=== PATIENT | female | born 1940 | race Two or more races ===

== ENCOUNTER 2018-01-08 14:16 | Inpatient (IN) | payer OTHER, MEDICARE ==
[2018-01-08 15:49] LABS: BASO % 0.5 % (0-2.0); EOS % 0.5 % (0-4.5); HEMATOCRIT 34.5 % (32.4-45.2); LYMPH % 16.3 % (8-40); MCH 29.9 pg (25.7-33.7); MCHC 34.8 g/dl (32.0-36.0); MEAN CELL VOLUME 86.1 fl (80-96); MEAN PLT VOLUME 9.2 fl (7.5-11.1); NEUT % 77.7 % (42.8-82.8); PLATELET COUNT 241 K/MM3 (134-434); RBC 4.01 M/mm3 (3.60-5.2); RDW 12.3 % (11.6-15.6); WHITE BLOOD COUNT 10.1 K/mm3 (4.0-10.0)
--- NOTE | 2018-01-08 15:50 | PDOC ---
History of Present Illness <Isael Zee - Last Filed: 01/08/18 18:42> - General History Source: Patient Exam Limitations: No Limitations - History of Present Illness Initial Comments: 01/08/18 15:53 Patient is a 77F with history of IDDM and UTI, currently on cipro, here today complaining of slurred speech and trouble balancing. She states that yesterday at lunch she had an episode of slurred speech that resolved after about 15 minutes. She then started feeling dizzy and unbalanced after walking. She denies headache, chest pain, shortness of breath. She denies fevers, chills, nausea, vomiting. She endorses a family history of stroke. <Eitan Schuler - Last Filed: 01/08/18 18:50> - General Chief Complaint: CVA/TIA Stated Complaint: DIZZINESS Time Seen by Provider: 01/08/18 14:55 Past History <Isael Zee - Last Filed: 01/08/18 18:42> - Past Medical History COPD: No Diabetes: Yes - Suicide/Smoking/Psychosocial Hx Smoking History: Never smoked Have you smoked in the past 12 months: No Information on smoking cessation initiated: No Hx Alcohol Use: No Drug/Substance Use Hx: No <Eitan Schuler - Last Filed: 01/08/18 18:50> - Past Medical History Allergies/Adverse Reactions: Allergies Allergy/AdvReac Type Severity Reaction Status Date / Time No Known Allergies Allergy Verified 01/08/18 14:34 Review of Systems - Review of Systems Comments:: 01/08/18 15:57 GENERAL/CONSTITUTIONAL: No fever or chills. No weakness. HEAD, EYES, EARS, NOSE AND THROAT: No change in vision. No sore throat. CARDIOVASCULAR: No chest pain or shortness of breath RESPIRATORY: No cough, wheezing, or hemoptysis. GASTROINTESTINAL: No nausea, vomiting, diarrhea or constipation. GENITOURINARY: No dysuria, frequency, or change in urination. MUSCULOSKELETAL: No joint or muscle swelling or pain. No neck or back pain. SKIN: No rash NEUROLOGIC: No headache, loss of consciousness, or change in strength/sensation. HEMATOLOGIC/LYMPHATIC: No anemia, easy bleeding, or history of blood clots. ALLERGIC/IMMUNOLOGIC: No hives or skin allergy. <Eitan Schuler - Last Filed: 01/08/18 18:50> *Physical Exam - Vital Signs Last Vital Signs Temp Pulse Resp BP Pulse Ox 98.2 F 90 17 144/77 97 01/08/18 14:29 01/08/18 17:13 01/08/18 17:13 01/08/18 17:13 01/08/18 17:13 <Isael Zee - Last Filed: 01/08/18 18:42> - Vital Signs Last Vital Signs Temp Pulse Resp BP Pulse Ox 98.2 F 85 20 152/66 95 01/08/18 14:29 01/08/18 14:29 01/08/18 14:29 01/08/18 14:29 01/08/18 14:29 - Physical Exam Comments: 01/08/18 15:59 GENERAL: Awake, alert, and fully oriented, in no acute distress HEAD: No signs of trauma, normocephalic, atraumatic EYES: PERRLA, EOMI, sclera anicteric, conjunctiva clear ENT: Auricles normal inspection, hearing grossly normal, nares patent, oropharynx clear without exudates. Moist mucosa NECK: Normal ROM, supple, no lymphadenopathy, JVD, or masses LUNGS: No distress, speaks full sentences, clear to auscultation bilaterally HEART: Regular rate and rhythm, normal S1 and S2, no murmurs, rubs or gallops, peripheral pulses normal and equal bilaterally. ABDOMEN: Soft, nontender, normoactive bowel sounds. No guarding, no rebound. No masses EXTREMITIES: Normal inspection, Normal range of motion, no edema. No clubbing or cyanosis. NEUROLOGICAL: Cranial nerves II through XII grossly intact. Normal speech, no focal sensorimotor deficits SKIN: Warm, Dry, normal turgor, no rashes or lesions noted. <Eitan Schuler - Last Filed: 01/08/18 18:50> TIA Risk Factors - ABCD Score Age: Age = or > 60 Blood Pressure: SBP =/> 140 (moderate risk) Clinical Features of TIA: Speech impair w/o uni wk Duration: TIA duration 10-59 min Diabetes: Yes Total ABCD2 Score (0-7):: 5 <Eitan Schuler - Last Filed: 01/08/18 18:50> Critical Care Time/MDM Note - Medical Decision Making Note: Dr. Kumar was called regarding the patient at 5:40pm, 6pm, 6:20pm and 6:42pm [phone] <Isael Zee - Last Filed: 01/08/18 18:42> - Medical Decision Making Note: 01/08/18 16:01 Patient is a 77F with history of DM here today complaining of TIA symptoms. Vital signs stable, slightly hypertensive. Moderate risk for ABCD2 score. Differential diagnosis includes, but is not limited to: TIA, cipro reaction, UTI. Will work up and admit for TIA. EKG shows normal sinus rhythm with normal rate (87). No st elevations/ depressions. No significant t wave abnormalities. Normal QRS/QTc/NH intervals. Normal axis. 01/08/18 16:[address] shows no acute process. 01/08/18 17:27 Laboratory Tests 01/08/18 01/08/18 01/08/18 15:31 15:31 15:31 WBC 10.1 H Hgb 12.0 Hct 34.5 Plt Count 241 INR 1.06 BUN 22 H Creatinine 1.3 H Creat Clearance w eGFR 39.82 Random Glucose 447 H* Troponin I < 0.02 CBC normal. INR normal. CMP shows decreased kidney function. Glucose elevated to 447. Trop undetectable. K normal. Patient has not taken insulin today. Will give 5U insulin and fluids. No anion gap. Do not suspect DKA. 01/08/18 18:[address] Nunn. <Eitan Schuler - Last Filed: 01/08/18 18:50> Discharge Disposition <Isael Zee - Last Filed: 01/08/18 18:42> - Discharge Dispostion Admit: Yes <Eitan Schuler - Last Filed: 01/08/18 18:50> - Diagnosis TIA (transient ischemic attack) - Discharge Dispostion Condition at time of disposition: Stable - Referrals Referrals: Beatrice Carlton [Primary Care Provider] - - Patient Instructions - Post Discharge Activity
[2018-01-08 16:02] LABS: INR 1.06 (0.82-1.09)
[2018-01-08 16:12] LABS: ALBUMIN 3.2 g/dl (3.4-5.0); ANION GAP 10 (8-16); BILIRUBIN,TOTAL 0.5 mg/dL (0.2-1.0); BLOOD UREA NITROGEN 22 mg/dL (7-18); CALCIUM 8.1 mg/dL (8.5-10.1); CHLORIDE 99 mmol/L (98-107); CHOLESTEROL 206 mg/dL (50-200); CO2 23 mmol/L (21-32); CREATININE 1.3 mg/dL (0.55-1.02); LDL CHOLESTEROL (ONLY SJRH) 140 mg/dL (5-100); POTASSIUM 4.5 mmol/L (3.5-5.1); SGOT/AST 10 U/L (15-37); SGPT/ALT 21 U/L (12-78); SODIUM 132 mmol/L (136-145); TOT PROT 6.3 g/dl (6.4-8.2); TRIGLYCERIDES 202 mg/dL (35-160)
[2018-01-08 16:13] LABS: ALK PHOS 122 U/L (45-117); HDL CHOLESTEROL 38 mg/dL (40-60)
[2018-01-08 16:21] LABS: GLUCOSE,RANDOM 447 mg/dL (74-106)
[2018-01-08] MEDS ORDERED: SODIUM CHLORIDE 1,000 ML IV STA (16:59)
[2018-01-08] MEDS ORDERED: INSULIN REGULAR HUMAN 100 UNITS/ML *VIAL IVPUSH ONE (16:59)
--- NOTE | 2018-01-08 17:06 | PDOC ---
Attending Attestation - Resident Resident Name: Eitan Schuler - ED Attending Attestation I have performed the following: I have examined & evaluated the patient, The case was reviewed & discussed with the resident, I agree w/resident's findings & plan, Exceptions are as noted - HPI HPI: Ms Frazier is a 77 yo F with a history of IDDM, UTI currently on cipro reporting slurred speech Pt states that yesterday while at lunch, she had an episode of slurred speech that lasted 15 minutes and self resolved She had felt unbalanced She denies headache, chest pain, shortness of breath. She denies fevers, chills, nausea, vomiting. - Physicial Exam PE: 01/08/18 17:06 01/08/18 15:59 GENERAL: Awake, alert, and fully oriented, in no acute distress HEAD: No signs of trauma, normocephalic, atraumatic EYES: PERRLA, EOMI, sclera anicteric, conjunctiva clear ENT: Auricles normal inspection, hearing grossly normal, nares patent, oropharynx clear without exudates. Moist mucosa NECK: Normal ROM, supple, no lymphadenopathy, JVD, or masses LUNGS: No distress, speaks full sentences, clear to auscultation bilaterally HEART: Regular rate and rhythm, normal S1 and S2, no murmurs, rubs or gallops, peripheral pulses normal and equal bilaterally. ABDOMEN: Soft, nontender, normoactive bowel sounds. No guarding, no rebound. No masses EXTREMITIES: Normal inspection, Normal range of motion, no edema. No clubbing or cyanosis. NEUROLOGICAL: Cranial nerves II through XII grossly intact. Normal speech, no focal sensorimotor deficits SKIN: Warm, Dry, normal turgor, no rashes or lesions noted. - Medical Decision Making 01/08/18 17:06 77 yo female presented to emergency department with a complaint of dizziness, unsteady gait, lightheadedness No headache, No head trauma No focal weakness or numbess DD: CVA, TIA, Vertigo unlilkely Laboratory Tests 01/08/18 01/08/18 01/08/18 15:31 15:31 15:31 WBC 10.1 H Hgb 12.0 Hct 34.5 Plt Count 241 INR 1.06 Sodium 132 L Potassium 4.5 Chloride 99 Carbon Dioxide 23 BUN 22 H Creatinine 1.3 H Random Glucose 447 H* Creatine Kinase 38 Troponin I < 0.02 Triglycerides 202 H Cholesterol 206 H Total LDL Cholesterol 140 H HDL Cholesterol 38 L Will plan to admit Pt hyperglycemic Will given insulin and IV fluids Re assess Pt to be admitted Pt signed out to 4pm attending - Dr Laird Pt being followed by Dr Schuler primarily
[2018-01-08] MEDS ORDERED: INSULIN REGULAR HUMAN 100 UNITS/ML *VIAL ONE (17:16)
--- NOTE | 2018-01-08 19:05 | PDOC ---
*Physical Exam - Vital Signs Last Vital Signs Temp Pulse Resp BP Pulse Ox 98.2 F 90 17 144/77 97 01/08/18 14:29 01/08/18 17:13 01/08/18 17:13 01/08/18 17:13 01/08/18 17:13 ED Treatment Course - LABORATORY CBC & Chemistry Diagram: 01/08/18 15:31 01/08/18 15:31 - ADDITIONAL ORDERS Additional order review: Laboratory Results 01/08/18 01/08/18 15:31 15:31 PT with INR 12.00 H INR 1.06 Sodium 132 L Potassium 4.5 Chloride 99 Carbon Dioxide 23 Anion Gap 10 BUN 22 H Creatinine 1.3 H Creat Clearance w eGFR 39.82 Random Glucose 447 H* Calcium 8.1 L Total Bilirubin 0.5 AST 10 L ALT 21 Alkaline Phosphatase 122 H Creatine Kinase 38 Troponin I < 0.02 Total Protein 6.3 L Albumin 3.2 L Triglycerides 202 H Cholesterol 206 H Total LDL Cholesterol 140 H HDL Cholesterol 38 L 01/08/18 15:31 RBC 4.01 MCV 86.1 MCHC 34.8 RDW 12.3 MPV 9.2 Neutrophils % 77.7 Lymphocytes % 16.3 Monocytes % 5.0 Eosinophils % 0.5 Basophils % 0.5 - Medications Given in the ED: ED Medications Discontinued Medications Generic Name Dose Route Start Last Admin Trade Name Freq PRN Reason Stop Dose Admin Sodium Chloride 1,000 mls @ 1,000 mls/hr 01/08/18 16:59 01/08/18 17:25 Normal Saline - IV 01/08/18 17:58 1,000 mls/hr ASDIR STA Administration Insulin Human Regular 5 units 01/08/18 16:59 01/08/18 17:25 Novolin R Vial *For Ivpush Or Iv Drip Only* IVPUSH 01/08/18 17:00 5 units ONCE ONE Administration *DC/Admit/Observation/Transfer Diagnosis at time of Disposition: TIA (transient ischemic attack) Qualifiers: Transient cerebral ischemia type: unspecified Qualified Code(s): G45.9 - Transient cerebral ischemic attack, unspecified - Discharge Dispostion Condition at time of disposition: Stable Admit: Yes - Referrals Referrals: Beatrice Carlton [Primary Care Provider] - - Patient Instructions - Post Discharge Activity
--- NOTE | 2018-01-08 20:43 | HP ---
Admitting History and Physical - Admission History of Present Illness: 01/08/18 15:53 Patient is a 77F with history of IDDM and UTI, currently on cipro, here today complaining of slurred speech and trouble balancing. She states that yesterday at lunch she had an episode of slurred speech that resolved after about 15 minutes. She then started feeling dizzy and unbalanced after walking. She denies headache, chest pain, shortness of breath. She denies fevers, chills, nausea, vomiting. She endorses a family history of stroke. History Source: Medical Record, Caregiver Limitations to Obtaining History: Clinical Condition - Past Medical History Pulmonary: Yes: COPD Gastrointestinal: Yes: Constipation, GI Bleed Renal/: Yes: Renal Inusuff ...: No Endocrine: Yes: Diabetes Mellitus (since she was 51 y/o) - Past Surgical History Past Surgical History: Yes: Joint Replacement (both knees X2 / both hips / surgey on right shoulder) - Smoking History Smoking history: Never smoked Have you smoked in the past 12 months: No - Alcohol/Substance Use Hx Alcohol Use: No - Social History Usual Living Arrangement: Yes: Assisted Living ADL: Support Services History of Recent Travel: No Home Medications - Allergies Allergies/Adverse Reactions: Allergies Allergy/AdvReac Type Severity Reaction Status Date / Time diazepam Allergy Verified 01/08/18 20:33 sulfur dioxide Allergy Verified 01/08/18 20:32 Review of Systems - Review of Systems Constitutional: reports: No Symptoms. denies: Chills, Fever, Loss of Appetite, Malaise, Night Sweats Eyes: reports: No Symptoms HENT: reports: No Symptoms Neck: reports: No Symptoms Cardiovascular: reports: No Symptoms. denies: Chest Pain, Palpitations Respiratory: reports: No Symptoms. denies: Cough, SOB Gastrointestinal: reports: No Symptoms Genitourinary: reports: No Symptoms Breasts: reports: No Symptoms Reported Musculoskeletal: reports: Back Pain, Decreased ROM (upper extremeties right decreased ROM>left), Joint Pain Integumentary: reports: No Symptoms Neurological: reports: Pre-Existing Deficit, Unsteady Gait Endocrine: denies: Excessive Sweating, Increased Hunger, Increased Thirst, Unexplained Weight Gain, Unexplained Weight Loss Hematology/Lymphatic: reports: No Symptoms Psychiatric: reports: No Symptoms Physical Examination Vital Signs: Vital Signs Temperature 98.2 F 01/08/18 14:29 Pulse Rate 90 01/08/18 17:13 Respiratory Rate 17 01/08/18 17:13 Blood Pressure 144/77 01/08/18 17:13 O2 Sat by Pulse Oximetry (%) 97 01/08/18 17:13 Constitutional: Yes: Well Nourished, No Distress, Obese Eyes: Yes: Conjunctiva Clear, EOM Intact HENT: Yes: Atraumatic, Normocephalic Neck: Yes: Supple, Trachea Midline Cardiovascular: Yes: Regular Rate and Rhythm Respiratory: Yes: Regular, CTA Bilaterally Gastrointestinal: Yes: Normal Bowel Sounds, Soft, Abdomen, Obese ...Rectal Exam: Yes: Deferred Renal/: Yes: WNL Breast(s): Yes: WNL Musculoskeletal: Yes: Back Pain, Joint Stiffness, Muscle Pain, Muscle Weakness, Other (decreased ROM UE) Edema: No Peripheral Pulses WNL: Yes Integumentary: Yes: WNL Neurological: Yes: Alert, Oriented, Pre-Existing Deficit, Unsteady Gait Psychiatric: Yes: Alert, Oriented Labs: CBC, BMP 01/08/18 15:31 01/08/18 15:31 Problem List - Problems (1) Diabetes mellitus Code(s): E11.9 - TYPE 2 DIABETES MELLITUS WITHOUT COMPLICATIONS Qualifiers: Diabetes mellitus type: type 2 Diabetes mellitus complication status: with neurologic complications 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
[2018-01-08 21:11] LABS: URINE APPEARANCE SLCLOUDY; URINE BILIRUBIN NEGATIVE (NEGATIVE); URINE BLOOD 1+ (NEGATIVE); URINE COLOR LTYELLOW; URINE GLUCOSE (UA) 3+ (NEGATIVE); URINE KETONE NEGATIVE (NEGATIVE); URINE NITRITE NEGATIVE (NEGATIVE); URINE UROBILINOGEN NEGATIVE mg/dL (0.2-1.0)
[2018-01-08 21:17] LABS: URINE LEUK ESTERASE 1+ (NEGATIVE); URINE PROTEIN 2+ (NEGATIVE)
[2018-01-08 21:18] LABS: EPI CELLS RARE /HPF (FEW); URINE BACTERIA RARE /hpf (NONE SEEN); URINE HYALINE CAST 2 /lpf; URINE MUCUS RARE
[2018-01-09] MEDS: INSULIN SLIDING SCALE (NOVOLOG) 1 VIAL SQ SCH ×5 (00:08→22:04)
[2018-01-09] MEDS: DOCUSATE SODIUM 100 MG CAPSULE (FP) PO SCH ×3 (00:09→22:04)
[2018-01-09] MEDS: ATORVASTATIN CA 40 MG TABLET (FP) PO SCH ×2 (00:09→22:04)
[2018-01-09 00:29] VITALS: BMI 29.9
[2018-01-09] MEDS: BUDESONIDE/FORMETEROL FUMARATE 160/4.5 mcg INHALER IH SCH ×3 (00:29→22:04)
[2018-01-09] MEDS: risperiDONE 0.5 MG TABLET (FP) PO SCH ×2 (00:30→22:04)
[2018-01-09] MEDS ORDERED: PT OWN MED DRAWER 7, Y5N ONE ×2 (00:37→08:04)
[2018-01-09] MEDS: sitaGLIPtin PHOSPHATE 50 MG TABLET PO SCH ×2 (06:23→06:35)
[2018-01-09] MEDS: metFORMIN HCL 500 MG TABLET (FP) PO SCH ×3 (06:23→17:09)
[2018-01-09 07:13] LABS: BASO % 0.5 % (0-2.0); HEMATOCRIT 31.3 % (32.4-45.2); HEMOGLOBIN 10.9 GM/dL (10.7-15.3); LYMPH % 20.2 % (8-40); MCH 29.7 pg (25.7-33.7); MCHC 34.9 g/dl (32.0-36.0); MEAN CELL VOLUME 85.1 fl (80-96); MEAN PLT VOLUME 8.9 fl (7.5-11.1); MONO % 8.1 % (3.8-10.2); NEUT % 70.2 % (42.8-82.8); PLATELET COUNT 214 K/MM3 (134-434); RBC 3.67 M/mm3 (3.60-5.2); RDW 12.6 % (11.6-15.6); WHITE BLOOD COUNT 10.6 K/mm3 (4.0-10.0)
[2018-01-09 07:24] LABS: ALBUMIN 2.9 g/dl (3.4-5.0); ANION GAP 10 (8-16); BLOOD UREA NITROGEN 19 mg/dL (7-18); CALCIUM 7.8 mg/dL (8.5-10.1); CHLORIDE 106 mmol/L (98-107); CO2 23 mmol/L (21-32); GLUCOSE,RANDOM 270 mg/dL (74-106); MAGNESIUM 1.4 mg/dL (1.8-2.4); POTASSIUM 4.1 mmol/L (3.5-5.1); SGPT/ALT 19 U/L (12-78); SODIUM 139 mmol/L (136-145)
[2018-01-09 07:28] LABS: ALK PHOS 105 U/L (45-117); BILIRUBIN,TOTAL 0.3 mg/dL (0.2-1.0); CHOLESTEROL 199 mg/dL (50-200); CREATININE 1.1 mg/dL (0.55-1.02); HDL CHOLESTEROL 34 mg/dL (40-60); LDL CHOLESTEROL (ONLY SJRH) 133 mg/dL (5-100); SGOT/AST 9 U/L (15-37); TOT PROT 5.6 g/dl (6.4-8.2); TRIGLYCERIDES 174 mg/dL (35-160)
[2018-01-09] MEDS: ALBUTEROL SO4 2.5/IPRATROPIUM 0.5 INH SOL 3 ML VIAL.NEB. NEB SCH ×5 (07:40→20:15)
[2018-01-09] MEDS: LISINOPRIL 5 MG TABLET (FP) PO SCH (09:59)
[2018-01-09] MEDS: POLYETHYLENE GLYCOL 3350 119 GM BTL PO SCH (10:02)
[2018-01-09] MEDS: VENLAFAXINE HCL 37.5 MG E.R. CAPSULE (FP) PO SCH (10:38)
--- NOTE | 2018-01-09 14:25 | EKG ---
Test Reason : Blood Pressure : / mmHG Vent. Rate : 087 BPM Atrial Rate : 087 BPM P-R Int : 146 ms QRS Dur : 076 ms QT Int : 358 ms P-R-T Axes : 010 -14 070 degrees QTc Int : 430 ms NORMAL SINUS RHYTHM MINIMAL VOLTAGE CRITERIA FOR LVH, MAY BE NORMAL VARIANT ABNORMAL ECG NO PREVIOUS ECGS AVAILABLE Confirmed by MD Pilo, Luiz ([id number]) on 01/09/2018 2:25:05 PM Referred By: Confirmed By:Luiz Daigle MD
[2018-01-09] MEDS ORDERED: MAGNESIUM SULFATE IN WATER 2 GM/50 ML IVPB IVPB ONE (15:00)
--- NOTE | 2018-01-09 22:19 | PN ---
Progress Note (short form) - Note Progress Note: seen and examined in bed anxious about events but feels like she is "herself" admits this has happened once before reports no headache / no warning sign she reports woke up "not feeling herself" then noted difficulty with her speech at lunch room the slurred speech / muscle weakness resolved in about 90 min. (hx as per patient) Vital Signs Period Temp Pulse Resp BP Sys/Bangura Pulse Ox Last 24 Hr 98 F-99.0 F 82-88 18-20 131-172/47-88 95-95 neck supple hear S1/S2 lungs clear bilat abd obese / soft nontender ext no edema / no cyanosis / decreased sensory at feet CBCD WBC 10.6 K/mm3 (4.0-10.0) H 01/09/18 06:30 RBC 3.67 M/mm3 (3.60-5.2) 01/09/18 06:30 Hgb 10.9 GM/dL (10.7-15.3) 01/09/18 06:30 Hct 31.3 % (32.4-45.2) L 01/09/18 06:30 MCV 85.1 fl (80-96) 01/09/18 06:30 MCHC 34.9 g/dl (32.0-36.0) 01/09/18 06:30 RDW 12.6 % (11.6-15.6) 01/09/18 06:30 Plt Count 214 K/MM3 (134-434) 01/09/18 06:30 MPV 8.9 fl (7.5-11.1) 01/09/18 06:30 CMP Sodium 139 mmol/L (136-145) 01/09/18 06:30 Potassium 4.1 mmol/L (3.5-5.1) 01/09/18 06:30 Chloride 106 mmol/L (98-107) 01/09/18 06:30 Carbon Dioxide 23 mmol/L (21-32) 01/09/18 06:30 Anion Gap 10 (8-16) 01/09/18 06:30 BUN 19 mg/dL (7-18) H 01/09/18 06:30 Creatinine 1.1 mg/dL (0.55-1.02) H 01/09/18 06:30 Creat Clearance w eGFR 48.29 (>60) 01/09/18 06:30 Calcium 7.8 mg/dL (8.5-10.1) L 01/09/18 06:30 Total Bilirubin 0.3 mg/dL (0.2-1.0) D 01/09/18 06:30 AST 9 U/L (15-37) L 01/09/18 06:30 ALT 19 U/L (12-78) 01/09/18 06:30 Alkaline Phosphatase 105 U/L (45-117) 01/09/18 06:30 Total Protein 5.6 g/dl (6.4-8.2) L 01/09/18 06:30 Albumin 2.9 g/dl (3.4-5.0) L 01/09/18 06:30 A1c = 11.8 Active Medications Albuterol/Ipratropium (Duoneb -) 1 amp NEB RQID [facility] Last Admin: 01/09/18 20:15 Dose: Not Given Atorvastatin Calcium (Lipitor -) 40 mg PO [facility] Last Admin: 01/09/18 22:04 Dose: 40 mg Budesonide/Formoterol Fumarate (Symbicort 160/4.5mcg -) 2 puff IH BID [facility] Last Admin: 01/09/18 22:04 Dose: 2 puff Docusate Sodium (Colace -) 100 mg PO BID [facility] Last Admin: 01/09/18 22:04 Dose: 100 mg Insulin Aspart (Novolog Vial Sliding Scale -) 1 vial SQ ACHS [facility] PRN Reason: Protocol Last Admin: 01/09/18 22:04 Dose: 4 units Lisinopril (Prinivil) 5 mg PO DAILY [facility] Last Admin: 01/09/18 09:59 Dose: 5 mg Metformin HCl (Glucophage -) 1,000 mg PO BID@0700,1630 [facility] Last Admin: 01/09/18 17:09 Dose: 1,000 mg Polyethylene Glycol (Miralax (For Daily Use) -) 17 gm PO DAILY [facility] Last Admin: 01/09/18 10:02 Dose: 17 gm Risperidone (Risperdal -) 0.5 mg PO [facility] Last Admin: 01/09/18 22:04 Dose: 0.5 mg Sitagliptin Phosphate (Januvia -) 100 mg PO DAILY@0700 [facility] Last Admin: 01/09/18 06:35 Dose: Not Given Venlafaxine HCl (Effexor Xr -) 37.5 mg PO DAILY@0800 [facility] Last Admin: 01/09/18 10:38 Dose: 37.5 mg assmt / plan # TIA appreciate Neuro eval CT without acute finding speech eval physical therapy # DM uncontrolled sliddig scale resume meds A1c 11.8 nutrition counseling Add ACEi add statins fasting lipids # neuropathy 2/2 to DM # obese if maintains DM diet will lose weight discussed diet extensively with patient Problem List - Problems (1) TIA (transient ischemic attack) Code(s): G45.9 - TRANSIENT CEREBRAL ISCHEMIC ATTACK, UNSPECIFIED Qualifiers: Transient cerebral ischemia type: unspecified Qualified Code(s): G45.9 - Transient cerebral ischemic attack, unspecified (2) Diabetes mellitus Code(s): E11.9 - TYPE 2 DIABETES MELLITUS WITHOUT COMPLICATIONS Qualifiers: Diabetes mellitus type: type 2 Diabetes mellitus complication status: with neurologic complications 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
[2018-01-10] MEDS: INSULIN SLIDING SCALE (NOVOLOG) 1 VIAL SQ SCH ×5 (06:28→22:33)
[2018-01-10] MEDS: metFORMIN HCL 500 MG TABLET (FP) PO SCH ×2 (06:30→18:10)
[2018-01-10] MEDS: sitaGLIPtin PHOSPHATE 50 MG TABLET PO SCH (06:30)
[2018-01-10 07:03] LABS: BASO % 0.6 % (0-2.0); HEMATOCRIT 30.7 % (32.4-45.2); HEMOGLOBIN 10.7 GM/dL (10.7-15.3); LYMPH % 22.9 % (8-40); MCH 29.6 pg (25.7-33.7); MCHC 34.9 g/dl (32.0-36.0); MEAN CELL VOLUME 84.8 fl (80-96); MEAN PLT VOLUME 8.3 fl (7.5-11.1); MONO % 7.2 % (3.8-10.2); NEUT % 68.3 % (42.8-82.8); PLATELET COUNT 224 K/MM3 (134-434); RBC 3.63 M/mm3 (3.60-5.2); RDW 12.7 % (11.6-15.6); WHITE BLOOD COUNT 10.5 K/mm3 (4.0-10.0)
[2018-01-10 07:21] LABS: ANION GAP 9 (8-16); BLOOD UREA NITROGEN 23 mg/dL (7-18); CALCIUM 8.2 mg/dL (8.5-10.1); CHLORIDE 104 mmol/L (98-107); CO2 24 mmol/L (21-32); CREATININE 1.1 mg/dL (0.55-1.02); GLUCOSE,RANDOM 298 mg/dL (74-106); POTASSIUM 4.6 mmol/L (3.5-5.1); SODIUM 137 mmol/L (136-145)
[2018-01-10] MEDS: ALBUTEROL SO4 2.5/IPRATROPIUM 0.5 INH SOL 3 ML VIAL.NEB. NEB SCH ×4 (08:17→21:30)
[2018-01-10] MEDS: VENLAFAXINE HCL 37.5 MG E.R. CAPSULE (FP) PO SCH (09:18)
[2018-01-10] MEDS: BUDESONIDE/FORMETEROL FUMARATE 160/4.5 mcg INHALER IH SCH ×2 (09:18→21:25)
[2018-01-10] MEDS: POLYETHYLENE GLYCOL 3350 119 GM BTL PO SCH (09:18)
[2018-01-10] MEDS: DOCUSATE SODIUM 100 MG CAPSULE (FP) PO SCH ×2 (09:18→21:17)
[2018-01-10] MEDS: LISINOPRIL 5 MG TABLET (FP) PO SCH (09:18)
--- NOTE | 2018-01-10 12:58 | PN ---
Progress Note (short form) - Note Progress Note: seen and examined in bed appears back to baseline Vital Signs Period Temp Pulse Resp BP Sys/Bangura Pulse Ox Last 24 Hr 98 F-99.0 F 82-88 18-20 131-172/47-88 95-95 neck supple hear S1/S2 lungs clear bilat abd obese / soft nontender ext no edema / no cyanosis / decreased sensory at feet CBCD WBC 10.5 K/mm3 (4.0-10.0) H 01/10/18 05:05 RBC 3.63 M/mm3 (3.60-5.2) 01/10/18 05:05 Hgb 10.7 GM/dL (10.7-15.3) 01/10/18 05:05 Hct 30.7 % (32.4-45.2) L 01/10/18 05:05 MCV 84.8 fl (80-96) 01/10/18 05:05 MCHC 34.9 g/dl (32.0-36.0) 01/10/18 05:05 RDW 12.7 % (11.6-15.6) 01/10/18 05:05 Plt Count 224 K/MM3 (134-434) 01/10/18 05:05 MPV 8.3 fl (7.5-11.1) 01/10/18 05:05 CMP Sodium 137 mmol/L (136-145) 01/10/18 05:05 Potassium 4.6 mmol/L (3.5-5.1) 01/10/18 05:05 Chloride 104 mmol/L (98-107) 01/10/18 05:05 Carbon Dioxide 24 mmol/L (21-32) 01/10/18 05:05 Anion Gap 9 (8-16) 01/10/18 05:05 BUN 23 mg/dL (7-18) H 01/10/18 05:05 Creatinine 1.1 mg/dL (0.55-1.02) H 01/10/18 05:05 Creat Clearance w eGFR 48.29 (>60) 01/09/18 06:30 Calcium 8.2 mg/dL (8.5-10.1) L 01/10/18 05:05 Total Bilirubin 0.3 mg/dL (0.2-1.0) D 01/09/18 06:30 AST 9 U/L (15-37) L 01/09/18 06:30 ALT 19 U/L (12-78) 01/09/18 06:30 Alkaline Phosphatase 105 U/L (45-117) 01/09/18 06:30 Total Protein 5.6 g/dl (6.4-8.2) L 01/09/18 06:30 Albumin 2.9 g/dl (3.4-5.0) L 01/09/18 06:30 A1c = 11.8 Active Medications Albuterol/Ipratropium (Duoneb -) 1 amp NEB RQID [facility]S [facility] 234 BEDS AT [facility] Last Admin: 01/10/18 11:39 Dose: Not Given Atorvastatin Calcium (Lipitor -) 40 mg PO HS COUNTS INCLUDE 234 BEDS AT [facility] Last Admin: 01/09/18 22:04 Dose: 40 mg Budesonide/Formoterol Fumarate (Symbicort 160/4.5mcg -) 2 puff IH BID COUNTS [facility]CLUDE 234 BEDS AT [facility] Last Admin: 01/10/18 09:18 Dose: 2 puff Docusate Sodium (Colace -) 100 mg PO BID [facility]S [facility]CLUDE 234 BEDS AT [facility] Last Admin: 01/10/18 09:18 Dose: 100 mg Insulin Aspart (Novolog Vial Sliding Scale -) 1 vial SQ ACHS [facility]S [facility]CLUDE 234 BEDS AT [facility] PRN Reason: Protocol Last Admin: 01/10/18 06:28 Dose: 4 units Lisinopril (Prinivil) 5 mg PO DAILY [facility]S [facility]CLUDE 234 BEDS AT [facility] Last Admin: 01/10/18 09:18 Dose: 5 mg Metformin HCl (Glucophage -) 1,000 mg PO BID@0700,1630 COUNTS [facility]CLUDE 234 BEDS AT [facility] Last Admin: 01/10/18 06:30 Dose: 1,000 mg Polyethylene Glycol (Miralax (For Daily Use) -) 17 gm PO DAILY [facility]S [facility]CLUDE 234 BEDS AT [facility] Last Admin: 01/10/18 09:18 Dose: Not Given Risperidone (Risperdal -) 0.5 mg PO HS COUNTS [facility]CLUDE 234 BEDS AT [facility] Last Admin: 01/09/18 22:04 Dose: 0.5 mg Sitagliptin Phosphate (Januvia -) 100 mg PO DAILY@0700 [facility]S [facility]CLUDE 234 BEDS AT [facility] Last Admin: 01/10/18 06:30 Dose: 100 mg Venlafaxine HCl (Effexor Xr -) 37.5 mg PO DAILY@0800 COUNTS [facility]CLUDE 234 BEDS AT [facility] Last Admin: 01/10/18 09:18 Dose: 37.5 mg assmt / plan # TIA await Neuro eval CT without acute finding/ MRI ordered physical therapy - unsteady gait # DM uncontrolled sliding scale resume meds A1c 11.8 nutrition counseling Add ACEi add statins fasting lipids # neuropathy 2/2 to DM # obese if maintains DM diet will lose weight discussed diet extensively with patient accepting nutrition counseling / improved FS Problem List - Problems (1) TIA (transient ischemic attack) Code(s): G45.9 - TRANSIENT CEREBRAL ISCHEMIC ATTACK, UNSPECIFIED Qualifiers: Transient cerebral ischemia type: unspecified Qualified Code(s): G45.9 - Transient cerebral ischemic attack, unspecified (2) Diabetes mellitus Code(s): E11.9 - TYPE 2 DIABETES MELLITUS WITHOUT COMPLICATIONS Qualifiers: Diabetes mellitus type: type 2 Diabetes mellitus complication status: with neurologic complications Diabetes 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
--- NOTE | 2018-01-10 16:50 | CONSULT ---
Consult - text type - Consultation Consultation Note: NEUROLOGY CONSULTATION is greatly appreciated: This 77 yo RH woman with 2 sons is a [facility] with PMH sig for DM (20 yrs), HTN, Chol, and depression. OA: s/p B/L TKR and THR. Has walked with a walker x 4 yrs since her Left THR. On albuterol, atorvastatin, insulin, lisinopril, metformin, Januvia, venlafaxine and respiral (.5 HS). Recently on Cipro for UTI (4 pills left at [facility] On 3/5 felt unwell, unsteady, and had 2 20 min episodes of slurred speech +/- word finding difficulty. In ER CT of head (reviewed): Mild atrophy and scattered microvascular changes. Glucose= 447 mg%; WBC= 10 K; Urine WBC= 39K JUN: No bruits, No head trauma, Cor:Reg NEURO: Awake, alert, O x 3. MS/ speech : Normal CN II-XII: Normal Motor: No drift (But mild right arm dystonia on sustention). Normal strenght. Reduced KJ's. Absent AJ's. Toes downgoing. Coord: No FTN Dystaxia Sensory: Reduced vib in toes. Normal at ankles. Romberg- Gait: Sl wide-based, sl shuffling. IMP: Non-focal neurological exam Mild diabetic peripheral neuropathy Cannot full exclude left cerebral TIA but strongly suspect admission was due to Toxic-Meteabolic encephalopathy due to UTI and hyperglycemia. SUGGEST: Repeat UA, C&S and Rx IV while patient is here. ID consult if desired. Check B12, TSH MRI of brain (C-) Carotid duplex dopplers Mobilize Pt OO Bed to chair and ambulate with PT and walker. Thank you very much, Kaz Pedersen MD
[2018-01-10 19:26] LABS: URINE APPEARANCE CLEAR; URINE BILIRUBIN NEGATIVE (NEGATIVE); URINE BLOOD 2+ (NEGATIVE); URINE COLOR LTYELLOW; URINE GLUCOSE (UA) 3+ (NEGATIVE); URINE KETONE NEGATIVE (NEGATIVE); URINE LEUK ESTERASE TRACE (NEGATIVE); URINE NITRITE NEGATIVE (NEGATIVE); URINE UROBILINOGEN NEGATIVE mg/dL (0.2-1.0)
[2018-01-10 20:47] LABS: URINE PROTEIN 2+ (NEGATIVE)
[2018-01-10] MEDS: ATORVASTATIN CA 40 MG TABLET (FP) PO SCH (21:17)
[2018-01-10 21:18] LABS: EPI CELLS RARE /HPF (FEW)
[2018-01-10] MEDS ORDERED: PT OWN MED DRAWER 7, Y5N ONE (21:20)
[2018-01-10] MEDS: risperiDONE 0.5 MG TABLET (FP) PO SCH (21:25)
[2018-01-11] MEDS: sitaGLIPtin PHOSPHATE 50 MG TABLET PO SCH (06:26)
[2018-01-11] MEDS: metFORMIN HCL 500 MG TABLET (FP) PO SCH ×2 (06:26→17:02)
[2018-01-11] MEDS: INSULIN SLIDING SCALE (NOVOLOG) 1 VIAL SQ SCH ×4 (06:27→21:47)
[2018-01-11] MEDS: ALBUTEROL SO4 2.5/IPRATROPIUM 0.5 INH SOL 3 ML VIAL.NEB. NEB SCH ×4 (07:26→20:46)
[2018-01-11] MEDS: BUDESONIDE/FORMETEROL FUMARATE 160/4.5 mcg INHALER IH SCH ×2 (10:57→21:25)
[2018-01-11] MEDS ORDERED: LOPERAMIDE HCL 2 MG CAPSULE PO PRN (10:57)
[2018-01-11] MEDS ORDERED: PT OWN MED DRAWER 7, Y5N ONE (11:02)
[2018-01-11] MEDS: DOCUSATE SODIUM 100 MG CAPSULE (FP) PO SCH ×2 (11:03→21:28)
[2018-01-11] MEDS: POLYETHYLENE GLYCOL 3350 119 GM BTL PO SCH (11:03)
[2018-01-11] MEDS: VENLAFAXINE HCL 37.5 MG E.R. CAPSULE (FP) PO SCH (11:03)
[2018-01-11] MEDS: LISINOPRIL 5 MG TABLET (FP) PO SCH (11:04)
[2018-01-11] MEDS: ATORVASTATIN CA 40 MG TABLET (FP) PO SCH (21:27)
[2018-01-11] MEDS: risperiDONE 0.5 MG TABLET (FP) PO SCH (21:27)
[2018-01-12] MEDS: metFORMIN HCL 500 MG TABLET (FP) PO SCH (06:17)
[2018-01-12] MEDS: sitaGLIPtin PHOSPHATE 50 MG TABLET PO SCH (06:17)
[2018-01-12] MEDS: INSULIN SLIDING SCALE (NOVOLOG) 1 VIAL SQ SCH ×2 (06:17→11:41)
[2018-01-12 07:05] LABS: ANION GAP 12 (8-16); BLOOD UREA NITROGEN 25 mg/dL (7-18); CHLORIDE 103 mmol/L (98-107); CO2 22 mmol/L (21-32); POTASSIUM 4.7 mmol/L (3.5-5.1); SODIUM 137 mmol/L (136-145)
[2018-01-12 07:09] LABS: CREATININE 1.2 mg/dL (0.55-1.02)
[2018-01-12 07:12] LABS: GLUCOSE,RANDOM 313 mg/dL (74-106)
[2018-01-12] MEDS: ALBUTEROL SO4 2.5/IPRATROPIUM 0.5 INH SOL 3 ML VIAL.NEB. NEB SCH ×2 (07:32→11:28)
[2018-01-12] MEDS: BUDESONIDE/FORMETEROL FUMARATE 160/4.5 mcg INHALER IH SCH (09:55)
[2018-01-12] MEDS: DOCUSATE SODIUM 100 MG CAPSULE (FP) PO SCH (09:55)
[2018-01-12] MEDS: LISINOPRIL 5 MG TABLET (FP) PO SCH (09:55)
[2018-01-12] MEDS: VENLAFAXINE HCL 37.5 MG E.R. CAPSULE (FP) PO SCH (09:55)
[2018-01-12] MEDS: POLYETHYLENE GLYCOL 3350 119 GM BTL PO SCH (10:03)
[2018-01-12] MEDS ORDERED: PT OWN MED DRAWER 7, Y5N ONE (10:09)
[2018-01-12 10:32] VITALS: BP 111/52; PULSE 84; TEMP 98.5
--- NOTE | 2018-01-12 10:58 | DS ---
Physical Examination Vital Signs: Vital Signs Temperature 98.5 F 01/12/18 10:00 Pulse Rate 84 01/12/18 10:00 Respiratory Rate 20 01/12/18 10:00 Blood Pressure 111/52 01/12/18 10:00 O2 Sat by Pulse Oximetry (%) 95 01/12/18 09:00 Findings/Remarks: This 77 yo RH woman with 2 sons is a [facility] with PMH sig for DM (20 yrs), HTN, Chol, and depression. OA: s/p B/L TKR and THR. Has walked with a walker x 4 yrs since her Left THR. On albuterol, atorvastatin, insulin, lisinopril, metformin, Januvia, venlafaxine and respiral (.5 HS). Recently on Cipro for UTI (4 pills left at [facility]). On 3/ felt unwell, unsteady, and had 2 20 min episodes of slurred speech +/- word finding difficulty. In ER CT of head (reviewed): Mild atrophy and scattered microvascular changes. Glucose= 447 mg%; WBC= 10 K; Urine WBC= 39K She had MRI and carotid dopplers during hospital stay - no acute findings per Neuro opinion: IMP: Non-focal neurological exam Mild diabetic peripheral neuropathy Cannot full exclude left cerebral TIA but strongly suspect admission was due to Toxic-Meteabolic encephalopathy due to UTI and hyperglycemia. In view of opinion will not proceed with A/C as risk outweight benefits She was also seen by Nutrition / with strong emphasis on diet education and compliance Constitutional: Yes: Well Nourished, No Distress, Obese Eyes: Yes: Conjunctiva Clear, EOM Intact HENT: Yes: Atraumatic, Normocephalic Neck: Yes: Supple, Trachea Midline Cardiovascular: Yes: Regular Rate and Rhythm Respiratory: Yes: CTA Bilaterally Gastrointestinal: Yes: Normal Bowel Sounds, Soft, Abdomen, Obese ...Rectal Exam: Yes: Deferred Renal/: Yes: WNL Breast(s): Yes: WNL Musculoskeletal: Yes: WNL, Muscle Weakness Extremities: Yes: WNL Edema: No Peripheral Pulses WNL: Yes Wound/Incision: Yes: Other (well healed scars fro TKR and THR bilaterally -- distant hx) Neurological: Yes: Alert, Oriented, Pre-Existing Deficit, Unsteady Gait Psychiatric: Yes: Alert, Oriented Labs: CBC, BMP 01/10/18 05:05 01/12/18 06:15 Discharge Summary Reason For Visit: TRANSIENT CEREBRAL ISCHEMIA Current Active Problems Diabetes mellitus (Acute) Diabetes mellitus type 2 in obese (Acute) Morbidly obese (Acute) Neuropathy associated with endocrine disorder (Acute) TIA (transient ischemic attack) (Acute) Condition: Stable - Instructions Referrals: Beatrice Carlton [Primary Care Provider] - Disposition: HOME
== END 2018-01-12 13:45 | disposition home or self-care (01) | DRG 637 ==
LOC: JER 14:16 → JERBED 19:05 → J4W 23:46
PROVIDERS: ADMIT Family Medicine; ATTEND Family Medicine
DX: E11.65 Type 2 diabetes mellitus with hyperglycemia (principal); G93.41 Metabolic encephalopathy; N39.0 Urinary tract infection, site not specified; G45.9 Transient cerebral ischemic attack, unspecified; R47.81 Slurred speech; J44.9 Chronic obstructive pulmonary disease, unspecified; Z96.653 Presence of artificial knee joint, bilateral; Z96.643 Presence of artificial hip joint, bilateral; E66.9 Obesity, unspecified; Z68.30 Body mass index [BMI] 30.0-30.9, adult; E11.42 Type 2 diabetes mellitus with diabetic polyneuropathy; E78.00 Pure hypercholesterolemia, unspecified; F32.9 Major depressive disorder, single episode, unspecified; Z79.4 Long term (current) use of insulin
CPT/HCPCS: 36415; 70450-TC; 70551-TC; 71045-TC-FY; 80048; 80053; 80061; 81003; 81015; 82465; 82550; 82962; 83036; 83718; 83721; 83735; 84478; 84484; 85025; 85610; 87086; 93005; 93010; 93880-TC; 94640; 97116-GP; 97161-GP; 99284-25

== ENCOUNTER 2018-02-22 10:32 | Inpatient (IN) | payer OTHER, MEDICARE ==
--- NOTE | 2018-02-22 10:38 | PDOC ---
Attending Attestation - Resident Resident Name: Kavon Benton - ED Attending Attestation I have performed the following: I have examined & evaluated the patient, The case was reviewed & discussed with the resident, I agree w/resident's findings & plan, Exceptions are as noted - HPI HPI: 02/22/18 11:30 77F hx of HL, htn, dm, hx of recent tia presents with hand weakness this morning. Pt states that she woke up and found that her 'hands didn't work right ' bilaterally - lasted until shortly after she was called EMS, currently is asypmtomatic. exam unremarkble. n associated palpitations, cp, sob, headache, dizzines,s vision changes, gait disturbances (uses a walker at baseline), fever/ chills, dysuria, frequency. exam at baseline - strength symmetric/intact in upper/lower extremities no facial assymetry sensation intact pts prior MRI +for cluster of small acute infarctions in the left pariea lobe consider possiblely tia will dw pmd and neurology - Physicial Exam PE: 02/27/18 08:20 see abobve - Medical Decision Making 02/22/18 12:10 csae abeba barcenas agree with concern for possibly another TIA in light of mri results ?PAF ekg NSR here will place on monitor anticipate admission/observation 02/22/18 14:[address] noted for acute/subacute findings will place in obs for MRI for further management Heart Score/ECG Review - ECG Impressions Comment:: 02/22/18 12:12 Twelve-lead EKG was performed and reviewed by me. There is normal sinus rhythm with a normal rate. rate of 87 The axis is normal. The intervals are normal. There is normal R wave progression There are no ST or T wave abnormalities. Impression: Normal twelve-lead EKG
[2018-02-22 10:40] VITALS: BMI 28.6
--- NOTE | 2018-02-22 11:01 | PDOC ---
History of Present Illness - General Chief Complaint: Weakness Stated Complaint: WEAKNESS Time Seen by Provider: 02/22/18 10:34 History Source: Patient Exam Limitations: No Limitations - History of Present Illness Initial Comments: 02/22/18 10:52 The patient is a 77F with a PMH of TIA and DM who presents to the ER with complaints of unsteady gait and b/l weakness in her arms and hands. The patient states that she was last well at [id number] when she walked to the bathroom and felt fine. She woke up at 0930, then felt her gait was unsteady and that she had difficulty coordinating her hands with difficulty grasping objects (a combination of weakness of coordination). She denies any numbness or tingling, changes in vision, CP, SOB, abdominal pain, fever, chills. tPA Exclusion checklist 3-4.5h - Time Elapsed Date last known well: 02/22/18 Time last known well: 02:30 Elaspsed time: Day(s) and 10 Hour(s) and 36 Minutes - Thrombolytic Therapy Candidate Is patient eligible for thrombolytic therapy: No - Ineligibility reason(s) Reasons No tPA given: Outside of window - delayed arrival NIH Stroke Scale - Last Known Well Date/Time & Onset Date Last Known Well: 02/22/18 Time Last Known Well: 02:30 - Initial Evaluation Level of consciousness: Alert Ask patient the month and their age: Answers both correctly Ask patient to open & close eyes; make fist and let go: Obeys both correctly Best gaze (horizontal eye movement): Normal Visual field testing: No visual field loss Facial paresis (Show teeth/raise eyebrows/close eyes tight): Normal symmetrical movement Motor Function: Left Arm: Normal Motor Function: Right Arm: Normal (extends arm 90 (or 45) degrees for 10 seconds without drift Motor Function: Left Leg: Normal (extends leg 30 degrees for 5 seconds without drift) Motor Function: Right Leg: Normal (extends leg 30 degrees for 5 seconds without drift) Limb Ataxia: No ataxia Sensory(Use pinprick test arms,legs,trunk,face/side to side): Normal Best language (Describe picture, name items, read sentences): No Aphasia Dysarthria (read several words): Normal articulation Extinction and Inattention: No abnormality - Total Score NIH Stroke Scale Score: 0 Past History - Past Medical History Allergies/Adverse Reactions: Allergies Allergy/AdvReac Type Severity Reaction Status Date / Time diazepam Allergy Verified 02/22/18 10:34 sulfur dioxide Allergy Verified 02/22/18 10:34 Home Medications: Ambulatory Orders Atorvastatin Ca [Lipitor] 40 mg PO HS 30 Days #30 tablet 01/12/18 Lisinopril [Prinivil] 5 mg PO DAILY 30 Days #30 tablet 01/12/18 metFORMIN HCL [Glucophage -] 500 mg PO BID@0700,1630 02/22/18 COPD: Yes Diabetes: Yes - Suicide/Smoking/Psychosocial Hx Smoking History: Never smoked Have you smoked in the past 12 months: No Information on smoking cessation initiated: No Hx Alcohol Use: No Drug/Substance Use Hx: No Substance Use Type: None Review of Systems - Review of Systems Able to Perform ROS?: Yes Comments:: 02/22/18 11:01 GENERAL/CONSTITUTIONAL: No fever or chills. No weakness. HEAD, EYES, EARS, NOSE AND THROAT: No change in vision. No ear pain or discharge. No sore throat. CARDIOVASCULAR: No chest pain, palpitations, or lightheadedness. RESPIRATORY: No cough, wheezing, shortness of breath, or hemoptysis. GASTROINTESTINAL: No nausea, vomiting, diarrhea, constipation, or abdominal pain. GENITOURINARY: No dysuria, frequency, hematuria, or change in urination. MUSCULOSKELETAL: No joint or muscle swelling or pain. No neck or back pain. SKIN: No rash or lesions. NEUROLOGIC: Positive for unsteady gait, weakness and coordination in hands. No headache, numbness, tingling, loss of consciousness, or change in sensation. ENDOCRINE: No increased thirst. No abnormal weight change. HEMATOLOGIC/LYMPHATIC: No anemia, easy bleeding, or history of blood clots. ALLERGIC/IMMUNOLOGIC: No hives or skin allergy. Is the patient limited [place] proficient: No *Physical Exam - Vital Signs Last Vital Signs Temp Pulse Resp BP Pulse Ox 97.8 F 94 H 20 125/63 92 L 02/22/18 10:35 02/22/18 10:35 02/22/18 10:35 02/22/18 10:35 02/22/18 10:35 - Physical Exam Comments: 02/22/18 11:07 GENERAL: Well developed, well nourished. Awake and alert. No acute distress. HEENT: Normocephalic, atraumatic. Hearing grossly normal. Moist mucous membranes. PERRLA, EOMI. No conjunctival pallor. Sclera are non-icteric. NECK: Supple. Full ROM. No JVD. CARDIOVASCULAR: Regular rate and rhythm. No murmurs, rubs, or gallops. PULMONARY: No evidence of respiratory distress. Lungs clear to auscultation bilaterally. No wheezing, rales or rhonchi. ABDOMINAL: Soft. Non-tender. Non-distended. No rebound or guarding. MUSCULOSKELETAL: Normal range of motion at all joints. No bony deformities or tenderness. EXTREMITIES: No cyanosis. No clubbing. No edema. No calf tenderness. SKIN: Warm and dry. Normal capillary refill. No rashes. No jaundice. NEUROLOGICAL: Alert, awake, appropriate. Cranial nerves 2-12 intact. No deficits to light touch and temperature in face, upper extremities and lower extremities. No motor deficits in the in face, upper extremities and lower extremities. Finger to nose abnormal on R side, intentional tremor noted. Normal speech. Gait is unsteady. PSYCHIATRIC: Cooperative. Good eye contact. Appropriate mood and affect. ED Treatment Course - LABORATORY CBC & Chemistry Diagram: 02/22/18 10:50 02/22/18 10:50 - RADIOLOGY Radiology Studies Ordered: Category Date Time Status HEAD CT (STROKE) [CT] Stat CT Scan 02/22/18 10:39 Ordered Medical Decision Making - Medical Decision Making 02/22/18 11:09 The patient is a 77F with a PMH of DM who presents after having an acute onset of weakness/lack of coordination in her hands. Last known well is [id number] this morning. The patient is out of the code brown window. However, I will reorder a stroke order set including a stroke CT. Will monitor the patient closely. The patient has a NIHSS of 0. I did note an intentional tremor with finger to nose but no weakness in UE or LE b/l. 02/22/18 12:44 All labs and UA WNL. CT read: IMPRESSION: Interval wedge-shaped focal area of acute/subacute infarct in the right parietal lobe extending to the parieto-occipital junction measuring approximately 3 x 2.2 cm without evidence of acute intracranial hemorrhage. Follow-up is needed Will discuss with neurology. 02/22/18 12:46 Dr. Manriquez has called back and suggests asa 81 and 75 plavix. Cards consults, tele admit, and d/c lisinopril. 02/22/18 12:53 Dr. Kumar paged for admission. 02/22/18 13:06 I have endorsed the patient to [facility] for admission under Dr. Kumar. They request Dr. Capellan for cards. Order for admission placed. *DC/Admit/Observation/Transfer Diagnosis at time of Disposition: CVA (cerebral vascular accident) Qualifiers: CVA mechanism: unspecified Qualified Code(s): I63.9 - Cerebral infarction, unspecified - Discharge Dispostion Condition at time of disposition: Stable Admit: Yes - Referrals - Patient Instructions - Post Discharge Activity
[2018-02-22 11:05] LABS: URINE APPEARANCE CLEAR; URINE BILIRUBIN NEGATIVE (<2.0 mg/dL); URINE COLOR YELLOW; URINE GLUCOSE (UA) NEGATIVE (NEGATIVE); URINE KETONE NEGATIVE (NEGATIVE); URINE LEUK ESTERASE NEGATIVE (NEGATIVE); URINE NITRITE NEGATIVE (NEGATIVE); URINE UROBILINOGEN NEGATIVE mg/dL (0.2-1.0)
[2018-02-22 11:09] LABS: BASO % 0.7 % (0-2.0); EOS % 0.6 % (0-4.5); EPI CELLS RARE /HPF (FEW); HEMATOCRIT 34.8 % (32.4-45.2); HEMOGLOBIN 11.9 GM/dL (10.7-15.3); LYMPH % 14.5 % (8-40); MCH 28.9 pg (25.7-33.7); MCHC 34.2 g/dl (32.0-36.0); MEAN CELL VOLUME 84.7 fl (80-96); MEAN PLT VOLUME 8.3 fl (7.5-11.1); MONO % 5.9 % (3.8-10.2); NEUT % 78.3 % (42.8-82.8); PLATELET COUNT 242 K/MM3 (134-434); RBC 4.11 M/mm3 (3.60-5.2); RDW 13.3 % (11.6-15.6); URINE BACTERIA RARE /hpf (NONE SEEN); URINE MUCUS RARE; URINE PROTEIN 1+ (NEGATIVE)
[2018-02-22 11:21] LABS: INR 1.07 (0.82-1.09); PROTHROMBIN TIME (PATIENT) 12.1 SEC (9.98-11.88)
[2018-02-22] MEDS ORDERED: ASPIRIN 81 MG CHEWABLE TABLETS PO ONE ×2 (11:29→12:52)
[2018-02-22 11:31] LABS: ALBUMIN 3.2 g/dl (3.4-5.0); ANION GAP 7 (8-16); BILIRUBIN,TOTAL 0.4 mg/dL (0.2-1.0); BLOOD UREA NITROGEN 11 mg/dL (7-18); CALCIUM 7.9 mg/dL (8.5-10.1); CHLORIDE 107 mmol/L (98-107); CHOLESTEROL 97 mg/dL (50-200); CO2 25 mmol/L (21-32); CREATININE 1.1 mg/dL (0.55-1.02); GLUCOSE,RANDOM 137 mg/dL (74-106); SGPT/ALT 27 U/L (12-78); SODIUM 139 mmol/L (136-145); TOT PROT 6.1 g/dl (6.4-8.2); TRIGLYCERIDES 99 mg/dL (35-160)
[2018-02-22 11:32] LABS: ALK PHOS 104 U/L (45-117); HDL CHOLESTEROL 41 mg/dL (40-60)
[2018-02-22 11:43] LABS: POTASSIUM 4.7 mmol/L (3.5-5.1); SGOT/AST 28 U/L (15-37)
[2018-02-22] MEDS ORDERED: ASPIRIN 81 MG CHEWABLE TABLETS ONE ×2 (12:47→13:00)
[2018-02-22] MEDS ORDERED: CLOPIDOGREL BISULFATE 75 MG TABLET (FP) PO ONE (12:53)
[2018-02-22] MEDS ORDERED: CLOPIDOGREL BISULFATE 75 MG TABLET (FP) ONE (13:00)
--- NOTE | 2018-02-22 14:50 | EKG ---
Test Reason : Blood Pressure : / mmHG Vent. Rate : 087 BPM Atrial Rate : 087 BPM P-R Int : 140 ms QRS Dur : 072 ms QT Int : 364 ms P-R-T Axes : -11 -10 044 degrees QTc Int : 438 ms NORMAL SINUS RHYTHM NORMAL ECG WHEN COMPARED WITH ECG OF 08-JAN-2018 15:27, NO SIGNIFICANT CHANGE WAS FOUND Confirmed by LEE BUSBY MD ([id number]) on 02/22/2018 2:49:40 PM Referred By: Confirmed By:LEE BUSBY MD
--- NOTE | 2018-02-22 16:24 | CON.CARD ---
Cardiology Consult (text) - Consultation Consultation Note: CC: CVA 77 yo with h/o IDDM, copd, ckd, depression with hx of hospitalization and electric shock therapy (now in remission), possible prior gib and recent uti last month as well as admission last month for transient slurred speech/ unsteady gait (Toxic-Meteabolic encephalopathy vs. 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 Pt states that she woke up and found that both hands didn't work right. she states that she was having difficulty with fine motor control, unable to use a spoon to eat her cereal. She states that both hands were affected. Patient states that it felt as if her symptoms lasted an hour, but per family, symptoms only lasted 15 minutes. No recurrence. No associated sx's. s/p full dose asa and plavix in ER. She denies chest pain, shortness of breath,palpitations, dizziness. . She denies fevers, chills, nausea, vomiting, headache pmhx/pshx: per hpi, Joint Replacement (both knees X2 / both hips), right shoulder surgery social hx: Never smoked family hx: family history of stroke. ros: per [facility] Ambulatory Orders Atorvastatin Ca [Lipitor] 40 mg PO HS 30 Days #30 tablet 01/12/18 Lisinopril [Prinivil] 5 mg PO DAILY 30 Days #30 tablet 01/12/18 metFORMIN HCL [Glucophage -] 500 mg PO BID@0700,1630 02/22/18 Vital Signs - 24 hr 02/22/18 02/22/18 02/22/18 10:35 11:00 11:01 Temperature 97.8 F Pulse Rate 94 H 88 Pulse Rate [ 89 Apical] Respiratory 20 18 Rate Blood Pressure 125/63 Blood Pressure 133/68 [Left Arm] O2 Sat by Pulse 92 L 97 97 Oximetry (%) 02/22/18 14:37 Temperature Pulse Rate Pulse Rate [ 71 Apical] Respiratory 18 Rate Blood Pressure Blood Pressure 130/61 [Left Arm] O2 Sat by Pulse 99 Oximetry (%) Intake & Output 02/20/18 02/21/18 02/22/18 02/23/18 07:59 07:59 07:59 07:59 Weight 172 lb nad, calm jvd flat, neck supple ctab, nl effort rrr nl s1, s2 1/6 sys murmur at sternal border. pmi nd + bs soft nt nd, no hsm no le e/c/c + dp/pt, no carotid bruit aaox3 no jaundice, diaphoresis. CBC, BMP 02/22/18 10:50 02/22/18 10:50 Laboratory Tests 02/22/18 10:50 Total Bilirubin 0.4 D AST 28 ALT 27 Alkaline Phosphatase 104 Creatine Kinase 78 Troponin I < 0.02 Albumin 3.2 L Triglycerides 99 Cholesterol 97 Total LDL Cholesterol 47 HDL Cholesterol 41 ekg: wnl tele: sr head CT: interval wedge shaped acute/subacute infarct of right parietal lobe, no hemorrhage. brain mri 01/2018: cluster of small acute infarcts in the left parietal lobe. mild chronic microvascular ischemic changes. carotid u/s 01/2018: small plaque, no stenosis, nl verts. ASSESSMENT/PLAN 77 yo with h/o IDDM, copd, ckd, depression with hx of hospitalization and electric shock therapy (now in remission), possible prior gib and recent uti last month as well as admission last month for transient slurred speech/ unsteady gait (Toxic-Meteabolic encephalopathy vs. 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 cva - neuro c/s pending. s/p high dose asa and plavix in ER. con't statin. - carotid u/s and brain mri from 01/2018 reviewed. - tele monitoring to assess for underlying arrhythmia - echo pending. - Note, family states she has had prior hospitalizations (a few years ago) at [facility] for transient neurologic sx's and would be able to get records if needed. htn - currently controlled on low dose lisinopril.
--- NOTE | 2018-02-22 17:35 | CON.NEURO ---
Consult Consult Specialty:: Neurology Referred by:: José Reason for Consultation:: Stroke - History of Present Illness Chief Complaint: My hands didn't work History of Present Illness: 77 year old woman, recently discharged after a week for altered mental status in which she was found to have 3 small right parietal infarctions, now comes in with the complaint that when she woke up this morning she couldn't get either hand to work well. she is a bit vague as to what was wrong with them except that she couldn't grasp a carton of milk, couldn't make a bowl of cereal, and knew that something was wrong. She is right handed. The incident lasted and hour and she is back to baseline. She denies any sensory loss. She was walking and talking without difficulty and is quite certain that both hands were not working well. 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 recently, long history of stuttering) Cardio/Vascular: Yes: HTN Pulmonary: Yes: COPD Gastrointestinal: Yes: Constipation, GI Bleed Renal/: Yes: Renal Inusuff Endocrine: Yes: Diabetes Mellitus (since she was 51 y/o) - Past Surgical History Past Surgical History: Yes: Joint Replacement (both knees X2 / both hips / surgey on right shoulder) - Alcohol/Substance Use Hx Alcohol Use: No - Smoking History Smoking history: Never smoked Have you smoked in the past 12 months: No - Social History ADL: Support Services History of Recent Travel: No Home Medications - Allergies Allergies/Adverse Reactions: Allergies Allergy/AdvReac Type Severity Reaction Status Date / Time diazepam Allergy Verified 02/22/18 10:34 sulfur dioxide Allergy Verified 02/22/18 10:34 - Home Medications Home Medications: Ambulatory Orders Atorvastatin Ca [Lipitor] 40 mg PO HS 30 Days #30 tablet 01/12/18 Lisinopril [Prinivil] 5 mg PO DAILY 30 Days #30 tablet 01/12/18 metFORMIN HCL [Glucophage -] 500 mg PO BID@0700,1630 02/22/18 Family Disease History - Family Disease History Family Disease History: Other: Father (stroke), Mother (stroke), Sister (strokes , first in her 40's) Physical Exam-Neuro Vital Signs: Vital Signs Temperature 98 F 04/19/18 15:00 Pulse Rate 85 02/22/18 15:00 Respiratory Rate 20 02/22/18 15:00 Blood Pressure 147/80 02/22/18 15:00 O2 Sat by Pulse Oximetry (%) 99 02/22/18 15:00 Labs: CBC, BMP 02/22/18 10:50 02/22/18 10:50 INR, PTT INR 1.07 (0.82-1.09) 02/22/18 10:50 - Neuro Exam Level Of Consciousness: Yes: Alert, Oriented to Person, Oriented to Place, Oriented to Time Eyes: Yes: BLOSSOM, Other (Visual gaitan full) Speech: WNL Dominant Hand: Right Cranial Nerves II-XII Intact: Yes DTR's: 0 Left Tricep, 0 Right Tricep, 0 Left Brachioradialis, 0 Right Brachioradialis, 0 Left Achilles, 0 Right Achilles, 1+ Left Bicep, 1+ Right Bicep Babinski: Absent Response to light touch: Normal Motor Strength: 5/5: Left Arm, Right Arm, Left Leg, Right Leg Gait: Other (steady with walker) NIH Stroke Scale - Initial Evaluation Level of consciousness: Alert Ask patient the month and their age: Answers both correctly Ask patient to open & close eyes; make fist and let go: Obeys both correctly Best gaze (horizontal eye movement): Normal Visual field testing: No visual field loss Facial paresis (Show teeth/raise eyebrows/close eyes tight): Normal symmetrical movement Motor Function: Left Arm: Normal Motor Function: Right Arm: Normal (extends arm 90 (or 45) degrees for 10 seconds without drift Motor Function: Left Leg: Normal (extends leg 30 degrees for 5 seconds without drift) Motor Function: Right Leg: Normal (extends leg 30 degrees for 5 seconds without drift) Limb Ataxia: No ataxia Sensory(Use pinprick test arms,legs,trunk,face/side to side): Normal Best language (Describe picture, name items, read sentences): No Aphasia Dysarthria (read several words): Normal articulation Extinction and Inattention: No abnormality - Total Score NIH Stroke Scale Score: 0 Imaging - Results Cat Scan: Report Reviewed, Image Reviewed (right wedge shaped infarction) Problem List - Problems (1) CVA (cerebral vascular accident) Code(s): I63.9 - CEREBRAL INFARCTION, UNSPECIFIED Qualifiers: CVA mechanism: unspecified Qualified Code(s): I63.9 - Cerebral infarction, unspecified Assessment/Plan Stroke in patient who recently had cluster of small embolic looking strokes. I' d be worried about cardioembolic source. Strong family history of stroke. She was't taking aspirin at home, and I'd give her aspirin for now, and if there is evidence of cardiac emobolic source may need anticoagulation. Thank you.
--- NOTE | 2018-02-22 18:34 | HP ---
Admitting History and Physical - Admission History of Present Illness: The patient is a 77F with a PMH of TIA and DM who presents to the ER with complaints of unsteady gait and b/l weakness in her arms and hands. The patient states that she was last well at [id number] when she walked to the bathroom and felt fine. She woke up at 0930, then felt her gait was unsteady and that she had difficulty coordinating her hands with difficulty grasping objects (a combination of weakness of coordination). She denies any numbness or tingling, changes in vision, CP, SOB, abdominal pain, fever, chills. 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 (encephalopathy recently, long history of stuttering) Cardiovascular: Yes: HTN Pulmonary: Yes: COPD Gastrointestinal: Yes: Constipation, GI Bleed Renal/: Yes: Renal Inusuff Reproductive: Yes: Postmenopausal Endocrine: Yes: Diabetes Mellitus (since she was 51 y/o) - Past Surgical History Past Surgical History: Yes: Joint Replacement (both knees X2 / both hips / surgey on right shoulder) - Smoking History Smoking history: Never smoked Have you smoked in the past 12 months: No - Alcohol/Substance Use Hx Alcohol Use: No - Social History ADL: Support Services History of Recent Travel: No Home Medications - Allergies Allergies/Adverse Reactions: Allergies Allergy/AdvReac Type Severity Reaction Status Date / Time diazepam Allergy Verified 02/22/18 10:34 sulfur dioxide Allergy Verified 02/22/18 10:34 - Home Medications Home Medications: Ambulatory Orders Atorvastatin Ca [Lipitor] 40 mg PO HS 30 Days #30 tablet 01/12/18 Lisinopril [Prinivil] 5 mg PO DAILY 30 Days #30 tablet 01/12/18 metFORMIN HCL [Glucophage -] 500 mg PO BID@0700,1630 02/22/18 Family Disease History - Family Disease History Family Disease History: Other: Father (stroke), Mother (stroke), Sister (strokes , first in her 40's) Physical Examination Vital Signs: Vital Signs Temperature 98 F 02/22/18 15:00 Pulse Rate 85 02/22/18 15:00 Respiratory Rate 20 02/22/18 15:00 Blood Pressure 147/80 02/22/18 15:00 O2 Sat by Pulse Oximetry (%) 99 02/22/18 15:00 Labs: CBC, BMP 02/22/18 10:50 02/22/18 10:50
[2018-02-22] MEDS: ATORVASTATIN CA 40 MG TABLET (FP) PO SCH (21:30)
[2018-02-22] MEDS ORDERED: PT OWN MED DRAWER 7, Y5N ONE (21:31)
[2018-02-22] MEDS: MELATONIN 5 MG TABLETS PO SCH (21:32)
[2018-02-22] MEDS ORDERED: ATORVASTATIN CA 40 MG TABLET (FP) PO SCH (22:00)
[2018-02-23] MEDS: metFORMIN HCL 500 MG TABLET (FP) PO SCH ×2 (06:06→17:05)
[2018-02-23] MEDS ORDERED: PT OWN MED DRAWER 7, Y5N ONE ×2 (06:40→21:58)
[2018-02-23 07:48] LABS: BASO % 0.8 % (0-2.0); EOS % 1.8 % (0-4.5); HEMATOCRIT 33.8 % (32.4-45.2); HEMOGLOBIN 11.7 GM/dL (10.7-15.3); LYMPH % 27.2 % (8-40); MCH 29.3 pg (25.7-33.7); MCHC 34.7 g/dl (32.0-36.0); MEAN CELL VOLUME 84.5 fl (80-96); MEAN PLT VOLUME 8.7 fl (7.5-11.1); MONO % 9.4 % (3.8-10.2); NEUT % 60.8 % (42.8-82.8); PLATELET COUNT 235 K/MM3 (134-434); RDW 13.6 % (11.6-15.6); WHITE BLOOD COUNT 7.1 K/mm3 (4.0-10.0)
[2018-02-23 08:02] LABS: ANION GAP 7 (8-16); BILIRUBIN,TOTAL 0.6 mg/dL (0.2-1.0); BLOOD UREA NITROGEN 11 mg/dL (7-18); CALCIUM 7.7 mg/dL (8.5-10.1); CHLORIDE 105 mmol/L (98-107); CHOLESTEROL 105 mg/dL (50-200); CO2 29 mmol/L (21-32); CREATININE 1.1 mg/dL (0.55-1.02); GLUCOSE,RANDOM 190 mg/dL (74-106); POTASSIUM 4.4 mmol/L (3.5-5.1); SGOT/AST 23 U/L (15-37); SGPT/ALT 28 U/L (12-78); SODIUM 141 mmol/L (136-145); TOT PROT 5.8 g/dl (6.4-8.2); TRIGLYCERIDES 105 mg/dL (35-160)
[2018-02-23 08:03] LABS: ALK PHOS 103 U/L (45-117); HDL CHOLESTEROL 43 mg/dL (40-60)
[2018-02-23] MEDS: ASPIRIN 81 MG CHEWABLE TABLETS PO SCH (10:05)
[2018-02-23] MEDS: LISINOPRIL 5 MG TABLET (FP) PO SCH (10:05)
[2018-02-23] MEDS: PANTOPRAZOLE 40 MG TABLET (FP) PO SCH (10:05)
--- NOTE | 2018-02-23 10:55 | PN ---
Progress Note (short form) - Note Progress Note: s: no cp sob palps dizzy o: Vital Signs Period Temp Pulse Resp BP Sys/Bangura Pulse Ox Last 24 Hr 97.6 F-98.2 F 71-89 18-20 130-157/52-86 95-99 nad, calm jvd flat, neck supple ctab, nl effort rrr nl s1, s2 1/6 sys murmur at sternal border. + bs soft nt nd no le e/c/c aaox3 no jaundice, diaphoresis. Current Medications Generic Name Dose Route Start Last Admin Trade Name Freq PRN Reason Stop Dose Admin Aspirin 81 mg 02/23/18 10:00 02/23/18 10:05 Asa - PO 81 mg DAILY BRITTANY Administration Atorvastatin Calcium 40 mg 02/22/18 22:00 02/22/18 21:30 Lipitor - PO Not Given HS BRITTANY Lisinopril 5 mg 02/23/18 10:00 02/23/18 10:05 Prinivil PO 5 mg DAILY BRITTANY Administration Melatonin 5 mg 02/22/18 22:00 02/22/18 21:32 Melatonin PO 5 mg HS BRITTANY Administration Metformin HCl 500 mg 02/23/18 07:00 02/23/18 06:06 Glucophage - PO 500 mg BID@0700,1630 BRITTANY Administration Pantoprazole Sodium 40 mg 02/23/18 10:00 02/23/18 10:05 Protonix - PO 40 mg DAILY BRITTANY Administration CBC, BMP 02/23/18 07:15 02/23/18 07:15 tele: sr head CT: interval wedge shaped acute/subacute infarct of right parietal lobe, no hemorrhage. brain mri 01/2018: cluster of small acute infarcts in the left parietal lobe. mild chronic microvascular ischemic changes. carotid u/s 01/2018: small plaque, no stenosis, nl verts. ASSESSMENT/PLAN 77 yo with h/o IDDM, copd, ckd, depression with hx of hospitalization and electric shock therapy (now in remission), possible prior gib and recent uti last month as well as admission last month for transient slurred speech/ unsteady gait (Toxic-Meteabolic encephalopathy vs. 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 cva - neuro following - cont asa, statin - tele monitoring to assess for underlying arrhythmia - echo pending htn - cont hemalatha-i hld: -cont statin
[2018-02-23] MEDS ORDERED: INSULIN (NOVOLOG) ASPART 100 UNITS/ML 10ML VIAL SQ ONE (19:00)
[2018-02-23] MEDS: MELATONIN 5 MG TABLETS PO SCH (22:01)
[2018-02-23] MEDS: ATORVASTATIN CA 40 MG TABLET (FP) PO SCH (22:01)
--- NOTE | 2018-02-23 23:34 | PN ---
Progress Note (short form) - Note Progress Note: sen and examined in her room awake alert able to provide hx of all events Vital Signs Period Temp Pulse Resp BP Sys/Bangura Pulse Ox Last 24 Hr 97.8 F-98.2 F 77-91 16-20 128-157/52-86 96 neck supple heart S1/S2 Lungs clear bilat abd soft non tender ext FROM / no edema CBC, BMP 02/23/18 07:15 02/23/18 07:15 Results Cat Scan: Report Reviewed, Image Reviewed (right wedge shaped infarction) Active Medications Aspirin (Asa -) 81 mg PO DAILY [facility] Last Admin: 02/23/18 10:05 Dose: 81 mg Atorvastatin Calcium (Lipitor -) 40 mg PO HS [facility] Last Admin: 02/23/18 22:01 Dose: 40 mg Lisinopril (Prinivil) 5 mg PO DAILY [facility] Last Admin: 02/23/18 10:05 Dose: 5 mg Melatonin (Melatonin) 5 mg PO HS [facility] Last Admin: 02/23/18 22:01 Dose: 5 mg Metformin HCl (Glucophage -) 500 mg PO BID@0700,1630 [facility] Last Admin: 02/23/18 17:05 Dose: 500 mg Pantoprazole Sodium (Protonix -) 40 mg PO DAILY [facility] Last Admin: 02/23/18 10:05 Dose: 40 mg Stroke in patient who recently had cluster of small embolic looking strokes. # CVA telemetry to evaluate for cardiac arrhythmia asa / statins echo ordered Carothid u/s neuro / cardio follow up PT eval # DM HgA1c Fs with coverage # HTN continue lisinopril monitor bp
[2018-02-24] MEDS: metFORMIN HCL 500 MG TABLET (FP) PO SCH ×2 (06:25→16:54)
[2018-02-24] MEDS: INSULIN SLIDING SCALE (NOVOLOG) 1 VIAL SQ SCH ×4 (06:26→21:17)
[2018-02-24 08:23] LABS: CHLORIDE 105 mmol/L (98-107); POTASSIUM 4.6 mmol/L (3.5-5.1); SODIUM 140 mmol/L (136-145)
--- NOTE | 2018-02-24 08:27 | PN ---
Progress Note, Physician Chief Complaint: CVA History of Present Illness: feeling better, sensation in hands has come back no palpitations, cp, sob, syncope - Current Medication List Current Medications: Active Medications Aspirin (Asa -) 81 mg PO DAILY [facility] Last Admin: 02/23/18 10:05 Dose: 81 mg Atorvastatin Calcium (Lipitor -) 40 mg PO HS [facility] Last Admin: 02/23/18 22:01 Dose: 40 mg Insulin Aspart (Novolog Vial Sliding Scale -) 1 vial SQ ACHS [facility] PRN Reason: Protocol Last Admin: 02/24/18 06:26 Dose: 2 units Lisinopril (Prinivil) 5 mg PO DAILY [facility] Last Admin: 02/23/18 10:05 Dose: 5 mg Melatonin (Melatonin) 5 mg PO HS [facility] Last Admin: 02/23/18 22:01 Dose: 5 mg Metformin HCl (Glucophage -) 500 mg PO BID@0700,1630 [facility] Last Admin: 02/24/18 06:25 Dose: 500 mg Pantoprazole Sodium (Protonix -) 40 mg PO DAILY [facility] Last Admin: 02/23/18 10:05 Dose: 40 mg - Objective Vital Signs: Vital Signs Temperature 98.5 F 02/24/18 06:00 Pulse Rate 84 02/24/18 06:00 Respiratory Rate 18 02/24/18 06:00 Blood Pressure 125/62 02/24/18 06:00 O2 Sat by Pulse Oximetry (%) 96 02/23/18 21:00 Constitutional: Yes: Well Nourished, No Distress, Calm Cardiovascular: Yes: Regular Rate and Rhythm, S1, S2. No: Gallop, Murmur Respiratory: Yes: Regular, CTA Bilaterally. No: Accessory Muscle Use, Rales, Wheezes Extremities: No: Cold Edema: No Neurological: Yes: Alert, Oriented Psychiatric: No: Agitated Labs: CBC, BMP 02/23/18 07:15 INR, PTT INR 1.07 (0.82-1.09) 02/22/18 10:50 Assessment/Plan head CT: interval wedge shaped acute/subacute infarct of right parietal lobe, no hemorrhage. brain mri 01/2018: cluster of small acute infarcts in the left parietal lobe. mild chronic microvascular ischemic changes. carotid u/s 01/2018: small plaque, no stenosis, nl verts. Echo 02/21: nl LV/EF. nl RV. valves WNL tele: NSR, brief run SVT likely atrial tach ASSESSMENT/PLAN 77 yo with h/o IDDM, copd, ckd, depression with hx of hospitalization and electric shock therapy (now in remission), possible prior gib and recent uti last month as well as admission last month for transient slurred speech/ unsteady gait (Toxic-Meteabolic encephalopathy vs. 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 cva - neuro following - neuro input appreciated: concerned for cardioembolic source. d/w dr gruber who reviewed MRI and also feels there are very small infarcts in right brain, hence bailateral pattern - tele monitoring continues, to assess for afib/flutter - echo unrevealing - will arrange for KAE on Monday to r/o arch plaque or intracardiac mass (would warrant coumadin if sever or mobile plaque present) - if inpt w/u negative, pt should have loop recorder as outpt - cont asa, statin (LDL 53, TC 105) PSVT: - short run likely atrial tach - no palpitations. observe tele htn - BP stable at admission levels (120s-130s) - cont GIANNA-I hld: -cont statin
[2018-02-24 08:34] LABS: ALBUMIN 3.2 g/dl (3.4-5.0); ALK PHOS 106 U/L (45-117); ANION GAP 7 (8-16); BILIRUBIN,TOTAL 0.7 mg/dL (0.2-1.0); BLOOD UREA NITROGEN 12 mg/dL (7-18); CALCIUM 8.2 mg/dL (8.5-10.1); CO2 28 mmol/L (21-32); GLUCOSE,RANDOM 180 mg/dL (74-106); SGOT/AST 19 U/L (15-37); SGPT/ALT 24 U/L (12-78); TOT PROT 5.9 g/dl (6.4-8.2)
[2018-02-24] MEDS: LISINOPRIL 5 MG TABLET (FP) PO SCH (09:17)
[2018-02-24] MEDS: PANTOPRAZOLE 40 MG TABLET (FP) PO SCH (09:17)
[2018-02-24] MEDS: ASPIRIN 81 MG CHEWABLE TABLETS PO SCH (09:18)
--- NOTE | 2018-02-24 10:24 | PN ---
Progress Note (short form) - Note Progress Note: 77 year old woman, recently discharged after a week for altered mental status in which she was found to have 3 small right parietal infarctions, now comes in with the complaint that when she woke up this morning she couldn't get either hand to work well. she is a bit vague as to what was wrong with them except that she couldn't grasp a carton of milk, couldn't make a bowl of cereal, and knew that something was wrong. She is right handed. The incident lasted and hour and she is back to baseline. She denies any sensory loss. She was walking and talking without difficulty and is quite certain that both hands were not working well. FU : back to baseline no focal weakness, numbness somewhat anxious on sx coming back KAE planned for monday MRI 01/10/18 Impression: Cluster of very small acute infarctions within the left parietal lobe as described above, may be embolic. No mass effect, midline shift or hydrocephalus. Mild chronic microvascular ischemic changes. Mild chronic microvascular ischemic changes in the cerebral white matter. (to my eye very small infarct on right pariental area as well) 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 History INTER[employer] S[employer]: Yes: Other (encephalopathy recently, long history of stuttering) Cardio/Vascular: Yes: HTN Pulmonary: Yes: COPD Gastrointestinal: Yes: Constipation, GI Bleed Renal/: Yes: Renal Inusuff Endocrine: Yes: Diabetes Mellitus (since she was 51 y/o) - Past Surgical History Past Surgical History: Yes: Joint Replacement (both knees X2 / both hips / surgey on right shoulder) - Alcohol/Substance Use Hx Alcohol Use: No - Smoking History Smoking history: Never smoked Have you smoked in the past 12 months: No - Social History ADL: Support Services History of Recent Travel: No Home Medications - Allergies Allergies/Adverse Reactions: Allergies Allergy/AdvReac Type Severity Reaction Status Date / Time diazepam Allergy Verified 02/22/18 10:34 sulfur dioxide Allergy Verified 02/22/18 10:34 - Home Medications Home Medications: Ambulatory Orders Atorvastatin Ca [Lipitor] 40 mg PO HS 30 Days #30 tablet 01/12/18 Lisinopril [Prinivil] 5 mg PO DAILY 30 Days #30 tablet 01/12/18 metFORMIN HCL [Glucophage -] 500 mg PO BID@0700,1630 02/22/18 Family Disease History - Family Disease History Family Disease History: Other: Father (stroke), Mother (stroke), Sister (strokes , first in her 40's) Physical Exam-Neuro Vital Signs: Vital Signs Temperature 98.5 F 02/24/18 06:00 Pulse Rate 84 02/24/18 06:00 Respiratory Rate 18 02/24/18 06:00 Blood Pressure 125/62 02/24/18 06:00 O2 Sat by Pulse Oximetry (%) 93 L 02/24/18 09:00 Labs: CBCD WBC 7.1 K/mm3 (4.0-10.0) 02/23/18 07:15 RBC 4.00 M/mm3 (3.60-5.2) 02/23/18 07:15 Hgb 11.7 GM/dL (10.7-15.3) 02/23/18 07:15 Hct 33.8 % (32.4-45.2) 02/23/18 07:15 MCV 84.5 fl (80-96) 02/23/18 07:15 MCHC 34.7 g/dl (32.0-36.0) 02/23/18 07:15 RDW 13.6 % (11.6-15.6) 02/23/18 07:15 Plt Count 235 K/MM3 (134-434) 02/23/18 07:15 MPV 8.7 fl (7.5-11.1) 02/23/18 07:15 CMP Sodium 140 mmol/L (136-145) 02/24/18 05:59 Potassium 4.6 mmol/L (3.5-5.1) 02/24/18 05:59 Chloride 105 mmol/L (98-107) 02/24/18 05:59 Carbon Dioxide 28 mmol/L (21-32) 02/24/18 05:59 Anion Gap 7 (8-16) L 02/24/18 05:59 BUN 12 mg/dL (7-18) 02/24/18 05:59 Creatinine 1.0 mg/dL (0.55-1.02) 02/24/18 05:59 Creat Clearance w eGFR 53.91 (>60) 02/24/18 05:59 Calcium 8.2 mg/dL (8.5-10.1) L 02/24/18 05:59 Total Bilirubin 0.7 mg/dL (0.2-1.0) 02/24/18 05:59 AST 19 U/L (15-37) 02/24/18 05:59 ALT 24 U/L (12-78) 02/24/18 05:59 Alkaline Phosphatase 106 U/L (45-117) 02/24/18 05:59 Total Protein 5.9 g/dl (6.4-8.2) L 02/24/18 05:59 Albumin 3.2 g/dl (3.4-5.0) L 02/24/18 05:59 - Neuro Exam Level Of Consciousness: Yes: Alert, Oriented to Person, Oriented to Place, Oriented to Time Eyes: Yes: BLOSSOM, Other (Visual gaitan full) Speech: WNL Dominant Hand: Right Cranial Nerves II-XII Intact: Yes DTR's: 0 Left Tricep, 0 Right Tricep, 0 Left Brachioradialis, 0 Right Brachioradialis, 0 Left Achilles, 0 Right Achilles, 1+ Left Bicep, 1+ Right Bicep Babinski: Absent Response to light touch: Normal Motor Strength: 5/5: Left Arm, Right Arm, Left Leg, Right Leg Gait: Other (steady with walker) NIH Stroke Scale - Initial Evaluation Level of consciousness: Alert Ask patient the month and their age: Answers both correctly Ask patient to open & close eyes; make fist and let go: Obeys both correctly Best gaze (horizontal eye movement): Normal Visual field testing: No visual field loss Facial paresis (Show teeth/raise eyebrows/close eyes tight): Normal symmetrical movement Motor Function: Left Arm: Normal Motor Function: Right Arm: Normal (extends arm 90 (or 45) degrees for 10 seconds without drift Motor Function: Left Leg: Normal (extends leg 30 degrees for 5 seconds without drift) Motor Function: Right Leg: Normal (extends leg 30 degrees for 5 seconds without drift) Limb Ataxia: No ataxia Sensory(Use pinprick test arms,legs,trunk,face/side to side): Normal Best language (Describe picture, name items, read sentences): No Aphasia Dysarthria (read several words): Normal articulation Extinction and Inattention: No abnormality - Total Score NIH Stroke Scale Score: 0 Imaging - Results Cat Scan: Report Reviewed, Image Reviewed (right wedge shaped infarction) Problem List - Problems (1) CVA (cerebral vascular accident) Code(s): I63.9 - CEREBRAL INFARCTION, UNSPECIFIED Qualifiers: CVA mechanism: unspecified Qualified Code(s): I63.9 - Cerebral infarction, unspecified Assessment/Plan small cortical infarcts BL, now back at baseline would gte repeat MRI scan as to see if further events occurred (suspect so) also with get MRA ; to get small dose ativan prior for anxiety suspect cardioembolic events-card on board KAE and long term loop planned cont ASA, statin for now (she was not on ASA consistently before this event) Dr Veliz [phone]
--- NOTE | 2018-02-24 10:34 | PN ---
Progress Note (short form) - Note Progress Note: sen and examined in her room awake alert able to provide hx of all events Vital Signs Period Temp Pulse Resp BP Sys/Bangura Pulse Ox Last 24 Hr 97.8 F-98.2 F 77-91 16-20 128-157/52-86 96 neck supple heart S1/S2 Lungs clear bilat abd soft non tender ext FROM / no edema CBC, BMP 02/23/18 07:15 02/23/18 07:15 Results Cat Scan: Report Reviewed, Image Reviewed (right wedge shaped infarction) Active Medications Aspirin (Asa -) 81 mg PO DAILY [facility] Last Admin: 02/23/18 10:05 Dose: 81 mg Atorvastatin Calcium (Lipitor -) 40 mg PO HS [facility] Last Admin: 02/23/18 22:01 Dose: 40 mg Lisinopril (Prinivil) 5 mg PO DAILY [facility] Last Admin: 02/23/18 10:05 Dose: 5 mg Melatonin (Melatonin) 5 mg PO HS [facility] Last Admin: 02/23/18 22:01 Dose: 5 mg Metformin HCl (Glucophage -) 500 mg PO BID@0700,1630 [facility] Last Admin: 02/23/18 17:05 Dose: 500 mg Pantoprazole Sodium (Protonix -) 40 mg PO DAILY [facility] Last Admin: 02/23/18 10:05 Dose: 40 mg Stroke in patient who recently had cluster of small embolic looking strokes. # CVA telemetry to evaluate for cardiac arrhythmia asa / statins echo ordered Carothid u/s neuro / cardio follow up PT eval # DM HgA1c Fs with coverage # HTN continue lisinopril monitor bp
[2018-02-24] MEDS ORDERED: LORazepam 2 MG/ML SDV VIAL ONE (16:00)
[2018-02-24] MEDS ORDERED: PT OWN MED DRAWER 7, Y5N ONE (21:06)
[2018-02-24] MEDS: ATORVASTATIN CA 40 MG TABLET (FP) PO SCH (21:16)
[2018-02-24] MEDS: MELATONIN 5 MG TABLETS PO SCH (21:16)
[2018-02-25] MEDS ORDERED: ONDANSETRON 4 MG/2 ML VIAL ONE (04:17)
[2018-02-25] MEDS ORDERED: ONDANSETRON 4 MG/2 ML VIAL IVPUSH PRN (04:40)
[2018-02-25] MEDS: INSULIN SLIDING SCALE (NOVOLOG) 1 VIAL SQ SCH ×4 (06:26→21:35)
[2018-02-25] MEDS: metFORMIN HCL 500 MG TABLET (FP) PO SCH ×2 (06:27→16:55)
[2018-02-25 07:17] LABS: BASO % 0.3 % (0-2.0); HEMATOCRIT 36.8 % (32.4-45.2); HEMOGLOBIN 12.6 GM/dL (10.7-15.3); LYMPH % 4.2 % (8-40); MCH 28.9 pg (25.7-33.7); MCHC 34.1 g/dl (32.0-36.0); MEAN CELL VOLUME 84.6 fl (80-96); MEAN PLT VOLUME 8.5 fl (7.5-11.1); MONO % 3.7 % (3.8-10.2); NEUT % 91.8 % (42.8-82.8); PLATELET COUNT 250 K/MM3 (134-434); RBC 4.35 M/mm3 (3.60-5.2); RDW 13.3 % (11.6-15.6); WHITE BLOOD COUNT 19.6 K/mm3 (4.0-10.0)
[2018-02-25 07:36] LABS: ANION GAP 11 (8-16); BLOOD UREA NITROGEN 14 mg/dL (7-18); CALCIUM 8.4 mg/dL (8.5-10.1); CHLORIDE 98 mmol/L (98-107); CO2 26 mmol/L (21-32); SODIUM 135 mmol/L (136-145)
[2018-02-25 07:38] LABS: CREATININE 1.1 mg/dL (0.55-1.02)
[2018-02-25 08:19] LABS: GLUCOSE,RANDOM 314 mg/dL (74-106)
--- NOTE | 2018-02-25 08:19 | PN ---
Progress Note, Physician Chief Complaint: CVA History of Present Illness: neuro function remains improved (sensation in hands) no palpitations, cp, sob was vomiting overnight--given zofran (per RN) - Current Medication List Current Medications: Active Medications Aspirin (Asa -) 81 mg PO DAILY [facility] Last Admin: 02/24/18 09:18 Dose: 81 mg Atorvastatin Calcium (Lipitor -) 40 mg PO HS [facility] Last Admin: 02/24/18 21:16 Dose: 40 mg Insulin Aspart (Novolog Vial Sliding Scale -) 1 vial SQ ACHS [facility] PRN Reason: Protocol Last Admin: 02/25/18 06:26 Dose: 6 units Lisinopril (Prinivil) 5 mg PO DAILY [facility] Last Admin: 02/24/18 09:17 Dose: 5 mg Melatonin (Melatonin) 5 mg PO HS [facility] Last Admin: 02/24/18 21:16 Dose: 5 mg Metformin HCl (Glucophage -) 500 mg PO BID@0700,1630 [facility] Last Admin: 02/25/18 06:27 Dose: Not Given Ondansetron HCl (Zofran Injection) 4 mg IVPUSH Q4H PRN PRN Reason: NAUSEA AND/OR VOMITING Last Admin: 02/25/18 04:42 Dose: 4 mg Pantoprazole Sodium (Protonix -) 40 mg PO DAILY [facility] Last Admin: 02/24/18 09:17 Dose: 40 mg - Objective Vital Signs: Vital Signs Temperature 97.7 F 02/25/18 05:45 Pulse Rate 79 02/25/18 05:45 Respiratory Rate 20 02/25/18 05:45 Blood Pressure 153/78 02/25/18 05:45 O2 Sat by Pulse Oximetry (%) 94 L 02/24/18 20:16 Constitutional: Yes: Well Nourished, No Distress, Calm Cardiovascular: Yes: Regular Rate and Rhythm, S1, S2. No: Gallop, Murmur Respiratory: Yes: Regular, CTA Bilaterally. No: Accessory Muscle Use Extremities: No: Cold Edema: No Neurological: Yes: Alert, Oriented Psychiatric: No: Agitated Labs: CBC, BMP 02/25/18 06:35 INR, PTT INR 1.07 (0.82-1.09) 02/22/18 10:50 Assessment/Plan head CT: interval wedge shaped acute/subacute infarct of right parietal lobe, no hemorrhage. brain mri 01/2018: cluster of small acute infarcts in the left parietal lobe. mild chronic microvascular ischemic changes. carotid u/s 01/2018: small plaque, no stenosis, nl verts. Echo 02/21: nl LV/EF. nl RV. valves WNL tele: NSR, no atrial arrhythmia ASSESSMENT/PLAN 77 yo with h/o IDDM, copd, ckd, depression with hx of hospitalization and electric shock therapy (now in remission), possible prior gib and recent uti last month as well as admission last month for transient slurred speech/ unsteady gait (Toxic-Meteabolic encephalopathy vs. 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 cva - neuro following - neuro input appreciated: concerned for cardioembolic source. d/w dr gruber who reviewed MRI and also feels there are very small infarcts in right brain, hence bailateral pattern - tele monitoring continues, to assess for afib/flutter - echo unrevealing - planning for KAE on Monday (if no active vomiting) to r/o arch plaque or intracardiac mass (would warrant coumadin if sever or mobile plaque present). pt consented, understands details of discussion. - if inpt w/u negative, pt should have loop recorder as outpt - was not taking ASA consistently at home, hence continuing aspirin monotherapy for now per neuro - cont statin (LDL 53, TC 105) PSVT: - short run likely atrial tach - no palpitations. observe tele htn - BP stable at admission levels (120s-130s) - cont GIANNA-I hld: -cont statin
--- NOTE | 2018-02-25 09:01 | PN ---
Progress Note (short form) - Note Progress Note: seen and examined in her room c/o nausea early am / vomiting without associated sx reports no hx of previous episodes no associated post prandial sx Vital Signs Period Temp Pulse Resp BP Sys/Bangura Pulse Ox Last 24 Hr 97.2 F-98.5 F 79-84 16-20 130-153/71-80 94 neck supple heart S1/S2 Lungs clear bilat abd + tenderness RUQ however abdomen soft no guarding ext FROM / no edema CBC, BMP 02/25/18 06:35 02/25/18 06:35 Microbiology 02/22/18 10:50 Urine - Urine Nava Urine Culture - Final NO GROWTH OBTAINED Results Cat Scan: Report Reviewed, Image Reviewed (right wedge shaped infarction) Active Medications Aspirin (Asa -) 81 mg PO DAILY [facility] Last Admin: 02/24/18 09:18 Dose: 81 mg Atorvastatin Calcium (Lipitor -) 40 mg PO HS [facility] Last Admin: 02/24/18 21:16 Dose: 40 mg Insulin Aspart (Novolog Vial Sliding Scale -) 1 vial SQ [facility] PRN Reason: Protocol Last Admin: 02/25/18 06:26 Dose: 6 units Lisinopril (Prinivil) 5 mg PO DAILY [facility] Last Admin: 02/24/18 09:17 Dose: 5 mg Melatonin (Melatonin) 5 mg PO HS [facility] Last Admin: 02/24/18 21:16 Dose: 5 mg Metformin HCl (Glucophage -) 500 mg PO BID@0700,1630 [facility] Last Admin: 02/25/18 06:27 Dose: Not Given Ondansetron HCl (Zofran Injection) 4 mg IVPUSH Q4H PRN PRN Reason: NAUSEA AND/OR VOMITING Last Admin: 02/25/18 04:42 Dose: 4 mg Pantoprazole Sodium (Protonix -) 40 mg PO DAILY [facility] Last Admin: 02/24/18 09:17 Dose: 40 mg Stroke in patient who recently had cluster of small embolic looking strokes. # Vomiting / nausea unclear cause + RUQ tenderness ??gall stones abdominal U/S CMP for todays labs Zofran PRN / clear liquids will advance diet as tolerated # CVA telemetry to evaluate for cardiac arrhythmia asa / statins echo ordered Carothid u/s neuro / cardio follow up PT eval # DM HgA1c Fs with coverage # HTN continue lisinopril monitor bp
[2018-02-25] MEDS: PANTOPRAZOLE 40 MG TABLET (FP) PO SCH (09:05)
[2018-02-25] MEDS: LISINOPRIL 5 MG TABLET (FP) PO SCH (09:05)
[2018-02-25] MEDS: ASPIRIN 81 MG CHEWABLE TABLETS PO SCH (09:05)
[2018-02-25 09:39] LABS: ALBUMIN 3.3 g/dl (3.4-5.0); ALK PHOS 119 U/L (45-117); BILIRUBIN,TOTAL 1.1 mg/dL (0.2-1.0); SGOT/AST 52 U/L (15-37); SGPT/ALT 38 U/L (12-78); TOT PROT 6.2 g/dl (6.4-8.2)
--- NOTE | 2018-02-25 10:07 | PN ---
Progress Note (short form) - Note Progress Note: 77 year old woman, recently discharged after a week for altered mental status in which she was found to have 3 small right parietal infarctions, now comes in with the complaint that when she woke up this morning she couldn't get either hand to work well. she is a bit vague as to what was wrong with them except that she couldn't grasp a carton of milk, couldn't make a bowl of cereal, and knew that something was wrong. She is right handed. The incident lasted and hour and she is back to baseline. She denies any sensory loss. She was walking and talking without difficulty and is quite certain that both hands were not working well. FU : this AM, +N and felt lightheaded getting out of bed , BP and FS WNL , no focal weakness, numbness KAE planned for monday MRI's reviewed-- evolving infarct MRI 02/24/18 IMPRESSION: Acute/subacute nonhemorrhagic infarcts of the posterior aspect of the right parietal lobe extending to the occipital lobe, of the cortex of right frontal lobe convexity and in the left centrum semiovale. MRA of the brain Axial 3-D [id number] images were obtained through the arterial intracranial circulation and reveals the presence of normal antegrade flow in the vertebrals, external and the internal carotid arteries. No aneurysm seen arising from [place]. There is a short segment of severe narrowing of the right M1 segment near the trifurcation extending over 7 mm. There are few right MCA branches corresponding to infarcts. There are atheromatous changes with plaques of the left posterior cerebral arteries resulting in mild to moderate stenoses with bright on the right resulting in a mild stenosis. MRI 01/10/18 Impression: Cluster of very small acute infarctions within the left parietal lobe as described above, may be embolic. No mass effect, midline shift or hydrocephalus. Mild chronic microvascular ischemic changes. Mild chronic microvascular ischemic changes in the cerebral white matter. 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 recently, long history of stuttering) Cardio/Vascular: Yes: HTN Pulmonary: Yes: COPD Gastrointestinal: Yes: Constipation, GI Bleed Renal/: Yes: Renal Inusuff Endocrine: Yes: Diabetes Mellitus (since she was 51 y/o) - Past Surgical History Past Surgical History: Yes: Joint Replacement (both knees X2 / both hips / surgey on right shoulder) - Alcohol/Substance Use Hx Alcohol Use: No - Smoking History Smoking history: Never smoked Have you smoked in the past 12 months: No - Social History ADL: Support Services History of Recent Travel: No Home Medications - Allergies Allergies/Adverse Reactions: Allergies Allergy/AdvReac Type Severity Reaction Status Date / Time diazepam Allergy Verified 02/22/18 10:34 sulfur dioxide Allergy Verified 02/22/18 10:34 - Home Medications Home Medications: Ambulatory Orders Atorvastatin Ca [Lipitor] 40 mg PO HS 30 Days #30 tablet 01/12/18 Lisinopril [Prinivil] 5 mg PO DAILY 30 Days #30 tablet 01/12/18 metFORMIN HCL [Glucophage -] 500 mg PO BID@0700,1630 02/22/18 Family Disease History - Family Disease History Family Disease History: Other: Father (stroke), Mother (stroke), Sister (strokes , first in her 40's) Physical Exam-Neuro Vital Signs: Vital Signs Temperature 97.7 F 02/25/18 05:45 Pulse Rate 79 02/25/18 05:45 Respiratory Rate 20 02/25/18 05:45 Blood Pressure 153/78 02/25/18 05:45 O2 Sat by Pulse Oximetry (%) 94 L 02/24/18 20:16 Labs: CBCD WBC 7.1 K/mm3 (4.0-10.0) 02/23/18 07:15 RBC 4.00 M/mm3 (3.60-5.2) 02/23/18 07:15 Hgb 11.7 GM/dL (10.7-15.3) 02/23/18 07:15 Hct 33.8 % (32.4-45.2) 02/23/18 07:15 MCV 84.5 fl (80-96) 02/23/18 07:15 MCHC 34.7 g/dl (32.0-36.0) 02/23/18 07:15 RDW 13.6 % (11.6-15.6) 02/23/18 07:15 Plt Count 235 K/MM3 (134-434) 02/23/18 07:15 MPV 8.7 fl (7.5-11.1) 02/23/18 07:15 CMP Sodium 140 mmol/L (136-145) 02/24/18 05:59 Potassium 4.6 mmol/L (3.5-5.1) 02/24/18 05:59 Chloride 105 mmol/L (98-107) 02/24/18 05:59 Carbon Dioxide 28 mmol/L (21-32) 02/24/18 05:59 Anion Gap 7 (8-16) L 02/24/18 05:59 BUN 12 mg/dL (7-18) 02/24/18 05:59 Creatinine 1.0 mg/dL (0.55-1.02) 02/24/18 05:59 Creat Clearance w eGFR 53.91 (>60) 02/24/18 05:59 Calcium 8.2 mg/dL (8.5-10.1) L 02/24/18 05:59 Total Bilirubin 0.7 mg/dL (0.2-1.0) 02/24/18 05:59 AST 19 U/L (15-37) 02/24/18 05:59 ALT 24 U/L (12-78) 02/24/18 05:59 Alkaline Phosphatase 106 U/L (45-117) 02/24/18 05:59 Total Protein 5.9 g/dl (6.4-8.2) L 02/24/18 05:59 Albumin 3.2 g/dl (3.4-5.0) L 02/24/18 05:59 - Neuro Exam Level Of Consciousness: Yes: Alert, Oriented to Person, Oriented to Place, Oriented to Time Eyes: Yes: BLOSSOM, Other (Visual gaitan full) Speech: WNL Dominant Hand: Right Cranial Nerves II-XII Intact: Yes DTR's: 0 Left Tricep, 0 Right Tricep, 0 Left Brachioradialis, 0 Right Brachioradialis, 0 Left Achilles, 0 Right Achilles, 1+ Left Bicep, 1+ Right Bicep Babinski: Absent Response to light touch: Normal Motor Strength: 5/5: Left Arm, Right Arm, Left Leg, Right Leg Gait: Other (steady with walker) NIH Stroke Scale - Initial Evaluation Level of consciousness: Alert Ask patient the month and their age: Answers both correctly Ask patient to open & close eyes; make fist and let go: Obeys both correctly Best gaze (horizontal eye movement): Normal Visual field testing: No visual field loss Facial paresis (Show teeth/raise eyebrows/close eyes tight): Normal symmetrical movement Motor Function: Left Arm: Normal Motor Function: Right Arm: Normal (extends arm 90 (or 45) degrees for 10 seconds without drift Motor Function: Left Leg: Normal (extends leg 30 degrees for 5 seconds without drift) Motor Function: Right Leg: Normal (extends leg 30 degrees for 5 seconds without drift) Limb Ataxia: No ataxia Sensory(Use pinprick test arms,legs,trunk,face/side to side): Normal Best language (Describe picture, name items, read sentences): No Aphasia Dysarthria (read several words): Normal articulation Extinction and Inattention: No abnormality - Total Score NIH Stroke Scale Score: 0 Imaging - Results Cat Scan: Report Reviewed, Image Reviewed (right wedge shaped infarction) Problem List - Problems (1) CVA (cerebral vascular accident) Code(s): I63.9 - CEREBRAL INFARCTION, UNSPECIFIED Qualifiers: CVA mechanism: unspecified Qualified Code(s): I63.9 - Cerebral infarction, unspecified Assessment/Plan recent small cortical infarcts BL (01/21) now with evolving infarcts different vascular territories R >L MCA, cut off in R MCA branch -? thrombus highly suspicious for cardioembolic events- KAE and intermediate loop planned since she has evolving and progressive infarcts would lean towards empiric AC even if etiology not fully deciphered LUZMA jacob GI--US in progress spoke to PMD Dr Veliz [phone]
[2018-02-25] MEDS ORDERED: cefTRIAXone SODIUM 1 GM VIAL ONE (15:20)
[2018-02-25] MEDS ORDERED: DEXTROSE 5%-WATER - 50 ML IVPB ONE (15:20)
[2018-02-25] MEDS: CEFTRIAXONE 1 GM in DEXTROSE 5%-WATER - 50 ML IVPB SCH (15:39)
[2018-02-25] MEDS: ACETAMINOPHEN 325 MG TABLET (FP) PO PRN (17:46)
[2018-02-25] MEDS ORDERED: PT OWN MED DRAWER 7, Y5N ONE (21:30)
[2018-02-25] MEDS: ATORVASTATIN CA 40 MG TABLET (FP) PO SCH (21:35)
[2018-02-25] MEDS: MELATONIN 5 MG TABLETS PO SCH (21:35)
[2018-02-26] MEDS: metFORMIN HCL 500 MG TABLET (FP) PO SCH ×2 (06:24→16:25)
[2018-02-26] MEDS: INSULIN SLIDING SCALE (NOVOLOG) 1 VIAL SQ SCH ×4 (06:27→21:31)
[2018-02-26 07:42] LABS: BASO % 0.4 % (0-2.0); EOS % 0.2 % (0-4.5); LYMPH % 6.7 % (8-40); MCH 28.9 pg (25.7-33.7); MCHC 34.5 g/dl (32.0-36.0); MEAN CELL VOLUME 83.9 fl (80-96); MEAN PLT VOLUME 8.8 fl (7.5-11.1); MONO % 7.7 % (3.8-10.2); PLATELET COUNT 199 K/MM3 (134-434); RBC 3.82 M/mm3 (3.60-5.2); RDW 13.3 % (11.6-15.6); WHITE BLOOD COUNT 19.4 K/mm3 (4.0-10.0)
[2018-02-26 08:02] LABS: CHLORIDE 99 mmol/L (98-107); POTASSIUM 3.8 mmol/L (3.5-5.1); SODIUM 133 mmol/L (136-145)
[2018-02-26 08:10] LABS: ALBUMIN 2.8 g/dl (3.4-5.0); ALK PHOS 126 U/L (45-117); ANION GAP 9 (8-16); BILIRUBIN,TOTAL 1.2 mg/dL (0.2-1.0); BLOOD UREA NITROGEN 23 mg/dL (7-18); CALCIUM 7.8 mg/dL (8.5-10.1); CO2 25 mmol/L (21-32); CREATININE 1.7 mg/dL (0.55-1.02); GLUCOSE,RANDOM 241 mg/dL (74-106); SGOT/AST 115 U/L (15-37); SGPT/ALT 175 U/L (12-78); TOT PROT 5.6 g/dl (6.4-8.2)
--- NOTE | 2018-02-26 08:58 | PN ---
Progress Note, Physician Chief Complaint: CVA History of Present Illness: ongoing RUQ abd pain no cp, sob, palpit, no new neuro sx - Current Medication List Current Medications: Active Medications Acetaminophen (Tylenol -) 650 mg PO Q4H PRN PRN Reason: FEVER Last Admin: 02/25/18 17:46 Dose: 650 mg Aspirin (Asa -) 81 mg PO DAILY [facility] Last Admin: 02/25/18 09:05 Dose: 81 mg Atorvastatin Calcium (Lipitor -) 40 mg PO HS [facility] Last Admin: 02/25/18 21:35 Dose: 40 mg Ceftriaxone Sodium 1 gm/ (Dextrose) 50 mls @ 100 mls/hr IVPB DAILY [facility] Last Admin: 02/25/18 15:39 Dose: 100 mls/hr Metronidazole (Flagyl 500mg Premixed Ivpb -) 500 mg in 100 mls @ 100 mls/hr IVPB Q8H-IV [facility] Last Admin: 02/26/18 01:05 Dose: 100 mls/hr Sodium Chloride (1/2 Normal Saline) 1,000 mls @ 125 mls/hr IV ASDIR [facility] Insulin Aspart (Novolog Vial Sliding Scale -) 1 vial SQ ACHS [facility] PRN Reason: Protocol Last Admin: 02/26/18 06:27 Dose: 4 units Lisinopril (Prinivil) 5 mg PO DAILY [facility] Last Admin: 02/25/18 09:05 Dose: 5 mg Melatonin (Melatonin) 5 mg PO HS [facility] Last Admin: 02/25/18 21:35 Dose: 5 mg Metformin HCl (Glucophage -) 500 mg PO BID@0700,1630 [facility] Last Admin: 02/26/18 06:24 Dose: Not Given Ondansetron HCl (Zofran Injection) 4 mg IVPUSH Q4H PRN PRN Reason: NAUSEA AND/OR VOMITING Last Admin: 02/25/18 04:42 Dose: 4 mg Pantoprazole Sodium (Protonix -) 40 mg PO DAILY [facility] Last Admin: 02/25/18 09:05 Dose: 40 mg - Objective Vital Signs: Vital Signs Temperature 100.2 F H 02/26/18 05:38 Pulse Rate 9 L 02/26/18 05:38 Respiratory Rate 16 02/26/18 05:38 Blood Pressure 125/63 02/26/18 05:38 O2 Sat by Pulse Oximetry (%) 94 L 02/25/18 21:00 Constitutional: Yes: Well Nourished, No Distress, Calm Cardiovascular: Yes: Regular Rate and Rhythm, S1, S2. No: Gallop, Murmur Respiratory: Yes: Regular, CTA Bilaterally. No: Accessory Muscle Use, Rales, Wheezes Gastrointestinal: Yes: Tenderness (RUQ) Extremities: No: Cold Edema: No Neurological: Yes: Alert, Oriented Psychiatric: No: Agitated Labs: CBC, BMP 02/26/18 06:30 02/26/18 06:30 INR, PTT INR 1.07 (0.82-1.09) 02/22/18 10:50 Assessment/Plan head CT: interval wedge shaped acute/subacute infarct of right parietal lobe, no hemorrhage. brain mri 01/2018: cluster of small acute infarcts in the left parietal lobe. mild chronic microvascular ischemic changes. carotid u/s 01/2018: small plaque, no stenosis, nl verts. Echo 02/21: nl LV/EF. nl RV. valves WNL tele: NSR, brief run PSVT (long RP)--? PAT conducted with long MS delay, vs AVRT ASSESSMENT/PLAN 77 yo with h/o IDDM, copd, ckd, depression with hx of hospitalization and electric shock therapy (now in remission), possible prior gib and recent uti last month as well as admission last month for transient slurred speech/ unsteady gait (Toxic-Meteabolic encephalopathy vs. 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 cva - neuro following - neuro input appreciated: concerned for cardioembolic source. d/w dr gruber who reviewed MRI and also feels there are very small infarcts in right brain, hence bailateral pattern - tele monitoring continues, to assess for afib/flutter - echo unrevealing - planning for KAE once hepatobiliary w/u is completed - if inpt w/u negative, pt should have loop recorder as outpt - was not taking ASA consistently at home, hence continuing aspirin monotherapy for now per neuro - cont statin (LDL 53, TC 105) abd pain, vomiting - low grade fever, localized RUQ tenderness - sono with gallstones and dilated bile duct--w/u ongoing PSVT: - short runs on tele, ? PAT conducted with long MS delay vs AVRT - no palpitations. - thus far no fib/flutter--continue tele monitoring htn - BP stable at admission levels (120s-130s) - cont GIANNA-I hld: -cont statin
--- NOTE | 2018-02-26 09:11 | PN ---
Progress Note (short form) - Note Progress Note: Progress Note: 77 year old woman, recently discharged after a week for altered mental status in which she was found to have 3 small right parietal infarctions, now comes in with the complaint that when she woke up this morning she couldn't get either hand to work well. she is a bit vague as to what was wrong with them except that she couldn't grasp a carton of milk, couldn't make a bowl of cereal, and knew that something was wrong. She is right handed. The incident lasted and hour and she is back to baseline. She denies any sensory loss. She was walking and talking without difficulty and is quite certain that both hands were not working well. FU : this am, no c/o no focal weakness, numbness KAE planned for today MRI's repeat 02/24/18 reviewed-- evolving infarcts, larger than prior study in MRI 02/24/18 IMPRESSION: Acute/subacute nonhemorrhagic infarcts of the posterior aspect of the right parietal lobe extending to the occipital lobe, of the cortex of right frontal lobe convexity and in the left centrum semiovale. MRA of the brain Axial 3-D [id number] images were obtained through the arterial intracranial circulation and reveals the presence of normal antegrade flow in the vertebrals, external and the internal carotid arteries. No aneurysm seen arising from [place]. There is a short segment of severe narrowing of the right M1 segment near the trifurcation extending over 7 mm. There are few right MCA branches corresponding to infarcts. There are atheromatous changes with plaques of the left posterior cerebral arteries resulting in mild to moderate stenoses with bright on the right resulting in a mild stenosis. MRI 01/10/18 Impression: Cluster of very small acute infarctions within the left parietal lobe as described above, may be embolic. No mass effect, midline shift or hydrocephalus. Mild chronic microvascular ischemic changes. Mild chronic microvascular ischemic changes in the cerebral white matter. 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 (encephalopathy recently, long history of stuttering) Cardio/Vascular: Yes: HTN Pulmonary: Yes: COPD Gastrointestinal: Yes: Constipation, GI Bleed Renal/: Yes: Renal Inusuff Endocrine: Yes: Diabetes Mellitus (since she was 51 y/o) - Past Surgical History Past Surgical History: Yes: Joint Replacement (both knees X2 / both hips / surgey on right shoulder) - Alcohol/Substance Use Hx Alcohol Use: No - Smoking History Smoking history: Never smoked Have you smoked in the past 12 months: No - Social History ADL: Support Services History of Recent Travel: No Home Medications - Allergies Allergies/Adverse Reactions: Allergies Allergy/AdvReac Type Severity Reaction Status Date / Time diazepam Allergy Verified 02/22/18 10:34 sulfur dioxide Allergy Verified 02/22/18 10:34 - Home Medications Home Medications: Ambulatory Orders Atorvastatin Ca [Lipitor] 40 mg PO HS 30 Days #30 tablet 01/12/18 Lisinopril [Prinivil] 5 mg PO DAILY 30 Days #30 tablet 01/12/18 metFORMIN HCL [Glucophage -] 500 mg PO BID@0700,1630 02/22/18 Family Disease History - Family Disease History Family Disease History: Other: Father (stroke), Mother (stroke), Sister (strokes , first in her 40's) Physical Exam-Neuro Vital Signs: Vital Signs Temperature 100.2 F H 02/26/18 05:38 Pulse Rate 9 L 02/26/18 05:38 Respiratory Rate 16 02/26/18 05:38 Blood Pressure 125/63 02/26/18 05:38 O2 Sat by Pulse Oximetry (%) 94 L 02/25/18 21:00 Labs: CBCD WBC 7.1 K/mm3 (4.0-10.0) 02/23/18 07:15 RBC 4.00 M/mm3 (3.60-5.2) 02/23/18 07:15 Hgb 11.7 GM/dL (10.7-15.3) 02/23/18 07:15 Hct 33.8 % (32.4-45.2) 02/23/18 07:15 MCV 84.5 fl (80-96) 02/23/18 07:15 MCHC 34.7 g/dl (32.0-36.0) 02/23/18 07:15 RDW 13.6 % (11.6-15.6) 02/23/18 07:15 Plt Count 235 K/MM3 (134-434) 02/23/18 07:15 MPV 8.7 fl (7.5-11.1) 02/23/18 07:15 CMP Sodium 140 mmol/L (136-145) 02/24/18 05:59 Potassium 4.6 mmol/L (3.5-5.1) 02/24/18 05:59 Chloride 105 mmol/L (98-107) 02/24/18 05:59 Carbon Dioxide 28 mmol/L (21-32) 02/24/18 05:59 Anion Gap 7 (8-16) L 02/24/18 05:59 BUN 12 mg/dL (7-18) 02/24/18 05:59 Creatinine 1.0 mg/dL (0.55-1.02) 02/24/18 05:59 Creat Clearance w eGFR 53.91 (>60) 02/24/18 05:59 Calcium 8.2 mg/dL (8.5-10.1) L 02/24/18 05:59 Total Bilirubin 0.7 mg/dL (0.2-1.0) 02/24/18 05:59 AST 19 U/L (15-37) 02/24/18 05:59 ALT 24 U/L (12-78) 02/24/18 05:59 Alkaline Phosphatase 106 U/L (45-117) 02/24/18 05:59 Total Protein 5.9 g/dl (6.4-8.2) L 02/24/18 05:59 Albumin 3.2 g/dl (3.4-5.0) L 02/24/18 05:59 - Neuro Exam Level Of Consciousness: Yes: Alert, Oriented to Person, Oriented to Place, Oriented to Time Eyes: Yes: BLOSSOM, Other (Visual gaitan full) Speech: WNL Dominant Hand: Right Cranial Nerves II-XII Intact: Yes DTR's: 0 Left Tricep, 0 Right Tricep, 0 Left Brachioradialis, 0 Right Brachioradialis, 0 Left Achilles, 0 Right Achilles, 1+ Left Bicep, 1+ Right Bicep Babinski: Absent Response to light touch: Normal Motor Strength: 5/5: Left Arm, Right Arm, Left Leg, Right Leg Gait: Other (steady with walker) NIH Stroke Scale - Initial Evaluation Level of consciousness: Alert Ask patient the month and their age: Answers both correctly Ask patient to open & close eyes; make fist and let go: Obeys both correctly Best gaze (horizontal eye movement): Normal Visual field testing: No visual field loss Facial paresis (Show teeth/raise eyebrows/close eyes tight): Normal symmetrical movement Motor Function: Left Arm: Normal Motor Function: Right Arm: Normal (extends arm 90 (or 45) degrees for 10 seconds without drift Motor Function: Left Leg: Normal (extends leg 30 degrees for 5 seconds without drift) Motor Function: Right Leg: Normal (extends leg 30 degrees for 5 seconds without drift) Limb Ataxia: No ataxia Sensory(Use pinprick test arms,legs,trunk,face/side to side): Normal Best language (Describe picture, name items, read sentences): No Aphasia Dysarthria (read several words): Normal articulation Extinction and Inattention: No abnormality - Total Score NIH Stroke Scale Score: 0 Imaging - Results Cat Scan: Report Reviewed, Image Reviewed (right wedge shaped infarction) Problem List - Problems (1) CVA (cerebral vascular accident) Code(s): I63.9 - CEREBRAL INFARCTION, UNSPECIFIED Qualifiers: CVA mechanism: unspecified Qualified Code(s): I63.9 - Cerebral infarction, unspecified Assessment/Plan recent small cortical infarcts BL (01/21) now with evolving infarcts different vascular territories R >L MCA, on recent scan in 02/25/18 cut off in R MCA branch -? thrombus highly suspicious for cardioembolic events- KAE and mcc loop planned since she has evolving and progressive infarcts would lean towards empiric AC even if etiology not fully deciphered LUZMA for GI--US in progress Dr Veliz
[2018-02-26] MEDS ORDERED: DEXTROSE 5%-WATER - 50 ML IVPB ONE (10:17)
[2018-02-26] MEDS ORDERED: cefTRIAXone SODIUM 1 GM VIAL ONE (10:17)
[2018-02-26] MEDS ORDERED: PT OWN MED DRAWER 7, Y5N ONE ×2 (10:17→21:19)
[2018-02-26] MEDS: SODIUM CHLORIDE 0.45% 1,000 ML IV SCH (10:22)
[2018-02-26] MEDS: ASPIRIN 81 MG CHEWABLE TABLETS PO SCH (10:23)
[2018-02-26] MEDS: PANTOPRAZOLE 40 MG TABLET (FP) PO SCH (10:23)
[2018-02-26] MEDS: CEFTRIAXONE 1 GM in DEXTROSE 5%-WATER - 50 ML IVPB SCH (10:23)
[2018-02-26] MEDS: LISINOPRIL 5 MG TABLET (FP) PO SCH (10:23)
--- NOTE | 2018-02-26 11:09 | CON.GI ---
Consult Consult Specialty:: GI Referred by:: Dr Kumar - History of Present Illness Chief Complaint: ruq pain History of Present Illness: 77 y/o F was seen yesteray because of right upper quadrant pain. She was admitted for evolving CVA. Yesterday she developed ruq pain and nausea and vomiting. Ultrasouond was done which revealed cholelithiasis and dilated CBD 1cm. I saw the patient with her daughter at 1pm yesterday and discussed to her results of ultrasound. She was started on IV antibiotics. I was informed by today that patient continues to have RUQ pain and WBC remained to be 19,000. 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 (encephalopathy recently, long history of stuttering) Cardio/Vascular: Yes: HTN Pulmonary: Yes: COPD Gastrointestinal: Yes: Constipation, GI Bleed Renal/: Yes: Renal Inusuff Endocrine: Yes: Diabetes Mellitus (since she was 51 y/o) - Past Surgical History Past Surgical History: Yes: Joint Replacement (both knees X2 / both hips / surgey on right shoulder) - Alcohol/Substance Use Hx Alcohol Use: No - Smoking History Smoking history: Never smoked Have you smoked in the past 12 months: No - Social History ADL: Support Services History of Recent Travel: No Home Medications - Allergies Allergies/Adverse Reactions: Allergies Allergy/AdvReac Type Severity Reaction Status Date / Time sulfur dioxide Allergy Verified 02/22/18 10:34 - Home Medications Home Medications: Ambulatory Orders Atorvastatin Ca [Lipitor] 40 mg PO HS 30 Days #30 tablet 01/12/18 Lisinopril [Prinivil] 5 mg PO DAILY 30 Days #30 tablet 01/12/18 Melatonin 5 mg PO HS 02/22/18 Pantoprazole Sodium 40 mg PO DAILY 02/22/18 Risperidone 0.5 mg PO HS 02/22/18 Sitagliptin Phos/Metformin HCl [Janumet 50-1,000 mg Tablet] 1 each PO BID Venlafaxine HCl ER [Effexor Xr -] 37.5 mg PO DAILY 02/22/18 metFORMIN HCL [Glucophage -] 500 mg PO BID@0700,1630 02/22/18 Family Disease History - Family Disease History Family Disease History: Other: Father (stroke), Mother (stroke), Sister (strokes , first in her 40's) Physical Exam-GI Vital Signs: Vital Signs Temperature 100.2 F H 02/26/18 05:38 Pulse Rate 9 L 02/26/18 05:38 Respiratory Rate 16 02/26/18 05:38 Blood Pressure 125/63 02/26/18 05:38 O2 Sat by Pulse Oximetry (%) 94 L 02/25/18 21:00 Constitutional: Yes: Well Nourished Eyes: Yes: Conjunctiva Clear HENT: Yes: Atraumatic Neck: Yes: Supple Cardiovascular: Yes: Regular Rate and Rhythm Respiratory: Yes: CTA Bilaterally ...Palpate: Yes: Soft, Tenderness (--ruq). No: Firm/Rigid, Guarding, Hepatomegaly, Splenomegaly Labs: CBC, BMP 02/26/18 06:30 02/26/18 06:30 INR, PTT INR 1.07 (0.82-1.09) 02/22/18 10:50 Hepatic Panel Total Bilirubin 1.2 mg/dL (0.2-1.0) H 02/26/18 06:30 AST 115 U/L (15-37) H 02/26/18 06:30 ALT 175 U/L (12-78) H 02/26/18 06:30 Alkaline Phosphatase 126 U/L (45-117) H 02/26/18 06:30 Albumin 2.8 g/dl (3.4-5.0) L 02/26/18 06:30 Problem List - Problems (1) Cholecystitis with cholangitis Assessment/Plan: in view of evolving stroke the patient will benefit from Cholecystostomy rather than ERCP at this time. Case was dicussed with Dr. Peterson and . Will reach out to her son and explain underlying clinical condition. Will request for to evaluate the patient for percutaneous cholecystostomy. Code(s): K81.9 - CHOLECYSTITIS, UNSPECIFIED; K83.0 - CHOLANGITIS
[2018-02-26] MEDS: ACETAMINOPHEN 325 MG TABLET (FP) PO PRN ×2 (14:57→21:30)
--- NOTE | 2018-02-26 15:36 | PN ---
Progress Note (short form) - Note Progress Note: seen and examined in her room states feels better however low grade temp this am tolerating clears Vital Signs Period Temp Pulse Resp BP Sys/Bangura Pulse Ox Last 24 Hr 98.9 F-101.2 F 9-104 16-18 114-156/53-70 94-97 neck supple heart S1/S2 Lungs clear bilat abd increased + tenderness RUQ / +guarding to RUQ ext FROM / no edema CBC, BMP 02/26/18 06:30 CMP Sodium 133 mmol/L (136-145) L 02/26/18 06:30 Potassium 3.8 mmol/L (3.5-5.1) 02/26/18 06:30 Chloride 99 mmol/L (98-107) 02/26/18 06:30 Carbon Dioxide 25 mmol/L (21-32) 02/26/18 06:30 Anion Gap 9 (8-16) 02/26/18 06:30 BUN 23 mg/dL (7-18) H 02/26/18 06:30 Creatinine 1.7 mg/dL (0.55-1.02) H 02/26/18 06:30 Creat Clearance w eGFR 29.22 (>60) 02/26/18 06:30 POC Glucometer 259 UNITS (80-120) 02/26/18 12:05 Random Glucose 241 mg/dL (74-106) H 02/26/18 06:30 Hemoglobin A1c % 9.3 % (4.8-6.0) H 02/24/18 05:59 Calcium 7.8 mg/dL (8.5-10.1) L 02/26/18 06:30 Total Bilirubin 1.2 mg/dL (0.2-1.0) H 02/26/18 06:30 AST 115 U/L (15-37) H 02/26/18 06:30 ALT 175 U/L (12-78) H 02/26/18 06:30 Alkaline Phosphatase 126 U/L (45-117) H 02/26/18 06:30 Creatine Kinase 60 IU/L (26-192) 02/22/18 17:10 Troponin I < 0.02 ng/ml (0.00-0.05) 02/22/18 17:10 Total Protein 5.6 g/dl (6.4-8.2) L 02/26/18 06:30 Albumin 2.8 g/dl (3.4-5.0) L 02/26/18 06:30 Triglycerides 105 mg/dL (35-160) 02/23/18 07:15 Cholesterol 105 mg/dL (50-200) 02/23/18 07:15 Total LDL Cholesterol 53 mg/dL (5-100) 02/23/18 07:15 HDL Cholesterol 43 mg/dL (40-60) 02/23/18 07:15 CBC, BMP 02/25/18 06:35 02/25/18 06:35 Microbiology 02/22/18 10:50 Urine - Urine Nava Urine Culture - Final NO GROWTH OBTAINED u/s c/w cholelithiasis Results Cat Scan: Report Reviewed, Image Reviewed (right wedge shaped infarction) Active Medications Acetaminophen (Tylenol -) 650 mg PO Q4H PRN PRN Reason: FEVER Last Admin: 02/26/18 14:57 Dose: 650 mg Aspirin (Asa -) 81 mg PO DAILY [facility] Last Admin: 02/26/18 10:23 Dose: 81 mg Atorvastatin Calcium (Lipitor -) 40 mg PO HS [facility] Last Admin: 02/25/18 21:35 Dose: 40 mg Ceftriaxone Sodium 1 gm/ (Dextrose) 50 mls @ 100 mls/hr IVPB DAILY [facility] Last Admin: 02/26/18 10:23 Dose: 100 mls/hr Metronidazole (Flagyl 500mg Premixed Ivpb -) 500 mg in 100 mls @ 100 mls/hr IVPB Q8H-IV [facility] Last Admin: 02/26/18 10:23 Dose: 100 mls/hr Sodium Chloride (1/2 Normal Saline) 1,000 mls @ 125 mls/hr IV ASDIR [facility] Last Admin: 02/26/18 10:22 Dose: 125 mls/hr Insulin Aspart (Novolog Vial Sliding Scale -) 1 vial SQ ACHS [facility] PRN Reason: Protocol Last Admin: 02/26/18 12:20 Dose: Not Given Lisinopril (Prinivil) 5 mg PO DAILY [facility] Last Admin: 02/26/18 10:23 Dose: 5 mg Melatonin (Melatonin) 5 mg PO HS [facility] Last Admin: 02/25/18 21:35 Dose: 5 mg Metformin HCl (Glucophage -) 500 mg PO BID@0700,1630 [facility] Last Admin: 02/26/18 06:24 Dose: Not Given Ondansetron HCl (Zofran Injection) 4 mg IVPUSH Q4H PRN PRN Reason: NAUSEA AND/OR VOMITING Last Admin: 02/25/18 04:42 Dose: 4 mg Pantoprazole Sodium (Protonix -) 40 mg PO DAILY [facility] Last Admin: 02/26/18 10:23 Dose: 40 mg Stroke in patient who recently had cluster of small embolic looking strokes. # acute cholecystitis further elevation in LFT WBC remain elevated -- on abx as of 02/25 will discuss further with GI -- possible need for ERCP Zofran PRN / clear liquids # CVA Cardiac work up on hold pending resolution of abdominal process Family aware of clinical status continue telemetry to evaluate for cardiac arrhythmia asa / statins # DM HgA1c Fs with coverage # HTN continue lisinopril monitor bp
[2018-02-26] MEDS ORDERED: morphine SULFATE 4 MG/ML VIAL IVPUSH ONE (16:15)
[2018-02-26] MEDS ORDERED: HYDROmorphone HCL 2 MG TABLET PO PRN (16:34)
--- NOTE | 2018-02-26 17:51 | PN ---
Progress Note (short form) - Note Progress Note: s/p percutaneous cholecystostomy, draining dark brown bile,pt abdominal pain improved with Dilaudid repeat cbc cmp in am Problem List - Problems (1) Cholecystitis with cholangitis Code(s): K81.9 - CHOLECYSTITIS, UNSPECIFIED; K83.0 - CHOLANGITIS
[2018-02-26] MEDS: METOCLOPRAMIDE HCL INJECTION 10 MG/2 ML VIAL IVPUSH SCH (18:23)
[2018-02-26] MEDS ORDERED: morphine SULFATE 4 MG/ML VIAL IVPUSH PRN ×2 (20:00)
[2018-02-26] MEDS: ATORVASTATIN CA 40 MG TABLET (FP) PO SCH (21:30)
[2018-02-26] MEDS: URSODIOL 300 MG CAPSULE PO SCH (21:30)
[2018-02-26] MEDS: MELATONIN 5 MG TABLETS PO SCH (21:30)
[2018-02-27] MEDS: METOCLOPRAMIDE HCL INJECTION 10 MG/2 ML VIAL IVPUSH SCH ×3 (02:43→17:05)
[2018-02-27] MEDS: INSULIN SLIDING SCALE (NOVOLOG) 1 VIAL SQ SCH ×4 (06:01→22:00)
[2018-02-27] MEDS: metFORMIN HCL 500 MG TABLET (FP) PO SCH ×2 (06:01→17:05)
[2018-02-27] MEDS: SODIUM CHLORIDE 0.45% 1,000 ML IV SCH ×3 (06:45→22:00)
[2018-02-27 06:51] LABS: BASO % 0.2 % (0-2.0); EOS % 0.4 % (0-4.5); HEMATOCRIT 31.3 % (32.4-45.2); HEMOGLOBIN 10.7 GM/dL (10.7-15.3); LYMPH % 6.5 % (8-40); MCH 29.1 pg (25.7-33.7); MCHC 34.1 g/dl (32.0-36.0); MEAN CELL VOLUME 85.3 fl (80-96); MONO % 5.9 % (3.8-10.2); PLATELET COUNT 178 K/MM3 (134-434); RBC 3.68 M/mm3 (3.60-5.2); RDW 13.6 % (11.6-15.6); WHITE BLOOD COUNT 15.4 K/mm3 (4.0-10.0)
[2018-02-27 07:16] LABS: ALBUMIN 2.4 g/dl (3.4-5.0); ANION GAP 11 (8-16); BILIRUBIN,TOTAL 0.8 mg/dL (0.2-1.0); BLOOD UREA NITROGEN 24 mg/dL (7-18); CALCIUM 7.5 mg/dL (8.5-10.1); CHLORIDE 99 mmol/L (98-107); CO2 26 mmol/L (21-32); CREATININE 1.4 mg/dL (0.55-1.02); GLUCOSE,RANDOM 207 mg/dL (74-106); SGOT/AST 48 U/L (15-37); SGPT/ALT 105 U/L (12-78); SODIUM 136 mmol/L (136-145); TOT PROT 5.1 g/dl (6.4-8.2)
[2018-02-27 07:17] LABS: ALK PHOS 110 U/L (45-117)
[2018-02-27] MEDS ORDERED: DEXTROSE 5%-WATER - 50 ML IVPB ONE (09:26)
[2018-02-27] MEDS ORDERED: cefTRIAXone SODIUM 1 GM VIAL ONE (09:26)
[2018-02-27] MEDS: CEFTRIAXONE 1 GM in DEXTROSE 5%-WATER - 50 ML IVPB SCH (09:36)
[2018-02-27] MEDS: URSODIOL 300 MG CAPSULE PO SCH ×2 (09:36→21:59)
[2018-02-27] MEDS: PANTOPRAZOLE 40 MG TABLET (FP) PO SCH (09:36)
[2018-02-27] MEDS: LISINOPRIL 5 MG TABLET (FP) PO SCH (09:36)
[2018-02-27] MEDS: ASPIRIN 81 MG CHEWABLE TABLETS PO SCH (09:36)
[2018-02-27] MEDS ORDERED: INSULIN (NOVOLOG) ASPART 100 UNITS/ML 10ML VIAL ONE ×2 (11:39→11:41)
--- NOTE | 2018-02-27 11:39 | PN ---
Progress Note (short form) - Note Progress Note: seen and examined in her room states feels better / was able to sleep all night no nausea or vomiting s/p percutaneous cholecystostomy, tolerating clears Vital Signs Period Temp Pulse Resp BP Sys/Bangura Pulse Ox Last 24 Hr 97.3 F-101.1 F 86-104 16-23 100-139/57-84 88-97 neck supple heart S1/S2 Lungs clear bilat abd continues with inc + tenderness RUQ / +guarding to RUQ cholecystostomy tube in place - dressing dry reservoir with dark yellow drainage ext FROM / no edema CBC,CMP WBC 15.4 K/mm3 (4.0-10.0) H 02/27/18 05:35 RBC 3.68 M/mm3 (3.60-5.2) 02/27/18 05:35 Hgb 10.7 GM/dL (10.7-15.3) 02/27/18 05:35 Hct 31.3 % (32.4-45.2) L 02/27/18 05:35 MCV 85.3 fl (80-96) 02/27/18 05:35 MCH 29.1 pg (25.7-33.7) 02/27/18 05:35 MCHC 34.1 g/dl (32.0-36.0) 02/27/18 05:35 RDW 13.6 % (11.6-15.6) 02/27/18 05:35 Plt Count 178 K/MM3 (134-434) 02/27/18 05:35 MPV 9.0 fl (7.5-11.1) 02/27/18 05:35 Neutrophils % 87.0 % (42.8-82.8) H 02/27/18 05:35 Lymphocytes % 6.5 % (8-40) L 02/27/18 05:35 Monocytes % 5.9 % (3.8-10.2) 02/27/18 05:35 Eosinophils % 0.4 % (0-4.5) D 02/27/18 05:35 Basophils % 0.2 % (0-2.0) 02/27/18 05:35 Sodium 136 mmol/L (136-145) 02/27/18 05:35 Potassium 4.0 mmol/L (3.5-5.1) 02/27/18 05:35 Chloride 99 mmol/L (98-107) 02/27/18 05:35 Carbon Dioxide 26 mmol/L (21-32) 02/27/18 05:35 Anion Gap 11 (8-16) 02/27/18 05:35 BUN 24 mg/dL (7-18) H 02/27/18 05:35 Creatinine 1.4 mg/dL (0.55-1.02) H 02/27/18 05:35 Creat Clearance w eGFR 36.56 (>60) 02/27/18 05:35 POC Glucometer 232 UNITS (80-120) 02/27/18 10:58 Random Glucose 207 mg/dL (74-106) H 02/27/18 05:35 Hemoglobin A1c % 9.3 % (4.8-6.0) H 02/24/18 05:59 Calcium 7.5 mg/dL (8.5-10.1) L 02/27/18 05:35 Total Bilirubin 0.8 mg/dL (0.2-1.0) D 02/27/18 05:35 AST 48 U/L (15-37) H 02/27/18 05:35 ALT 105 U/L (12-78) H 02/27/18 05:35 Alkaline Phosphatase 110 U/L (45-117) 02/27/18 05:35 Creatine Kinase 60 IU/L (26-192) 02/22/18 17:10 Troponin I < 0.02 ng/ml (0.00-0.05) 02/22/18 17:10 Total Protein 5.1 g/dl (6.4-8.2) L 02/27/18 05:35 Albumin 2.4 g/dl (3.4-5.0) L 02/27/18 05:35 Triglycerides 105 mg/dL (35-160) 02/23/18 07:15 Cholesterol 105 mg/dL (50-200) 02/23/18 07:15 Total LDL Cholesterol 53 mg/dL (5-100) 02/23/18 07:15 HDL Cholesterol 43 mg/dL (40-60) 02/23/18 07:15 CBC, BMP 02/26/18 06:30 CMP Sodium 133 mmol/L (136-145) L 02/26/18 06:30 Potassium 3.8 mmol/L (3.5-5.1) 02/26/18 06:30 Chloride 99 mmol/L (98-107) 02/26/18 06:30 Carbon Dioxide 25 mmol/L (21-32) 02/26/18 06:30 Anion Gap 9 (8-16) 02/26/18 06:30 BUN 23 mg/dL (7-18) H 02/26/18 06:30 Creatinine 1.7 mg/dL (0.55-1.02) H 02/26/18 06:30 Creat Clearance w eGFR 29.22 (>60) 02/26/18 06:30 POC Glucometer 259 UNITS (80-120) 02/26/18 12:05 Random Glucose 241 mg/dL (74-106) H 02/26/18 06:30 Hemoglobin A1c % 9.3 % (4.8-6.0) H 02/24/18 05:59 Calcium 7.8 mg/dL (8.5-10.1) L 02/26/18 06:30 Total Bilirubin 1.2 mg/dL (0.2-1.0) H 02/26/18 06:30 AST 115 U/L (15-37) H 02/26/18 06:30 ALT 175 U/L (12-78) H 02/26/18 06:30 Alkaline Phosphatase 126 U/L (45-117) H 02/26/18 06:30 Creatine Kinase 60 IU/L (26-192) 02/22/18 17:10 Troponin I < 0.02 ng/ml (0.00-0.05) 02/22/18 17:10 Total Protein 5.6 g/dl (6.4-8.2) L 02/26/18 06:30 Albumin 2.8 g/dl (3.4-5.0) L 02/26/18 06:30 Triglycerides 105 mg/dL (35-160) 02/23/18 07:15 Cholesterol 105 mg/dL (50-200) 02/23/18 07:15 Total LDL Cholesterol 53 mg/dL (5-100) 02/23/18 07:15 HDL Cholesterol 43 mg/dL (40-60) 02/23/18 07:15 Microbiology 02/26/18 14:30 Bile Body Fluid Culture - Preliminary Lactose Fermenting Neg Bacilli Group D Strep Or Entero Coccus 02/22/18 10:50 Urine - Urine Nava Urine Culture - Final NO GROWTH OBTAINED u/s c/w cholelithiasis Results Cat Scan: Report Reviewed, Image Reviewed (right wedge shaped infarction) Active Medications Acetaminophen (Tylenol -) 650 mg PO Q4H PRN PRN Reason: FEVER Last Admin: 02/26/18 21:30 Dose: 650 mg Aspirin (Asa -) 81 mg PO DAILY [facility] Last Admin: 02/27/18 09:36 Dose: 81 mg Atorvastatin Calcium (Lipitor -) 40 mg PO HS [facility] Last Admin: 02/26/18 21:30 Dose: 40 mg Hydromorphone HCl (Dilaudid -) 2 mg PO Q6H PRN PRN Reason: PAIN LEVEL 4 - 6 Ceftriaxone Sodium 1 gm/ (Dextrose) 50 mls @ 100 mls/hr IVPB DAILY [facility] Last Admin: 02/27/18 09:36 Dose: 100 mls/hr Metronidazole (Flagyl 500mg Premixed Ivpb -) 500 mg in 100 mls @ 100 mls/hr IVPB Q8H-IV [facility] Last Admin: 02/27/18 09:36 Dose: 100 mls/hr Sodium Chloride (1/2 Normal Saline) 1,000 mls @ 125 mls/hr IV ASDIR [facility] Last Admin: 02/27/18 09:39 Dose: Not Given Insulin Aspart (Novolog Vial Sliding Scale -) 1 vial SQ ACHS [facility] PRN Reason: Protocol Last Admin: 02/27/18 06:01 Dose: Not Given Lisinopril (Prinivil) 5 mg PO DAILY [facility] Last Admin: 02/27/18 09:36 Dose: 5 mg Melatonin (Melatonin) 5 mg PO [facility] Last Admin: 02/26/18 21:30 Dose: 5 mg Metformin HCl (Glucophage -) 500 mg PO BID@0700,1630 [facility] Last Admin: 02/27/18 06:01 Dose: 500 mg Metoclopramide HCl (Reglan Injection -) 10 mg IVPUSH Q8H-IV [facility] Last Admin: 02/27/18 09:36 Dose: 10 mg Morphine Sulfate (Morphine Sulfate) 2 mg IVPUSH Q6H PRN PRN Reason: PAIN LEVEL 6-10 Last Admin: 02/27/18 06:02 Dose: 2 mg Ondansetron HCl (Zofran Injection) 4 mg IVPUSH Q4H PRN PRN Reason: NAUSEA AND/OR VOMITING Last Admin: 02/25/18 04:42 Dose: 4 mg Pantoprazole Sodium (Protonix -) 40 mg PO DAILY [facility] Last Admin: 02/27/18 09:36 Dose: 40 mg Ursodiol (Actigal -) 300 mg PO BID [facility] Last Admin: 02/27/18 09:36 Dose: 300 mg Stroke in patient who recently had cluster of small embolic looking strokes. # acute cholecystitis s/p percutaneous cholecystostomy, 02/26/18 WBC remain elevated but improved LFT trending down Good pain control -- states was able to sleep all night will discuss with GI - to advance diet Zofran PRN / clear liquids # CVA Cardiac work up on hold pending resolution of abdominal process Family aware of clinical status continue telemetry to evaluate for cardiac arrhythmia asa / statins # DM HgA1c Fs with coverage # HTN continue lisinopril monitor bp
--- NOTE | 2018-02-27 13:04 | PN ---
Progress Note (short form) - Note Progress Note: Chief Complaint: CVA History of Present Illness: s/p percutaneous cholecystostomy yesterday. Started on IVF 125 cc/hr yesterday. O2 sat trending down, but patient denies sob, orthopnea, le edema. Also started on actigal yesterday. + fever overnight. abdominal pain this morning, improved throughout the day. tolerated clears in the afternoon. no cp, sob, palpit, no new neuro sx Current Medications Acetaminophen (Tylenol -) 650 mg PO Q4H PRN PRN Reason: FEVER Last Admin: 02/26/18 21:30 Dose: 650 mg Aspirin (Asa -) 81 mg PO DAILY [facility] Last Admin: 02/27/18 09:36 Dose: 81 mg Atorvastatin Calcium (Lipitor -) 40 mg PO HS [facility] Last Admin: 02/26/18 21:30 Dose: 40 mg Hydromorphone HCl (Dilaudid -) 2 mg PO Q6H PRN PRN Reason: PAIN LEVEL 4 - 6 Ceftriaxone Sodium 1 gm/ (Dextrose) 50 mls @ 100 mls/hr IVPB DAILY [facility] Last Admin: 02/27/18 09:36 Dose: 100 mls/hr Metronidazole (Flagyl 500mg Premixed Ivpb -) 500 mg in 100 mls @ 100 mls/hr IVPB Q8H-IV [facility] Last Admin: 02/27/18 09:36 Dose: 100 mls/hr Sodium Chloride (1/2 Normal Saline) 1,000 mls @ 125 mls/hr IV ASDIR [facility] Last Admin: 02/27/18 09:39 Dose: Not Given Insulin Aspart (Novolog Vial Sliding Scale -) 1 vial SQ ACHS [facility] PRN Reason: Protocol Last Admin: 02/27/18 11:59 Dose: 2 units Lisinopril (Prinivil) 5 mg PO DAILY [facility] Last Admin: 02/27/18 09:36 Dose: 5 mg Melatonin (Melatonin) 5 mg PO HS [facility] Last Admin: 02/26/18 21:30 Dose: 5 mg Metformin HCl (Glucophage -) 500 mg PO BID@0700,1630 [facility] Last Admin: 02/27/18 06:01 Dose: 500 mg Metoclopramide HCl (Reglan Injection -) 10 mg IVPUSH Q8H-IV [facility] Last Admin: 04/24/18 09:36 Dose: 10 mg Morphine Sulfate (Morphine Sulfate) 2 mg IVPUSH Q6H PRN PRN Reason: PAIN LEVEL 6-10 Last Admin: 02/27/18 06:02 Dose: 2 mg Ondansetron HCl (Zofran Injection) 4 mg IVPUSH Q4H PRN PRN Reason: NAUSEA AND/OR VOMITING Last Admin: 02/25/18 04:42 Dose: 4 mg Pantoprazole Sodium (Protonix -) 40 mg PO DAILY [facility] Last Admin: 02/27/18 09:36 Dose: 40 mg Ursodiol (Actigal -) 300 mg PO BID [facility] Last Admin: 02/27/18 09:36 Dose: 300 mg - Objective Vital Signs: Vital Signs - 24 hr 02/26/18 02/26/18 02/26/18 13:15 13:24 13:33 Temperature Pulse Rate 104 H 93 H Pulse Rate [ 91 H Left Upper Arm] Respiratory 16 16 Rate Respiratory 16 Rate [Left Upper Arm] Blood Pressure 128/63 128/67 Blood Pressure 123/61 [Left Upper Arm ] O2 Sat by Pulse 95 97 Oximetry (%) O2 Sat by Pulse 95 Oximetry (%) [ Left Upper Arm] 02/26/18 02/26/18 02/26/18 14:15 18:17 21:00 Temperature 98.9 F 99.9 F H Pulse Rate 94 H 104 H Pulse Rate [ Left Upper Arm] Respiratory 18 20 Rate Respiratory Rate [Left Upper Arm] Blood Pressure 132/60 124/84 Blood Pressure [Left Upper Arm ] O2 Sat by Pulse 88 L Oximetry (%) O2 Sat by Pulse Oximetry (%) [ Left Upper Arm] 02/26/18 02/27/18 02/27/18 22:00 01:00 06:58 Temperature 101.1 F H 97.3 F L 97.6 F Pulse Rate 103 H 86 89 Pulse Rate [ Left Upper Arm] Respiratory 16 16 16 Rate Respiratory Rate [Left Upper Arm] Blood Pressure 127/67 100/57 139/62 Blood Pressure [Left Upper Arm ] O2 Sat by Pulse Oximetry (%) O2 Sat by Pulse Oximetry (%) [ Left Upper Arm] 02/27/18 02/27/18 09:00 10:00 Temperature 98.8 F Pulse Rate 103 H Pulse Rate [ Left Upper Arm] Respiratory 16 16 Rate Respiratory Rate [Left Upper Arm] Blood Pressure 133/69 Blood Pressure [Left Upper Arm ] O2 Sat by Pulse 91 L Oximetry (%) O2 Sat by Pulse Oximetry (%) [ Left Upper Arm] Intake & Output 02/25/18 02/26/18 02/27/18 02/28/18 07:59 07:59 07:59 07:59 Intake Total 2235 502 8941 Output Total 310 150 Balance 8524 295 2546 Constitutional: Yes: Well Nourished, No Distress, Calm Cardiovascular: Yes: Regular Rate and Rhythm, S1, S2. No: Gallop, Murmur Respiratory: Yes: Regular, ? dullness at right base vs. poor inspiration. No: Accessory Muscle Use, Rales, Wheezes Gastrointestinal: Yes: Tenderness (RUQ) Extremities: No: Cold Edema: trace Neurological: Yes: Alert, Oriented Psychiatric: No: Agitated Labs: CBC, BMP 02/27/18 05:35 02/27/18 05:35 Laboratory Tests 02/26/18 02/27/18 06:30 05:35 Sodium 133 L Creatinine 1.7 H Total Bilirubin 1.2 H 0.8 D AST 115 H 48 H ALT 175 H 105 H Alkaline Phosphatase 126 H 110 Albumin 2[address]: interval wedge shaped acute/subacute infarct of right parietal lobe, no hemorrhage. brain mri 01/2018: cluster of small acute infarcts in the left parietal lobe. mild chronic microvascular ischemic changes. carotid u/s 01/2018: small plaque, no stenosis, nl verts. Echo 02/21: nl LV/EF. nl RV. valves WNL tele: NSR, recurrent PSVT (long RP), frequent atrial runs, pac's. ASSESSMENT/PLAN 77 yo with h/o IDDM, copd, ckd, depression with hx of hospitalization and electric shock therapy (now in remission), possible prior gib and recent uti last month as well as admission last month for transient slurred speech/ unsteady gait (Toxic-Meteabolic encephalopathy vs. 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 cva - neuro following - neuro input appreciated: concerned for cardioembolic source. previously d/w dr gruber who reviewed MRI and also feels there are very small infarcts in right brain, hence bilateral pattern. Patient was not taking ASA consistently at home, hence initially continued aspirin monotherapy per neuro. However, due to high suspicion for cardioembolic source, per neuro, would benefit from empiric AC. AC ok from CV perspective. ? whether safe from GI standpoint. Will defer to neuro and GI regarding timing of AC initiation. - tele monitoring continues, to assess for afib/flutter - echo unrevealing - planning for KAE once hepatobiliary w/u is completed --> Discussed with PMD today 02/27. Not yet ready for KAE from GI standpoint. Will reconsider towards the end of the week. - if inpt w/u negative, can consider loop recorder as outpt - cont statin (LDL 53, TC 105 on atorva 40) abd pain, vomiting, cholecystitis with cholangitis. - low grade fever, localized RUQ tenderness - sono with gallstones and dilated bile duct--w/u ongoing - 02/27: s/p percutaneous cholecystostomy 02/26. on IVF 125 cc/hr. No overt clinical signs/sx's of volume overload, but O2 sats trending down slightly. Will repeat pa/lat cxr. LFT's trending down (note, remains on statin), and diet being advanced, will decrease rate of IVF to 83 cc/hr overnight. Ok to increase rate again tomorrow if necessary per GI. Incentive spirometry. PSVT: - short runs on tele, ? PAT conducted with long [place] delay vs AVRT - no palpitations. - thus far no fib/flutter--continue tele monitoring - 02/27: frequent runs of psvt. will stop lisinopril and start diltiazem (defer bb, patient has h/o hospitalization and electric shock therapy for hx of depression, currently stable) htn - BP stable at admission levels (120s-130s) - cont GIANNA-I, switching to dilt as above. monitor bp with changes. hld: -cont statin
--- NOTE | 2018-02-27 13:11 | PN ---
Progress Note (short form) - Note Progress Note: Neurologically stable with no deficits or symptoms in this patient with bilateral cerebral emboli on at least two occasions, and currently assymptomatic from neurologic standpoint. Unfortunately, she also has evidence of gallbladder disease, and the issue is whether or not she'll need surgery acutely, as she will likey benefit from anticoagulation. The most likely source of these emboli in multiple distributions is the heart. Cardiac and GI workups are underway. Problem List - Problems (1) CVA (cerebral vascular accident) Code(s): I63.9 - CEREBRAL INFARCTION, UNSPECIFIED Qualifiers: CVA mechanism: unspecified Qualified Code(s): I63.9 - Cerebral infarction, unspecified
[2018-02-27] MEDS: ACETAMINOPHEN 325 MG TABLET (FP) PO PRN (18:31)
--- NOTE | 2018-02-27 19:46 | PN ---
GI Progress Note Subjective: patient clinically improved since yesterday, her abdominal pain is less, tube draining yellow bile compared to dark brown fluid last evening, tolerating clears - Objective Vital Signs: Vital Signs Temperature 100.1 F H 02/27/18 17:55 Pulse Rate 105 H 02/27/18 17:55 Respiratory Rate 18 02/27/18 17:55 Blood Pressure 146/73 02/27/18 17:55 O2 Sat by Pulse Oximetry (%) 91 L 02/27/18 09:00 Constitutional: Well Nourished Eyes: Yes: Conjunctiva Clear HENT: Yes: Atraumatic Neck: Yes: Supple Cardiovascular: Yes: Regular Rate and Rhythm Respiratory: Yes: CTA Bilaterally ...Palpate: Yes: Soft, Tenderness (--mild ruq). No: Firm/Rigid, Guarding, Hepatomegaly, Mass, Pulsatile Mass, Splenomegaly Labs: CBC, BMP 02/27/18 05:35 02/27/18 05:35 INR, PTT INR 1.07 (0.82-1.09) 02/22/18 10:50 Problem List - Problems (1) Cholecystitis with cholangitis Assessment/Plan: --resolving R> continue antibiotics if temp recurs will need blood cultures and urine cultures Code(s): K81.9 - CHOLECYSTITIS, UNSPECIFIED; K83.0 - CHOLANGITIS
[2018-02-27] MEDS ORDERED: PT OWN MED DRAWER 7, Y5N ONE (21:51)
[2018-02-27] MEDS: ATORVASTATIN CA 40 MG TABLET (FP) PO SCH (21:59)
[2018-02-27] MEDS: MELATONIN 5 MG TABLETS PO SCH (21:59)
[2018-02-28] MEDS: METOCLOPRAMIDE HCL INJECTION 10 MG/2 ML VIAL IVPUSH SCH ×3 (01:46→17:14)
[2018-02-28] MEDS: metFORMIN HCL 500 MG TABLET (FP) PO SCH ×2 (05:59→16:11)
[2018-02-28] MEDS: INSULIN SLIDING SCALE (NOVOLOG) 1 VIAL SQ SCH ×4 (05:59→21:46)
[2018-02-28 07:07] LABS: BASO % 0.3 % (0-2.0); EOS % 1.4 % (0-4.5); HEMATOCRIT 30.1 % (32.4-45.2); HEMOGLOBIN 10.2 GM/dL (10.7-15.3); LYMPH % 7.3 % (8-40); MCH 28.6 pg (25.7-33.7); MCHC 33.8 g/dl (32.0-36.0); MEAN CELL VOLUME 84.6 fl (80-96); PLATELET COUNT 171 K/MM3 (134-434); RBC 3.55 M/mm3 (3.60-5.2); RDW 13.7 % (11.6-15.6); WHITE BLOOD COUNT 14.8 K/mm3 (4.0-10.0)
[2018-02-28 07:33] LABS: CHLORIDE 105 mmol/L (98-107); POTASSIUM 3.5 mmol/L (3.5-5.1); SODIUM 138 mmol/L (136-145)
[2018-02-28 07:45] LABS: ALBUMIN 2.2 g/dl (3.4-5.0); ALK PHOS 106 U/L (45-117); ANION GAP 9 (8-16); BILIRUBIN,TOTAL 0.7 mg/dL (0.2-1.0); BLOOD UREA NITROGEN 15 mg/dL (7-18); CO2 24 mmol/L (21-32); GLUCOSE,RANDOM 198 mg/dL (74-106); SGOT/AST 23 U/L (15-37); SGPT/ALT 65 U/L (12-78); TOT PROT 4.8 g/dl (6.4-8.2)
[2018-02-28 09:23] LABS: MAGNESIUM 0.8 mg/dL (1.8-2.4)
[2018-02-28] MEDS ORDERED: DEXTROSE 5%-WATER - 50 ML IVPB ONE (09:34)
[2018-02-28] MEDS ORDERED: cefTRIAXone SODIUM 1 GM VIAL ONE (09:34)
[2018-02-28] MEDS: URSODIOL 300 MG CAPSULE PO SCH ×2 (09:44→21:45)
[2018-02-28] MEDS: PANTOPRAZOLE 40 MG TABLET (FP) PO SCH (09:45)
[2018-02-28] MEDS: CEFTRIAXONE 1 GM in DEXTROSE 5%-WATER - 50 ML IVPB SCH (09:45)
[2018-02-28] MEDS: ASPIRIN 81 MG CHEWABLE TABLETS PO SCH (09:45)
[2018-02-28] MEDS ORDERED: INSULIN (NOVOLOG) ASPART 100 UNITS/ML 10ML VIAL ONE ×2 (11:02→21:26)
--- NOTE | 2018-02-28 11:04 | PN ---
Progress Note (short form) - Note Progress Note: s: no cp sob palps dizzy o: Vital Signs Period Temp Pulse Resp BP Sys/Bangura Pulse Ox Last 24 Hr 98.0 F-100.1 F 92-105 16-20 118-146/58-75 85 nad, calm jvd flat, neck supple ctab, nl effort rrr nl s1, s2 1/6 sys murmur at sternal border. + bs soft nt nd no le e/c/c aaox3 no jaundice, diaphoresis. Current Medications Generic Name Dose Route Start Last Admin Trade Name Freq PRN Reason Stop Dose Admin Acetaminophen 650 mg 02/25/18 17:37 02/27/18 18:31 Tylenol - PO 650 mg Q4H PRN Administration FEVER Aspirin 81 mg 02/23/18 10:00 02/28/18 09:45 Asa - PO 81 mg DAILY [facility] Administration Atorvastatin Calcium 40 mg 02/22/18 22:00 02/27/18 21:59 Lipitor - PO 40 mg HS [facility] Administration Diltiazem HCl 120 mg 02/28/18 10:00 02/28/18 09:44 Cardizem Cd - PO 120 mg DAILY [facility] Administration Hydromorphone HCl 2 mg 02/26/18 16:34 Dilaudid - PO Q6H PRN PAIN LEVEL 4 - 6 Ceftriaxone Sodium 1 gm/ 50 mls @ 100 mls/hr 02/25/18 15:00 02/28/18 09:45 Dextrose IVPB 100 mls/hr DAILY [facility] Administration Metronidazole 500 mg in 100 mls @ 100 mls/hr 02/25/18 14:45 02/28/18 09:45 Flagyl 500mg Premixed Ivpb - IVPB 100 mls/hr Q8H-IV [facility] Administration Sodium Chloride 1,000 mls @ 83 mls/hr 02/27/18 22:00 02/27/18 22:00 1/2 Normal Saline IV 83 mls/hr ASDIR [facility] Administration Magnesium Sulfate 2 gm in 50 mls @ 100 mls/hr 02/28/18 11:30 Magnesium Sulf 2 G/50 Ml Bag IVPB 02/28/18 11:59 ONCE ONE Insulin Aspart 1 vial 02/24/18 07:00 02/28/18 05:59 Novolog Vial Sliding Scale - SQ Not Given ACHS [facility] Protocol Melatonin 5 mg 02/22/18 22:00 02/27/18 21:59 Melatonin PO 5 mg HS [facility] Administration Metformin HCl 500 mg 02/23/18 07:00 02/28/18 05:59 Glucophage - PO 500 mg BID@0700,1630 [facility] Administration Metoclopramide HCl 10 mg 02/26/18 18:00 02/28/18 09:45 Reglan Injection - IVPUSH 10 mg Q8H-IV [facility] Administration Morphine Sulfate 2 mg 02/26/18 20:00 02/27/18 06:02 Morphine Sulfate IVPUSH 2 mg Q6H PRN Administration PAIN LEVEL 6-10 Ondansetron HCl 4 mg 02/25/18 04:40 02/25/18 04:42 Zofran Injection IVPUSH 4 mg Q4H PRN Administration NAUSEA AND/OR VOMITING Pantoprazole Sodium 40 mg 02/23/18 10:00 02/28/18 09:45 Protonix - PO 40 mg DAILY [facility] Administration Ursodiol 300 mg 02/26/18 22:00 02/28/18 09:44 Actigal - PO 300 mg BID [facility] Administration CBC, BMP 02/28/18 06:38 02/28/18 06:38 tele: sr head CT: interval wedge shaped acute/subacute infarct of right parietal lobe, no hemorrhage. brain mri 01/2018: cluster of small acute infarcts in the left parietal lobe. mild chronic microvascular ischemic changes. carotid u/s 01/2018: small plaque, no stenosis, nl verts. ASSESSMENT/PLAN 77 yo with h/o IDDM, copd, ckd, depression with hx of hospitalization and electric shock therapy (now in remission), possible prior gib and recent uti last month as well as admission last month for transient slurred speech/ unsteady gait (Toxic-Meteabolic encephalopathy vs. 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 cva - neuro following - neuro input appreciated: concerned for cardioembolic source. previously d/w dr gruber who reviewed MRI and also feels there are very small infarcts in right brain, hence bilateral pattern. Patient was not taking ASA consistently at home, hence initially continued aspirin monotherapy per neuro. However, due to high suspicion for cardioembolic source, per neuro, would benefit from empiric AC. AC ok from CV perspective. ? whether safe from GI standpoint. Will defer to neuro and GI regarding timing of AC initiation. - tele monitoring continues, to assess for afib/flutter - echo unrevealing - planning for KAE once hepatobiliary w/u is completed --> Not yet ready for KAE from GI standpoint. Will reconsider towards the end of the week. - if inpt w/u negative, can consider loop recorder as outpt - cont statin (LDL 53, TC 105 on atorva 40) abd pain, vomiting, cholecystitis with cholangitis. - low grade fever, localized RUQ tenderness - sono with gallstones and dilated bile duct--w/u ongoing - 02/27: s/p percutaneous cholecystostomy 02/26. PSVT: - short runs on tele, ? PAT conducted with long [place] delay vs AVRT - no palpitations. - thus far no fib/flutter--continue tele monitoring - 02/27: frequent runs of psvt. will stop lisinopril and start diltiazem (defer bb, patient has h/o hospitalization and electric shock therapy for hx of depression, currently stable) htn - BP stable hld: -cont statin
[2018-02-28] MEDS ORDERED: MAGNESIUM SULFATE IN WATER 2 GM/50 ML IVPB IVPB ONE (11:30)
--- NOTE | 2018-02-28 13:22 | PN ---
Progress Note (short form) - Note Progress Note: seen and examined in her room states feels better- still on liquids no nausea or vomiting s/p percutaneous cholecystostomy, tolerating clears Vital Signs Period Temp Pulse Resp BP Sys/Bangura Pulse Ox Last 24 Hr 98.0 F-100.1 F 92-105 16-20 118-146/58-75 85 neck supple heart S1/S2 Lungs clear bilat abd less Upper quadrant guarding cholecystostomy tube in place - dressing dry reservoir with clearer yellow drainage ext FROM / no edema CBC,CMP WBC 14.8 K/mm3 (4.0-10.0) H 02/28/18 06:38 RBC 3.55 M/mm3 (3.60-5.2) L 02/28/18 06:38 Hgb 10.2 GM/dL (10.7-15.3) L 02/28/18 06:38 Hct 30.1 % (32.4-45.2) L 02/28/18 06:38 MCV 84.6 fl (80-96) 02/28/18 06:38 MCH 28.6 pg (25.7-33.7) 02/28/18 06:38 MCHC 33.8 g/dl (32.0-36.0) 02/28/18 06:38 RDW 13.7 % (11.6-15.6) 02/28/18 06:38 Plt Count 171 K/MM3 (134-434) 02/28/18 06:38 MPV 9.0 fl (7.5-11.1) 02/28/18 06:38 Neutrophils % 84.0 % (42.8-82.8) H 02/28/18 06:38 Lymphocytes % 7.3 % (8-40) L 02/28/18 06:38 Monocytes % 7.0 % (3.8-10.2) 02/28/18 06:38 Eosinophils % 1.4 % (0-4.5) D 02/28/18 06:38 Basophils % 0.3 % (0-2.0) 02/28/18 06:38 Sodium 138 mmol/L (136-145) 02/28/18 06:38 Potassium 3.5 mmol/L (3.5-5.1) 02/28/18 06:38 Chloride 105 mmol/L (98-107) 02/28/18 06:38 Carbon Dioxide 24 mmol/L (21-32) 02/28/18 06:38 Anion Gap 9 (8-16) 02/28/18 06:38 BUN 15 mg/dL (7-18) 02/28/18 06:38 Creatinine 1.0 mg/dL (0.55-1.02) 02/28/18 06:38 Creat Clearance w eGFR 53.91 (>60) 02/28/18 06:38 POC Glucometer 290 UNITS (80-120) 02/28/18 10:57 Random Glucose 198 mg/dL (74-106) H 02/28/18 06:38 Hemoglobin A1c % 9.3 % (4.8-6.0) H 02/24/18 05:59 Calcium 7.0 mg/dL (8.5-10.1) L 02/28/18 06:38 Magnesium 0.8 mg/dL (1.8-2.4) L* 02/28/18 06:38 Total Bilirubin 0.7 mg/dL (0.2-1.0) 02/28/18 06:38 AST 23 U/L (15-37) 02/28/18 06:38 ALT 65 U/L (12-78) 02/28/18 06:38 Alkaline Phosphatase 106 U/L (45-117) 02/28/18 06:38 Creatine Kinase 60 IU/L (26-192) 02/22/18 17:10 Troponin I < 0.02 ng/ml (0.00-0.05) 02/22/18 17:10 Total Protein 4.8 g/dl (6.4-8.2) L 02/28/18 06:38 Albumin 2.2 g/dl (3.4-5.0) L 02/28/18 06:38 Triglycerides 105 mg/dL (35-160) 02/23/18 07:15 Cholesterol 105 mg/dL (50-200) 02/23/18 07:15 Total LDL Cholesterol 53 mg/dL (5-100) 02/23/18 07:15 HDL Cholesterol 43 mg/dL (40-60) 02/23/18 07:15 CBC,CMP WBC 15.4 K/mm3 (4.0-10.0) H 02/27/18 05:35 RBC 3.68 M/mm3 (3.60-5.2) 02/27/18 05:35 Hgb 10.7 GM/dL (10.7-15.3) 02/27/18 05:35 Hct 31.3 % (32.4-45.2) L 02/27/18 05:35 MCV 85.3 fl (80-96) 02/27/18 05:35 MCH 29.1 pg (25.7-33.7) 02/27/18 05:35 MCHC 34.1 g/dl (32.0-36.0) 02/27/18 05:35 RDW 13.6 % (11.6-15.6) 02/27/18 05:35 Plt Count 178 K/MM3 (134-434) 02/27/18 05:35 MPV 9.0 fl (7.5-11.1) 02/27/18 05:35 Neutrophils % 87.0 % (42.8-82.8) H 02/27/18 05:35 Lymphocytes % 6.5 % (8-40) L 02/27/18 05:35 Monocytes % 5.9 % (3.8-10.2) 02/27/18 05:35 Eosinophils % 0.4 % (0-4.5) D 02/27/18 05:35 Basophils % 0.2 % (0-2.0) 02/27/18 05:35 Sodium 136 mmol/L (136-145) 02/27/18 05:35 Potassium 4.0 mmol/L (3.5-5.1) 02/27/18 05:35 Chloride 99 mmol/L (98-107) 02/27/18 05:35 Carbon Dioxide 26 mmol/L (21-32) 02/27/18 05:35 Anion Gap 11 (8-16) 02/27/18 05:35 BUN 24 mg/dL (7-18) H 02/27/18 05:35 Creatinine 1.4 mg/dL (0.55-1.02) H 02/27/18 05:35 Creat Clearance w eGFR 36.56 (>60) 02/27/18 05:35 POC Glucometer 232 UNITS (80-120) 02/27/18 10:58 Random Glucose 207 mg/dL (74-106) H 02/27/18 05:35 Hemoglobin A1c % 9.3 % (4.8-6.0) H 02/24/18 05:59 Calcium 7.5 mg/dL (8.5-10.1) L 02/27/18 05:35 Total Bilirubin 0.8 mg/dL (0.2-1.0) D 02/27/18 05:35 AST 48 U/L (15-37) H 02/27/18 05:35 ALT 105 U/L (12-78) H 02/27/18 05:35 Alkaline Phosphatase 110 U/L (45-117) 02/27/18 05:35 Creatine Kinase 60 IU/L (26-192) 02/22/18 17:10 Troponin I < 0.02 ng/ml (0.00-0.05) 02/22/18 17:10 Total Protein 5.1 g/dl (6.4-8.2) L 02/27/18 05:35 Albumin 2.4 g/dl (3.4-5.0) L 02/27/18 05:35 Triglycerides 105 mg/dL (35-160) 02/23/18 07:15 Cholesterol 105 mg/dL (50-200) 02/23/18 07:15 Total LDL Cholesterol 53 mg/dL (5-100) 02/23/18 07:15 HDL Cholesterol 43 mg/dL (40-60) 02/23/18 07:15 Microbiology 02/26/18 14:30 Bile Gram Stain - Final 02/26/18 14:30 Bile Body Fluid Culture - Preliminary Escherichia Coli Group D Strep Or Entero Coccus 02/22/18 10:50 Urine - Urine Nava Urine Culture - Final NO GROWTH OBTAINED u/s c/w cholelithiasis Results Cat Scan: Report Reviewed, Image Reviewed (right wedge shaped infarction) Active Medications Acetaminophen (Tylenol -) 650 mg PO Q4H PRN PRN Reason: FEVER Last Admin: 02/27/18 18:31 Dose: 650 mg Aspirin (Asa -) 81 mg PO DAILY [facility] Last Admin: 02/28/18 09:45 Dose: 81 mg Atorvastatin Calcium (Lipitor -) 40 mg PO HS [facility] Last Admin: 02/27/18 21:59 Dose: 40 mg Diltiazem HCl (Cardizem Cd -) 120 mg PO DAILY [facility] Last Admin: 02/28/18 09:44 Dose: 120 mg Hydromorphone HCl (Dilaudid -) 2 mg PO Q6H PRN PRN Reason: PAIN LEVEL 4 - 6 Ceftriaxone Sodium 1 gm/ (Dextrose) 50 mls @ 100 mls/hr IVPB DAILY [facility] Last Admin: 02/28/18 09:45 Dose: 100 mls/hr Metronidazole (Flagyl 500mg Premixed Ivpb -) 500 mg in 100 mls @ 100 mls/hr IVPB Q8H-IV [facility] Last Admin: 02/28/18 09:45 Dose: 100 mls/hr Sodium Chloride (1/2 Normal Saline) 1,000 mls @ 83 mls/hr IV ASDIR [facility] Last Admin: 02/27/18 22:00 Dose: 83 mls/hr Insulin Aspart (Novolog Vial Sliding Scale -) 1 vial SQ ACHS [facility] PRN Reason: Protocol Last Admin: 02/28/18 11:52 Dose: 4 units Melatonin (Melatonin) 5 mg PO HS [facility] Last Admin: 02/27/18 21:59 Dose: 5 mg Metformin HCl (Glucophage -) 500 mg PO BID@0700,1630 [facility] Last Admin: 02/28/18 05:59 Dose: 500 mg Metoclopramide HCl (Reglan Injection -) 10 mg IVPUSH Q8H-IV [facility] Last Admin: 02/28/18 09:45 Dose: 10 mg Morphine Sulfate (Morphine Sulfate) 2 mg IVPUSH Q6H PRN PRN Reason: PAIN LEVEL 6-10 Last Admin: 02/27/18 06:02 Dose: 2 mg Ondansetron HCl (Zofran Injection) 4 mg IVPUSH Q4H PRN PRN Reason: NAUSEA AND/OR VOMITING Last Admin: 02/25/18 04:42 Dose: 4 mg Pantoprazole Sodium (Protonix -) 40 mg PO DAILY [facility] Last Admin: 02/28/18 09:45 Dose: 40 mg Ursodiol (Actigal -) 300 mg PO BID [facility] Last Admin: 02/28/18 09:44 Dose: 300 mg Stroke in patient who recently had cluster of small embolic looking strokes. # acute cholecystitis s/p percutaneous cholecystostomy, 02/26/18 WBC remain elevated but improved LFT trending down Good pain control -- will discuss with GI - to advance diet Zofran PRN / clear liquids # CVA Cardiac work up on hold pending resolution of abdominal process Family aware of clinical status continue telemetry to evaluate for cardiac arrhythmia asa / statins # DM HgA1c Fs with coverage # HTN continue lisinopril monitor bp
[2018-02-28] MEDS ORDERED: dilTIAZem HCL 30 MG TABLET (FP) PO ONE ×2 (14:43→22:00)
[2018-02-28] MEDS ORDERED: POTASSIUM CHLORIDE TABS 20 MEQ TABLET.ER (FP) PO ONE (14:46)
--- NOTE | 2018-02-28 15:33 | EKG ---
Test Reason : Blood Pressure : / mmHG Vent. Rate : 124 BPM Atrial Rate : 090 BPM P-R Int : 000 ms QRS Dur : 076 ms QT Int : 296 ms P-R-T Axes : 000 -03 006 degrees QTc Int : 425 ms ATRIAL FIBRILLATION WITH RAPID VENTRICULAR RESPONSE NONSPECIFIC ST AND T WAVE ABNORMALITY ABNORMAL ECG WHEN COMPARED WITH ECG OF 22-FEB-2018 10:45, ATRIAL FIBRILLATION HAS REPLACED SINUS RHYTHM Confirmed by MATT AVILA, MANUELITO ([id number]) on 02/28/2018 3:33:37 PM Referred By: GENIA CABRERA Confirmed By:MANUELITO GUTIERREZ MD
[2018-02-28] MEDS: ENOXAPARIN NA (PORCINE) 80 MG/0.8 ML DISP.SYRIN SQ SCH ×2 (16:11→21:46)
--- NOTE | 2018-02-28 17:40 | PN ---
GI Progress Note Subjective: abdominal pain less, now with caicedo yellow bile,WBC down to 14,000 - Objective Vital Signs: Vital Signs Temperature 98.0 F 02/28/18 09:00 Pulse Rate 115 H 02/28/18 14:32 Respiratory Rate 16 02/28/18 14:32 Blood Pressure 118/61 02/28/18 14:32 O2 Sat by Pulse Oximetry (%) 93 L 02/28/18 15:21 Constitutional: Well Nourished Eyes: Yes: Conjunctiva Clear HENT: Yes: Atraumatic Neck: Yes: Supple Cardiovascular: Yes: Regular Rate and Rhythm Respiratory: Yes: CTA Bilaterally ...Auscultate: No: Hypoactive Bowel Sounds ...Palpate: Yes: Soft. No: Firm/Rigid, Hepatomegaly, Mass, Pulsatile Mass, Splenomegaly, Tenderness Labs: CBC, BMP 02/28/18 06:38 02/28/18 06:38 INR, PTT INR 1.07 (0.82-1.09) 02/22/18 10:50 Problem List - Problems (1) Cholecystitis with cholangitis Assessment/Plan: resolving R>advance diet in am discussed with Dr Lilia ambrosio to start Lovenox Code(s): K81.9 - CHOLECYSTITIS, UNSPECIFIED; K83.0 - CHOLANGITIS
[2018-02-28] MEDS: ATORVASTATIN CA 40 MG TABLET (FP) PO SCH (21:45)
[2018-02-28] MEDS: MELATONIN 5 MG TABLETS PO SCH (21:46)
[2018-02-28] MEDS ORDERED: MAGNESIUM OXIDE 400 MG TABLET (FP) PO ONE (21:58)
[2018-02-28] MEDS: SODIUM CHLORIDE 0.45% 1,000 ML IV SCH (23:19)
[2018-03-01] MEDS: METOCLOPRAMIDE HCL INJECTION 10 MG/2 ML VIAL IVPUSH SCH ×3 (02:48→17:02)
[2018-03-01] MEDS: INSULIN SLIDING SCALE (NOVOLOG) 1 VIAL SQ SCH ×4 (06:07→21:52)
[2018-03-01] MEDS: metFORMIN HCL 500 MG TABLET (FP) PO SCH ×2 (06:07→17:01)
[2018-03-01 07:15] LABS: BASO % 0.4 % (0-2.0); EOS % 1.2 % (0-4.5); HEMATOCRIT 30.6 % (32.4-45.2); HEMOGLOBIN 10.5 GM/dL (10.7-15.3); LYMPH % 11.4 % (8-40); MCH 28.7 pg (25.7-33.7); MCHC 34.2 g/dl (32.0-36.0); MEAN PLT VOLUME 8.9 fl (7.5-11.1); MONO % 8.9 % (3.8-10.2); NEUT % 78.1 % (42.8-82.8); PLATELET COUNT 225 K/MM3 (134-434); RBC 3.64 M/mm3 (3.60-5.2); RDW 13.5 % (11.6-15.6); WHITE BLOOD COUNT 14.7 K/mm3 (4.0-10.0)
[2018-03-01 07:22] LABS: ALBUMIN 2.2 g/dl (3.4-5.0); ANION GAP 10 (8-16); BLOOD UREA NITROGEN 11 mg/dL (7-18); CHLORIDE 107 mmol/L (98-107); CO2 21 mmol/L (21-32); CREATININE 0.9 mg/dL (0.55-1.02); GLUCOSE,RANDOM 192 mg/dL (74-106); MAGNESIUM 1.4 mg/dL (1.8-2.4); POTASSIUM 3.5 mmol/L (3.5-5.1); SGOT/AST 17 U/L (15-37); SGPT/ALT 45 U/L (12-78); SODIUM 138 mmol/L (136-145)
[2018-03-01 07:25] LABS: ALK PHOS 113 U/L (45-117); BILIRUBIN,TOTAL 0.6 mg/dL (0.2-1.0); TOT PROT 4.9 g/dl (6.4-8.2)
[2018-03-01 08:16] LABS: CALCIUM 6.8 mg/dL (8.5-10.1)
[2018-03-01] MEDS ORDERED: DEXTROSE 5%-WATER - 50 ML IVPB ONE (09:01)
[2018-03-01] MEDS ORDERED: cefTRIAXone SODIUM 1 GM VIAL ONE (09:01)
--- NOTE | 2018-03-01 09:07 | PN ---
Progress Note, Physician Chief Complaint: ID [facility] with neurologic complaints related to evolving strokes though on embolic basis. Following presentation she develops abd pain with fever 101 found to have cholelithiasis with CBD dilatation. Due to her medical issues surgery of GB deferred and drainage catheter placed 02/26. Since then she notes she feels better and her abd pain is less Fevers resolved WBC on way down Ceftriaxone and metronidazole Has bilateral knee and hip replacements by history - Current Medication List Current Medications: Active Medications Acetaminophen (Tylenol -) 650 mg PO Q4H PRN PRN Reason: FEVER Last Admin: 02/27/18 18:31 Dose: 650 mg Atorvastatin Calcium (Lipitor -) 40 mg PO HS [facility] Last Admin: 02/28/18 21:45 Dose: 40 mg Diltiazem HCl (Cardizem Cd -) 180 mg PO DAILY [facility] Enoxaparin Sodium (Lovenox -) 80 mg SQ BID [facility] Last Admin: 02/28/18 21:46 Dose: 80 mg Hydromorphone HCl (Dilaudid -) 2 mg PO Q6H PRN PRN Reason: PAIN LEVEL 4 - 6 Last Admin: 02/28/18 21:52 Dose: 2 mg Ceftriaxone Sodium 1 gm/ (Dextrose) 50 mls @ 100 mls/hr IVPB DAILY [facility] Last Admin: 02/28/18 09:45 Dose: 100 mls/hr Metronidazole (Flagyl 500mg Premixed Ivpb -) 500 mg in 100 mls @ 100 mls/hr IVPB Q8H-IV [facility] Last Admin: 03/01/18 02:48 Dose: 100 mls/hr Sodium Chloride (1/2 Normal Saline) 1,000 mls @ 83 mls/hr IV ASDIR [facility] Last Admin: 02/28/18 23:19 Dose: Not Given Insulin Aspart (Novolog Vial Sliding Scale -) 1 vial SQ ACHS [facility] PRN Reason: Protocol Last Admin: 03/01/18 06:07 Dose: Not Given Melatonin (Melatonin) 5 mg PO HS [facility] Last Admin: 02/28/18 21:46 Dose: 5 mg Metformin HCl (Glucophage -) 500 mg PO BID@0700,1630 [facility] Last Admin: 03/01/18 06:07 Dose: 500 mg Metoclopramide HCl (Reglan Injection -) 10 mg IVPUSH Q8H-IV [facility] Last Admin: 03/01/18 02:48 Dose: 10 mg Morphine Sulfate (Morphine Sulfate) 2 mg IVPUSH Q6H PRN PRN Reason: PAIN LEVEL 6-10 Last Admin: 02/27/18 06:02 Dose: 2 mg Ondansetron HCl (Zofran Injection) 4 mg IVPUSH Q4H PRN PRN Reason: NAUSEA AND/OR VOMITING Last Admin: 02/25/18 04:42 Dose: 4 mg Pantoprazole Sodium (Protonix -) 40 mg PO DAILY [facility] Last Admin: 02/28/18 09:45 Dose: 40 mg Ursodiol (Actigal -) 300 mg PO BID [facility] Last Admin: 02/28/18 21:45 Dose: 300 mg - Objective Vital Signs: Vital Signs Temperature 97.7 F 03/01/18 06:00 Pulse Rate 89 03/01/18 06:00 Respiratory Rate 16 03/01/18 06:00 Blood Pressure 133/65 03/01/18 06:00 O2 Sat by Pulse Oximetry (%) 95 03/01/18 05:59 Constitutional: Yes: Well Nourished, No Distress HENT: Yes: WNL, Atraumatic Neck: Yes: WNL, Supple Cardiovascular: Yes: S1, S2 Respiratory: Yes: WNL, Regular, CTA Bilaterally Gastrointestinal: Yes: WNL, Normal Bowel Sounds, Soft, Tenderness, Other (RUQ tender with catheter in place) Edema: No Labs: CBC, BMP 03/01/18 05:35 03/01/18 05:35 INR, PTT INR 1.07 (0.82-1.09) 02/22/18 10:50 Assessment/Plan Laboratory Tests 02/22/18 02/25/18 02/25/18 10:50 06:35 06:35 WBC 19.6 H D Hgb Hct Plt Count BUN 14 Creatinine 1.1 H Random Glucose 314 H* Total Bilirubin 1.1 H D AST 52 H ALT 38 Alkaline Phosphatase 119 H Ur Leukocyte Esterase Negative Urine WBC (Auto) 1 Urine RBC (Auto) <1 03/01/18 05:35 WBC 14.7 H Hgb 10.5 L Hct 30.6 L Plt Count 225 D BUN Creatinine Random Glucose Total Bilirubin AST ALT Alkaline Phosphatase Ur Leukocyte Esterase Urine WBC (Auto) Urine RBC (Auto) Assessment Cholelithiasis with cholangitis S/P biliary drain 02/26. Clinically improved Polymicrobial feliciano noted including E Faecium E Coli Proteus Note antibiotic started 02/25 but blood cultures 02/27 (neg) NOt VREF She is better will broaden coverage to Mundo Quach MD
[2018-03-01] MEDS ORDERED: DEXTROSE 5%-WATER 100 ML IVPB ONE ×2 (09:21→16:54)
[2018-03-01] MEDS ORDERED: PIPERACILLIN/TAZOBACTAM 4.5 GM VIAL IVPB ONE ×2 (09:21→16:53)
[2018-03-01] MEDS: SODIUM CHLORIDE 0.45% 1,000 ML IV SCH ×2 (09:26→21:48)
[2018-03-01] MEDS: PANTOPRAZOLE 40 MG TABLET (FP) PO SCH (09:27)
[2018-03-01] MEDS: URSODIOL 300 MG CAPSULE PO SCH ×2 (09:27→21:39)
[2018-03-01] MEDS: PIPERACILLIN/TAZOB 4.5 GM 4.5 GM in DEXTROSE 5%-WATER 100 ML IVPB SCH ×2 (09:29→17:02)
[2018-03-01] MEDS: ENOXAPARIN NA (PORCINE) 80 MG/0.8 ML DISP.SYRIN SQ SCH ×2 (09:30→21:40)
--- NOTE | 2018-03-01 10:58 | CONS ---
INFECTIOUS DISEASE CONSULTATION DATE OF CONSULTATION: DATE OF DICTATION: 03/01/2018 This is a 77-year-old, insulin-dependent diabetic with a history of COPD and chronic kidney disease, who is admitted to the hospital, noting that her hands "did not work right." She was apparently having difficulty with motor control and was unable to use a spoon to eat her breakfast with. She came to the hospital and was found to have evolving strokes in the left parietal lobe. I am asked to see her now as, following admission, she apparently developed onset of abdominal pain in the right upper quadrant, along with fever. She was seen in consultation by the GI service, Dr. Naranjo, and a sonogram obtained on February 25 showed cholelithiasis with dilatation of the common bile duct. Dr. Naranjo felt that, given her medical issues including acute stroke, cholecystectomy should be deferred. Instead, on February 26, she underwent a decompression of the gallbladder percutaneously in interventional radiology. Since that time, she clinically notes subjectively that she is improving. Overall, she feels better, and her right upper quadrant pain is less than before. A bile culture dated February 26 had E. coli, Enterococcus faecium, and proteus species. This is not VREF. She is on ceftriaxone and metronidazole. Blood cultures were obtained on February 27. However, she was started on antibiotics on February 25. Her current blood cultures are no growth, and a urine culture is pending. PAST MEDICAL HISTORY: As noted above. Past medical history includes bilateral hip and knee replacements as well as recent electroconvulsive shock therapy for depression. CURRENT MEDICATIONS: Ceftriaxone, metronidazole, Lovenox, Glucophage, Cardizem, Actigall, Lipitor, insulin, morphine, Reglan, Protonix. ALLERGIES: SULFA with a question laurie. SOCIAL HISTORY: Lives alone. Denies alcohol use and states she never smoked. FAMILY HISTORY: Positive for stroke. REVIEW OF SYSTEMS: Respiratory: No cough, shortness of breath. Cardiac: No chest pain, palpitations, syncope. Gastrointestinal: Right upper quadrant pain status post percutaneous drainage catheter. No vomiting, diarrhea. Genitourinary: No dysuria, hematuria, urinary frequency. PHYSICAL EXAMINATION: General: She appeared in no acute distress, oriented. Vital Signs: Her temperature was 97.7, pulse 132, blood pressure 126/77, respirations 16, O2 saturation 91 on room air. Neck: Supple without adenopathy. Lungs: Clear to percussion and auscultation. Heart: S1, S2. Regular rhythm with no audible gallop or murmur. Abdomen: Soft. Positive bowel sounds. Drainage catheter in the right upper quadrant with tenderness noted in the right upper quadrant. No guarding or rebound. Extremities: No clubbing, cyanosis, or edema. DIAGNOSTIC DATA: The white count originally 20,000, is now 14.7; hemoglobin 10.5; platelets 225. BUN 14, creatinine 1.0. Glucose 314. Bilirubin 1.1. AST 52, alkaline phosphatase 119. Urinalysis with 1 RBC, 1 WBC. Chest x-ray dated February 27 shows mild cardiomegaly, mild atelectatic changes. ASSESSMENT: A 77-year-old female with atrial fibrillation presents with acute and subacute hemorrhagic infarcts in the right parietal lobe, subsequent course with development of right upper quadrant pain and fever with findings of gallstones and a common bile duct dilatation. She was febrile but is afebrile currently. Subjectively, she is much improved, and her white count appears to be albeit gradually coming down. Blood cultures obtained on February 27 are no growth. However, she had been on antibiotics already for 2 days prior to this. Based on the bile culture, we will switch her to Zosyn 4.5 g q.8 hours, obtain a CRP level, with further recommendations from Cardiology and Neurology to follow. BRYANT NARAYANAN M.D. [id number]
--- NOTE | 2018-03-01 11:47 | PN ---
Progress Note (short form) - Note Progress Note: s: no cp sob palps dizzy o: Vital Signs Period Temp Pulse Resp BP Sys/Bangura Pulse Ox Last 24 Hr 97.6 F-97.7 F 89-132 16-16 118-133/60-77 91-96 nad, calm jvd flat, neck supple ctab, nl effort rrr nl s1, s2 1/6 sys murmur at sternal border. + bs soft nt nd no le e/c/c aaox3 no jaundice, diaphoresis. Current Medications Generic Name Dose Route Start Last Admin Trade Name Freq PRN Reason Stop Dose Admin Acetaminophen 650 mg 02/25/18 17:37 02/27/18 18:31 Tylenol - PO 650 mg Q4H PRN Administration FEVER Atorvastatin Calcium 40 mg 02/22/18 22:00 02/28/18 21:45 Lipitor - PO 40 mg HS [facility] Administration Diltiazem HCl 180 mg 03/01/18 10:00 03/01/18 09:27 Cardizem Cd - PO 180 mg DAILY [facility] Administration Enoxaparin Sodium 80 mg 02/28/18 15:10 03/01/18 09:30 Lovenox - SQ 80 mg BID [facility] Administration Hydromorphone HCl 2 mg 02/26/18 16:34 02/28/18 21:52 Dilaudid - PO 2 mg Q6H PRN Administration PAIN LEVEL 4 - 6 Sodium Chloride 1,000 mls @ 83 mls/hr 02/27/18 22:00 03/01/18 09:26 1/2 Normal Saline IV 83 mls/hr ASDIR [facility] Administration Piperacillin Sod/Tazobactam 100 mls @ 200 mls/hr 03/01/18 10:00 03/01/18 09: 29 Sod 4.5 gm/ Dextrose IVPB 200 mls/hr Q8H-IV [facility] Administration Protocol Insulin Aspart 1 vial 02/24/18 07:00 03/01/18 06:07 Novolog Vial Sliding Scale - SQ Not Given ACHS [facility] Protocol Melatonin 5 mg 02/22/18 22:00 02/28/18 21:46 Melatonin PO 5 mg HS [facility] Administration Metformin HCl 500 mg 02/23/18 07:00 03/01/18 06:07 Glucophage - PO 500 mg BID@0700,1630 [facility] Administration Metoclopramide HCl 10 mg 02/26/18 18:00 03/01/18 09:27 Reglan Injection - IVPUSH 10 mg Q8H-IV [facility] Administration Morphine Sulfate 2 mg 02/26/18 20:00 02/27/18 06:02 Morphine Sulfate IVPUSH 2 mg Q6H PRN Administration PAIN LEVEL 6-10 Ondansetron HCl 4 mg 02/25/18 04:40 02/25/18 04:42 Zofran Injection IVPUSH 4 mg Q4H PRN Administration NAUSEA AND/OR VOMITING Pantoprazole Sodium 40 mg 02/23/18 10:00 03/01/18 09:27 Protonix - PO 40 mg DAILY [facility] Administration Ursodiol 300 mg 02/26/18 22:00 03/01/18 09:27 Actigal - PO 300 mg BID [facility] Administration CBC, BMP 03/01/18 05:35 03/01/18 05:35 tele: sr, afib overnight head CT: interval wedge shaped acute/subacute infarct of right parietal lobe, no hemorrhage. brain mri 01/2018: cluster of small acute infarcts in the left parietal lobe. mild chronic microvascular ischemic changes. carotid u/s 01/2018: small plaque, no stenosis, nl verts. ASSESSMENT/PLAN 77 yo with h/o IDDM, copd, ckd, depression with hx of hospitalization and electric shock therapy (now in remission), possible prior gib and recent uti last month as well as admission last month for transient slurred speech/ unsteady gait (Toxic-Meteabolic encephalopathy vs. 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 cva - neuro following - neuro input appreciated: concerned for cardioembolic source. previously d/w dr gruber who reviewed MRI and also feels there are very small infarcts in right brain, hence bilateral pattern. Patient was not taking ASA consistently at home, hence initially continued aspirin monotherapy per neuro. However,now found to have afib so ac started with lovenox. - echo unrevealing - considering KAE once GI issues resolved. - cont statin (LDL 53, TC 105 on atorva 40) abd pain, vomiting, cholecystitis with cholangitis. - low grade fever, localized RUQ tenderness - sono with gallstones and dilated bile duct--w/u ongoing - 02/27: s/p percutaneous cholecystostomy 02/26. pafib: -cont dilt for rate control -cont ac htn - BP stable hld: -cont statin
--- NOTE | 2018-03-01 14:53 | PN ---
Progress Note (short form) - Note Progress Note: 77 y/o female seen with ID. Reports pain better. States weakness in hands resolved. Vital Signs Period Temp Pulse Resp BP Sys/Bangura Pulse Ox Last 24 Hr 97.5 F-97.7 F 80-132 16-16 120-136/60-77 91-97 CBC, BMP 03/01/18 05:35 03/01/18 05:35 HEENT- Normocephalic Neck-Supple Lungs- CTAB Heart-S1/S2 Abd- Pos BS x 4, soft, NT, drain in place upper quadrant Ext- No Le edema Active Medications Acetaminophen (Tylenol -) 650 mg PO Q4H PRN PRN Reason: FEVER Last Admin: 02/27/18 18:31 Dose: 650 mg Atorvastatin Calcium (Lipitor -) 40 mg PO HS [facility] Last Admin: 02/28/18 21:45 Dose: 40 mg Diltiazem HCl (Cardizem Cd -) 180 mg PO DAILY [facility] Last Admin: 03/01/18 09:27 Dose: 180 mg Enoxaparin Sodium (Lovenox -) 80 mg SQ BID [facility] Last Admin: 03/01/18 09:30 Dose: 80 mg Hydromorphone HCl (Dilaudid -) 2 mg PO Q6H PRN PRN Reason: PAIN LEVEL 4 - 6 Last Admin: 02/28/18 21:52 Dose: 2 mg Sodium Chloride (1/2 Normal Saline) 1,000 mls @ 83 mls/hr IV ASDIR [facility] Last Admin: 03/01/18 09:26 Dose: 83 mls/hr Piperacillin Sod/Tazobactam (Sod 4.5 gm/ Dextrose) 100 mls @ 200 mls/hr IVPB Q8H-IV [facility] PRN Reason: Protocol Last Admin: 03/01/18 09:29 Dose: 200 mls/hr Insulin Aspart (Novolog Vial Sliding Scale -) 1 vial SQ ACHS [facility] PRN Reason: Protocol Last Admin: 03/01/18 12:15 Dose: 6 units Melatonin (Melatonin) 5 mg PO HS [facility] Last Admin: 02/28/18 21:46 Dose: 5 mg Metformin HCl (Glucophage -) 500 mg PO BID@0700,1630 [facility] Last Admin: 03/01/18 06:07 Dose: 500 mg Metoclopramide HCl (Reglan Injection -) 10 mg IVPUSH Q8H-IV [facility] Last Admin: 03/01/18 09:27 Dose: 10 mg Morphine Sulfate (Morphine Sulfate) 2 mg IVPUSH Q6H PRN PRN Reason: PAIN LEVEL 6-10 Last Admin: 02/27/18 06:02 Dose: 2 mg Ondansetron HCl (Zofran Injection) 4 mg IVPUSH Q4H PRN PRN Reason: NAUSEA AND/OR VOMITING Last Admin: 02/25/18 04:42 Dose: 4 mg Pantoprazole Sodium (Protonix -) 40 mg PO DAILY [facility] Last Admin: 03/01/18 09:27 Dose: 40 mg Ursodiol (Actigal -) 300 mg PO BID [facility] Last Admin: 03/01/18 09:27 Dose: 300 mg # acute cholecystitis s/p percutaneous cholecystostomy, 02/26/[address]-yellowish drainage WBC remain elevated but improved Pain controlled GI consult appreciated #Hypocalcemia Calcium 6.8 Start Calcium Carbonate BID/ Vitamin D BID Monitor Calcium level # CVA Cardiac work up pending resolution of abdominal process continue telemetry to evaluate for cardiac arrhythmia Lovenox 80 mg BID/ Statin # DM HgA1c Fs with coverage # HTN continue Cardizem monitor bp
--- NOTE | 2018-03-01 17:07 | PN ---
Progress Note (short form) - Note Progress Note: 77 year old woman, recently discharged after a week for altered mental status in which she was found to have 3 small right parietal infarctions, now comes in with the complaint that when she woke up this morning she couldn't get either hand to work well. she is a bit vague as to what was wrong with them except that she couldn't grasp a carton of milk, couldn't make a bowl of cereal, and knew that something was wrong. She is right handed. The incident lasted and hour and she is back to baseline. She denies any sensory loss. She was walking and talking without difficulty and is quite certain that both hands were not working well. FU : speech is slight worse, mild dysarthria SP GB surgery, noted to have AFIB , started LOVENOX MRI 02/24/18 IMPRESSION: Acute/subacute nonhemorrhagic infarcts of the posterior aspect of the right parietal lobe extending to the occipital lobe, of the cortex of right frontal lobe convexity and in the left centrum semiovale. MRA of the brain Axial 3-D [id number] images were obtained through the arterial intracranial circulation and reveals the presence of normal antegrade flow in the vertebrals, external and the internal carotid arteries. No aneurysm seen arising from [place]. There is a short segment of severe narrowing of the right M1 segment near the trifurcation extending over 7 mm. There are few right MCA branches corresponding to infarcts. There are atheromatous changes with plaques of the left posterior cerebral arteries resulting in mild to moderate stenoses with bright on the right resulting in a mild stenosis. MRI 01/10/18 Impression: Cluster of very small acute infarctions within the left parietal lobe as described above, may be embolic. No mass effect, midline shift or hydrocephalus. Mild chronic microvascular ischemic changes. Mild chronic microvascular ischemic changes in the cerebral white matter. (to my eye very small infarct on right pariental area as well) 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 History [facility]: Yes: Other (encephalopathy recently, long history of stuttering) Cardio/Vascular: Yes: HTN Pulmonary: Yes: COPD Gastrointestinal: Yes: Constipation, GI Bleed Renal/: Yes: Renal Inusuff Endocrine: Yes: Diabetes Mellitus (since she was 51 y/o) - Past Surgical History Past Surgical History: Yes: Joint Replacement (both knees X2 / both hips / surgey on right shoulder) - Alcohol/Substance Use Hx Alcohol Use: No - Smoking History Smoking history: Never smoked Have you smoked in the past 12 months: No - Social History ADL: Support Services History of Recent Travel: No Home Medications - Allergies Allergies/Adverse Reactions: Allergies Allergy/AdvReac Type Severity Reaction Status Date / Time diazepam Allergy Verified 02/22/18 10:34 sulfur dioxide Allergy Verified 02/22/18 10:34 - Home Medications Home Medications: Ambulatory Orders Atorvastatin Ca [Lipitor] 40 mg PO HS 30 Days #30 tablet 01/12/18 Lisinopril [Prinivil] 5 mg PO DAILY 30 Days #30 tablet 01/12/18 metFORMIN HCL [Glucophage -] 500 mg PO BID@0700,1630 02/22/18 Family Disease History - Family Disease History Family Disease History: Other: Father (stroke), Mother (stroke), Sister (strokes , first in her 40's) Physical Exam-Neuro Vital Signs: Vital Signs Temperature 98.4 F 03/01/18 14:00 Pulse Rate 93 H 03/01/18 14:00 Respiratory Rate 18 03/01/18 14:00 Blood Pressure 115/66 03/01/18 14:00 O2 Sat by Pulse Oximetry (%) 97 03/01/18 10:00 Labs: CBCD WBC 7.1 K/mm3 (4.0-10.0) 02/23/18 07:15 RBC 4.00 M/mm3 (3.60-5.2) 02/23/18 07:15 Hgb 11.7 GM/dL (10.7-15.3) 02/23/18 07:15 Hct 33.8 % (32.4-45.2) 02/23/18 07:15 MCV 84.5 fl (80-96) 02/23/18 07:15 MCHC 34.7 g/dl (32.0-36.0) 02/23/18 07:15 RDW 13.6 % (11.6-15.6) 02/23/18 07:15 Plt Count 235 K/MM3 (134-434) 02/23/18 07:15 MPV 8.7 fl (7.5-11.1) 02/23/18 07:15 CMP Sodium 140 mmol/L (136-145) 02/24/18 05:59 Potassium 4.6 mmol/L (3.5-5.1) 02/24/18 05:59 Chloride 105 mmol/L (98-107) 02/24/18 05:59 Carbon Dioxide 28 mmol/L (21-32) 02/24/18 05:59 Anion Gap 7 (8-16) L 02/24/18 05:59 BUN 12 mg/dL (7-18) 02/24/18 05:59 Creatinine 1.0 mg/dL (0.55-1.02) 02/24/18 05:59 Creat Clearance w eGFR 53.91 (>60) 02/24/18 05:59 Calcium 8.2 mg/dL (8.5-10.1) L 02/24/18 05:59 Total Bilirubin 0.7 mg/dL (0.2-1.0) 02/24/18 05:59 AST 19 U/L (15-37) 02/24/18 05:59 ALT 24 U/L (12-78) 02/24/18 05:59 Alkaline Phosphatase 106 U/L (45-117) 02/24/18 05:59 Total Protein 5.9 g/dl (6.4-8.2) L 02/24/18 05:59 Albumin 3.2 g/dl (3.4-5.0) L 02/24/18 05:59 - Neuro Exam Level Of Consciousness: Yes: Alert, Oriented to Person, Oriented to Place, Oriented to Time Eyes: Yes: BLOSSOM, Other (Visual gaitan full) Speech: WNL Dominant Hand: Right Cranial Nerves II-XII Intact: Yes DTR's: 0 Left Tricep, 0 Right Tricep, 0 Left Brachioradialis, 0 Right Brachioradialis, 0 Left Achilles, 0 Right Achilles, 1+ Left Bicep, 1+ Right Bicep Babinski: Absent Response to light touch: Normal Motor Strength: 5/5: Left Arm, Right Arm, Left Leg, Right Leg Gait: Other (steady with walker) NIH Stroke Scale - Initial Evaluation Level of consciousness: Alert Ask patient the month and their age: Answers both correctly Ask patient to open & close eyes; make fist and let go: Obeys both correctly Best gaze (horizontal eye movement): Normal Visual field testing: No visual field loss Facial paresis (Show teeth/raise eyebrows/close eyes tight): Normal symmetrical movement Motor Function: Left Arm: Normal Motor Function: Right Arm: Normal (extends arm 90 (or 45) degrees for 10 seconds without drift Motor Function: Left Leg: Normal (extends leg 30 degrees for 5 seconds without drift) Motor Function: Right Leg: Normal (extends leg 30 degrees for 5 seconds without drift) Limb Ataxia: No ataxia Sensory(Use pinprick test arms,legs,trunk,face/side to side): Normal Best language (Describe picture, name items, read sentences): No Aphasia Dysarthria (read several words): Normal articulation Extinction and Inattention: No abnormality - Total Score NIH Stroke Scale Score: 0 Imaging - Results Cat Scan: Report Reviewed, Image Reviewed (right wedge shaped infarction) Problem List - Problems (1) CVA (cerebral vascular accident) Code(s): I63.9 - CEREBRAL INFARCTION, UNSPECIFIED Qualifiers: CVA mechanism: unspecified Qualified Code(s): I63.9 - Cerebral infarction, unspecified Assessment/Plan recent small cortical infarcts BL (01/21) now with evolving infarcts different vascular territories R >L MCA, on recent scan in 02/25/18 cut off in R MCA branch -? thrombus highly suspicious for cardioembolic events- found to have AFIB, started on lovenox stable for now Dr Veliz
[2018-03-01] MEDS ORDERED: PT OWN MED DRAWER 7, Y5N ONE (21:18)
[2018-03-01] MEDS: MELATONIN 5 MG TABLETS PO SCH (21:39)
[2018-03-01] MEDS: ATORVASTATIN CA 40 MG TABLET (FP) PO SCH (21:39)
[2018-03-01] MEDS: CALCIUM CARBONATE 650 MG TABLET PO SCH (21:40)
[2018-03-02] MEDS ORDERED: DEXTROSE 5%-WATER 100 ML IVPB ONE ×3 (01:57→17:07)
[2018-03-02] MEDS ORDERED: PIPERACILLIN/TAZOBACTAM 4.5 GM VIAL IVPB ONE ×3 (01:57→17:07)
[2018-03-02] MEDS: PIPERACILLIN/TAZOB 4.5 GM 4.5 GM in DEXTROSE 5%-WATER 100 ML IVPB SCH ×3 (02:10→17:18)
[2018-03-02] MEDS: METOCLOPRAMIDE HCL INJECTION 10 MG/2 ML VIAL IVPUSH SCH ×3 (02:10→17:18)
[2018-03-02] MEDS: INSULIN SLIDING SCALE (NOVOLOG) 1 VIAL SQ SCH ×4 (06:39→21:25)
[2018-03-02] MEDS: metFORMIN HCL 500 MG TABLET (FP) PO SCH ×2 (06:39→17:13)
[2018-03-02] MEDS ORDERED: INSULIN (NOVOLOG) ASPART 100 UNITS/ML 10ML VIAL ONE (06:53)
--- NOTE | 2018-03-02 07:53 | PN ---
Progress Note, Physician Chief Complaint: Zosyn now day 1 Feels well No fever - Current Medication List Current Medications: Active Medications Acetaminophen (Tylenol -) 650 mg PO Q4H PRN PRN Reason: FEVER Last Admin: 02/27/18 18:31 Dose: 650 mg Atorvastatin Calcium (Lipitor -) 40 mg PO HS [facility] Last Admin: 03/01/18 21:39 Dose: 40 mg Calcium Carbonate (Calcium Carbonate -) 650 mg PO BID [facility] Last Admin: 03/01/18 21:40 Dose: 650 mg Cholecalciferol (Vitamin D3 -) 1,000 unit PO DAILY [facility] Diltiazem HCl (Cardizem Cd -) 180 mg PO DAILY [facility] Last Admin: 03/01/18 09:27 Dose: 180 mg Enoxaparin Sodium (Lovenox -) 80 mg SQ BID [facility] Last Admin: 03/01/18 21:40 Dose: 80 mg Sodium Chloride (1/2 Normal Saline) 1,000 mls @ 83 mls/hr IV ASDIR [facility] Last Admin: 03/01/18 21:48 Dose: 83 mls/hr Piperacillin Sod/Tazobactam (Sod 4.5 gm/ Dextrose) 100 mls @ 200 mls/hr IVPB Q8H-IV [facility] PRN Reason: Protocol Last Admin: 03/02/18 02:10 Dose: 200 mls/hr Insulin Aspart (Novolog Vial Sliding Scale -) 1 vial SQ ACHS [facility] PRN Reason: Protocol Last Admin: 03/02/18 06:39 Dose: 2 units Melatonin (Melatonin) 5 mg PO HS [facility] Last Admin: 03/01/18 21:39 Dose: 5 mg Metformin HCl (Glucophage -) 500 mg PO BID@0700,1630 [facility] Last Admin: 03/02/18 06:39 Dose: 500 mg Metoclopramide HCl (Reglan Injection -) 10 mg IVPUSH Q8H-IV [facility] Last Admin: 03/02/18 02:10 Dose: 10 mg Ondansetron HCl (Zofran Injection) 4 mg IVPUSH Q4H PRN PRN Reason: NAUSEA AND/OR VOMITING Last Admin: 02/25/18 04:42 Dose: 4 mg Pantoprazole Sodium (Protonix -) 40 mg PO DAILY [facility] Last Admin: 03/01/18 09:27 Dose: 40 mg Ursodiol (Actigal -) 300 mg PO BID [facility] Last Admin: 03/01/18 21:39 Dose: 300 mg - Objective Vital Signs: Vital Signs Temperature 97.6 F 03/02/18 05:56 Pulse Rate 92 H 03/02/18 05:56 Respiratory Rate 20 03/02/18 05:56 Blood Pressure 161/72 03/02/18 05:56 O2 Sat by Pulse Oximetry (%) 96 03/02/18 06:00 Constitutional: Yes: Well Nourished, No Distress Eyes: Yes: WNL, Conjunctiva Clear HENT: Yes: Tonsillar Exudate Neck: Yes: Supple Cardiovascular: Yes: S1, S2 Respiratory: Yes: WNL, Regular, CTA Bilaterally. No: SOB on Exertion Gastrointestinal: Yes: WNL, Normal Bowel Sounds, Soft, Other (Drain RUQ). No: Tenderness, Tenderness, Epigastrium Edema: No Labs: CBC, BMP 03/01/18 05:35 03/01/18 05:35 INR, PTT INR 1.07 (0.82-1.09) 02/22/18 10:50 Assessment/Plan Microbiology 02/26/18 14:30 Bile Gram Stain - Final 02/26/18 14:30 Bile Anaerobic Culture - Final Escherichia Coli Enterococcus Faecium Proteus Mirabilis NO ANAEROBES WERE ISOLATED Laboratory Tests 03/01/18 03/01/18 05:35 05:35 WBC 14.7 H Hgb 10.5 L Hct 30.6 L Plt Count 225 D Magnesium 1.4 L Total Bilirubin 0.6 ALT 45 Alkaline Phosphatase 113 C-Reactive Protein 19.6 H Assessment Choelcystitis with cholangitis (polymicrobial culture) Acute CVA Plan Continue Zosyn as ordered ? Discharge with drainage tube on po glenn Quach MD
[2018-03-02] MEDS ORDERED: PT OWN MED DRAWER 7, Y5N ONE ×2 (09:17→21:19)
[2018-03-02] MEDS: URSODIOL 300 MG CAPSULE PO SCH (09:43)
[2018-03-02] MEDS: CHOLECALCIFEROL (VITAMIN D3) 1,000 UNIT TABLET (FP) PO SCH (09:43)
[2018-03-02] MEDS: PANTOPRAZOLE 40 MG TABLET (FP) PO SCH (09:43)
[2018-03-02] MEDS: CALCIUM CARBONATE 650 MG TABLET PO SCH ×2 (09:44→22:16)
[2018-03-02] MEDS: ENOXAPARIN NA (PORCINE) 80 MG/0.8 ML DISP.SYRIN SQ SCH ×2 (09:45→21:22)
[2018-03-02 09:49] LABS: BASO % 0.6 % (0-2.0); EOS % 1.7 % (0-4.5); HEMATOCRIT 31.9 % (32.4-45.2); HEMOGLOBIN 10.9 GM/dL (10.7-15.3); LYMPH % 10.9 % (8-40); MCH 28.6 pg (25.7-33.7); MCHC 34.3 g/dl (32.0-36.0); MEAN CELL VOLUME 83.6 fl (80-96); MEAN PLT VOLUME 8.5 fl (7.5-11.1); MONO % 7.7 % (3.8-10.2); NEUT % 79.1 % (42.8-82.8); PLATELET COUNT 245 K/MM3 (134-434); RBC 3.81 M/mm3 (3.60-5.2); RDW 13.6 % (11.6-15.6)
[2018-03-02 10:20] LABS: ALBUMIN 2.5 g/dl (3.4-5.0); ANION GAP 6 (8-16); BILIRUBIN,TOTAL 0.7 mg/dL (0.2-1.0); BLOOD UREA NITROGEN 7 mg/dL (7-18); CALCIUM 7.5 mg/dL (8.5-10.1); CHLORIDE 109 mmol/L (98-107); CO2 23 mmol/L (21-32); CREATININE 0.8 mg/dL (0.55-1.02); GLUCOSE,RANDOM 249 mg/dL (74-106); POTASSIUM 3.6 mmol/L (3.5-5.1); SGOT/AST 16 U/L (15-37); SGPT/ALT 36 U/L (12-78); SODIUM 138 mmol/L (136-145); TOT PROT 5.4 g/dl (6.4-8.2)
[2018-03-02 10:21] LABS: ALK PHOS 124 U/L (45-117)
--- NOTE | 2018-03-02 11:30 | PN ---
Progress Note (short form) - Note Progress Note: s: no cp sob palps dizzy o: Vital Signs Period Temp Pulse Resp BP Sys/Bangura Pulse Ox Last 24 Hr 97.3 F-98.4 F 80-94 17-20 115-161/66-78 94-97 nad, calm jvd flat, neck supple ctab, nl effort rrr nl s1, s2 1/6 sys murmur at sternal border. + bs soft nt nd no le e/c/c aaox3 no jaundice, diaphoresis. Current Medications Generic Name Dose Route Start Last Admin Trade Name Freq PRN Reason Stop Dose Admin Acetaminophen 650 mg 02/25/18 17:37 02/27/18 18:31 Tylenol - PO 650 mg Q4H PRN Administration FEVER Atorvastatin Calcium 40 mg 02/22/18 22:00 03/01/18 21:39 Lipitor - PO 40 mg HS [facility] Administration Calcium Carbonate 650 mg 03/01/18 22:00 03/02/18 09:44 Calcium Carbonate - PO 650 mg BID [facility] Administration Cholecalciferol 1,000 unit 03/02/18 10:00 03/02/18 09:43 Vitamin D3 - PO 1,000 unit DAILY [facility] Administration Diltiazem HCl 180 mg 03/01/18 10:00 03/02/18 09:43 Cardizem Cd - PO 180 mg DAILY [facility] Administration Enoxaparin Sodium 80 mg 02/28/18 15:10 03/02/18 09:45 Lovenox - SQ 80 mg BID [facility] Administration Sodium Chloride 1,000 mls @ 83 mls/hr 02/27/18 22:00 03/01/18 21:48 1/2 Normal Saline IV 83 mls/hr ASDIR [facility] Administration Piperacillin Sod/Tazobactam 100 mls @ 200 mls/hr 03/01/18 10:00 03/02/18 09: 48 Sod 4.5 gm/ Dextrose IVPB 200 mls/hr Q8H-IV [facility] Administration Protocol Insulin Aspart 1 vial 02/24/18 07:00 03/02/18 06:39 Novolog Vial Sliding Scale - SQ 2 units ACHS [facility] Administration Protocol Melatonin 5 mg 02/22/18 22:00 03/01/18 21:39 Melatonin PO 5 mg HS [facility] Administration Metformin HCl 500 mg 02/23/18 07:00 03/02/18 06:39 Glucophage - PO 500 mg BID@0700,1630 [facility] Administration Metoclopramide HCl 10 mg 02/26/18 18:00 03/02/18 09:43 Reglan Injection - IVPUSH 10 mg Q8H-IV [facility] Administration Ondansetron HCl 4 mg 02/25/18 04:40 02/25/18 04:42 Zofran Injection IVPUSH 4 mg Q4H PRN Administration NAUSEA AND/OR VOMITING Pantoprazole Sodium 40 mg 02/23/18 10:00 03/02/18 09:43 Protonix - PO 40 mg DAILY [facility] Administration Ursodiol 300 mg 02/26/18 22:00 03/02/18 09:43 Actigal - PO 300 mg BID [facility] Administration CBC, BMP 03/02/18 09:15 03/02/18 09:15 tele: sr head CT: interval wedge shaped acute/subacute infarct of right parietal lobe, no hemorrhage. brain mri 01/2018: cluster of small acute infarcts in the left parietal lobe. mild chronic microvascular ischemic changes. carotid u/s 01/2018: small plaque, no stenosis, nl verts. ASSESSMENT/PLAN 77 yo with h/o IDDM, copd, ckd, depression with hx of hospitalization and electric shock therapy (now in remission), possible prior gib and recent uti last month as well as admission last month for transient slurred speech/ unsteady gait (Toxic-Meteabolic encephalopathy vs. 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 cva - neuro input appreciated: concerned for cardioembolic source. previously d/w dr gruber who reviewed MRI and also feels there are very small infarcts in right brain, hence bilateral pattern. Patient was not taking ASA consistently at home, hence initially continued aspirin monotherapy per neuro. However,now found to have afib so ac started with lovenox. - echo unrevealing - considering KAE once GI issues resolved. - cont statin (LDL 53, TC 105 on atorva 40) abd pain, vomiting, cholecystitis with cholangitis. - low grade fever, localized RUQ tenderness - sono with gallstones and dilated bile duct--w/u ongoing - 02/27: s/p percutaneous cholecystostomy 02/26. pafib: -cont dilt for rate control -cont ac htn - BP stable hld: -cont statin
--- NOTE | 2018-03-02 12:50 | PN ---
Progress Note (short form) - Note Progress Note: 77 y/o female found sitting in chair. A and O x 3. Denies pain and weakness. Reports change in speech possibly due to ill fitting dentures. Vital Signs Period Temp Pulse Resp BP Sys/Bangura Pulse Ox Last 24 Hr 97.3 F-98.4 F 80-94 17-20 115-161/66-78 94-97 CBC, BMP 03/02/18 09:15 03/02/18 09:15 HEENT- Normocephalic Neck- Supple Lungs- CTAB Heart- S1/S2 Abd- Pos BS x 4, Soft, Tender RUQ Drain in place Ext- No LE edema Active Medications Acetaminophen (Tylenol -) 650 mg PO Q4H PRN PRN Reason: FEVER Last Admin: 02/27/18 18:31 Dose: 650 mg Atorvastatin Calcium (Lipitor -) 40 mg PO HS [facility] Last Admin: 03/01/18 21:39 Dose: 40 mg Calcium Carbonate (Calcium Carbonate -) 650 mg PO BID [facility] Last Admin: 03/02/18 09:44 Dose: 650 mg Cholecalciferol (Vitamin D3 -) 1,000 unit PO DAILY [facility] Last Admin: 03/02/18 09:43 Dose: 1,000 unit Diltiazem HCl (Cardizem Cd -) 180 mg PO DAILY [facility] Last Admin: 03/02/18 09:43 Dose: 180 mg Enoxaparin Sodium (Lovenox -) 80 mg SQ BID [facility] Last Admin: 03/02/18 09:45 Dose: 80 mg Sodium Chloride (1/2 Normal Saline) 1,000 mls @ 83 mls/hr IV ASDIR [facility] Last Admin: 03/01/18 21:48 Dose: 83 mls/hr Piperacillin Sod/Tazobactam (Sod 4.5 gm/ Dextrose) 100 mls @ 200 mls/hr IVPB Q8H-IV [facility] PRN Reason: Protocol Last Admin: 03/02/18 09:48 Dose: 200 mls/hr Insulin Aspart (Novolog Vial Sliding Scale -) 1 vial SQ ACHS [facility] PRN Reason: Protocol Last Admin: 03/02/18 11:56 Dose: 4 units Melatonin (Melatonin) 5 mg PO HS [facility] Last Admin: 03/01/18 21:39 Dose: 5 mg Metformin HCl (Glucophage -) 500 mg PO BID@0700,1630 [facility] Last Admin: 03/02/18 06:39 Dose: 500 mg Metoclopramide HCl (Reglan Injection -) 10 mg IVPUSH Q8H-IV [facility] Last Admin: 03/02/18 09:43 Dose: 10 mg Ondansetron HCl (Zofran Injection) 4 mg IVPUSH Q4H PRN PRN Reason: NAUSEA AND/OR VOMITING Last Admin: 02/25/18 04:42 Dose: 4 mg Pantoprazole Sodium (Protonix -) 40 mg PO DAILY [facility] Last Admin: 03/02/18 09:43 Dose: 40 mg Ursodiol (Actigal -) 300 mg PO BID [facility] Last Admin: 03/02/18 09:43 Dose: 300 mg # acute cholecystitis s/p percutaneous cholecystostomy, 02/26/[address]-approx 60 cc dark drainage WBC improving Pain controlled #Hypocalcemia Calcium now 7.5 Continue Calcium Carbonate BID/ Vitamin D BID Trend Calcium level # CVA Increase in slurred speech- Contacted Neuro Cardiac consult appreciated Continue Lovenox 80 mg BID/ Statin Continue Cardizem for rate control # DM HgA1c Fs with coverage # HTN continue Cardizem monitor bp
--- NOTE | 2018-03-02 17:55 | PN ---
GI Progress Note Subjective: slurred speeech, tolerating diet - Objective Vital Signs: Vital Signs Temperature 98.3 F 03/02/18 15:00 Pulse Rate 91 H 03/02/18 15:00 Respiratory Rate 18 03/02/18 15:00 Blood Pressure 148/66 03/02/18 15:00 O2 Sat by Pulse Oximetry (%) 96 03/02/18 09:00 Constitutional: Well Nourished Eyes: Yes: Conjunctiva Clear HENT: Yes: Atraumatic Neck: Yes: Supple Cardiovascular: Yes: Regular Rate and Rhythm Respiratory: Yes: CTA Bilaterally ...Palpate: Yes: Soft. No: Firm/Rigid, Guarding, Hepatomegaly, Mass, Pulsatile Mass, Splenomegaly, Tenderness Labs: CBC, BMP 03/02/18 09:15 03/02/18 09:15 INR, PTT INR 1.07 (0.82-1.09) 02/22/18 10:50 Problem List - Problems (1) Cholecystitis with cholangitis Assessment/Plan: maintain cholecystostomy tube for 3 week then she will need a cholangiogram prior to pulling out of the tube,continue antibiotics as per ID Code(s): K81.9 - CHOLECYSTITIS, UNSPECIFIED; K83.0 - CHOLANGITIS
--- NOTE | 2018-03-02 18:06 | PN ---
Progress Note (short form) - Note Progress Note: recent small cortical infarcts BL (01/21) now with evolving infarcts different vascular territories R >L MCA, on recent scan in 02/25/18 cut off in R MCA branch -? thrombus highly suspicious for cardioembolic events- found to have AFIB, started on lovenox -Yesterday noted by family to have had "speech difficulty" unclear whether non- fluency(motor aphasia) or dysarthria being described. Today reports her speech is better, that she may not have vic verbalizing properly because of dentures. O/E- fluent speech, minimal labial dysarthria due to left cent. facial droop. -Will obtain repeat MRI brain to see if she has had another embolic event. Rehana Venegas MD
[2018-03-02] MEDS: MELATONIN 5 MG TABLETS PO SCH (21:22)
[2018-03-02] MEDS: ATORVASTATIN CA 40 MG TABLET (FP) PO SCH (21:22)
[2018-03-02] MEDS: SODIUM CHLORIDE 0.45% 1,000 ML IV SCH (21:23)
[2018-03-03] MEDS ORDERED: PIPERACILLIN/TAZOBACTAM 4.5 GM VIAL IVPB ONE ×3 (01:26→20:08)
[2018-03-03] MEDS ORDERED: DEXTROSE 5%-WATER 100 ML IVPB ONE ×3 (01:27→20:08)
[2018-03-03] MEDS: PIPERACILLIN/TAZOB 4.5 GM 4.5 GM in DEXTROSE 5%-WATER 100 ML IVPB SCH ×3 (01:39→20:09)
[2018-03-03] MEDS: METOCLOPRAMIDE HCL INJECTION 10 MG/2 ML VIAL IVPUSH SCH ×3 (01:39→17:30)
[2018-03-03] MEDS: SODIUM CHLORIDE 0.45% 1,000 ML IV SCH ×2 (03:25→22:20)
[2018-03-03] MEDS: metFORMIN HCL 500 MG TABLET (FP) PO SCH ×2 (06:28→17:30)
[2018-03-03] MEDS: INSULIN SLIDING SCALE (NOVOLOG) 1 VIAL SQ SCH ×4 (06:28→22:23)
[2018-03-03] MEDS ORDERED: PT OWN MED DRAWER 7, Y5N ONE ×4 (06:33→21:48)
--- NOTE | 2018-03-03 10:04 | PN ---
Progress Note (short form) - Note Progress Note: Pt found sleeping comfortable. States that she feels better. No pain or muscle weakness reported. Vital Signs Period Temp Pulse Resp BP Sys/Bangura Pulse Ox Last 24 Hr 97.6 F-98.8 F 85-95 16-20 138-149/66-79 93-94 CBC, BMP 03/02/18 09:15 03/02/18 09:15 HEENT- Normocephalic Neck- Supple Lungs- CTAB Heart- S1/S2 Abd- Pos BS x 4, soft, drainage bag in place RUQ Ext- No LE edema Active Medications Acetaminophen (Tylenol -) 650 mg PO Q4H PRN PRN Reason: FEVER Last Admin: 02/27/18 18:31 Dose: 650 mg Atorvastatin Calcium (Lipitor -) 40 mg PO HS [facility] Last Admin: 03/02/18 21:22 Dose: 40 mg Calcium Carbonate (Calcium Carbonate -) 650 mg PO BID [facility] Last Admin: 03/02/18 22:16 Dose: 650 mg Cholecalciferol (Vitamin D3 -) 1,000 unit PO DAILY [facility] Last Admin: 03/02/18 09:43 Dose: 1,000 unit Diltiazem HCl (Cardizem Cd -) 180 mg PO DAILY [facility] Last Admin: 03/02/18 09:43 Dose: 180 mg Enoxaparin Sodium (Lovenox -) 80 mg SQ BID [facility] Last Admin: 03/02/18 21:22 Dose: 80 mg Sodium Chloride (1/2 Normal Saline) 1,000 mls @ 83 mls/hr IV ASDIR [facility] Last Admin: 03/03/18 03:25 Dose: 83 mls/hr Piperacillin Sod/Tazobactam (Sod 4.5 gm/ Dextrose) 100 mls @ 200 mls/hr IVPB Q8H-IV [facility] PRN Reason: Protocol Last Admin: 03/03/18 01:39 Dose: 200 mls/hr Insulin Aspart (Novolog Vial Sliding Scale -) 1 vial SQ ACHS [facility] PRN Reason: Protocol Last Admin: 03/03/18 06:28 Dose: 2 units Melatonin (Melatonin) 5 mg PO HS [facility] Last Admin: 03/02/18 21:22 Dose: 5 mg Metformin HCl (Glucophage -) 500 mg PO BID@0700,1630 [facility] Last Admin: 03/03/18 06:28 Dose: 500 mg Metoclopramide HCl (Reglan Injection -) 10 mg IVPUSH Q8H-IV [facility] Last Admin: 03/03/18 01:39 Dose: 10 mg Ondansetron HCl (Zofran Injection) 4 mg IVPUSH Q4H PRN PRN Reason: NAUSEA AND/OR VOMITING Last Admin: 02/25/18 04:42 Dose: 4 mg Pantoprazole Sodium (Protonix -) 40 mg PO DAILY [facility] Last Admin: 03/02/18 09:43 Dose: 40 mg # acute cholecystitis s/p percutaneous cholecystostomy, 02/26/[address] Trend WBC Continue IV antibiotics Pain controlled #Hypocalcemia Calcium now 7.5 Continue Calcium Carbonate BID/ Vitamin D BID Trend Calcium level # CVA No change in slurred speech Neuro consult appreciated Repeat MRI shows no new changes Continue Lovenox 80 mg BID/ Statin Continue Cardizem for rate control # DM HgA1c Fs with coverage # HTN continue Cardizem BP controlled
[2018-03-03] MEDS: ENOXAPARIN NA (PORCINE) 80 MG/0.8 ML DISP.SYRIN SQ SCH ×2 (10:37→22:21)
[2018-03-03] MEDS: CHOLECALCIFEROL (VITAMIN D3) 1,000 UNIT TABLET (FP) PO SCH (10:39)
[2018-03-03] MEDS: PANTOPRAZOLE 40 MG TABLET (FP) PO SCH (10:39)
[2018-03-03] MEDS: CALCIUM CARBONATE 650 MG TABLET PO SCH ×2 (10:40→22:19)
--- NOTE | 2018-03-03 11:13 | PN ---
Progress Note (short form) - Note Progress Note: s: no cp sob palps dizzy o: Vital Signs Period Temp Pulse Resp BP Sys/Bangura Pulse Ox Last 24 Hr 97.6 F-98.8 F 85-95 16-20 138-149/66-79 93-94 nad, calm jvd flat, neck supple ctab, nl effort rrr nl s1, s2 1/6 sys murmur at sternal border. + bs soft nt nd no le e/c/c aaox3 no jaundice, diaphoresis. Current Medications Generic Name Dose Route Start Last Admin Trade Name Freq PRN Reason Stop Dose Admin Acetaminophen 650 mg 02/25/18 17:37 02/27/18 18:31 Tylenol - PO 650 mg Q4H PRN Administration FEVER Atorvastatin Calcium 40 mg 02/22/18 22:00 03/02/18 21:22 Lipitor - PO 40 mg HS [facility] Administration Calcium Carbonate 650 mg 03/01/18 22:00 03/03/18 10:40 Calcium Carbonate - PO 650 mg BID [facility] Administration Cholecalciferol 1,000 unit 03/02/18 10:00 03/03/18 10:39 Vitamin D3 - PO 1,000 unit DAILY [facility] Administration Diltiazem HCl 180 mg 03/01/18 10:00 03/03/18 10:38 Cardizem Cd - PO 180 mg DAILY [facility] Administration Enoxaparin Sodium 80 mg 02/28/18 15:10 03/03/18 10:37 Lovenox - SQ 80 mg BID [facility] Administration Sodium Chloride 1,000 mls @ 83 mls/hr 02/27/18 22:00 03/03/18 03:25 1/2 Normal Saline IV 83 mls/hr ASDIR [facility] Administration Piperacillin Sod/Tazobactam 100 mls @ 200 mls/hr 03/01/18 10:00 03/03/18 10: 37 Sod 4.5 gm/ Dextrose IVPB 200 mls/hr Q8H-IV [facility] Administration Protocol Insulin Aspart 1 vial 02/24/18 07:00 03/03/18 06:28 Novolog Vial Sliding Scale - SQ 2 units ACHS [facility] Administration Protocol Melatonin 5 mg 02/22/18 22:00 03/02/18 21:22 Melatonin PO 5 mg HS [facility] Administration Metformin HCl 500 mg 02/23/18 07:00 03/03/18 06:28 Glucophage - PO 500 mg BID@0700,1630 [facility] Administration Metoclopramide HCl 10 mg 02/26/18 18:00 03/03/18 11:09 Reglan Injection - IVPUSH 10 mg Q8H-IV [facility] Administration Ondansetron HCl 4 mg 02/25/18 04:40 02/25/18 04:42 Zofran Injection IVPUSH 4 mg Q4H PRN Administration NAUSEA AND/OR VOMITING Pantoprazole Sodium 40 mg 02/23/18 10:00 03/03/18 10:39 Protonix - PO 40 mg DAILY [facility] Administration CBC, BMP 03/02/18 09:15 03/02/18 09:15 tele: sr head CT: interval wedge shaped acute/subacute infarct of right parietal lobe, no hemorrhage. brain mri 01/2018: cluster of small acute infarcts in the left parietal lobe. mild chronic microvascular ischemic changes. carotid u/s 01/2018: small plaque, no stenosis, nl verts. ASSESSMENT/PLAN 77 yo with h/o IDDM, copd, ckd, depression with hx of hospitalization and electric shock therapy (now in remission), possible prior gib and recent uti last month as well as admission last month for transient slurred speech/ unsteady gait (Toxic-Meteabolic encephalopathy vs. 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 cva - neuro input appreciated: concerned for cardioembolic source. previously d/w dr gruber who reviewed MRI and also feels there are very small infarcts in right brain, hence bilateral pattern. Patient was not taking ASA consistently at home, hence initially continued aspirin monotherapy per neuro. However,now found to have afib so ac started with lovenox. - echo unrevealing - considering KAE once GI issues resolved. - cont statin abd pain, vomiting, cholecystitis with cholangitis. - low grade fever, localized RUQ tenderness - sono with gallstones and dilated bile duct--w/u ongoing - 02/27: s/p percutaneous cholecystostomy 02/26. pafib: -cont dilt for rate control -cont ac htn - BP stable hld: -cont statin
--- NOTE | 2018-03-03 14:48 | PN ---
Progress Note (short form) - Note Progress Note: recent small cortical infarcts BL (01/21) now with evolving infarcts different vascular territories R >L MCA, on recent scan in 02/25/18 cut off in R MCA branch -? thrombus highly suspicious for cardioembolic events- found to have AFIB, started on lovenox - noted by family yesterday and day before to have had "speech difficulty" unclear whether non-fluency(motor aphasia) or dysarthria being described. Today reports her speech is better, that she may not have vic verbalizing properly because of dentures. O/E- fluent speech, minimal labial dysarthria due to left cent. facial droop. -MRI Brain 03/02/18-Bilateral subacute high cortical infarcts and interval right centrum/hdez(subcortical) infarcts, small on right side -Pt. appears to have had very small subcortical likely ccardioembolic ischemic events or embolii emanating from narrowed/atherosclerotoc embolii from stenosed M1 segment of right MCA. Pt. is on a/c, would cont. request cardiology opinion re:further rx. of afib. I suspect she is dysarthric and not aphasic due to subcortical small infacrcts. From a neurologic viewpoint pt. can be transferred to rehab, Please call us for further assistance. Thank you, Rehana Venegas MD
[2018-03-03] MEDS ORDERED: INSULIN (NOVOLOG) ASPART 100 UNITS/ML 10ML VIAL ONE (22:17)
[2018-03-03] MEDS: MELATONIN 5 MG TABLETS PO SCH (22:19)
[2018-03-03] MEDS: ATORVASTATIN CA 40 MG TABLET (FP) PO SCH (22:20)
[2018-03-03] MEDS ORDERED: LOPERAMIDE HCL 2 MG CAPSULE PO PRN (22:38)
[2018-03-04] MEDS ORDERED: DEXTROSE 5%-WATER 100 ML IVPB ONE ×3 (01:25→17:33)
[2018-03-04] MEDS ORDERED: PIPERACILLIN/TAZOBACTAM 4.5 GM VIAL IVPB ONE ×3 (01:25→17:33)
[2018-03-04] MEDS: METOCLOPRAMIDE HCL INJECTION 10 MG/2 ML VIAL IVPUSH SCH ×3 (01:26→17:55)
[2018-03-04] MEDS: PIPERACILLIN/TAZOB 4.5 GM 4.5 GM in DEXTROSE 5%-WATER 100 ML IVPB SCH ×3 (01:26→17:55)
[2018-03-04] MEDS: ACETAMINOPHEN 325 MG TABLET (FP) PO PRN (05:54)
[2018-03-04] MEDS: metFORMIN HCL 500 MG TABLET (FP) PO SCH ×2 (06:00→17:56)
[2018-03-04] MEDS: INSULIN SLIDING SCALE (NOVOLOG) 1 VIAL SQ SCH ×4 (06:20→21:50)
[2018-03-04] MEDS ORDERED: INSULIN (NOVOLOG) ASPART 100 UNITS/ML 10ML VIAL ONE ×2 (06:22→21:42)
[2018-03-04 07:52] LABS: BASO % 0.6 % (0-2.0); EOS % 1.3 % (0-4.5); HEMATOCRIT 29.3 % (32.4-45.2); HEMOGLOBIN 10.1 GM/dL (10.7-15.3); LYMPH % 15.6 % (8-40); MCHC 34.4 g/dl (32.0-36.0); MEAN CELL VOLUME 84.4 fl (80-96); MEAN PLT VOLUME 7.9 fl (7.5-11.1); MONO % 8.5 % (3.8-10.2); PLATELET COUNT 239 K/MM3 (134-434); RBC 3.47 M/mm3 (3.60-5.2); RDW 13.7 % (11.6-15.6); WHITE BLOOD COUNT 11.7 K/mm3 (4.0-10.0)
[2018-03-04 08:32] LABS: ANION GAP 7 (8-16); BLOOD UREA NITROGEN 4 mg/dL (7-18); CALCIUM 7.7 mg/dL (8.5-10.1); CHLORIDE 107 mmol/L (98-107); CO2 24 mmol/L (21-32); CREATININE 0.9 mg/dL (0.55-1.02); GLUCOSE,RANDOM 234 mg/dL (74-106); POTASSIUM 3.5 mmol/L (3.5-5.1); SODIUM 138 mmol/L (136-145)
--- NOTE | 2018-03-04 09:41 | PN ---
Progress Note (short form) - Note Progress Note: 77 y/o female found lying in bed. Denies pain but reports burning on urination as well as difficulty sleeping last night. Vital Signs Period Temp Pulse Resp BP Sys/Bangura Pulse Ox Last 24 Hr 97.3 F-98.7 F 80-99 16-20 144-159/71-87 95-95 CBC, BMP 03/04/18 06:25 03/04/18 06:25 HEENT- Normocephalic Neck- Supple Lungs- CTAB Heart- S1/S2 Abd- Pos BS x 4, soft, NT, Do bag in place Ext- No LE edema Active Medications Acetaminophen (Tylenol -) 650 mg PO Q4H PRN PRN Reason: FEVER Last Admin: 03/04/18 05:54 Dose: 650 mg Atorvastatin Calcium (Lipitor -) 40 mg PO HS [facility] Last Admin: 03/03/18 22:20 Dose: 40 mg Calcium Carbonate (Calcium Carbonate -) 650 mg PO BID [facility] Last Admin: 03/03/18 22:19 Dose: 650 mg Cholecalciferol (Vitamin D3 -) 1,000 unit PO DAILY [facility] Last Admin: 03/03/18 10:39 Dose: 1,000 unit Diltiazem HCl (Cardizem Cd -) 180 mg PO DAILY [facility] Last Admin: 03/03/18 10:38 Dose: 180 mg Enoxaparin Sodium (Lovenox -) 80 mg SQ BID [facility] Last Admin: 03/03/18 22:21 Dose: 80 mg Sodium Chloride (1/2 Normal Saline) 1,000 mls @ 83 mls/hr IV ASDIR [facility] Last Admin: 03/03/18 22:20 Dose: 83 mls/hr Piperacillin Sod/Tazobactam (Sod 4.5 gm/ Dextrose) 100 mls @ 200 mls/hr IVPB Q8H-IV [facility] PRN Reason: Protocol Last Admin: 03/04/18 01:26 Dose: 200 mls/hr Insulin Aspart (Novolog Vial Sliding Scale -) 1 vial SQ ACHS [facility] PRN Reason: Protocol Last Admin: 03/04/18 06:20 Dose: 2 units Loperamide HCl (Imodium -) 2 mg PO Q8H PRN PRN Reason: DIARRHEA Last Admin: 03/03/18 22:52 Dose: 2 mg Melatonin (Melatonin) 5 mg PO HS [facility] Last Admin: 03/03/18 22:19 Dose: 5 mg Metformin HCl (Glucophage -) 500 mg PO BID@0700,1630 [facility] Last Admin: 03/04/18 06:00 Dose: 500 mg Metoclopramide HCl (Reglan Injection -) 10 mg IVPUSH Q8H-IV [facility] Last Admin: 03/04/18 01:26 Dose: 10 mg Ondansetron HCl (Zofran Injection) 4 mg IVPUSH Q4H PRN PRN Reason: NAUSEA AND/OR VOMITING Last Admin: 02/25/18 04:42 Dose: 4 mg Pantoprazole Sodium (Protonix -) 40 mg PO DAILY [facility] Last Admin: 03/03/18 10:39 Dose: 40 mg # Insomnia Start Ambien 5 mg qhs #Dysuria Urine culture neg Increase fluid intake # Afib Lovenox 80 mg BID Cardio consult appreciated # acute cholecystitis s/p percutaneous cholecystostomy, 02/26/18 Trend WBC Continue IV antibiotics #Hypocalcemia Calcium now 7.7 Continue Calcium Carbonate BID/ Vitamin D BID Trend Calcium level # CVA No change in slurred speech Continue Lovenox 80 mg BID/ Statin Continue Cardizem for rate control # DM HgA1c- BG 273 Fs with coverage # HTN continue Cardizem BP controlled
[2018-03-04] MEDS ORDERED: PT OWN MED DRAWER 7, Y5N ONE ×2 (09:46→21:41)
--- NOTE | 2018-03-04 10:10 | PN ---
Progress Note (short form) - Note Progress Note: s: no cp sob palps dizzy o: Vital Signs Period Temp Pulse Resp BP Sys/Bangura Pulse Ox Last 24 Hr 97.3 F-98.7 F 80-99 18-20 144-159/71-87 95 nad, calm jvd flat, neck supple ctab, nl effort rrr nl s1, s2 1/6 sys murmur at sternal border. + bs soft nt nd no le e/c/c aaox3 no jaundice, diaphoresis. Current Medications Generic Name Dose Route Start Last Admin Trade Name Freq PRN Reason Stop Dose Admin Acetaminophen 650 mg 02/25/18 17:37 03/04/18 05:54 Tylenol - PO 650 mg Q4H PRN Administration FEVER Atorvastatin Calcium 40 mg 02/22/18 22:00 03/03/18 22:20 Lipitor - PO 40 mg HS [facility] Administration Calcium Carbonate 650 mg 03/01/18 22:00 03/03/18 22:19 Calcium Carbonate - PO 650 mg BID [facility] Administration Cholecalciferol 1,000 unit 03/02/18 10:00 03/03/18 10:39 Vitamin D3 - PO 1,000 unit DAILY [facility] Administration Diltiazem HCl 180 mg 03/01/18 10:00 03/03/18 10:38 Cardizem Cd - PO 180 mg DAILY [facility] Administration Enoxaparin Sodium 80 mg 02/28/18 15:10 03/03/18 22:21 Lovenox - SQ 80 mg BID [facility] Administration Sodium Chloride 1,000 mls @ 83 mls/hr 02/27/18 22:00 03/03/18 22:20 1/2 Normal Saline IV 83 mls/hr ASDIR [facility] Administration Piperacillin Sod/Tazobactam 100 mls @ 200 mls/hr 03/01/18 10:00 03/04/18 01: 26 Sod 4.5 gm/ Dextrose IVPB 200 mls/hr Q8H-IV [facility] Administration Protocol Insulin Aspart 1 vial 02/24/18 07:00 03/04/18 06:20 Novolog Vial Sliding Scale - SQ 2 units ACHS [facility] Administration Protocol Loperamide HCl 2 mg 03/03/18 22:38 03/03/18 22:52 Imodium - PO 2 mg Q8H PRN Administration DIARRHEA Melatonin 5 mg 02/22/18 22:00 03/03/18 22:19 Melatonin PO 5 mg HS [facility] Administration Metformin HCl 500 mg 02/23/18 07:00 03/04/18 06:00 Glucophage - PO 500 mg BID@0700,1630 [facility] Administration Metoclopramide HCl 10 mg 02/26/18 18:00 03/04/18 01:26 Reglan Injection - IVPUSH 10 mg Q8H-IV [facility] Administration Ondansetron HCl 4 mg 02/25/18 04:40 02/25/18 04:42 Zofran Injection IVPUSH 4 mg Q4H PRN Administration NAUSEA AND/OR VOMITING Pantoprazole Sodium 40 mg 02/23/18 10:00 03/03/18 10:39 Protonix - PO 40 mg DAILY [facility] Administration Zolpidem Tartrate 5 mg 03/04/18 09:52 Ambien - PO HS PRN INSOMNIA CBC, BMP 03/04/18 06:25 03/04/18 06:25 tele: sr head CT: interval wedge shaped acute/subacute infarct of right parietal lobe, no hemorrhage. brain mri 01/2018: cluster of small acute infarcts in the left parietal lobe. mild chronic microvascular ischemic changes. carotid u/s 01/2018: small plaque, no stenosis, nl verts. ASSESSMENT/PLAN 77 yo with h/o IDDM, copd, ckd, depression with hx of hospitalization and electric shock therapy (now in remission), possible prior gib and recent uti last month as well as admission last month for transient slurred speech/ unsteady gait (Toxic-Meteabolic encephalopathy vs. 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 cva - neuro input appreciated: concerned for cardioembolic source. previously d/w dr gruber who reviewed MRI and also feels there are very small infarcts in right brain, hence bilateral pattern. Patient was not taking ASA consistently at home, hence initially continued aspirin monotherapy per neuro. However,now found to have afib so ac started with lovenox. - echo unrevealing - considering KAE once GI issues resolved. - cont statin abd pain, vomiting, cholecystitis with cholangitis. - low grade fever, localized RUQ tenderness - sono with gallstones and dilated bile duct--w/u ongoing - 02/27: s/p percutaneous cholecystostomy 02/26. pafib: -cont dilt for rate control -cont ac htn - BP stable hld: -cont statin
[2018-03-04] MEDS: CALCIUM CARBONATE 650 MG TABLET PO SCH ×2 (11:20→21:49)
[2018-03-04] MEDS: ENOXAPARIN NA (PORCINE) 80 MG/0.8 ML DISP.SYRIN SQ SCH ×2 (11:20→21:50)
[2018-03-04] MEDS: PANTOPRAZOLE 40 MG TABLET (FP) PO SCH (11:20)
[2018-03-04] MEDS: CHOLECALCIFEROL (VITAMIN D3) 1,000 UNIT TABLET (FP) PO SCH (11:21)
--- NOTE | 2018-03-04 14:55 | PN ---
GI Progress Note Subjective: diarrhea,worse after eating fruit yesterday - Objective Vital Signs: Vital Signs Temperature 98 F 03/04/18 10:00 Pulse Rate 78 03/04/18 10:00 Respiratory Rate 20 03/04/18 10:00 Blood Pressure 153/80 03/04/18 10:00 O2 Sat by Pulse Oximetry (%) 94 L 03/04/18 09:00 Constitutional: Well Nourished Eyes: Yes: Conjunctiva Clear HENT: Yes: Atraumatic, Tonsillar Exudate Cardiovascular: Yes: Regular Rate and Rhythm Respiratory: Yes: CTA Bilaterally ...Palpate: Yes: Soft. No: Firm/Rigid, Guarding, Hepatomegaly, Mass, Pulsatile Mass, Splenomegaly, Tenderness Labs: CBC, BMP 03/04/18 06:25 03/04/18 06:25 INR, PTT INR 1.07 (0.82-1.09) 02/22/18 10:50 Problem List - Problems (1) Cholecystitis with cholangitis Assessment/Plan: resolved R> stool c diff low residue diet continue antibiotic Code(s): K81.9 - CHOLECYSTITIS, UNSPECIFIED; K83.0 - CHOLANGITIS
[2018-03-04] MEDS: ATORVASTATIN CA 40 MG TABLET (FP) PO SCH (21:49)
[2018-03-04] MEDS: ZOLPIDEM TARTRATE 5 MG TABLET PO PRN (21:49)
[2018-03-04] MEDS: SODIUM CHLORIDE 0.45% 1,000 ML IV SCH (21:50)
[2018-03-04] MEDS: MELATONIN 5 MG TABLETS PO SCH (21:51)
[2018-03-05] MEDS ORDERED: PIPERACILLIN/TAZOBACTAM 4.5 GM VIAL IVPB ONE ×2 (01:41→09:16)
[2018-03-05] MEDS ORDERED: DEXTROSE 5%-WATER 100 ML IVPB ONE ×2 (01:41→09:16)
[2018-03-05] MEDS: PIPERACILLIN/TAZOB 4.5 GM 4.5 GM in DEXTROSE 5%-WATER 100 ML IVPB SCH ×2 (02:05→09:26)
[2018-03-05] MEDS: METOCLOPRAMIDE HCL INJECTION 10 MG/2 ML VIAL IVPUSH SCH ×3 (02:05→17:12)
[2018-03-05] MEDS: INSULIN SLIDING SCALE (NOVOLOG) 1 VIAL SQ SCH ×4 (06:41→21:22)
[2018-03-05] MEDS: metFORMIN HCL 500 MG TABLET (FP) PO SCH ×2 (06:41→17:12)
[2018-03-05] MEDS ORDERED: PT OWN MED DRAWER 7, Y5N ONE ×3 (09:15→21:17)
[2018-03-05] MEDS: CHOLECALCIFEROL (VITAMIN D3) 1,000 UNIT TABLET (FP) PO SCH (09:25)
[2018-03-05] MEDS: PANTOPRAZOLE 40 MG TABLET (FP) PO SCH (09:25)
[2018-03-05] MEDS: ENOXAPARIN NA (PORCINE) 80 MG/0.8 ML DISP.SYRIN SQ SCH ×2 (09:26→21:23)
[2018-03-05] MEDS: CALCIUM CARBONATE 650 MG TABLET PO SCH ×2 (09:27→21:23)
--- NOTE | 2018-03-05 11:03 | PN ---
Progress Note, Physician Chief Complaint: cva History of Present Illness: denies abd pain today denies sob, palpit, cp - Current Medication List Current Medications: Active Medications Acetaminophen (Tylenol -) 650 mg PO Q4H PRN PRN Reason: FEVER Last Admin: 03/04/18 05:54 Dose: 650 mg Atorvastatin Calcium (Lipitor -) 40 mg PO HS [facility] Last Admin: 03/04/18 21:49 Dose: 40 mg Calcium Carbonate (Calcium Carbonate -) 650 mg PO BID [facility] Last Admin: 03/05/18 09:27 Dose: 650 mg Cholecalciferol (Vitamin D3 -) 1,000 unit PO DAILY [facility] Last Admin: 03/05/18 09:25 Dose: 1,000 unit Diltiazem HCl (Cardizem Cd -) 180 mg PO DAILY [facility] Last Admin: 03/05/18 09:25 Dose: 180 mg Enoxaparin Sodium (Lovenox -) 80 mg SQ BID [facility] Last Admin: 03/05/18 09:26 Dose: 80 mg Sodium Chloride (1/2 Normal Saline) 1,000 mls @ 83 mls/hr IV ASDIR [facility] Last Admin: 03/04/18 21:50 Dose: 83 mls/hr Piperacillin Sod/Tazobactam (Sod 4.5 gm/ Dextrose) 100 mls @ 200 mls/hr IVPB Q8H-IV [facility] PRN Reason: Protocol Last Admin: 03/05/18 09:26 Dose: 200 mls/hr Insulin Aspart (Novolog Vial Sliding Scale -) 1 vial SQ ACHS [facility] PRN Reason: Protocol Last Admin: 03/05/18 06:41 Dose: 2 units Loperamide HCl (Imodium -) 2 mg PO Q8H PRN PRN Reason: DIARRHEA Last Admin: 03/03/18 22:52 Dose: 2 mg Melatonin (Melatonin) 5 mg PO HS [facility] Last Admin: 03/04/18 21:51 Dose: Not Given Metformin HCl (Glucophage -) 500 mg PO BID@0700,1630 [facility] Last Admin: 03/05/18 06:41 Dose: 500 mg Metoclopramide HCl (Reglan Injection -) 10 mg IVPUSH Q8H-IV [facility] Last Admin: 03/05/18 09:25 Dose: 10 mg Ondansetron HCl (Zofran Injection) 4 mg IVPUSH Q4H PRN PRN Reason: NAUSEA AND/OR VOMITING Last Admin: 02/25/18 04:42 Dose: 4 mg Pantoprazole Sodium (Protonix -) 40 mg PO DAILY [facility] Last Admin: 03/05/18 09:25 Dose: 40 mg Zolpidem Tartrate (Ambien -) 5 mg PO HS PRN PRN Reason: INSOMNIA Last Admin: 03/04/18 21:49 Dose: 5 mg - Objective Vital Signs: Vital Signs Temperature 98.3 F 03/05/18 06:51 Pulse Rate 94 H 03/05/18 06:51 Respiratory Rate 20 03/05/18 06:51 Blood Pressure 163/81 03/05/18 06:51 O2 Sat by Pulse Oximetry (%) 94 L 03/04/18 21:00 Constitutional: Yes: Well Nourished, No Distress, Calm Cardiovascular: Yes: Regular Rate and Rhythm, S1, S2. No: Gallop, Murmur Respiratory: Yes: Regular, CTA Bilaterally. No: Accessory Muscle Use, Rales, Wheezes Extremities: No: Cold Edema: No Neurological: Yes: Alert, Oriented Psychiatric: No: Agitated Labs: CBC, BMP 03/04/18 06:25 03/04/18 06:25 INR, PTT INR 1.07 (0.82-1.09) 02/22/18 10:50 Assessment/Plan tele: NSR, NSVT 11b Echo 02/21: nl LV/EF. nl RV. valves WNL head CT: interval wedge shaped acute/subacute infarct of right parietal lobe, no hemorrhage. brain mri 01/2018: cluster of small acute infarcts in the left parietal lobe. mild chronic microvascular ischemic changes. carotid u/s 01/2018: small plaque, no stenosis, nl verts. ASSESSMENT/PLAN 77 yo with h/o IDDM, copd, ckd, depression with hx of hospitalization and electric shock therapy (now in remission), possible prior gib and recent uti last month as well as admission last month for transient slurred speech/ unsteady gait (Toxic-Meteabolic encephalopathy vs. 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 afib: - PAF noted on tele here. - currently in sinus - cont AC with lovenox--once GI issue resolved and no plans for further invasive procedure, rec start eliquis 5 bid cva - neuro input appreciated: concerned for cardioembolic source. - etiology found (i.e. paroxysmal afib), being tx'd with appropriate AC regimen - on statin for aggressive sec prevention regimen - KAE not expected to add anything further to mgmt plan/prognosis in this setting VTach: - 11 beats NSVT seen on tele - normal LVEF - check K/Mag--replete to usual aggressive targets abd pain, vomiting, cholecystitis with cholangitis. - low grade fever, localized RUQ tenderness - sono with gallstones and dilated bile duct--w/u ongoing - 02/27: s/p percutaneous cholecystostomy 02/26. pafib: -cont dilt for rate control -cont ac htn - BP not controlled - start diovan, cont diltiazem (for AF rate control) hld: -cont statin
[2018-03-05] MEDS ORDERED: amLODIPine BESYLATE 5 MG TABLET (FP) PO SCH (11:15)
[2018-03-05] MEDS: VALSARTAN 80 MG TABLET (UD) PO SCH (12:08)
[2018-03-05 12:13] LABS: ANION GAP 5 (8-16); BLOOD UREA NITROGEN 3 mg/dL (7-18); CALCIUM 7.9 mg/dL (8.5-10.1); CHLORIDE 106 mmol/L (98-107); CO2 27 mmol/L (21-32); CREATININE 0.9 mg/dL (0.55-1.02); GLUCOSE,RANDOM 236 mg/dL (74-106); MAGNESIUM 1.2 mg/dL (1.8-2.4); POTASSIUM 3.4 mmol/L (3.5-5.1); SODIUM 138 mmol/L (136-145)
--- NOTE | 2018-03-05 13:33 | PN ---
Progress Note, Physician Chief Complaint: ID NO complaints Zosyn - Current Medication List Current Medications: Active Medications Acetaminophen (Tylenol -) 650 mg PO Q4H PRN PRN Reason: FEVER Last Admin: 03/04/18 05:54 Dose: 650 mg Atorvastatin Calcium (Lipitor -) 40 mg PO HS [facility] Last Admin: 03/04/18 21:49 Dose: 40 mg Calcium Carbonate (Calcium Carbonate -) 650 mg PO BID [facility] Last Admin: 03/05/18 09:27 Dose: 650 mg Cholecalciferol (Vitamin D3 -) 1,000 unit PO DAILY [facility] Last Admin: 03/05/18 09:25 Dose: 1,000 unit Diltiazem HCl (Cardizem Cd -) 180 mg PO DAILY [facility] Last Admin: 03/05/18 09:25 Dose: 180 mg Enoxaparin Sodium (Lovenox -) 80 mg SQ BID [facility] Last Admin: 03/05/18 09:26 Dose: 80 mg Sodium Chloride (1/2 Normal Saline) 1,000 mls @ 83 mls/hr IV ASDIR [facility] Last Admin: 03/04/18 21:50 Dose: 83 mls/hr Insulin Aspart (Novolog Vial Sliding Scale -) 1 vial SQ ACHS [facility] PRN Reason: Protocol Last Admin: 03/05/18 12:08 Dose: 2 units Loperamide HCl (Imodium -) 2 mg PO Q8H PRN PRN Reason: DIARRHEA Last Admin: 03/03/18 22:52 Dose: 2 mg Melatonin (Melatonin) 5 mg PO HS [facility] Last Admin: 03/04/18 21:51 Dose: Not Given Metformin HCl (Glucophage -) 500 mg PO BID@0700,1630 [facility] Last Admin: 03/05/18 06:41 Dose: 500 mg Metoclopramide HCl (Reglan Injection -) 10 mg IVPUSH Q8H-IV [facility] Last Admin: 03/05/18 09:25 Dose: 10 mg Ondansetron HCl (Zofran Injection) 4 mg IVPUSH Q4H PRN PRN Reason: NAUSEA AND/OR VOMITING Last Admin: 02/25/18 04:42 Dose: 4 mg Pantoprazole Sodium (Protonix -) 40 mg PO DAILY [facility] Last Admin: 03/05/18 09:25 Dose: 40 mg Valsartan (Diovan -) 80 mg PO DAILY [facility] Last Admin: 03/05/18 12:08 Dose: 80 mg Zolpidem Tartrate (Ambien -) 5 mg PO HS PRN PRN Reason: INSOMNIA Last Admin: 03/04/18 21:49 Dose: 5 mg - Objective Vital Signs: Vital Signs Temperature 97.1 F L 03/05/18 10:00 Pulse Rate 90 03/05/18 10:00 Respiratory Rate 20 03/05/18 10:00 Blood Pressure 128/76 03/05/18 10:00 O2 Sat by Pulse Oximetry (%) 94 L 03/05/18 09:00 Constitutional: Yes: Well Nourished, No Distress HENT: Yes: WNL, Atraumatic Neck: Yes: WNL, Supple Cardiovascular: Yes: S1, S2 Respiratory: Yes: WNL, Regular, CTA Bilaterally Gastrointestinal: Yes: WNL, Normal Bowel Sounds, Soft. No: Tenderness, Tenderness, Epigastrium Labs: CBC, BMP 03/04/18 06:25 03/05/18 11:19 INR, PTT INR 1.07 (0.82-1.09) 02/22/18 10:50 Assessment/Plan Microbiology 02/26/18 14:30 Bile Gram Stain - Final 02/26/18 14:30 Bile Anaerobic Culture - Final Escherichia Coli Enterococcus Faecium Proteus Mirabilis NO ANAEROBES WERE ISOLATED Laboratory Tests 03/02/18 03/02/18 03/04/18 09:15 09:15 06:25 WBC 12.0 H 11.7 H RBC 3.47 L Hct 29.3 L Plt Count 239 BUN Creatinine Total Bilirubin 0.7 ALT 36 Alkaline Phosphatase 124 H 03/05/18 11:19 WBC RBC Hct Plt Count BUN 3 L Creatinine 0.9 Total Bilirubin ALT Alkaline Phosphatase Assessment POst chelecystotomy tube for drainage Doing well Patient says she cannot take oral meds ? Plan Continue Zosyn as ordered vs oral therapy (keflex bid and Amox) l
--- NOTE | 2018-03-05 15:00 | PN ---
Progress Note (short form) - Note Progress Note: 77 y/o female found lying in bed. Denies pain/ burning on urination. States that she slept well with pill, Ambien, and asked if she can take same at home. Discussed issues with taking Ambien at home, Daytime drowsiness etc. Pt verbalized understanding. Vital Signs Period Temp Pulse Resp BP Sys/Bangura Pulse Ox Last 24 Hr 97.1 F-98.8 F 85-96 18-20 128-170/76-81 94-94 CBC, BMP 03/04/18 06:25 03/05/18 11:19 HEENT- Normocephalic Neck- Supple Lungs- CTAB Heart- S1/S2 Abd- Pos BS x 4, soft, NT, Drain in place RU Ext- Neg LE edema Active Medications Acetaminophen (Tylenol -) 650 mg PO Q4H PRN PRN Reason: FEVER Last Admin: 03/04/18 05:54 Dose: 650 mg Atorvastatin Calcium (Lipitor -) 40 mg PO HS [facility] Last Admin: 03/04/18 21:49 Dose: 40 mg Calcium Carbonate (Calcium Carbonate -) 650 mg PO BID [facility] Last Admin: 03/05/18 09:27 Dose: 650 mg Cholecalciferol (Vitamin D3 -) 1,000 unit PO DAILY [facility] Last Admin: 03/05/18 09:25 Dose: 1,000 unit Diltiazem HCl (Cardizem Cd -) 180 mg PO DAILY [facility] Last Admin: 03/05/18 09:25 Dose: 180 mg Enoxaparin Sodium (Lovenox -) 80 mg SQ BID [facility] Last Admin: 03/05/18 09:26 Dose: 80 mg Sodium Chloride (1/2 Normal Saline) 1,000 mls @ 83 mls/hr IV ASDIR [facility] Last Admin: 03/04/18 21:50 Dose: 83 mls/hr Piperacillin Sod/Tazobactam (Sod 3.375 gm/ Dextrose) 50 mls @ 100 mls/hr IVPB Q8H-IV [facility] PRN Reason: Protocol Insulin Aspart (Novolog Vial Sliding Scale -) 1 vial SQ ACHS [facility] PRN Reason: Protocol Last Admin: 03/05/18 12:08 Dose: 2 units Loperamide HCl (Imodium -) 2 mg PO Q8H PRN PRN Reason: DIARRHEA Last Admin: 03/03/18 22:52 Dose: 2 mg Melatonin (Melatonin) 5 mg PO HS [facility] Last Admin: 03/04/18 21:51 Dose: Not Given Metformin HCl (Glucophage -) 500 mg PO BID@0700,1630 [facility] Last Admin: 03/05/18 06:41 Dose: 500 mg Metoclopramide HCl (Reglan Injection -) 10 mg IVPUSH Q8H-IV [facility] Last Admin: 03/05/18 09:25 Dose: 10 mg Ondansetron HCl (Zofran Injection) 4 mg IVPUSH Q4H PRN PRN Reason: NAUSEA AND/OR VOMITING Last Admin: 02/25/18 04:42 Dose: 4 mg Pantoprazole Sodium (Protonix -) 40 mg PO DAILY [facility] Last Admin: 03/05/18 09:25 Dose: 40 mg Valsartan (Diovan -) 80 mg PO DAILY [facility] Last Admin: 03/05/18 12:08 Dose: 80 mg Zolpidem Tartrate (Ambien -) 5 mg PO HS PRN PRN Reason: INSOMNIA Last Admin: 03/04/18 21:49 Dose: 5 mg # Insomnia Continue Ambien 5 mg qhs #Dysuria Urine culture neg # Afib Lovenox 80 mg BID # acute cholecystitis s/p percutaneous cholecystostomy, 02/26/18 Trend WBC- now 11.7 Continue IV antibiotics (Zosyn) #Hypocalcemia Calcium now 7.9 Continue Calcium Carbonate BID/ Vitamin D BID Trend Calcium level # CVA No change in slurred speech Continue Lovenox 80 mg BID/ Statin Continue Cardizem for rate control # DM HgA1c- Fs with coverage # HTN continue Cardizem BP controlled
[2018-03-05] MEDS ORDERED: PIPERACILLIN/TAZOBACTAM 3.375 GM VIAL IVPB ONE (17:07)
[2018-03-05] MEDS ORDERED: DEXTROSE 5%-WATER - 50 ML IVPB ONE (17:07)
[2018-03-05] MEDS: PIPERACILLIN/TAZOB 3.375 GM 3.375 GM in DEXTROSE 5%-WATER - 50 ML IVPB SCH (17:12)
[2018-03-05] MEDS: SODIUM CHLORIDE 0.45% 1,000 ML IV SCH (21:00)
[2018-03-05] MEDS ORDERED: INSULIN (NOVOLOG) ASPART 100 UNITS/ML 10ML VIAL ONE (21:18)
[2018-03-05] MEDS: MELATONIN 5 MG TABLETS PO SCH (21:20)
[2018-03-05] MEDS: ATORVASTATIN CA 40 MG TABLET (FP) PO SCH (21:22)
[2018-03-05] MEDS: ZOLPIDEM TARTRATE 5 MG TABLET PO PRN (21:22)
[2018-03-06] MEDS ORDERED: DEXTROSE 5%-WATER - 50 ML IVPB ONE ×3 (01:20→17:16)
[2018-03-06] MEDS ORDERED: PIPERACILLIN/TAZOBACTAM 3.375 GM VIAL IVPB ONE ×3 (01:20→17:16)
[2018-03-06] MEDS: PIPERACILLIN/TAZOB 3.375 GM 3.375 GM in DEXTROSE 5%-WATER - 50 ML IVPB SCH ×3 (01:55→17:21)
[2018-03-06] MEDS: METOCLOPRAMIDE HCL INJECTION 10 MG/2 ML VIAL IVPUSH SCH ×3 (01:55→18:19)
[2018-03-06] MEDS: INSULIN SLIDING SCALE (NOVOLOG) 1 VIAL SQ SCH ×4 (06:26→21:28)
[2018-03-06] MEDS: metFORMIN HCL 500 MG TABLET (FP) PO SCH ×2 (06:26→17:22)
[2018-03-06 07:39] LABS: BASO % 0.6 % (0-2.0); EOS % 1.5 % (0-4.5); HEMATOCRIT 33.3 % (32.4-45.2); HEMOGLOBIN 11.4 GM/dL (10.7-15.3); LYMPH % 18.1 % (8-40); MCH 28.7 pg (25.7-33.7); MCHC 34.3 g/dl (32.0-36.0); MEAN CELL VOLUME 83.7 fl (80-96); MEAN PLT VOLUME 8.1 fl (7.5-11.1); MONO % 6.7 % (3.8-10.2); NEUT % 73.1 % (42.8-82.8); PLATELET COUNT 380 K/MM3 (134-434); RBC 3.97 M/mm3 (3.60-5.2); RDW 13.8 % (11.6-15.6); WHITE BLOOD COUNT 14.8 K/mm3 (4.0-10.0)
[2018-03-06 07:47] LABS: ALBUMIN 2.7 g/dl (3.4-5.0); ALK PHOS 117 U/L (45-117); ANION GAP 12 (8-16); BILIRUBIN,TOTAL 0.5 mg/dL (0.2-1.0); BLOOD UREA NITROGEN 3 mg/dL (7-18); CHLORIDE 104 mmol/L (98-107); CO2 23 mmol/L (21-32); CREATININE 0.9 mg/dL (0.55-1.02); GLUCOSE,RANDOM 246 mg/dL (74-106); POTASSIUM 3.3 mmol/L (3.5-5.1); SGOT/AST 16 U/L (15-37); SGPT/ALT 21 U/L (12-78); SODIUM 139 mmol/L (136-145); TOT PROT 5.9 g/dl (6.4-8.2)
[2018-03-06] MEDS ORDERED: PT OWN MED DRAWER 7, Y5N ONE (10:20)
[2018-03-06] MEDS: CHOLECALCIFEROL (VITAMIN D3) 1,000 UNIT TABLET (FP) PO SCH (10:25)
[2018-03-06] MEDS: PANTOPRAZOLE 40 MG TABLET (FP) PO SCH (10:25)
[2018-03-06] MEDS: ENOXAPARIN NA (PORCINE) 80 MG/0.8 ML DISP.SYRIN SQ SCH ×2 (10:25→21:28)
[2018-03-06] MEDS: VALSARTAN 80 MG TABLET (UD) PO SCH (10:25)
[2018-03-06] MEDS: CALCIUM CARBONATE 650 MG TABLET PO SCH ×2 (10:25→21:28)
[2018-03-06] MEDS ORDERED: MAGNESIUM OXIDE 400 MG TABLET (FP) PO ONE (11:20)
[2018-03-06] MEDS ORDERED: POTASSIUM CHLORIDE 30 MEQ in SODIUM CHLORIDE 285 ML IVPB ONE (11:30)
--- NOTE | 2018-03-06 11:35 | PN ---
Progress Note (short form) - Note Progress Note: Chief Complaint: cva History of Present Illness: Remains on IVF. still with poor po intake. diarrhea improving. denies abd pain today denies sob, but has mild dyspnea when ambulating with PT. no orthopnea, le edema, dizziness, palpit, cp Current Medications Acetaminophen (Tylenol -) 650 mg PO Q4H PRN PRN Reason: FEVER Last Admin: 03/04/18 05:54 Dose: 650 mg Atorvastatin Calcium (Lipitor -) 40 mg PO HS [facility] Last Admin: 03/05/18 21:22 Dose: 40 mg Calcium Carbonate (Calcium Carbonate -) 650 mg PO BID [facility] Last Admin: 03/06/18 10:25 Dose: 650 mg Cholecalciferol (Vitamin D3 -) 1,000 unit PO DAILY [facility] Last Admin: 03/06/18 10:25 Dose: 1,000 unit Diltiazem HCl (Cardizem Cd -) 180 mg PO DAILY [facility] Last Admin: 03/06/18 10:25 Dose: 180 mg Enoxaparin Sodium (Lovenox -) 80 mg SQ BID [facility] Last Admin: 03/06/18 10:25 Dose: 80 mg Sodium Chloride (1/2 Normal Saline) 1,000 mls @ 83 mls/hr IV ASDIR [facility] Last Admin: 03/05/18 21:00 Dose: 83 mls/hr Piperacillin Sod/Tazobactam (Sod 3.375 gm/ Dextrose) 50 mls @ 100 mls/hr IVPB Q8H-IV [facility] PRN Reason: Protocol Last Admin: 03/06/18 10:26 Dose: 100 mls/hr Potassium Chloride (Potassium Chloride 10 Meq Premix Ivpb -) 10 meq in 100 mls @ 100 mls/hr IVPB Q60M [facility] Stop: 03/06/18 14:29 Insulin Aspart (Novolog Vial Sliding Scale -) 1 vial SQ ACHS [facility] PRN Reason: Protocol Last Admin: 03/06/18 06:26 Dose: 2 units Loperamide HCl (Imodium -) 2 mg PO Q8H PRN PRN Reason: DIARRHEA Last Admin: 03/03/18 22:52 Dose: 2 mg Melatonin (Melatonin) 5 mg PO HS [facility] Last Admin: 03/05/18 21:20 Dose: Not Given Metformin HCl (Glucophage -) 500 mg PO BID@0700,1630 [facility] Last Admin: 03/06/18 06:26 Dose: 500 mg Metoclopramide HCl (Reglan Injection -) 10 mg IVPUSH Q8H-IV [facility] Last Admin: 03/06/18 01:55 Dose: 10 mg Ondansetron HCl (Zofran Injection) 4 mg IVPUSH Q4H PRN PRN Reason: NAUSEA AND/OR VOMITING Last Admin: 02/25/18 04:42 Dose: 4 mg Pantoprazole Sodium (Protonix -) 40 mg PO DAILY [facility] Last Admin: 03/06/18 10:25 Dose: 40 mg Potassium Chloride (K-Dur -) 40 meq PO ONCE ONE Stop: 03/06/18 16:01 Valsartan (Diovan -) 80 mg PO DAILY [facility] Last Admin: 03/06/18 10:25 Dose: 80 mg Zolpidem Tartrate (Ambien -) 5 mg PO HS PRN PRN Reason: INSOMNIA Last Admin: 03/05/18 21:22 Dose: 5 mg - Objective Vital Signs: Vital Signs - 24 hr 03/05/18 03/05/18 03/05/18 14:00 18:00 21:00 Temperature 98.3 F 98.4 F Pulse Rate 94 H 80 Respiratory 20 20 Rate Blood Pressure 145/75 134/56 O2 Sat by Pulse 94 L Oximetry (%) 03/05/18 03/06/18 03/06/18 22:00 01:45 06:00 Temperature 98.5 F 98.1 F Pulse Rate 86 77 Respiratory 20 20 Rate Blood Pressure 155/75 155/79 O2 Sat by Pulse 94 L 90 L Oximetry (%) 03/06/18 03/06/18 08:57 08:58 Temperature Pulse Rate Respiratory 20 Rate Blood Pressure O2 Sat by Pulse 95 95 Oximetry (%) Intake & Output 03/04/18 03/05/18 03/06/18 03/07/18 07:59 07:59 07:59 07:59 Intake Total 3822 2209 2502 Output Total 285 1585 250 Balance 5822 069 2482 Weight 173 lb 168 lb 12.8 oz 166 lb 6 oz Constitutional: Yes: Well Nourished, No Distress, Calm Cardiovascular: Yes: Regular Rate and Rhythm, S1, S2. No: Gallop, Murmur Respiratory: Yes: Regular, right basilar dullness, nl effort. No: Accessory Muscle Use, Rales, Wheezes + bs soft nt nd Extremities: No: Cold Edema: No + dp/pt Neurological: Yes: Alert, Oriented Psychiatric: No: Agitated Labs: CBC, BMP 03/06/18 06:00 03/06/18 06:00 Microbiology 02/26/18 14:30 Bile Gram Stain - Final 02/26/18 14:30 Bile Anaerobic Culture - Final Escherichia Coli Enterococcus Faecium Proteus Mirabilis NO ANAEROBES WERE ISOLATED Laboratory Tests 03/05/18 03/06/18 11:19 06:00 Magnesium 1.2 L Total Bilirubin 0.5 D AST 16 ALT 21 Alkaline Phosphatase 117 Albumin 2.7 L Assessment/Plan tele: NSR, NSVT 11b, 2 runs of svt. Echo 02/21: nl LV/EF. nl RV. valves WNL head CT: interval wedge shaped acute/subacute infarct of right parietal lobe, no hemorrhage. brain mri 01/2018: cluster of small acute infarcts in the left parietal lobe. mild chronic microvascular ischemic changes. carotid u/s 01/2018: small plaque, no stenosis, nl verts. ASSESSMENT/PLAN 77 yo with h/o IDDM, copd, ckd, depression with hx of hospitalization and electric shock therapy (now in remission), possible prior gib and recent uti last month as well as admission last month for transient slurred speech/ unsteady gait (Toxic-Meteabolic encephalopathy vs. 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 pafib: - PAF noted on tele here. - currently in sinus - cont AC with lovenox--once GI issue resolved and no plans for further invasive procedure, rec start eliquis 5 bid - 03/06 discussed with GI, safe to transition to eliquis, will order for tomorrow. uptitrate dilt and aggressive lyte repletion as mentioned below. cva - neuro input appreciated: concerned for cardioembolic source. - etiology found (i.e. paroxysmal afib), being tx'd with appropriate AC regimen. no need for KAE - on statin for aggressive sec prevention regimen VTach: - 11 beats NSVT seen on tele - normal LVEF - check K/Mag--replete to usual aggressive targets. - 03/06: Mg 1.2 yesterday, will recheck today. ongoing aggressive repletion of mg /k. abd pain, vomiting, cholecystitis with cholangitis. - low grade fever, localized RUQ tenderness - sono with gallstones and dilated bile duct--w/u ongoing - 02/27: s/p percutaneous cholecystostomy 02/26. - 03/06 remains on IVF, d/c when safe per pmd/GI. In the meanwhile will reduce rate to 42 cc/hr for tomorrow and repeat cxr in am. Patient with mild hunt and dullness at right base, r/o edema. htn - con't diovan, diltiazem (for AF rate control) - 03/06: still with suboptimal control. will uptitrate dilt to 120 bid. . hld: -cont statin, lft's now normalized.
[2018-03-06] MEDS: SODIUM CHLORIDE 0.45% 1,000 ML IV SCH ×2 (12:00→21:28)
[2018-03-06 13:33] LABS: MAGNESIUM 1.2 mg/dL (1.8-2.4)
[2018-03-06] MEDS ORDERED: POTASSIUM CHLORIDE TABS 20 MEQ TABLET.ER (FP) PO ONE (16:00)
[2018-03-06] MEDS ORDERED: INSULIN (NOVOLOG) ASPART 100 UNITS/ML 10ML VIAL ONE (21:21)
[2018-03-06] MEDS: ATORVASTATIN CA 40 MG TABLET (FP) PO SCH (21:24)
[2018-03-06] MEDS: ZOLPIDEM TARTRATE 5 MG TABLET PO PRN (21:24)
[2018-03-06] MEDS: MELATONIN 5 MG TABLETS PO SCH (21:25)
--- NOTE | 2018-03-06 22:06 | PN ---
Progress Note (short form) - Note Progress Note: seen and examined in her room chart reviewed /events reviewed reports more comfortable / no abd pain has been ambulating in room / [address] with PT Vital Signs Period Temp Pulse Resp BP Sys/Bangura Pulse Ox Last 24 Hr 98.1 F-99.0 F 77-94 20-20 135-155/72-82 90-95 neck supple heart S1/S2 lungs clear bilat abd soft / benign / cholecystosomy tube remains in place -- caicedo yellow drainage BS + all quadrants ext no edema / no calf tenderness CBC,CMP WBC 14.8 K/mm3 (4.0-10.0) H 03/06/18 06:00 RBC 3.97 M/mm3 (3.60-5.2) 03/06/18 06:00 Hgb 11.4 GM/dL (10.7-15.3) D 03/06/18 06:00 Hct 33.3 % (32.4-45.2) 03/06/18 06:00 MCV 83.7 fl (80-96) 03/06/18 06:00 MCH 28.7 pg (25.7-33.7) 03/06/18 06:00 MCHC 34.3 g/dl (32.0-36.0) 03/06/18 06:00 RDW 13.8 % (11.6-15.6) 03/06/18 06:00 Plt Count 380 K/MM3 (134-434) D 03/06/18 06:00 MPV 8.1 fl (7.5-11.1) 03/06/18 06:00 Neutrophils % 73.1 % (42.8-82.8) 03/06/18 06:00 Lymphocytes % 18.1 % (8-40) 03/06/18 06:00 Monocytes % 6.7 % (3.8-10.2) 03/06/18 06:00 Eosinophils % 1.5 % (0-4.5) 03/06/18 06:00 Basophils % 0.6 % (0-2.0) 03/06/18 06:00 Sodium 139 mmol/L (136-145) 03/06/18 06:00 Potassium 3.3 mmol/L (3.5-5.1) L 03/06/18 06:00 Chloride 104 mmol/L (98-107) 03/06/18 06:00 Carbon Dioxide 23 mmol/L (21-32) 03/06/18 06:00 Anion Gap 12 (8-16) 03/06/18 06:00 BUN 3 mg/dL (7-18) L 03/06/18 06:00 Creatinine 0.9 mg/dL (0.55-1.02) 03/06/18 06:00 Creat Clearance w eGFR > 60 (>60) 03/06/18 06:00 POC Glucometer 225 UNITS (80-120) 03/06/18 21:18 Random Glucose 246 mg/dL (74-106) H 03/06/18 06:00 Hemoglobin A1c % 9.3 % (4.8-6.0) H 02/24/18 05:59 Calcium 9.0 mg/dL (8.5-10.1) 03/06/18 06:00 Magnesium 1.2 mg/dL (1.8-2.4) L 03/06/18 06:00 Total Bilirubin 0.5 mg/dL (0.2-1.0) D 03/06/18 06:00 AST 16 U/L (15-37) 03/06/18 06:00 ALT 21 U/L (12-78) 03/06/18 06:00 Alkaline Phosphatase 117 U/L (45-117) 03/06/18 06:00 Creatine Kinase 60 IU/L (26-192) 02/22/18 17:10 Troponin I < 0.02 ng/ml (0.00-0.05) 02/22/18 17:10 C-Reactive Protein 19.6 MG/DL (0.00-0.3) H 03/01/18 05:35 Total Protein 5.9 g/dl (6.4-8.2) L 03/06/18 06:00 Albumin 2.7 g/dl (3.4-5.0) L 03/06/18 06:00 Triglycerides 105 mg/dL (35-160) 02/23/18 07:15 Cholesterol 105 mg/dL (50-200) 02/23/18 07:15 Total LDL Cholesterol 53 mg/dL (5-100) 02/23/18 07:15 HDL Cholesterol 43 mg/dL (40-60) 02/23/18 07:15 Microbiology 03/04/18 07:50 Urine - Urine Clean Catch Urine Culture - Final NO GROWTH OBTAINED 02/27/18 21:00 Blood - Peripheral Venous Blood Culture - Final NO GROWTH AFTER 5 DAYS INCUBATION 02/27/18 20:45 Blood - Peripheral Venous Blood Culture - Final NO GROWTH AFTER 5 DAYS INCUBATION 02/26/18 14:30 Bile Gram Stain - Final 02/26/18 14:30 Bile Body Fluid Culture - Final Escherichia Coli Enterococcus Faecium Proteus Mirabilis 02/26/18 14:30 Bile Anaerobic Culture - Final NO ANAEROBES WERE ISOLATED 02/28/18 00:30 Urine - Urine Clean Catch Urine Culture - Final NO GROWTH OBTAINED 02/22/18 10:50 Urine - Urine Nava Urine Culture - Final NO GROWTH OBTAINED Active Medications Acetaminophen (Tylenol -) 650 mg PO Q4H PRN PRN Reason: FEVER Last Admin: 03/04/18 05:54 Dose: 650 mg Atorvastatin Calcium (Lipitor -) 40 mg PO HS [facility] Last Admin: 03/06/18 21:24 Dose: 40 mg Calcium Carbonate (Calcium Carbonate -) 650 mg PO BID [facility] Last Admin: 03/06/18 21:28 Dose: 650 mg Cholecalciferol (Vitamin D3 -) 1,000 unit PO DAILY [facility] Last Admin: 03/06/18 10:25 Dose: 1,000 unit Diltiazem HCl (Cardizem Cd -) 120 mg PO BID [facility] Last Admin: 03/06/18 21:24 Dose: 120 mg Enoxaparin Sodium (Lovenox -) 80 mg SQ BID [facility] Last Admin: 03/06/18 21:28 Dose: 80 mg Sodium Chloride (1/2 Normal Saline) 1,000 mls @ 83 mls/hr IV ASDIR [facility] Last Admin: 03/06/18 21:28 Dose: 83 mls/hr Piperacillin Sod/Tazobactam (Sod 3.375 gm/ Dextrose) 50 mls @ 100 mls/hr IVPB Q8H-IV [facility] PRN Reason: Protocol Last Admin: 03/06/18 17:21 Dose: 100 mls/hr Insulin Aspart (Novolog Vial Sliding Scale -) 1 vial SQ ACHS [facility] PRN Reason: Protocol Last Admin: 03/06/18 21:28 Dose: 2 units Loperamide HCl (Imodium -) 2 mg PO Q8H PRN PRN Reason: DIARRHEA Last Admin: 03/03/18 22:52 Dose: 2 mg Melatonin (Melatonin) 5 mg PO HS [facility] Last Admin: 03/06/18 21:25 Dose: Not Given Metformin HCl (Glucophage -) 500 mg PO BID@0700,1630 [facility] Last Admin: 03/06/18 17:22 Dose: 500 mg Metoclopramide HCl (Reglan Injection -) 10 mg IVPUSH Q8H-IV [facility] Last Admin: 03/06/18 18:19 Dose: Not Given Ondansetron HCl (Zofran Injection) 4 mg IVPUSH Q4H PRN PRN Reason: NAUSEA AND/OR VOMITING Last Admin: 02/25/18 04:42 Dose: 4 mg Pantoprazole Sodium (Protonix -) 40 mg PO DAILY [facility] Last Admin: 03/06/18 10:25 Dose: 40 mg Valsartan (Diovan -) 80 mg PO DAILY [facility] Last Admin: 03/06/18 10:25 Dose: 80 mg Zolpidem Tartrate (Ambien -) 5 mg PO HS PRN PRN Reason: INSOMNIA Last Admin: 03/06/18 21:24 Dose: 5 mg 77 yo with h/o IDDM, copd, ckd, depression with hx of hospitalization and electric shock therapy (now in remission), possible prior gib and recent uti last month as well as admission last month for transient slurred speech/ unsteady gait (Toxic-Metabolic encephalopathy vs. 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 hospital stay complicated with acute cholecystitis # CVA on admission findings of clusters of small embolic strokes neurology follow up / statins added to management Cardiac w/u was on hold 2/ acute cholecystitis with cholangitis remained on telemetry revealing Paroxismal A Fib. / currently in Sinus on lovenox -- will require [employer] a/c eliquis 5mg bid # A Fib on tele / PAF A/C as above diltiazem for rate control # V tach repleat eletrolytes continue to monitor tele / follow lytes # s/p acute cholecystitis s/p percutaneous cholecystostomy, 02/26/18 LFT now normalized / wbc 14K # HTN continue meds -diovan adjust CCB for improved bp control and rate control # DM continue to use sliding scale improving FS as infection improving
[2018-03-07] MEDS ORDERED: PIPERACILLIN/TAZOBACTAM 3.375 GM VIAL IVPB ONE ×3 (01:38→17:21)
[2018-03-07] MEDS ORDERED: DEXTROSE 5%-WATER - 50 ML IVPB ONE ×3 (01:38→17:21)
[2018-03-07] MEDS: METOCLOPRAMIDE HCL INJECTION 10 MG/2 ML VIAL IVPUSH SCH ×3 (01:45→18:43)
[2018-03-07] MEDS: PIPERACILLIN/TAZOB 3.375 GM 3.375 GM in DEXTROSE 5%-WATER - 50 ML IVPB SCH ×3 (01:45→17:25)
[2018-03-07] MEDS: metFORMIN HCL 500 MG TABLET (FP) PO SCH ×2 (06:15→17:25)
[2018-03-07] MEDS: INSULIN SLIDING SCALE (NOVOLOG) 1 VIAL SQ SCH ×4 (06:17→22:47)
[2018-03-07 06:45] LABS: BASO % 0.9 % (0-2.0); EOS % 1.1 % (0-4.5); HEMATOCRIT 33.6 % (32.4-45.2); HEMOGLOBIN 11.3 GM/dL (10.7-15.3); LYMPH % 12.3 % (8-40); MCH 28.6 pg (25.7-33.7); MCHC 33.6 g/dl (32.0-36.0); MEAN CELL VOLUME 85.2 fl (80-96); MEAN PLT VOLUME 8.1 fl (7.5-11.1); MONO % 5.3 % (3.8-10.2); NEUT % 80.4 % (42.8-82.8); PLATELET COUNT 413 K/MM3 (134-434); RBC 3.95 M/mm3 (3.60-5.2); RDW 13.6 % (11.6-15.6); WHITE BLOOD COUNT 21.4 K/mm3 (4.0-10.0)
[2018-03-07 07:21] LABS: ALBUMIN 2.7 g/dl (3.4-5.0); ANION GAP 11 (8-16); BLOOD UREA NITROGEN 4 mg/dL (7-18); CALCIUM 8.9 mg/dL (8.5-10.1); CHLORIDE 105 mmol/L (98-107); CO2 22 mmol/L (21-32); GLUCOSE,RANDOM 214 mg/dL (74-106); MAGNESIUM 1.4 mg/dL (1.8-2.4); PHOSPHOROUS 1.9 mg/dL (2.5-4.9); POTASSIUM 4.5 mmol/L (3.5-5.1); SGOT/AST 15 U/L (15-37); SODIUM 138 mmol/L (136-145)
[2018-03-07 07:24] LABS: ALK PHOS 111 U/L (45-117); BILIRUBIN,TOTAL 0.4 mg/dL (0.2-1.0); CREATININE 0.9 mg/dL (0.55-1.02); SGPT/ALT 20 U/L (12-78); TOT PROT 6.1 g/dl (6.4-8.2)
[2018-03-07] MEDS: SODIUM CHLORIDE 0.45% 1,000 ML IV SCH (07:45)
[2018-03-07] MEDS ORDERED: PT OWN MED DRAWER 7, Y5N ONE ×2 (09:58→22:23)
[2018-03-07] MEDS: APIXABAN 5 MG TABLET PO SCH ×2 (10:00→22:45)
--- NOTE | 2018-03-07 10:27 | PN ---
Progress Note (short form) - Note Progress Note: s: no cp sob palps dizzy o: Vital Signs Period Temp Pulse Resp BP Sys/Bangura Pulse Ox Last 24 Hr 98.1 F-99.5 F 84-95 18-20 135-159/72-87 94-95 nad, calm jvd flat, neck supple ctab, nl effort rrr nl s1, s2 1/6 sys murmur at sternal border. + bs soft nt nd no le e/c/c aaox3 no jaundice, diaphoresis. Current Medications Generic Name Dose Route Start Last Admin Trade Name Freq PRN Reason Stop Dose Admin Acetaminophen 650 mg 02/25/18 17:37 03/04/18 05:54 Tylenol - PO 650 mg Q4H PRN Administration FEVER Apixaban 5 mg 03/07/18 10:00 Eliquis - PO BID [facility] Atorvastatin Calcium 40 mg 02/22/18 22:00 03/06/18 21:24 Lipitor - PO 40 mg HS [facility] Administration Calcium Carbonate 650 mg 03/01/18 22:00 03/06/18 21:28 Calcium Carbonate - PO 650 mg BID [facility] Administration Cholecalciferol 1,000 unit 03/02/18 10:00 03/06/18 10:25 Vitamin D3 - PO 1,000 unit DAILY [facility] Administration Diltiazem HCl 120 mg 03/06/18 22:00 03/06/18 21:24 Cardizem Cd - PO 120 mg BID [facility] Administration Piperacillin Sod/Tazobactam 50 mls @ 100 mls/hr 03/05/18 18:00 03/07/18 01:45 Sod 3.375 gm/ Dextrose IVPB 100 mls/hr Q8H-IV [facility] Administration Protocol Sodium Chloride 1,000 mls @ 42 mls/hr 03/07/18 07:00 1/2 Normal Saline IV ASDIR [facility] Insulin Aspart 1 vial 02/24/18 07:00 03/07/18 06:17 Novolog Vial Sliding Scale - SQ 2 units ACHS [facility] Administration Protocol Loperamide HCl 2 mg 03/03/18 22:38 03/03/18 22:52 Imodium - PO 2 mg Q8H PRN Administration DIARRHEA Melatonin 5 mg 02/22/18 22:00 03/06/18 21:25 Melatonin PO Not Given HS [facility] Metformin HCl 500 mg 02/23/18 07:00 03/07/18 06:15 Glucophage - PO 500 mg BID@0700,1630 [facility] Administration Metoclopramide HCl 10 mg 02/26/18 18:00 03/07/18 01:45 Reglan Injection - IVPUSH 10 mg Q8H-IV [facility] Administration Ondansetron HCl 4 mg 02/25/18 04:40 02/25/18 04:42 Zofran Injection IVPUSH 4 mg Q4H PRN Administration NAUSEA AND/OR VOMITING Pantoprazole Sodium 40 mg 02/23/18 10:00 03/06/18 10:25 Protonix - PO 40 mg DAILY [facility] Administration Valsartan 80 mg 03/05/18 11:15 03/06/18 10:25 Diovan - PO 80 mg DAILY [facility] Administration CBC, BMP 03/07/18 05:35 03/07/18 05:35 tele: sr head CT: interval wedge shaped acute/subacute infarct of right parietal lobe, no hemorrhage. brain mri 01/2018: cluster of small acute infarcts in the left parietal lobe. mild chronic microvascular ischemic changes. carotid u/s 01/2018: small plaque, no stenosis, nl verts. ASSESSMENT/PLAN 77 yo with h/o IDDM, copd, ckd, depression with hx of hospitalization and electric shock therapy (now in remission), possible prior gib and recent uti last month as well as admission last month for transient slurred speech/ unsteady gait (Toxic-Meteabolic encephalopathy vs. 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 pafib: - PAF noted on tele here. - currently in sinus. cont dilt. - cont AC with lovenox--once GI issue resolved and no plans for further invasive procedure, rec start eliquis 5 bid - 03/06 discussed with GI, safe to transition to eliquis. cva - neuro input appreciated: concerned for cardioembolic source. - etiology found (i.e. paroxysmal afib), being tx'd with appropriate AC regimen. no need for KAE at this time - on statin for aggressive sec prevention regimen VTach: - 11 beats NSVT seen on tele - normal LVEF abd pain, vomiting, cholecystitis with cholangitis. - low grade fever, localized RUQ tenderness - sono with gallstones and dilated bile duct--w/u ongoing - 02/27: s/p percutaneous cholecystostomy 02/26. htn -cont current meds hld: -cont statin
[2018-03-07] MEDS: PANTOPRAZOLE 40 MG TABLET (FP) PO SCH (10:30)
[2018-03-07] MEDS: CHOLECALCIFEROL (VITAMIN D3) 1,000 UNIT TABLET (FP) PO SCH (10:33)
[2018-03-07] MEDS: VALSARTAN 80 MG TABLET (UD) PO SCH (10:33)
[2018-03-07] MEDS: CALCIUM CARBONATE 650 MG TABLET PO SCH ×2 (10:34→22:45)
[2018-03-07] MEDS: ATORVASTATIN CA 40 MG TABLET (FP) PO SCH (22:45)
[2018-03-07] MEDS: MELATONIN 5 MG TABLETS PO SCH (22:47)
[2018-03-08] MEDS ORDERED: DEXTROSE 5%-WATER - 50 ML IVPB ONE ×2 (01:21→09:32)
[2018-03-08] MEDS ORDERED: PIPERACILLIN/TAZOBACTAM 3.375 GM VIAL IVPB ONE ×2 (01:21→09:32)
[2018-03-08] MEDS: PIPERACILLIN/TAZOB 3.375 GM 3.375 GM in DEXTROSE 5%-WATER - 50 ML IVPB SCH ×2 (01:27→09:37)
[2018-03-08] MEDS: METOCLOPRAMIDE HCL INJECTION 10 MG/2 ML VIAL IVPUSH SCH ×3 (01:30→17:41)
[2018-03-08] MEDS: metFORMIN HCL 500 MG TABLET (FP) PO SCH ×2 (06:31→17:40)
[2018-03-08] MEDS: INSULIN SLIDING SCALE (NOVOLOG) 1 VIAL SQ SCH ×4 (07:06→21:52)
--- NOTE | 2018-03-08 08:07 | PN ---
Progress Note (short form) - Note Progress Note: seen and examined in her room chart reviewed /events reviewed reports more comfortable / no abd pain Vital Signs Period Temp Pulse Resp BP Sys/Bangura Pulse Ox Last 24 Hr 98.1 F-99.0 F 77-94 20-20 135-155/72-82 90-95 neck supple heart S1/S2 lungs clear bilat abd soft / no tenderness on exam / cholecystostomy tube draining caicedo yellow ext no edema / no calf tenderness CBC, BMP 03/07/18 05:35 03/07/18 05:35 CBC,CMP WBC 14.8 K/mm3 (4.0-10.0) H 03/06/18 06:00 RBC 3.97 M/mm3 (3.60-5.2) 03/06/18 06:00 Hgb 11.4 GM/dL (10.7-15.3) D 03/06/18 06:00 Hct 33.3 % (32.4-45.2) 03/06/18 06:00 MCV 83.7 fl (80-96) 03/06/18 06:00 MCH 28.7 pg (25.7-33.7) 03/06/18 06:00 MCHC 34.3 g/dl (32.0-36.0) 03/06/18 06:00 RDW 13.8 % (11.6-15.6) 03/06/18 06:00 Plt Count 380 K/MM3 (134-434) D 03/06/18 06:00 MPV 8.1 fl (7.5-11.1) 03/06/18 06:00 Neutrophils % 73.1 % (42.8-82.8) 03/06/18 06:00 Lymphocytes % 18.1 % (8-40) 03/06/18 06:00 Monocytes % 6.7 % (3.8-10.2) 03/06/18 06:00 Eosinophils % 1.5 % (0-4.5) 03/06/18 06:00 Basophils % 0.6 % (0-2.0) 03/06/18 06:00 Sodium 139 mmol/L (136-145) 03/06/18 06:00 Potassium 3.3 mmol/L (3.5-5.1) L 03/06/18 06:00 Chloride 104 mmol/L (98-107) 03/06/18 06:00 Carbon Dioxide 23 mmol/L (21-32) 03/06/18 06:00 Anion Gap 12 (8-16) 03/06/18 06:00 BUN 3 mg/dL (7-18) L 03/06/18 06:00 Creatinine 0.9 mg/dL (0.55-1.02) 03/06/18 06:00 Creat Clearance w eGFR > 60 (>60) 03/06/18 06:00 POC Glucometer 225 UNITS (80-120) 03/06/18 21:18 Random Glucose 246 mg/dL (74-106) H 03/06/18 06:00 Hemoglobin A1c % 9.3 % (4.8-6.0) H 02/24/18 05:59 Calcium 9.0 mg/dL (8.5-10.1) 03/06/18 06:00 Magnesium 1.2 mg/dL (1.8-2.4) L 03/06/18 06:00 Total Bilirubin 0.5 mg/dL (0.2-1.0) D 03/06/18 06:00 AST 16 U/L (15-37) 03/06/18 06:00 ALT 21 U/L (12-78) 03/06/18 06:00 Alkaline Phosphatase 117 U/L (45-117) 03/06/18 06:00 Creatine Kinase 60 IU/L (26-192) 02/22/18 17:10 Troponin I < 0.02 ng/ml (0.00-0.05) 02/22/18 17:10 C-Reactive Protein 19.6 MG/DL (0.00-0.3) H 03/01/18 05:35 Total Protein 5.9 g/dl (6.4-8.2) L 03/06/18 06:00 Albumin 2.7 g/dl (3.4-5.0) L 03/06/18 06:00 Triglycerides 105 mg/dL (35-160) 02/23/18 07:15 Cholesterol 105 mg/dL (50-200) 02/23/18 07:15 Total LDL Cholesterol 53 mg/dL (5-100) 02/23/18 07:15 HDL Cholesterol 43 mg/dL (40-60) 02/23/18 07:15 Microbiology 03/04/18 07:50 Urine - Urine Clean Catch Urine Culture - Final NO GROWTH OBTAINED 02/27/18 21:00 Blood - Peripheral Venous Blood Culture - Final NO GROWTH AFTER 5 DAYS INCUBATION 02/27/18 20:45 Blood - Peripheral Venous Blood Culture - Final NO GROWTH AFTER 5 DAYS INCUBATION 02/26/18 14:30 Bile Gram Stain - Final 02/26/18 14:30 Bile Body Fluid Culture - Final Escherichia Coli Enterococcus Faecium Proteus Mirabilis 02/26/18 14:30 Bile Anaerobic Culture - Final NO ANAEROBES WERE ISOLATED 02/28/18 00:30 Urine - Urine Clean Catch Urine Culture - Final NO GROWTH OBTAINED 02/22/18 10:50 Urine - Urine Nava Urine Culture - Final NO GROWTH OBTAINED Active Medications Acetaminophen (Tylenol -) 650 mg PO Q4H PRN PRN Reason: FEVER Last Admin: 03/04/18 05:54 Dose: 650 mg Atorvastatin Calcium (Lipitor -) 40 mg PO HS [facility] Last Admin: 03/06/18 21:24 Dose: 40 mg Calcium Carbonate (Calcium Carbonate -) 650 mg PO BID [facility] Last Admin: 03/06/18 21:28 Dose: 650 mg Cholecalciferol (Vitamin D3 -) 1,000 unit PO DAILY [facility] Last Admin: 03/06/18 10:25 Dose: 1,000 unit Diltiazem HCl (Cardizem Cd -) 120 mg PO BID [facility] Last Admin: 03/06/18 21:24 Dose: 120 mg Enoxaparin Sodium (Lovenox -) 80 mg SQ BID [facility] Last Admin: 03/06/18 21:28 Dose: 80 mg Sodium Chloride (1/2 Normal Saline) 1,000 mls @ 83 mls/hr IV ASDIR [facility] Last Admin: 03/06/18 21:28 Dose: 83 mls/hr Piperacillin Sod/Tazobactam (Sod 3.375 gm/ Dextrose) 50 mls @ 100 mls/hr IVPB Q8H-IV [facility] PRN Reason: Protocol Last Admin: 03/06/18 17:21 Dose: 100 mls/hr Insulin Aspart (Novolog Vial Sliding Scale -) 1 vial SQ ACHS [facility] PRN Reason: Protocol Last Admin: 03/06/18 21:28 Dose: 2 units Loperamide HCl (Imodium -) 2 mg PO Q8H PRN PRN Reason: DIARRHEA Last Admin: 03/03/18 22:52 Dose: 2 mg Melatonin (Melatonin) 5 mg PO HS [facility] Last Admin: 03/06/18 21:25 Dose: Not Given Metformin HCl (Glucophage -) 500 mg PO BID@0700,1630 [facility] Last Admin: 03/06/18 17:22 Dose: 500 mg Metoclopramide HCl (Reglan Injection -) 10 mg IVPUSH Q8H-IV [facility] Last Admin: 03/06/18 18:19 Dose: Not Given Ondansetron HCl (Zofran Injection) 4 mg IVPUSH Q4H PRN PRN Reason: NAUSEA AND/OR VOMITING Last Admin: 02/25/18 04:42 Dose: 4 mg Pantoprazole Sodium (Protonix -) 40 mg PO DAILY [facility] Last Admin: 03/06/18 10:25 Dose: 40 mg Valsartan (Diovan -) 80 mg PO DAILY [facility] Last Admin: 03/06/18 10:25 Dose: 80 mg Zolpidem Tartrate (Ambien -) 5 mg PO HS PRN PRN Reason: INSOMNIA Last Admin: 03/06/18 21:24 Dose: 5 mg 77 yo with h/o IDDM, copd, ckd, depression with hx of hospitalization and electric shock therapy (now in remission), possible prior gib and recent uti last month as well as admission last month for transient slurred speech/ unsteady gait (Toxic-Metabolic encephalopathy vs. 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 Hospital stay complicated with acute cholelithiasis -- required cholecystostomy tube / # s/p acute cholecystitis s/p percutaneous cholecystostomy, 02/26/18 LFT now normalized elevated WBC -- remains in ABX re - eval by ID discussed with GI # CVA on admission findings of clusters of small embolic strokes neurology follow up / statins added to management Cardiac w/u was on hold 2/ acute cholecystitis with cholangitis remained on telemetry ----revealing Paroxismal A Fib. -likely cause of CVA / currently in Sinus on lovenox -- will require [facility] a/c eliquis 5mg bid # A Fib on tele / PAF A/C as above diltiazem for rate control # V tach repleat eletrolytes continue to monitor tele / follow lytes # HTN continue meds -diovan adjust CCB for improved bp control and rate control # DM continue to use sliding scale improving FS as infection improving
[2018-03-08] MEDS: PANTOPRAZOLE 40 MG TABLET (FP) PO SCH (09:36)
[2018-03-08] MEDS: CHOLECALCIFEROL (VITAMIN D3) 1,000 UNIT TABLET (FP) PO SCH (09:36)
[2018-03-08] MEDS: APIXABAN 5 MG TABLET PO SCH ×2 (09:36→21:51)
[2018-03-08] MEDS: VALSARTAN 80 MG TABLET (UD) PO SCH (09:36)
[2018-03-08] MEDS: SODIUM CHLORIDE 0.45% 1,000 ML IV SCH ×2 (09:37→18:47)
[2018-03-08] MEDS: CALCIUM CARBONATE 650 MG TABLET PO SCH ×2 (09:37→21:51)
--- NOTE | 2018-03-08 10:23 | PN ---
Progress Note (short form) - Note Progress Note: s: no cp sob palps dizzy o: Vital Signs Period Temp Pulse Resp BP Sys/Bangura Pulse Ox Last 24 Hr 97.7 F-98.9 F 83-88 18-20 123-147/66-73 93-93 nad, calm jvd flat, neck supple ctab, nl effort rrr nl s1, s2 1/6 sys murmur at sternal border. + bs soft nt nd no le e/c/c aaox3 no jaundice, diaphoresis. Current Medications Generic Name Dose Route Start Last Admin Trade Name Freq PRN Reason Stop Dose Admin Acetaminophen 650 mg 02/25/18 17:37 03/04/18 05:54 Tylenol - PO 650 mg Q4H PRN Administration FEVER Apixaban 5 mg 03/07/18 10:00 03/08/18 09:36 Eliquis - PO 5 mg BID BRITTANY Administration Atorvastatin Calcium 40 mg 02/22/18 22:00 03/07/18 22:45 Lipitor - PO 40 mg HS BRITTANY Administration Calcium Carbonate 650 mg 03/01/18 22:00 03/08/18 09:37 Calcium Carbonate - PO 650 mg BID BRITTANY Administration Cholecalciferol 1,000 unit 03/02/18 10:00 03/08/18 09:36 Vitamin D3 - PO 1,000 unit DAILY BR[facility]ANY Administration Diltiazem HCl 120 mg 03/06/18 22:00 03/08/18 09:36 Cardizem Cd - PO 120 mg BID BRITTANY Administration Piperacillin Sod/Tazobactam 50 mls @ 100 mls/hr 03/05/18 18:00 03/08/18 09:37 Sod 3.375 gm/ Dextrose IVPB 100 mls/hr Q8H-IV BR[facility]ANY Administration Protocol Sodium Chloride 1,000 mls @ 42 mls/hr 03/07/18 07:00 03/08/18 09:37 1/2 Normal Saline IV Not Given ASDIR BRITTANY Insulin Aspart 1 vial 02/24/18 07:00 03/08/18 07:06 Novolog Vial Sliding Scale - SQ 2 units ACHS BRITTANY Administration Protocol Loperamide HCl 2 mg 03/03/18 22:38 03/03/18 22:52 Imodium - PO 2 mg Q8H PRN Administration DIARRHEA Melatonin 5 mg 02/22/18 22:00 03/07/18 22:47 Melatonin PO 5 mg HS BRITTANY Administration Metformin HCl 500 mg 02/23/18 07:00 03/08/18 06:31 Glucophage - PO 500 mg BID@0700,1630 BR[facility] Administration Metoclopramide HCl 10 mg 02/26/18 18:00 03/08/18 09:36 Reglan Injection - IVPUSH 10 mg Q8H-IV BR[facility]ANY Administration Ondansetron HCl 4 mg 02/25/18 04:40 02/25/18 04:42 Zofran Injection IVPUSH 4 mg Q4H PRN Administration NAUSEA AND/OR VOMITING Pantoprazole Sodium 40 mg 02/23/18 10:00 03/08/18 09:36 Protonix - PO 40 mg DAILY BRITTANY Administration Valsartan 80 mg 03/05/18 11:15 03/08/18 09:36 Diovan - PO 80 mg DAILY BRITTANY Administration CBC, BMP 03/07/18 05:35 03/07/18 05:35 tele: sr head CT: interval wedge shaped acute/subacute infarct of right parietal lobe, no hemorrhage. brain mri 01/2018: cluster of small acute infarcts in the left parietal lobe. mild chronic microvascular ischemic changes. carotid u/s 01/2018: small plaque, no stenosis, nl verts. ASSESSMENT/PLAN 77 yo with h/o IDDM, copd, ckd, depression with hx of hospitalization and electric shock therapy (now in remission), possible prior gib and recent uti last month as well as admission last month for transient slurred speech/ unsteady gait (Toxic-Meteabolic encephalopathy vs. 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 pafib: - PAF noted on tele here. - currently in sinus. cont dilt. - cont AC with lovenox--once GI issue resolved and no plans for further invasive procedure, rec start eliquis 5 bid - 03/06 discussed with GI, safe to transition to eliquis. cva - neuro input appreciated: concerned for cardioembolic source. - etiology found (i.e. paroxysmal afib), being tx'd with appropriate AC regimen. no need for KAE at this time - on statin for aggressive sec prevention regimen VTach: - 11 beats NSVT seen on tele - normal LVEF abd pain, vomiting, cholecystitis with cholangitis. - low grade fever, localized RUQ tenderness - sono with gallstones and dilated bile duct--w/u ongoing - 02/27: s/p percutaneous cholecystostomy 02/26. htn -cont current meds hld: -cont statin cardiac argueta remains stable
--- NOTE | 2018-03-08 11:04 | PN ---
Progress Note, Physician Chief Complaint: ID Day 7 Mundo Asked to follow up for elevated WBC 21K is new. She reports diarrhea 3 days in a row and the nurse confirms today has diarrhea Denies abd cramping Denies fever or abd pain urinary complaints - Current Medication List Current Medications: Active Medications Acetaminophen (Tylenol -) 650 mg PO Q4H PRN PRN Reason: FEVER Last Admin: 03/04/18 05:54 Dose: 650 mg Apixaban (Eliquis -) 5 mg PO BID [facility] Last Admin: 03/08/18 09:36 Dose: 5 mg Atorvastatin Calcium (Lipitor -) 40 mg PO HS [facility] Last Admin: 03/07/18 22:45 Dose: 40 mg Calcium Carbonate (Calcium Carbonate -) 650 mg PO BID [facility] Last Admin: 03/08/18 09:37 Dose: 650 mg Cholecalciferol (Vitamin D3 -) 1,000 unit PO DAILY [facility] Last Admin: 03/08/18 09:36 Dose: 1,000 unit Diltiazem HCl (Cardizem Cd -) 120 mg PO BID [facility] Last Admin: 03/08/18 09:36 Dose: 120 mg Piperacillin Sod/Tazobactam (Sod 3.375 gm/ Dextrose) 50 mls @ 100 mls/hr IVPB Q8H-IV [facility] PRN Reason: Protocol Last Admin: 03/08/18 09:37 Dose: 100 mls/hr Sodium Chloride (1/2 Normal Saline) 1,000 mls @ 42 mls/hr IV ASDIR [facility] Last Admin: 03/08/18 09:37 Dose: Not Given Insulin Aspart (Novolog Vial Sliding Scale -) 1 vial SQ ACHS [facility] PRN Reason: Protocol Last Admin: 03/08/18 07:06 Dose: 2 units Loperamide HCl (Imodium -) 2 mg PO Q8H PRN PRN Reason: DIARRHEA Last Admin: 03/03/18 22:52 Dose: 2 mg Melatonin (Melatonin) 5 mg PO HS [facility] Last Admin: 03/07/18 22:47 Dose: 5 mg Metformin HCl (Glucophage -) 500 mg PO BID@0700,1630 [facility] Last Admin: 03/08/18 06:31 Dose: 500 mg Metoclopramide HCl (Reglan Injection -) 10 mg IVPUSH Q8H-IV [facility] Last Admin: 05/03/18 09:36 Dose: 10 mg Ondansetron HCl (Zofran Injection) 4 mg IVPUSH Q4H PRN PRN Reason: NAUSEA AND/OR VOMITING Last Admin: 02/25/18 04:42 Dose: 4 mg Pantoprazole Sodium (Protonix -) 40 mg PO DAILY [facility] Last Admin: 03/08/18 09:36 Dose: 40 mg Valsartan (Diovan -) 80 mg PO DAILY [facility] Last Admin: 03/08/18 09:36 Dose: 80 mg - Objective Vital Signs: Vital Signs Temperature 97.8 F 03/08/18 08:48 Pulse Rate 86 03/08/18 10:00 Respiratory Rate 18 03/08/18 08:48 Blood Pressure 135/70 03/08/18 08:48 O2 Sat by Pulse Oximetry (%) 94 L 03/08/18 10:00 Constitutional: Yes: Well Nourished, No Distress HENT: Yes: WNL, Atraumatic Neck: Yes: WNL, Supple Cardiovascular: Yes: S1, S2 Respiratory: Yes: WNL, Regular, CTA Bilaterally Gastrointestinal: Yes: WNL, Normal Bowel Sounds, Soft, Other (Drain). No: Tenderness, Tenderness, Epigastrium Labs: CBC, BMP 03/07/18 05:35 03/07/18 05:35 INR, PTT INR 1.07 (0.82-1.09) 02/22/18 10:50 Assessment/Plan Laboratory Tests 03/07/18 03/07/18 05:35 05:35 WBC 21.4 H D Hgb 11.3 Plt Count 413 BUN 4 L Creatinine 0.9 Assessment Cholangitis with biliary drain was doing well on Zosyn day 7 Ceftriaxone before that Now leukocytosis with report of diarrhea for 3 days C diff considered Plan Am comfortable stopping all IV antibiotics now Stool for C diff toxin Start oral vancomycin 125mg q6h IF C diff negative will reculture (panculture) tomorrow [facility]
[2018-03-08] MEDS ORDERED: INSULIN (NOVOLOG) ASPART 100 UNITS/ML 10ML VIAL ONE (11:31)
[2018-03-08] MEDS: VANCOMYCIN 250 MG/5 ML ORAL SOLUTION PO SCH ×3 (11:42→23:50)
--- NOTE | 2018-03-08 14:35 | PN ---
Progress Note (short form) - Note Progress Note: 77 y/o female found lying in bed. Appears comfortable. Denies pain and discomfort. Vital Signs Period Temp Pulse Resp BP Sys/Bangura Pulse Ox Last 24 Hr 97.7 F-98.9 F 83-88 18-20 123-147/66-73 93-94 CBC, BMP 03/07/18 05:35 03/07/18 05:35 HEENT- Normocephalic Neck- Supple Lungs- CTAB Heart-S1/S2 Abd- Soft, NT, Pos BS x 4, Drain in place Ext- No LE edema Active Medications Acetaminophen (Tylenol -) 650 mg PO Q4H PRN PRN Reason: FEVER Last Admin: 03/04/18 05:54 Dose: 650 mg Apixaban (Eliquis -) 5 mg PO BID [facility] Last Admin: 03/08/18 09:36 Dose: 5 mg Atorvastatin Calcium (Lipitor -) 40 mg PO HS [facility] Last Admin: 03/07/18 22:45 Dose: 40 mg Calcium Carbonate (Calcium Carbonate -) 650 mg PO BID [facility] Last Admin: 03/08/18 09:37 Dose: 650 mg Cholecalciferol (Vitamin D3 -) 1,000 unit PO DAILY [facility] Last Admin: 03/08/18 09:36 Dose: 1,000 unit Diltiazem HCl (Cardizem Cd -) 120 mg PO BID [facility] Last Admin: 03/08/18 09:36 Dose: 120 mg Sodium Chloride (1/2 Normal Saline) 1,000 mls @ 42 mls/hr IV ASDIR [facility] Last Admin: 03/08/18 09:37 Dose: Not Given Insulin Aspart (Novolog Vial Sliding Scale -) 1 vial SQ ACHS [facility] PRN Reason: Protocol Last Admin: 03/08/18 11:41 Dose: 6 units Loperamide HCl (Imodium -) 2 mg PO Q8H PRN PRN Reason: DIARRHEA Last Admin: 03/03/18 22:52 Dose: 2 mg Melatonin (Melatonin) 5 mg PO HS [facility] Last Admin: 03/07/18 22:47 Dose: 5 mg Metformin HCl (Glucophage -) 500 mg PO BID@0700,1630 [facility] Last Admin: 03/08/18 06:31 Dose: 500 mg Metoclopramide HCl (Reglan Injection -) 10 mg IVPUSH Q8H-IV [facility] Last Admin: 03/08/18 09:36 Dose: 10 mg Ondansetron HCl (Zofran Injection) 4 mg IVPUSH Q4H PRN PRN Reason: NAUSEA AND/OR VOMITING Last Admin: 02/25/18 04:42 Dose: 4 mg Pantoprazole Sodium (Protonix -) 40 mg PO DAILY [facility] Last Admin: 03/08/18 09:36 Dose: 40 mg Valsartan (Diovan -) 80 mg PO DAILY [facility] Last Admin: 03/08/18 09:36 Dose: 80 mg Vancomycin HCl (Vancomycin Oral Solution) 125 mg PO Q6HPO [facility] Last Admin: 03/08/18 11:42 Dose: 125 mg # s/p acute cholecystitis s/p percutaneous cholecystostomy, 02/26/18 elevated WBC - currently on PO ABX ID consult # CVA Continue statin Cardiac w/u was on hold 2/ acute cholecystitis with cholangitis will require snf a/c eliquis 5mg bid # A Fib A/C as above diltiazem for rate control # V tach continue to monitor / follow lytes # HTN continue meds -diovan adjust CCB for improved bp control and rate control # DM continue Novolog for sliding scale
[2018-03-08] MEDS ORDERED: PT OWN MED DRAWER 7, Y5N ONE ×2 (17:48→21:44)
[2018-03-08] MEDS: MELATONIN 5 MG TABLETS PO SCH (21:51)
[2018-03-08] MEDS: ATORVASTATIN CA 40 MG TABLET (FP) PO SCH (21:51)
[2018-03-09] MEDS: METOCLOPRAMIDE HCL INJECTION 10 MG/2 ML VIAL IVPUSH SCH ×3 (02:14→17:13)
[2018-03-09] MEDS: VANCOMYCIN 250 MG/5 ML ORAL SOLUTION PO SCH ×3 (06:09→17:13)
[2018-03-09] MEDS: metFORMIN HCL 500 MG TABLET (FP) PO SCH ×2 (06:09→16:46)
[2018-03-09] MEDS: INSULIN SLIDING SCALE (NOVOLOG) 1 VIAL SQ SCH ×4 (06:12→21:39)
[2018-03-09] MEDS ORDERED: INSULIN (NOVOLOG) ASPART 100 UNITS/ML 10ML VIAL ONE (06:58)
[2018-03-09] MEDS: SODIUM CHLORIDE 0.45% 1,000 ML IV SCH (07:38)
[2018-03-09 07:42] LABS: BASO % 0.4 % (0-2.0); EOS % 1.4 % (0-4.5); HEMATOCRIT 31.5 % (32.4-45.2); HEMOGLOBIN 10.7 GM/dL (10.7-15.3); MCHC 34.1 g/dl (32.0-36.0); MEAN CELL VOLUME 84.9 fl (80-96); MEAN PLT VOLUME 8.2 fl (7.5-11.1); NEUT % 83.2 % (42.8-82.8); PLATELET COUNT 329 K/MM3 (134-434); RBC 3.71 M/mm3 (3.60-5.2); RDW 14.2 % (11.6-15.6); WHITE BLOOD COUNT 17.5 K/mm3 (4.0-10.0)
[2018-03-09 07:49] LABS: ALBUMIN 2.4 g/dl (3.4-5.0); ANION GAP 10 (8-16); BLOOD UREA NITROGEN 9 mg/dL (7-18); CALCIUM 8.7 mg/dL (8.5-10.1); CHLORIDE 103 mmol/L (98-107); CO2 25 mmol/L (21-32); GLUCOSE,RANDOM 228 mg/dL (74-106); POTASSIUM 4.2 mmol/L (3.5-5.1); SODIUM 138 mmol/L (136-145)
[2018-03-09 07:53] LABS: ALK PHOS 96 U/L (45-117); BILIRUBIN,TOTAL 0.4 mg/dL (0.2-1.0); SGOT/AST 15 U/L (15-37); SGPT/ALT 15 U/L (12-78); TOT PROT 5.7 g/dl (6.4-8.2)
[2018-03-09] MEDS: PANTOPRAZOLE 40 MG TABLET (FP) PO SCH (09:40)
[2018-03-09] MEDS: VALSARTAN 80 MG TABLET (UD) PO SCH (09:40)
[2018-03-09] MEDS: CALCIUM CARBONATE 650 MG TABLET PO SCH ×2 (09:40→21:39)
[2018-03-09] MEDS: CHOLECALCIFEROL (VITAMIN D3) 1,000 UNIT TABLET (FP) PO SCH (09:40)
[2018-03-09] MEDS: APIXABAN 5 MG TABLET PO SCH ×2 (09:40→21:39)
--- NOTE | 2018-03-09 11:34 | PN ---
Progress Note (short form) - Note Progress Note: s: no cp sob palps dizzy o: Vital Signs Period Temp Pulse Resp BP Sys/Bangura Pulse Ox Last 24 Hr 97.3 F-99.0 F 82-92 16-18 121-153/55-72 92-94 nad, calm jvd flat, neck supple ctab, nl effort rrr nl s1, s2 1/6 sys murmur at sternal border. + bs soft nt nd no le e/c/c aaox3 no jaundice, diaphoresis. Current Medications Generic Name Dose Route Start Last Admin Trade Name Freq PRN Reason Stop Dose Admin Acetaminophen 650 mg 02/25/18 17:37 03/04/18 05:54 Tylenol - PO 650 mg Q4H PRN Administration FEVER Apixaban 5 mg 03/07/18 10:00 03/09/18 09:40 Eliquis - PO 5 mg BID BRITTANY Administration Atorvastatin Calcium 40 mg 02/22/18 22:00 03/08/18 21:51 Lipitor - PO 40 mg HS BRITTANY Administration Calcium Carbonate 650 mg 03/01/18 22:00 03/09/18 09:40 Calcium Carbonate - PO 650 mg BID BRITTANY Administration Cholecalciferol 1,000 unit 03/02/18 10:00 03/09/18 09:40 Vitamin D3 - PO 1,000 unit DAILY BRITTANY Administration Diltiazem HCl 120 mg 03/06/18 22:00 03/09/18 09:40 Cardizem Cd - PO 120 mg BID BRITTANY Administration Sodium Chloride 1,000 mls @ 42 mls/hr 03/07/18 07:00 03/09/18 07:38 1/2 Normal Saline IV Not Given ASDIR BRITTANY Insulin Aspart 1 vial 02/24/18 07:00 03/09/18 06:12 Novolog Vial Sliding Scale - SQ 4 units ACHS BRITTANY Administration Protocol Loperamide HCl 2 mg 03/03/18 22:38 03/03/18 22:52 Imodium - PO 2 mg Q8H PRN Administration DIARRHEA Melatonin 5 mg 02/22/18 22:00 03/08/18 21:51 Melatonin PO 5 mg HS BRITTANY Administration Metformin HCl 500 mg 02/23/18 07:00 03/09/18 06:09 Glucophage - PO 500 mg BID@0700,1630 BR[facility] Administration Metoclopramide HCl 10 mg 02/26/18 18:00 03/09/18 09:40 Reglan Injection - IVPUSH Not Given Q8H-IV [facility] Ondansetron HCl 4 mg 02/25/18 04:40 02/25/18 04:42 Zofran Injection IVPUSH 4 mg Q4H PRN Administration NAUSEA AND/OR VOMITING Pantoprazole Sodium 40 mg 02/23/18 10:00 03/09/18 09:40 Protonix - PO 40 mg DAILY BRITTANY Administration Valsartan 80 mg 03/05/18 11:15 03/09/18 09:40 Diovan - PO 80 mg DAILY BRITTANY Administration Vancomycin HCl 125 mg 03/08/18 12:00 03/09/18 06:09 Vancomycin Oral Solution PO 125 mg Q6HPO BRITTANY Administration CBC, BMP 03/09/18 07:07 03/09/18 07:07 tele: sr head CT: interval wedge shaped acute/subacute infarct of right parietal lobe, no hemorrhage. brain mri 01/2018: cluster of small acute infarcts in the left parietal lobe. mild chronic microvascular ischemic changes. carotid u/s 01/2018: small plaque, no stenosis, nl verts. ASSESSMENT/PLAN 77 yo with h/o IDDM, copd, ckd, depression with hx of hospitalization and electric shock therapy (now in remission), possible prior gib and recent uti last month as well as admission last month for transient slurred speech/ unsteady gait (Toxic-Meteabolic encephalopathy vs. 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 pafib: - PAF noted on tele here. - currently in sinus. cont dilt. - cont AC with lovenox--once GI issue resolved and no plans for further invasive procedure, rec start eliquis 5 bid - 03/06 discussed with GI, safe to transition to eliquis, continue. cva - neuro input appreciated: concerned for cardioembolic source. - etiology found (i.e. paroxysmal afib), being tx'd with appropriate AC regimen. no need for KAE at this time - on statin for aggressive sec prevention regimen VTach: - 11 beats NSVT seen on tele - normal LVEF abd pain, vomiting, cholecystitis with cholangitis. - low grade fever, localized RUQ tenderness - sono with gallstones and dilated bile duct--w/u ongoing - 02/27: s/p percutaneous cholecystostomy 02/26. htn -cont current meds hld: -cont statin cardiac argueta remains stable
--- NOTE | 2018-03-09 13:37 | PN ---
Progress Note (short form) - Note Progress Note: 77 y/o female found lying in bed. States 1 episode of loose stools this am. Denies pain and discomfort. Vital Signs Period Temp Pulse Resp BP Sys/Bangura Pulse Ox Last 24 Hr 97.3 F-99.0 F 82-92 16-18 121-153/55-72 92-94 CBC, BMP 03/09/18 07:07 03/09/18 07:07 HEENT-Normocephalic Neck- Supple Lungs- CTAB Heart- S1/S2 Abd- Pos BS x 4, soft, NT, drain in RUQ Ext- No LE edema Active Medications Acetaminophen (Tylenol -) 650 mg PO Q4H PRN PRN Reason: FEVER Last Admin: 03/04/18 05:54 Dose: 650 mg Apixaban (Eliquis -) 5 mg PO BID [facility] Last Admin: 03/09/18 09:40 Dose: 5 mg Atorvastatin Calcium (Lipitor -) 40 mg PO [facility] Last Admin: 03/08/18 21:51 Dose: 40 mg Calcium Carbonate (Calcium Carbonate -) 650 mg PO BID [facility] Last Admin: 03/09/18 09:40 Dose: 650 mg Cholecalciferol (Vitamin D3 -) 1,000 unit PO DAILY [facility] Last Admin: 03/09/18 09:40 Dose: 1,000 unit Diltiazem HCl (Cardizem Cd -) 120 mg PO BID [facility] Last Admin: 03/09/18 09:40 Dose: 120 mg Sodium Chloride (1/2 Normal Saline) 1,000 mls @ 42 mls/hr IV ASDIR [facility] Last Admin: 03/09/18 07:38 Dose: Not Given Insulin Aspart (Novolog Vial Sliding Scale -) 1 vial SQ ACHS [facility] PRN Reason: Protocol Last Admin: 03/09/18 12:05 Dose: 6 units Loperamide HCl (Imodium -) 2 mg PO Q8H PRN PRN Reason: DIARRHEA Last Admin: 03/03/18 22:52 Dose: 2 mg Melatonin (Melatonin) 5 mg PO [facility] Last Admin: 03/08/18 21:51 Dose: 5 mg Metformin HCl (Glucophage -) 500 mg PO BID@0700,1630 [facility] Last Admin: 03/09/18 06:09 Dose: 500 mg Metoclopramide HCl (Reglan Injection -) 10 mg IVPUSH Q8H-IV [facility] Last Admin: 03/09/18 09:40 Dose: Not Given Ondansetron HCl (Zofran Injection) 4 mg IVPUSH Q4H PRN PRN Reason: NAUSEA AND/OR VOMITING Last Admin: 02/25/18 04:42 Dose: 4 mg Pantoprazole Sodium (Protonix -) 40 mg PO DAILY [facility] Last Admin: 03/09/18 09:40 Dose: 40 mg Valsartan (Diovan -) 80 mg PO DAILY [facility] Last Admin: 03/09/18 09:40 Dose: 80 mg Vancomycin HCl (Vancomycin Oral Solution) 125 mg PO Q6HPO [facility] Last Admin: 03/09/18 12:02 Dose: 125 mg # s/p acute cholecystitis s/p percutaneous cholecystostomy, 02/26/[address]- 50 cc drainage noted elevated WBC - currently on PO ABX C diff neg # CVA Continue statin Eliquis 5mg bid # A Fib Cont Eliquis diltiazem for rate control # V tach continue to monitor / lytes stable Cardiac consult appreciated # HTN- BP stable continue fawn and CCB # DM continue Novolog for sliding scale
--- NOTE | 2018-03-09 14:18 | PN ---
Progress Note, Physician History of Present Illness: Awake, alert supine in bed C/O loose BMs No c/o fever/ chills WBC elevated Afebrile - Current Medication List Current Medications: Active Medications Acetaminophen (Tylenol -) 650 mg PO Q4H PRN PRN Reason: FEVER Last Admin: 03/04/18 05:54 Dose: 650 mg Apixaban (Eliquis -) 5 mg PO BID [facility] Last Admin: 03/09/18 09:40 Dose: 5 mg Atorvastatin Calcium (Lipitor -) 40 mg PO HS [facility] Last Admin: 03/08/18 21:51 Dose: 40 mg Calcium Carbonate (Calcium Carbonate -) 650 mg PO BID [facility] Last Admin: 03/09/18 09:40 Dose: 650 mg Cholecalciferol (Vitamin D3 -) 1,000 unit PO DAILY [facility] Last Admin: 03/09/18 09:40 Dose: 1,000 unit Diltiazem HCl (Cardizem Cd -) 120 mg PO BID [facility] Last Admin: 03/09/18 09:40 Dose: 120 mg Sodium Chloride (1/2 Normal Saline) 1,000 mls @ 42 mls/hr IV ASDIR [facility] Last Admin: 03/09/18 07:38 Dose: Not Given Insulin Aspart (Novolog Vial Sliding Scale -) 1 vial SQ ACHS [facility] PRN Reason: Protocol Last Admin: 03/09/18 12:05 Dose: 6 units Loperamide HCl (Imodium -) 2 mg PO Q8H PRN PRN Reason: DIARRHEA Last Admin: 03/03/18 22:52 Dose: 2 mg Melatonin (Melatonin) 5 mg PO HS [facility] Last Admin: 03/08/18 21:51 Dose: 5 mg Metformin HCl (Glucophage -) 500 mg PO BID@0700,1630 [facility] Last Admin: 03/09/18 06:09 Dose: 500 mg Metoclopramide HCl (Reglan Injection -) 10 mg IVPUSH Q8H-IV [facility] Last Admin: 03/09/18 09:40 Dose: Not Given Ondansetron HCl (Zofran Injection) 4 mg IVPUSH Q4H PRN PRN Reason: NAUSEA AND/OR VOMITING Last Admin: 02/25/18 04:42 Dose: 4 mg Pantoprazole Sodium (Protonix -) 40 mg PO DAILY [facility] Last Admin: 03/09/18 09:40 Dose: 40 mg Valsartan (Diovan -) 80 mg PO DAILY [facility] Last Admin: 03/09/18 09:40 Dose: 80 mg Vancomycin HCl (Vancomycin Oral Solution) 125 mg PO Q6HPO [facility] Last Admin: 03/09/18 12:02 Dose: 125 mg - Objective Vital Signs: Vital Signs Temperature 98.7 F 03/09/18 08:46 Pulse Rate 82 03/09/18 08:48 Respiratory Rate 16 03/09/18 08:46 Blood Pressure 146/70 03/09/18 08:46 O2 Sat by Pulse Oximetry (%) 94 L 03/09/18 08:48 Constitutional: Yes: No Distress Eyes: Yes: Conjunctiva Clear Cardiovascular: Yes: Regular Rate and Rhythm, S1, S2 Respiratory: Yes: CTA Bilaterally Gastrointestinal: Yes: Normal Bowel Sounds, Soft, Other (Biliary drain in place - green bile). No: Tenderness Labs: CBC, BMP 03/09/18 07:07 03/09/18 07:07 INR, PTT INR 1.07 (0.82-1.09) 02/22/18 10:50 Assessment/Plan Diarrhea R/O C. difficile Leukocytosis S/P biliary drain Continue po vancomycin
[2018-03-09] MEDS ORDERED: PT OWN MED DRAWER 7, Y5N ONE ×2 (18:21→21:19)
[2018-03-09] MEDS: MELATONIN 5 MG TABLETS PO SCH (21:39)
[2018-03-09] MEDS: ATORVASTATIN CA 40 MG TABLET (FP) PO SCH (21:39)
[2018-03-10] MEDS: VANCOMYCIN 250 MG/5 ML ORAL SOLUTION PO SCH ×4 (00:18→17:37)
[2018-03-10] MEDS: METOCLOPRAMIDE HCL INJECTION 10 MG/2 ML VIAL IVPUSH SCH ×3 (02:03→17:37)
[2018-03-10] MEDS: INSULIN SLIDING SCALE (NOVOLOG) 1 VIAL SQ SCH ×4 (06:20→21:07)
[2018-03-10] MEDS: SODIUM CHLORIDE 0.45% 1,000 ML IV SCH (06:20)
[2018-03-10] MEDS: metFORMIN HCL 500 MG TABLET (FP) PO SCH ×2 (06:20→17:37)
[2018-03-10] MEDS ORDERED: PT OWN MED DRAWER 7, Y5N ONE ×3 (09:17→20:43)
[2018-03-10] MEDS: VALSARTAN 80 MG TABLET (UD) PO SCH (09:22)
[2018-03-10] MEDS: APIXABAN 5 MG TABLET PO SCH ×2 (09:22→21:07)
[2018-03-10] MEDS: CHOLECALCIFEROL (VITAMIN D3) 1,000 UNIT TABLET (FP) PO SCH (09:22)
[2018-03-10] MEDS: PANTOPRAZOLE 40 MG TABLET (FP) PO SCH (09:22)
[2018-03-10] MEDS: CALCIUM CARBONATE 650 MG TABLET PO SCH ×2 (09:23→21:07)
--- NOTE | 2018-03-10 10:23 | PN ---
Progress Note (short form) - Note Progress Note: s: no cp sob palps dizzy o: Vital Signs Period Temp Pulse Resp BP Sys/Bangura Pulse Ox Last 24 Hr 98 F-98.6 F 85-90 18-20 125-140/58-72 93-93 nad, calm jvd flat, neck supple ctab, nl effort rrr nl s1, s2 1/6 sys murmur at sternal border. + bs soft nt nd no le e/c/c aaox3 no jaundice, diaphoresis. Current Medications Generic Name Dose Route Start Last Admin Trade Name Freq PRN Reason Stop Dose Admin Acetaminophen 650 mg 02/25/18 17:37 03/04/18 05:54 Tylenol - PO 650 mg Q4H PRN Administration FEVER Apixaban 5 mg 03/07/18 10:00 03/10/18 09:22 Eliquis - PO 5 mg BID [facility] Administration Atorvastatin Calcium 40 mg 02/22/18 22:00 03/09/18 21:39 Lipitor - PO 40 mg HS [facility] Administration Calcium Carbonate 650 mg 03/01/18 22:00 03/10/18 09:23 Calcium Carbonate - PO 650 mg BID [facility] Administration Cholecalciferol 1,000 unit 03/02/18 10:00 03/10/18 09:22 Vitamin D3 - PO 1,000 unit DAILY [facility] Administration Diltiazem HCl 120 mg 03/06/18 22:00 03/10/18 09:22 Cardizem Cd - PO 120 mg BID [facility] Administration Sodium Chloride 1,000 mls @ 42 mls/hr 03/07/18 07:00 03/10/18 06:20 1/2 Normal Saline IV Not Given ASDIR [facility] Insulin Aspart 1 vial 02/24/18 07:00 03/10/18 06:20 Novolog Vial Sliding Scale - SQ 4 units ACHS [facility] Administration Protocol Loperamide HCl 2 mg 03/03/18 22:38 03/03/18 22:52 Imodium - PO 2 mg Q8H PRN Administration DIARRHEA Melatonin 5 mg 02/22/18 22:00 03/09/18 21:39 Melatonin PO 5 mg HS [facility] Administration Metformin HCl 500 mg 02/23/18 07:00 03/10/18 06:20 Glucophage - PO 500 mg BID@0700,1630 [facility] Administration Metoclopramide HCl 10 mg 02/26/18 18:00 03/10/18 09:22 Reglan Injection - IVPUSH 10 mg Q8H-IV [facility] Administration Ondansetron HCl 4 mg 02/25/18 04:40 02/25/18 04:42 Zofran Injection IVPUSH 4 mg Q4H PRN Administration NAUSEA AND/OR VOMITING Pantoprazole Sodium 40 mg 02/23/18 10:00 03/10/18 09:22 Protonix - PO 40 mg DAILY [facility] Administration Valsartan 80 mg 03/05/18 11:15 03/10/18 09:22 Diovan - PO 80 mg DAILY [facility] Administration Vancomycin HCl 125 mg 03/08/18 12:00 03/10/18 06:20 Vancomycin Oral Solution PO 125 mg Q6HPO [facility] Administration CBC, BMP 03/09/18 07:07 03/09/18 07:07 tele: sr head CT: interval wedge shaped acute/subacute infarct of right parietal lobe, no hemorrhage. brain mri 01/2018: cluster of small acute infarcts in the left parietal lobe. mild chronic microvascular ischemic changes. carotid u/s 01/2018: small plaque, no stenosis, nl verts. ASSESSMENT/PLAN 77 yo with h/o IDDM, copd, ckd, depression with hx of hospitalization and electric shock therapy (now in remission), possible prior gib and recent uti last month as well as admission last month for transient slurred speech/ unsteady gait (Toxic-Meteabolic encephalopathy vs. 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 pafib: - PAF noted on tele here. - currently in sinus. cont dilt. - cont AC with lovenox--once GI issue resolved and no plans for further invasive procedure, rec start eliquis 5 bid - 03/06 discussed with GI, safe to transition to eliquis, continue. cva - neuro input appreciated: concerned for cardioembolic source. - etiology found (i.e. paroxysmal afib), being tx'd with appropriate AC regimen. no need for KAE at this time - on statin for aggressive sec prevention regimen VTach: - 11 beats NSVT seen on tele - normal LVEF abd pain, vomiting, cholecystitis with cholangitis. - low grade fever, localized RUQ tenderness - sono with gallstones and dilated bile duct--w/u ongoing - 02/27: s/p percutaneous cholecystostomy 02/26. htn -cont current meds hld: -cont statin cardiac argueta remains stable, dc tele
[2018-03-10] MEDS ORDERED: INSULIN (NOVOLOG) ASPART 100 UNITS/ML 10ML VIAL ONE ×3 (11:41→20:49)
[2018-03-10] MEDS: ATORVASTATIN CA 40 MG TABLET (FP) PO SCH (21:07)
[2018-03-10] MEDS: MELATONIN 5 MG TABLETS PO SCH (21:07)
[2018-03-10] MEDS ORDERED: ZOLPIDEM TARTRATE 5 MG TABLET PO PRN (22:00)
[2018-03-11] MEDS: VANCOMYCIN 250 MG/5 ML ORAL SOLUTION PO SCH ×5 (00:05→23:04)
--- NOTE | 2018-03-11 00:42 | PN ---
Progress Note (short form) - Note Progress Note: seen and examined in her room son at bedside case discussed with family / disposition discussed --agree to STR Vital Signs Period Temp Pulse Resp BP Sys/Bangura Pulse Ox Last 24 Hr 98 F-98.4 F 72-95 20-20 130-142/62-72 93-95 neck supple heart S1/S2 Lungs clear bilat abd soft / no tenderness / no guarding cholecystostomy tube in place - dressing dry reservoir with clearer yellow drainage ext FROM / no edema CBC, BMP 03/09/18 07:07 03/09/18 07:07 Microbiology 03/08/18 15:12 Stool Clostridium difficile Antigen (LORETA) - Final 03/08/18 15:12 Stool Clostridium difficile Toxin Assay - Final 03/04/18 07:50 Urine - Urine Clean Catch Urine Culture - Final NO GROWTH OBTAINED 02/27/18 21:00 Blood - Peripheral Venous Blood Culture - Final NO GROWTH AFTER 5 DAYS INCUBATION 02/27/18 20:45 Blood - Peripheral Venous Blood Culture - Final NO GROWTH AFTER 5 DAYS INCUBATION 02/26/18 14:30 Bile Gram Stain - Final 02/26/18 14:30 Bile Body Fluid Culture - Final Escherichia Coli Enterococcus Faecium Proteus Mirabilis 02/26/18 14:30 Bile Anaerobic Culture - Final NO ANAEROBES WERE ISOLATED 02/28/18 00:30 Urine - Urine Clean Catch Urine Culture - Final NO GROWTH OBTAINED 02/22/18 10:50 Urine - Urine Nava Urine Culture - Final NO GROWTH OBTAINED Active Medications Acetaminophen (Tylenol -) 650 mg PO Q4H PRN PRN Reason: FEVER Last Admin: 03/04/18 05:54 Dose: 650 mg Apixaban (Eliquis -) 5 mg PO BID [facility] Last Admin: 03/10/18 21:07 Dose: 5 mg Atorvastatin Calcium (Lipitor -) 40 mg PO HS [facility] Last Admin: 03/10/18 21:07 Dose: 40 mg Calcium Carbonate (Calcium Carbonate -) 650 mg PO BID [facility] Last Admin: 03/10/18 21:07 Dose: 650 mg Cholecalciferol (Vitamin D3 -) 1,000 unit PO DAILY [facility] Last Admin: 03/10/18 09:22 Dose: 1,000 unit Diltiazem HCl (Cardizem Cd -) 120 mg PO BID [facility] Last Admin: 03/10/18 21:07 Dose: 120 mg Insulin Aspart (Novolog Vial Sliding Scale -) 1 vial SQ ACHS BRITTANY PRN Reason: Protocol Last Admin: 03/10/18 21:07 Dose: 4 units Loperamide HCl (Imodium -) 2 mg PO Q8H PRN PRN Reason: DIARRHEA Last Admin: 03/03/18 22:52 Dose: 2 mg Melatonin (Melatonin) 5 mg PO HS [facility] Last Admin: 03/10/18 21:07 Dose: 5 mg Metformin HCl (Glucophage -) 500 mg PO BID@0700,1630 [facility] Last Admin: 03/10/18 17:37 Dose: 500 mg Ondansetron HCl (Zofran Injection) 4 mg IVPUSH Q4H PRN PRN Reason: NAUSEA AND/OR VOMITING Last Admin: 02/25/18 04:42 Dose: 4 mg Pantoprazole Sodium (Protonix -) 40 mg PO DAILY [facility] Last Admin: 03/10/18 09:22 Dose: 40 mg Valsartan (Diovan -) 80 mg PO DAILY [facility] Last Admin: 03/10/18 09:22 Dose: 80 mg Vancomycin HCl (Vancomycin Oral Solution) 125 mg PO Q6HPO [facility] Last Admin: 03/11/18 00:05 Dose: Not Given Zolpidem Tartrate (Ambien -) 5 mg PO HS PRN PRN Reason: INSOMNIA # s/p acute cholecystitis s/p percutaneous cholecystostomy, 02/26/18 WBC elevated but improved Good pain control -- tolerating diet # diarrhea C.diff negative but sx improved with Tx diarrhea resolved WBC improving # CVA telemetry with evidence of a fib / longterm a/c asa / statins # DM HgA1c Fs with coverage # HTN continue lisinopril monitor bp discussed d/c plans with family and patient - both in agreement to STR prefer OSVALDO
[2018-03-11] MEDS: metFORMIN HCL 500 MG TABLET (FP) PO SCH ×2 (06:30→17:10)
[2018-03-11] MEDS: INSULIN SLIDING SCALE (NOVOLOG) 1 VIAL SQ SCH ×4 (06:30→21:08)
[2018-03-11 07:21] LABS: BASO % 0.7 % (0-2.0); EOS % 1.7 % (0-4.5); HEMATOCRIT 31.3 % (32.4-45.2); HEMOGLOBIN 10.8 GM/dL (10.7-15.3); LYMPH % 14.3 % (8-40); MCH 29.1 pg (25.7-33.7); MCHC 34.6 g/dl (32.0-36.0); MEAN CELL VOLUME 83.9 fl (80-96); MEAN PLT VOLUME 8.1 fl (7.5-11.1); MONO % 6.4 % (3.8-10.2); NEUT % 76.9 % (42.8-82.8); PLATELET COUNT 340 K/MM3 (134-434); RBC 3.73 M/mm3 (3.60-5.2); RDW 14.5 % (11.6-15.6)
[2018-03-11 07:40] LABS: ALBUMIN 2.4 g/dl (3.4-5.0); ALK PHOS 98 U/L (45-117); ANION GAP 5 (8-16); BILIRUBIN,TOTAL 0.3 mg/dL (0.2-1.0); BLOOD UREA NITROGEN 11 mg/dL (7-18); CALCIUM 8.6 mg/dL (8.5-10.1); CHLORIDE 105 mmol/L (98-107); CO2 27 mmol/L (21-32); GLUCOSE,RANDOM 269 mg/dL (74-106); POTASSIUM 4.6 mmol/L (3.5-5.1); SGOT/AST 15 U/L (15-37); SGPT/ALT 15 U/L (12-78); SODIUM 137 mmol/L (136-145); TOT PROT 5.6 g/dl (6.4-8.2)
[2018-03-11] MEDS ORDERED: PT OWN MED DRAWER 7, Y5N ONE ×2 (09:28→21:02)
[2018-03-11] MEDS: APIXABAN 5 MG TABLET PO SCH ×2 (09:29→21:59)
[2018-03-11] MEDS: CHOLECALCIFEROL (VITAMIN D3) 1,000 UNIT TABLET (FP) PO SCH (09:29)
[2018-03-11] MEDS: PANTOPRAZOLE 40 MG TABLET (FP) PO SCH (09:29)
[2018-03-11] MEDS: VALSARTAN 80 MG TABLET (UD) PO SCH (09:29)
[2018-03-11] MEDS: CALCIUM CARBONATE 650 MG TABLET PO SCH ×2 (09:30→21:10)
--- NOTE | 2018-03-11 10:38 | PN ---
Progress Note (short form) - Note Progress Note: s: no cp sob palps dizzy o: Vital Signs Period Temp Pulse Resp BP Sys/Bangura Pulse Ox Last 24 Hr 97.8 F-98.3 F 72-95 18-20 132-142/65-73 95-96 nad, calm jvd flat, neck supple ctab, nl effort rrr nl s1, s2 1/6 sys murmur at sternal border. + bs soft nt nd no le e/c/c aaox3 no jaundice, diaphoresis. Current Medications Generic Name Dose Route Start Last Admin Trade Name Freq PRN Reason Stop Dose Admin Acetaminophen 650 mg 02/25/18 17:37 03/04/18 05:54 Tylenol - PO 650 mg Q4H PRN Administration FEVER Apixaban 5 mg 03/07/18 10:00 03/11/18 09:29 Eliquis - PO 5 mg BID BRITTANY Administration Atorvastatin Calcium 40 mg 02/22/18 22:00 03/10/18 21:07 Lipitor - PO 40 mg HS BRITTANY Administration Calcium Carbonate 650 mg 03/01/18 22:00 03/11/18 09:30 Calcium Carbonate - PO 650 mg BID BRITTANY Administration Cholecalciferol 1,000 unit 03/02/18 10:00 03/11/18 09:29 Vitamin D3 - PO 1,000 unit DAILY BRITTANY Administration Diltiazem HCl 120 mg 03/06/18 22:00 03/11/18 09:29 Cardizem Cd - PO 120 mg BID BRITTANY Administration Insulin Aspart 1 vial 02/24/18 07:00 03/11/18 06:30 Novolog Vial Sliding Scale - SQ 4 units ACHS BRITTANY Administration Protocol Loperamide HCl 2 mg 03/03/18 22:38 03/03/18 22:52 Imodium - PO 2 mg Q8H PRN Administration DIARRHEA Melatonin 5 mg 02/22/18 22:00 03/10/18 21:07 Melatonin PO 5 mg HS BRITTANY Administration Metformin HCl 500 mg 02/23/18 07:00 03/11/18 06:30 Glucophage - PO 500 mg BID@0700,1630 BRITTANY Administration Ondansetron HCl 4 mg 02/25/18 04:40 02/25/18 04:42 Zofran Injection IVPUSH 4 mg Q4H PRN Administration NAUSEA AND/OR VOMITING Pantoprazole Sodium 40 mg 02/23/18 10:00 03/11/18 09:29 Protonix - PO 40 mg DAILY BRITTANY Administration Valsartan 80 mg 03/05/18 11:15 03/11/18 09:29 Diovan - PO 80 mg DAILY BRITTANY Administration Vancomycin HCl 125 mg 03/08/18 12:00 03/11/18 06:30 Vancomycin Oral Solution PO 125 mg Q6HPO BRITTANY Administration Zolpidem Tartrate 5 mg 03/10/18 22:00 Ambien - PO HS PRN INSOMNIA CBC, BMP 03/11/18 06:30 03/11/18 06:[address]: interval wedge shaped acute/subacute infarct of right parietal lobe, no hemorrhage. brain mri 01/2018: cluster of small acute infarcts in the left parietal lobe. mild chronic microvascular ischemic changes. carotid u/s 01/2018: small plaque, no stenosis, nl verts. ASSESSMENT/PLAN 77 yo with h/o IDDM, copd, ckd, depression with hx of hospitalization and electric shock therapy (now in remission), possible prior gib and recent uti last month as well as admission last month for transient slurred speech/ unsteady gait (Toxic-Meteabolic encephalopathy vs. 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 pafib: - PAF noted on tele here. - currently in sinus. cont dilt. - cont AC with lovenox--once GI issue resolved and no plans for further invasive procedure, rec start eliquis 5 bid - 03/06 discussed with GI, safe to transition to eliquis, continue. cva - neuro input appreciated: concerned for cardioembolic source. - etiology found (i.e. paroxysmal afib), being tx'd with appropriate AC regimen. no need for KAE at this time - on statin for aggressive sec prevention regimen VTach: - 11 beats NSVT seen on tele - normal LVEF abd pain, vomiting, cholecystitis with cholangitis. - low grade fever, localized RUQ tenderness - sono with gallstones and dilated bile duct--w/u ongoing - 02/27: s/p percutaneous cholecystostomy 02/26. htn -cont current meds hld: -cont statin cardiac argueta remains stable
--- NOTE | 2018-03-11 11:50 | PN ---
Progress Note (short form) - Note Progress Note: seen and examined in her room diarrhea resolved no nausea / abdominal pain Vital Signs Period Temp Pulse Resp BP Sys/Bangura Pulse Ox Last 24 Hr 97.8 F-98.3 F 72-95 18-20 132-142/65-73 95-96 neck supple heart S1/S2 Lungs clear bilat abd soft / no tenderness / no guarding cholecystostomy tube in place - dressing dry reservoir with clearer yellow drainage ext FROM / no edema CBC, BMP 03/11/18 06:30 03/11/18 06:30 Microbiology 03/08/18 15:12 Stool Clostridium difficile Antigen (LORETA) - Final 03/08/18 15:12 Stool Clostridium difficile Toxin Assay - Final 03/04/18 07:50 Urine - Urine Clean Catch Urine Culture - Final NO GROWTH OBTAINED 02/27/18 21:00 Blood - Peripheral Venous Blood Culture - Final NO GROWTH AFTER 5 DAYS INCUBATION 02/27/18 20:45 Blood - Peripheral Venous Blood Culture - Final NO GROWTH AFTER 5 DAYS INCUBATION 02/26/18 14:30 Bile Gram Stain - Final 02/26/18 14:30 Bile Body Fluid Culture - Final Escherichia Coli Enterococcus Faecium Proteus Mirabilis 02/26/18 14:30 Bile Anaerobic Culture - Final NO ANAEROBES WERE ISOLATED 02/28/18 00:30 Urine - Urine Clean Catch Urine Culture - Final NO GROWTH OBTAINED 02/22/18 10:50 Urine - Urine Nava Urine Culture - Final NO GROWTH OBTAINED Active Medications Acetaminophen (Tylenol -) 650 mg PO Q4H PRN PRN Reason: FEVER Last Admin: 03/04/18 05:54 Dose: 650 mg Apixaban (Eliquis -) 5 mg PO BID [facility] Last Admin: 03/11/18 09:29 Dose: 5 mg Atorvastatin Calcium (Lipitor -) 40 mg PO HS [facility] Last Admin: 03/10/18 21:07 Dose: 40 mg Calcium Carbonate (Calcium Carbonate -) 650 mg PO BID [facility] Last Admin: 03/11/18 09:30 Dose: 650 mg Cholecalciferol (Vitamin D3 -) 1,000 unit PO DAILY [facility] Last Admin: 03/11/18 09:29 Dose: 1,000 unit Diltiazem HCl (Cardizem Cd -) 120 mg PO BID [facility] Last Admin: 03/11/18 09:29 Dose: 120 mg Insulin Aspart (Novolog Vial Sliding Scale -) 1 vial SQ ACHS BRITTANY PRN Reason: Protocol Last Admin: 03/11/18 06:30 Dose: 4 units Loperamide HCl (Imodium -) 2 mg PO Q8H PRN PRN Reason: DIARRHEA Last Admin: 03/03/18 22:52 Dose: 2 mg Melatonin (Melatonin) 5 mg PO HS [facility] Last Admin: 03/10/18 21:07 Dose: 5 mg Metformin HCl (Glucophage -) 500 mg PO BID@0700,1630 [facility] Last Admin: 03/11/18 06:30 Dose: 500 mg Ondansetron HCl (Zofran Injection) 4 mg IVPUSH Q4H PRN PRN Reason: NAUSEA AND/OR VOMITING Last Admin: 02/25/18 04:42 Dose: 4 mg Pantoprazole Sodium (Protonix -) 40 mg PO DAILY [facility] Last Admin: 03/11/18 09:29 Dose: 40 mg Valsartan (Diovan -) 80 mg PO DAILY [facility] Last Admin: 03/11/18 09:29 Dose: 80 mg Vancomycin HCl (Vancomycin Oral Solution) 125 mg PO Q6HPO [facility] Last Admin: 03/11/18 06:30 Dose: 125 mg Zolpidem Tartrate (Ambien -) 5 mg PO HS PRN PRN Reason: INSOMNIA # s/p acute cholecystitis s/p percutaneous cholecystostomy, 02/26/18 WBC elevated but improved Good pain control -- tolerating diet # diarrhea C.diff negative but sx improved with Tx diarrhea resolved WBC improving # CVA telemetry with evidence of a fib / retirement a/c asa / statins # DM HgA1c Fs with coverage # HTN continue lisinopril monitor bp discussed d/c plans with family and patient - both in agreement to STR prefer ADIRA
[2018-03-11] MEDS ORDERED: diphenhydrAMINE HCL 25 MG CAPSULE (FP) PO ONE (17:00)
[2018-03-11] MEDS ORDERED: ACETAMINOPHEN 325 MG TABLET (FP) PO PRN (18:50)
[2018-03-11] MEDS ORDERED: ONDANSETRON 4 MG/2 ML VIAL IVPUSH PRN (18:50)
[2018-03-11] MEDS ORDERED: LOPERAMIDE HCL 2 MG CAPSULE PO PRN (18:50)
[2018-03-11] MEDS ORDERED: INSULIN (NOVOLOG) ASPART 100 UNITS/ML 10ML VIAL ONE (21:02)
[2018-03-11] MEDS ORDERED: ATORVASTATIN CA 40 MG TABLET (FP) PO SCH (22:00)
[2018-03-11] MEDS ORDERED: ZOLPIDEM TARTRATE 5 MG TABLET PO PRN (22:00)
[2018-03-11] MEDS ORDERED: MELATONIN 5 MG TABLETS PO SCH (22:00)
[2018-03-12] MEDS: VANCOMYCIN 250 MG/5 ML ORAL SOLUTION PO SCH ×2 (06:56→11:58)
[2018-03-12] MEDS: INSULIN SLIDING SCALE (NOVOLOG) 1 VIAL SQ SCH ×2 (06:56→11:58)
[2018-03-12] MEDS ORDERED: metFORMIN HCL 500 MG TABLET (FP) PO SCH (07:00)
[2018-03-12] MEDS ORDERED: PANTOPRAZOLE 40 MG TABLET (FP) PO SCH (10:00)
[2018-03-12] MEDS ORDERED: CHOLECALCIFEROL (VITAMIN D3) 1,000 UNIT TABLET (FP) PO SCH (10:00)
[2018-03-12] MEDS ORDERED: PT OWN MED DRAWER 7, Y5N ONE (10:00)
[2018-03-12] MEDS ORDERED: VALSARTAN 80 MG TABLET (UD) PO SCH (10:00)
[2018-03-12] MEDS: APIXABAN 5 MG TABLET PO SCH (11:11)
[2018-03-12] MEDS: CALCIUM CARBONATE 650 MG TABLET PO SCH (12:00)
[2018-03-12 13:12] VITALS: PULSE 96
--- NOTE | 2018-03-12 14:25 | DS ---
Physical Examination Vital Signs: Vital Signs Temperature 98.2 F 03/12/18 13:11 Pulse Rate 96 H 03/12/18 13:11 Respiratory Rate 18 03/12/18 13:11 Blood Pressure 141/69 03/12/18 13:11 O2 Sat by Pulse Oximetry (%) 94 L 03/12/18 06:00 Findings/Remarks: 77 yo with h/o IDDM, copd, ckd, depression with hx of hospitalization and electric shock therapy (now in remission), recent uti last month, as well as admission for transient slurred speech/unsteady gait (Toxic-Metabolic encephalopathy vs. TIA), now presented to ER with transient left hand weakness - Head ct --demonstrated left parietal lobe cva. MRI and MRA results show multiple foci of chronic small vessel infarction in the periventricular white mater Acute / sub acute nonhemorrhagic infarcts of the posterior aspect of right parietal lobe extending to occipital lobe Patient admitted to telemetry, cardiac work up initiated to r/o cardiac embolic event as cause. During this time her hospital stay was complicated with acute cholecystitis, RUQ pain / inc LFT / inc lipase/ --GI consult requested - She ws started on ABX / kept NPO and arrangements made for cholecystostomy tube placement. She underwent procedure well / with resolution of Sx/ and correction of chemistries -- during same time was able to document episodes of Atrial fibrillation on telemetry -- this probably being the cause of embolic events ( KAE was unnecessary therefore was not done ). She will require alf A/C - this was discussed with patient and Son prior to d/c -both understand benefits and risk # s/p acute cholecystitis s/p percutaneous cholecystostomy, 02/26/18 draining caicedo yellow / will need to drain TID Good pain control -- tolerating diet # diarrhea C.diff negative but sx improved with Tx diarrhea resolved WBC improving # CVA telemetry with evidence of a fib / alf a/c asa / statins # DM HgA1c Fs with coverage # HTN continue lisinopril monitor bp Constitutional: Yes: Well Nourished, No Distress, Calm Eyes: Yes: Conjunctiva Clear, EOM Intact HENT: Yes: Atraumatic, Normocephalic Neck: Yes: Supple, Trachea Midline Cardiovascular: Yes: Regular Rate and Rhythm Respiratory: Yes: Regular, CTA Bilaterally Gastrointestinal: Yes: Normal Bowel Sounds, Soft, Abdomen, Obese, Other (RUQ cholecystostomy tube with drainage bag with caicedo yellow drainage. area clean / no erythema /no guarding or tenderness elicited on exam.) ...Rectal Exam: Yes: Deferred Renal/: Yes: WNL Breast(s): Yes: WNL Musculoskeletal: Yes: WNL Extremities: Yes: WNL. No: Calf Tenderness, Deformity Edema: No Peripheral Pulses WNL: Yes Integumentary: Yes: WNL Neurological: Yes: Alert, Oriented ...Motor Strength: WNL (however -- deconditioned) Psychiatric: Yes: Alert, Oriented Labs: CBC, BMP 03/11/18 06:30 03/11/18 06:30 Discharge Summary Reason For Visit: CVA Current Active Problems CVA (cerebral vascular accident) (Acute) Cholecystitis with cholangitis (Acute) Condition: Stable - Instructions Disposition: LONG-TERM FACILITY - Home Medications Comprehensive Discharge Medication List: Ambulatory Orders Atorvastatin Ca [Lipitor] 40 mg PO HS 30 Days #30 tablet 01/12/18 Lisinopril [Prinivil] 5 mg PO DAILY 30 Days #30 tablet 01/12/18 Melatonin 5 mg PO HS 02/22/18 Pantoprazole Sodium 40 mg PO DAILY 02/22/18 Risperidone 0.5 mg PO HS 02/22/18 Sitagliptin Phos/Metformin HCl [Janumet 50-1,000 mg Tablet] 1 each PO BID Venlafaxine HCl ER [Effexor Xr -] 37.5 mg PO DAILY 02/22/18 metFORMIN HCL [Glucophage -] 500 mg PO BID@0700,1630 02/22/18 eliquis 5 mg BID
[2018-03-12 17:04] VITALS: BP 140/65; TEMP 98
== END 2018-03-12 17:02 | DRG 65 ==
LOC: JER 10:32 → JERBED 13:07 → J4S 14:20 → J5S 03-11 18:49
PROVIDERS: ADMIT Family Medicine; ATTEND Family Medicine
PROC: 0F9430Z Drainage of Gallbladder with Drainage Device, Percutaneous Approach (ICD-10-PCS; principal; 2018-03-02)
DX: I63.413 Cerebral infarction due to embolism of bilateral middle cerebral arteries (principal); I47.1 Supraventricular tachycardia; K83.0 Cholangitis; K80.00 Calculus of gallbladder with acute cholecystitis without obstruction; I47.2 Ventricular tachycardia; R29.700 NIHSS score 0; Z79.84 Long term (current) use of oral hypoglycemic drugs; J44.9 Chronic obstructive pulmonary disease, unspecified; F32.9 Major depressive disorder, single episode, unspecified; E11.22 Type 2 diabetes mellitus with diabetic chronic kidney disease; I12.9 Hypertensive chronic kidney disease with stage 1 through stage 4 chronic kidney disease, or unspecified chronic kidney disease; N18.9 Chronic kidney disease, unspecified; E78.5 Hyperlipidemia, unspecified; R11.10 Vomiting, unspecified; Z79.4 Long term (current) use of insulin; I48.0 Paroxysmal atrial fibrillation; E83.51 Hypocalcemia; G47.00 Insomnia, unspecified; R19.7 Diarrhea, unspecified; R30.0 Dysuria; Z82.3 Family history of stroke
CPT/HCPCS: 36415; 47490; 70450-TC; 70544-TC; 70551-TC; 71045-TC-FY; 71046-TC-FY; 76000-TC-FY; 76098-TC-FY; 76700-TC; 76998-TC; 80048; 80053; 80061; 81003; 81015; 82465; 82550; 82962; 83036; 83718; 83721; 83735; 84100; 84478; 84484; 85025; 85610; 86140; 87040; 87070; 87075; 87086; 87186; 87205; 87324; 87449; 87899; 93005; 93010; 93306-TC; 94010; 97116-GP; 97161-GP; 99285-25; A4358; C1729; C1769

== ENCOUNTER 2018-03-22 12:44 | Inpatient (IN) | payer OTHER, MEDICARE ==
--- NOTE | 2018-03-22 12:58 | PDOC ---
History of Present Illness - General History Source: Patient, EMS Exam Limitations: Physical Impairment - History of Present Illness Initial Comments: 03/22/18 13:47 The patient is a 77 year old female with a significant PMH of recent CVA & TIA, COPD, diabetes, and Eliquis use who presents to the emergency department with speech difficulty and weakness beginning at approximately 12PM today for r/o stroke. As per EMS, the patient was at baseline before 12PM but afterwards began to slightly slur her words and develop right sided weakness and left side facial droop. Of note, the patient was evaluated and admitted for a TIA on and a CVA on 02/22/18. The patient denies chest pain, shortness of breath, headache and dizziness. Denies fever, chills, nausea, vomit, diarrhea and constipation. Denies dysuria, frequency, urgency and hematuria. Allergies: NKA Past surgical history: Bilateral knee and hip replacements. Social history: No reported cigarette, alcohol, or drug use. PCP: Dr. Kumar <Eliu Covarrubias - Last Filed: 03/22/18 15:22> - General History Source: EMS Exam Limitations: Physical Impairment <Sophia Baptiste - Last Filed: 03/25/18 00:57> - General Stated Complaint: STROKE Time Seen by Provider: 03/22/18 12:53 Past History <Eliu Covarrubias - Last Filed: 03/22/18 15:22> - Past Medical History COPD: Yes Diabetes: Yes - Surgical History Orthopedic Surgery: Yes (both hip/knee replacement) - Suicide/Smoking/Psychosocial Hx Smoking History: Never smoked Have you smoked in the past 12 months: No Hx Alcohol Use: No Drug/Substance Use Hx: No Substance Use Type: None <Sophia Baptiste - Last Filed: 03/25/18 00:57> - Past Medical History Allergies/Adverse Reactions: Allergies Allergy/AdvReac Type Severity Reaction Status Date / Time sulfur dioxide Allergy Verified 03/22/18 12:59 lactose AdvReac Verified 03/23/18 12:17 Home Medications: Ambulatory Orders Atorvastatin Ca [Lipitor] 40 mg PO HS 30 Days #30 tablet 01/12/18 Lisinopril [Prinivil] 5 mg PO DAILY 30 Days #30 tablet 01/12/18 Melatonin 5 mg PO HS 02/22/18 Pantoprazole Sodium 40 mg PO DAILY 02/22/18 Risperidone 0.5 mg PO HS 02/22/18 Sitagliptin Phos/Metformin HCl [Janumet 50-1,000 mg Tablet] 1 each PO BID Venlafaxine HCl ER [Effexor Xr -] 37.5 mg PO DAILY 02/22/18 Acetaminophen [Tylenol .Regular Strength -] 650 mg PO Q4H PRN tablet 03/12/18 Acetaminophen [Tylenol .Regular Strength -] 650 mg PO Q4H PRN tablet 03/12/18 Apixaban [Eliquis -] 5 mg PO BID 30 Days #60 tablet 03/12/18 Apixaban [Eliquis -] 5 mg PO BID 30 Days #60 tablet 03/12/18 Calcium Carbonate - 650 mg PO BID tablet 03/12/18 Calcium Carbonate - 650 mg PO BID tablet 03/12/18 Cholecalciferol (Vitamin D3) [Vitamin D3 -] 1,000 unit PO DAILY tab 03/12/18 Cholecalciferol (Vitamin D3) [Vitamin D3 -] 2,000 unit PO DAILY tab 03/12/18 Diltiazem Cd [Cardizem Cd -] 120 mg PO BID cap.cd.24h 03/12/18 Diltiazem Cd [Cardizem Cd -] 120 mg PO BID cap.cd.24h 03/12/18 Insulin Sliding Scale [Novolog Vial Sliding Scale -] 1 vial SQ ACHS units 03/12 Insulin Sliding Scale [Novolog Vial Sliding Scale -] 1 vial SQ ACHS units 03/12 Loperamide HCl [Imodium -] 2 mg PO Q8H PRN capsule 03/12/18 Loperamide HCl [Imodium -] 2 mg PO Q8H PRN capsule 03/12/18 Pantoprazole Sodium [Protonix -] 40 mg PO DAILY 30 Days #30 tablet.ec 03/12/18 Pantoprazole Sodium [Protonix -] 40 mg PO DAILY 30 Days #30 tablet.ec 03/12/18 Valsartan [Diovan] 80 mg PO DAILY tablet 03/12/18 Valsartan [Diovan] 80 mg PO DAILY tablet 03/12/18 Vancomycin Oral Solution 125 mg PO Q6HPO 10 Days #150 ml 03/12/18 Vancomycin Oral Solution 125 mg PO Q6HPO 10 Days #150 ml 03/12/18 Zolpidem Tartrate [Ambien] 5 mg PO HS 7 Days #7 tablet MDD 5mg 03/12/18 Zolpidem Tartrate [Ambien] 5 mg PO HS PRN 7 Days #7 tablet MDD 5 mg 03/12/18 Review of Systems - Review of Systems Able to Perform ROS?: Yes Comments:: 03/22/18 13:47 GENERAL/CONSTITUTIONAL: No fever or chills. HEAD, EYES, EARS, NOSE AND THROAT: No change in vision. No ear pain or discharge. No sore throat. CARDIOVASCULAR: No chest pain or shortness of breath. RESPIRATORY: No cough, wheezing, or hemoptysis. GASTROINTESTINAL: No nausea, vomiting, diarrhea or constipation. GENITOURINARY: No dysuria, frequency, or change in urination. MUSCULOSKELETAL: No joint or muscle swelling or pain. No neck or back pain. SKIN: No rash NEUROLOGIC: (+) Right sided weakness. (+) Difficulty speaking. No headache, vertigo, loss of consciousness. ENDOCRINE: No increased thirst. No abnormal weight change. HEMATOLOGIC/LYMPHATIC: No anemia, easy bleeding, or history of blood clots. ALLERGIC/IMMUNOLOGIC: No hives or skin allergy. <Eliu Covarrubias - Last Filed: 03/22/18 15:22> *Physical Exam - Vital Signs Last Vital Signs Temp Pulse Resp BP Pulse Ox 98.4 F 100 H 20 139/100 97 03/22/18 12:51 03/22/18 12:51 03/22/18 12:51 03/22/18 12:51 03/22/18 12:51 - Physical Exam Comments: 03/22/18 14:42 GENERAL: Awake, alert, and fully oriented, in no acute distress HEAD: No signs of trauma EYES: PERRLA, EOMI, sclera anicteric, conjunctiva clear ENT: Auricles normal inspection, hearing grossly normal, nares patent, oropharynx clear without exudates. Moist mucosa NECK: Normal ROM, supple, no lymphadenopathy, JVD, or masses LUNGS: Breath sounds equal, clear to auscultation bilaterally. No wheezes, and no crackles HEART: Regular rate and rhythm, normal S1 and S2, no murmurs, rubs or gallops ABDOMEN: Soft, nontender, normoactive bowel sounds. No guarding, no rebound. No masses EXTREMITIES: Normal range of motion, no edema. No clubbing or cyanosis. No cords, erythema, or tenderness NEUROLOGICAL: SEE STROKE SCALE SKIN: (+) Diffuse erythematous rash. Warm, Dry, normal turgor, no lesions noted. <Eliu Covarrubias - Last Filed: 03/22/18 15:22> NIH Stroke Scale - Last Known Well Date/Time & Onset Date Last Known Well: 03/22/18 Time Last Known Well: 12:00 - Initial Evaluation Level of consciousness: Alert Ask patient the month and their age: Both incorrect Ask patient to open & close eyes; make fist and let go: Obeys both correctly Best gaze (horizontal eye movement): Partial gaze palsy Visual field testing: Complete hemianopia Facial paresis (Show teeth/raise eyebrows/close eyes tight): Partial paralysis ( total or near paralysis of lower face) Motor Function: Left Arm: Normal Motor Function: Right Arm: Some effort against gravity Motor Function: Left Leg: No effort against gravity Motor Function: Right Leg: No effort against gravity Limb Ataxia: No ataxia Sensory(Use pinprick test arms,legs,trunk,face/side to side): Normal Best language (Describe picture, name items, read sentences): Mild to moderate aphasia Dysarthria (read several words): Mild to moderate slurring of words Extinction and Inattention: Inattention or extinction bilaterally to one of the sensory modalities - Total Score NIH Stroke Scale Score: 18 <Sophia Baptiste - Last Filed: 03/25/18 00:57> tPA Exclusion Checklist 0-3hr - Time Elapsed Date last known well: 03/22/18 Time last known well: 12:00 Elaspsed time: 2 Day(s) and 12 Hour(s) and 48 Minutes - Thrombolytic Therapy Candidate Is the patient eligible for Thrombolytic Therapy?: No - Exclusion Criteria 0-3hr SBP greater than 185 or DBP greater than 110mmHg despite tx: No Recent IC/spinal surgery,head trauma or stroke w/in last 3mo: No Hx of previous IC hemorrhage, IC neoplasm, AVM or aneurysm: No Active internal bleeding: No Blding diathesis(low plt ct, inc PTT,INR>1.7 or use of NOAC): Yes Symptoms suggest subarachnoid hemorrhage: No CT demonstrates multilobar infarct(>1/3 cerebral hemiphere): No Arterial puncture at noncompressible site in previous 7 days: No Blood glucose concentration less than 50mg/dL (2.7mmol/L): No - Relative Exclusion Criteria 0-3h Life expectancy <1yr/severe co-morbid illness/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 <Eliu Covarrubias - Last Filed: 03/22/18 15:22> Total Critical Care Time: 120 Critical Care Statement: The care of this patient involved high complexity decision making to prevent further life threatening deterioration of the patient 's condition and/or to evaluate & treat vital organ system(s) failure or risk of failure. - Medical Decision Making Note: Felicia is a 77 yo f who was sent to the ER with a complaint of neurologic changes Pt was noted by staff at the correction approximately 45 minutes prior to arrival to have left facial droop and right arm weakness Pt brought to the ER where initial examination revealed - Pt can not/does not smile when asked to do so Can lift both eyebrows Pt with notable weakness of right upper extremities Pt with slurred speech Code St Called Pt taken to CT scan 03/22/18 13:[address] Veliz who knows this patient and has reviewed CT Pt is currently on NOAC therefore can not be given TPA Recommends MRI and CTA head and neck R/o new CVA and large vessel occlusion (? transfer to [facility]) Labs pending CTA pending MRI pending Call place to Signal System Testing Maintainer for assistance with expediting studies Pt to go to CT first 03/22/18 14:10 Laboratory Tests 03/22/18 03/22/18 13:20 13:20 WBC 29.1 H D Hgb 11.2 Hct 34.5 Plt Count 426 D Neutrophils % 91.0 H Lymphocytes % 3.6 L D PT with INR 27.10 H INR 2.40 H D Pt already in CT 03/22/18 14:24 Received call from lab K= 7, Glucose 300s Calcium ordered, Insulin and dextrose Will order IV fluid boluses as well 03/22/18 14:[address] Veliz Pt has multiple other co morbidities Pt is currently unstable, she is not a good candidate for transfer Laboratory Tests 03/22/18 13:20 Sodium 127 L Potassium 7.1 H* Chloride 97 L Carbon Dioxide 17 L Anion Gap 13 BUN 98 H Creatinine 5.7 H Random Glucose 363 H* Creatine Kinase 540 H Troponin I < 0.02 Creatinine 5.7!! Pt with new renal failure Pt with hyponatremia Will contact PMD Will call renal for possible dialysis NS bolus ordered 03/22/18 14:55 03/22/18 14:59 03/22/18 15:[address] Hong Case reviewed with Dr. Lemon Case reviewed with Dr Burdick, he has seen pt in the ER Nava cathether placed 1 L Frankly purulent urine returned Pt already ordered for Zosyn 2.25mg IV Preliminary results reviewed with Son and Daughter in Law Clinical Impression: New onset renal failure, initial presentation Uro Sepsis, initial presentation Dehydration, initial presentation hyperkalemia, initial presentation Hyponatremia, initial presentation ? New Left MCA CVA, repeat presentation 03/22/18 18:56 EKG: SR, tachycardic rate of 104 bpm, axis nml, no st elevations or depressions , t waves upright <Sophia Baptiste - Last Filed: 03/25/18 00:57> Discharge Disposition <Eliu Covarrubias - Last Filed: 03/22/18 15:22> - Discharge Dispostion Decision to Admit order: Yes <Sophia Baptiste - Last Filed: 03/25/18 00:57> - Diagnosis Renal insufficiency, Hyperkalemia, Hyponatremia - Discharge Dispostion Condition at time of disposition: Guarded
[2018-03-22] MEDS ORDERED: SODIUM CHLORIDE 1,000 ML IV SCH (13:00)
[2018-03-22 13:48] LABS: BASO % 0.9 % (0-2.0); HEMATOCRIT 34.5 % (32.4-45.2); HEMOGLOBIN 11.2 GM/dL (10.7-15.3); LYMPH % 3.6 % (8-40); MCH 27.8 pg (25.7-33.7); MCHC 32.5 g/dl (32.0-36.0); MEAN CELL VOLUME 85.5 fl (80-96); MEAN PLT VOLUME 8.8 fl (7.5-11.1); MONO % 4.5 % (3.8-10.2); PLATELET COUNT 426 K/MM3 (134-434); RBC 4.03 M/mm3 (3.60-5.2); RDW 14.2 % (11.6-15.6); WHITE BLOOD COUNT 29.1 K/mm3 (4.0-10.0)
[2018-03-22 14:05] LABS: INR 2.4 (0.82-1.09); PROTHROMBIN TIME (PATIENT) 27.1 SEC (9.7-13.0)
[2018-03-22 14:17] LABS: ALBUMIN 2.8 g/dl (3.4-5.0); ANION GAP 13 (8-16); BILIRUBIN,TOTAL 0.4 mg/dL (0.2-1.0); BLOOD UREA NITROGEN 98 mg/dL (7-18); CALCIUM 9.4 mg/dL (8.5-10.1); CHLORIDE 97 mmol/L (98-107); CHOLESTEROL 71 mg/dL (50-200); CO2 17 mmol/L (21-32); CREATININE 5.7 mg/dL (0.55-1.02); SGOT/AST 32 U/L (15-37); SGPT/ALT 21 U/L (12-78); SODIUM 127 mmol/L (136-145); TOT PROT 6.8 g/dl (6.4-8.2); TRIGLYCERIDES 185 mg/dL (35-160)
[2018-03-22 14:18] LABS: ALK PHOS 107 U/L (45-117); HDL CHOLESTEROL 35 mg/dL (40-60)
[2018-03-22 14:23] LABS: GLUCOSE,RANDOM 363 mg/dL (74-106)
[2018-03-22] MEDS ORDERED: CALCIUM GLUCONATE 10% - 1,000 MG/10 ML VIAL IVPUSH ONE (14:23)
[2018-03-22] MEDS ORDERED: DEXTROSE 50%-WATER - 25 GM/50 ML VIAL IVPUSH ONE (14:23)
[2018-03-22] MEDS ORDERED: INSULIN REGULAR HUMAN 100 UNITS/ML *VIAL IVPUSH ONE (14:23)
[2018-03-22 14:24] LABS: POTASSIUM 7.1 mmol/L (3.5-5.1)
[2018-03-22] MEDS ORDERED: SODIUM CHLORIDE 1,000 ML IV STA (14:52)
[2018-03-22] MEDS ORDERED: PIPERACILLIN/TAZOB 2.25 GM 2.25 GM in DEXTROSE 5%-WATER - 50 ML IVPB ONE ×2 (14:55→23:00)
--- NOTE | 2018-03-22 15:55 | CONSULT ---
Consult Consult Specialty:: Renal Reason for Consultation:: ELÍAS - History of Present Illness History of Present Illness: Briefly, 77 yo F h/o multiple embolic TIA/CVA, pafib on eliquis, COPD, IDDM, depression s/p electric shock therapy now in remission admitted to the hospital due to L facial droop and R arm weakness. While being worked up for stroke, patient's found to have Cr of 5.7 with normal baseline. Family at bedside denies any chronic kidney disease. Patient had cholecystitis with cholangitis and underwent percutaenous cholecystostomy. Per family, patient also has non- blanching, non-itchy diffuse rash for a week, after starting a cardiac drug. Denies fever, chills, chest pain, shortness of breath, n/v. 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 (encephalopathy recently, long history of stuttering) Cardio/Vascular: Yes: HTN Pulmonary: Yes: COPD Gastrointestinal: Yes: Constipation, GI Bleed Renal/: Yes: Renal Inusuff Endocrine: Yes: Diabetes Mellitus (since she was 51 y/o) - Past Surgical History Past Surgical History: Yes: Joint Replacement (both knees X2 / both hips / surgey on right shoulder) - Alcohol/Substance Use Hx Alcohol Use: No - Smoking History Smoking history: Never smoked Have you smoked in the past 12 months: No - Social History ADL: Support Services History of Recent Travel: No Home Medications - Allergies Allergies/Adverse Reactions: Allergies Allergy/AdvReac Type Severity Reaction Status Date / Time sulfur dioxide Allergy Verified 03/22/18 12:59 - Home Medications Home Medications: Ambulatory Orders Atorvastatin Ca [Lipitor] 40 mg PO HS 30 Days #30 tablet 01/12/18 Lisinopril [Prinivil] 5 mg PO DAILY 30 Days #30 tablet 01/12/18 Melatonin 5 mg PO HS 02/22/18 Pantoprazole Sodium 40 mg PO DAILY 02/22/18 Risperidone 0.5 mg PO HS 02/22/18 Sitagliptin Phos/Metformin HCl [Janumet 50-1,000 mg Tablet] 1 each PO BID Venlafaxine HCl ER [Effexor Xr -] 37.5 mg PO DAILY 02/22/18 Acetaminophen [Tylenol .Regular Strength -] 650 mg PO Q4H PRN tablet 03/12/18 Acetaminophen [Tylenol .Regular Strength -] 650 mg PO Q4H PRN tablet 03/12/18 Apixaban [Eliquis -] 5 mg PO BID 30 Days #60 tablet 03/12/18 Apixaban [Eliquis -] 5 mg PO BID 30 Days #60 tablet 03/12/18 Calcium Carbonate - 650 mg PO BID tablet 03/12/18 Calcium Carbonate - 650 mg PO BID tablet 03/12/18 Cholecalciferol (Vitamin D3) [Vitamin D3 -] 1,000 unit PO DAILY tab 03/12/18 Cholecalciferol (Vitamin D3) [Vitamin D3 -] 2,000 unit PO DAILY tab 03/12/18 Diltiazem Cd [Cardizem Cd -] 120 mg PO BID cap.cd.24h 03/12/18 Diltiazem Cd [Cardizem Cd -] 120 mg PO BID cap.cd.24h 03/12/18 Insulin Sliding Scale [Novolog Vial Sliding Scale -] 1 vial SQ ACHS units 03/12 Insulin Sliding Scale [Novolog Vial Sliding Scale -] 1 vial SQ ACHS units 03/12 Loperamide HCl [Imodium -] 2 mg PO Q8H PRN capsule 03/12/18 Loperamide HCl [Imodium -] 2 mg PO Q8H PRN capsule 03/12/18 Pantoprazole Sodium [Protonix -] 40 mg PO DAILY 30 Days #30 tablet.ec 03/12/18 Pantoprazole Sodium [Protonix -] 40 mg PO DAILY 30 Days #30 tablet.ec 03/12/18 Valsartan [Diovan] 80 mg PO DAILY tablet 03/12/18 Valsartan [Diovan] 80 mg PO DAILY tablet 03/12/18 Vancomycin Oral Solution 125 mg PO Q6HPO 10 Days #150 ml 03/12/18 Vancomycin Oral Solution 125 mg PO Q6HPO 10 Days #150 ml 03/12/18 Zolpidem Tartrate [Ambien] 5 mg PO HS 7 Days #7 tablet MDD 5mg 03/12/18 Zolpidem Tartrate [Ambien] 5 mg PO HS PRN 7 Days #7 tablet MDD 5 mg 03/12/18 Family Disease History - Family Disease History Family Disease History: Other: Father (stroke), Mother (stroke), Sister (strokes , first in her 40's) Review of Systems Unable to obtain ROS, reason: dysphasia s/p stroke Physical Exam Vital Signs: Vital Signs Temperature 98.4 F 03/22/18 12:51 Pulse Rate 100 H 03/22/18 12:51 Respiratory Rate 20 03/22/18 12:51 Blood Pressure 139/100 03/22/18 12:51 O2 Sat by Pulse Oximetry (%) 97 03/22/18 12:51 Constitutional: Yes: No Distress Cardiovascular: Yes: Regular Rate and Rhythm, S1, S2 Respiratory: Yes: CTA Bilaterally Gastrointestinal: Yes: Normal Bowel Sounds, Soft, Other (cholecystostomy bag draining yellow fluid) Edema: LLE: 2+, RLE: 2+ Integumentary: Yes: Rash (diffuse, non-blanching) Neurological: Yes: Alert, Dysarthria, Facial Droop, Weakness Labs: CBC, BMP 03/22/18 13:20 03/22/18 13:20 Assessment/Plan 77 yo F admitted to the hospital for neurologic changes. Embolic stroke ?Sepsis Hyperkalemia Hyponatremia ELÍAS pafib IDDM COPD - Pt appears clinically volume depleted, will cont. aggressive fluid resus. - Derm consult for the rash - Insert walker, monitor I/O - ELÍAS 2/2 ?sepsis, send UA, urine lytes, serologic workup, hep panel, ordered renal U/S - Corrected Na+ 131, cont. isotonic fluid - Trend K+ and Cr Tae Medel PGY2 Pager: [phone] Visit type - Emergency Visit Emergency Visit: Yes Care time: The patient presented to the Emergency Department on the above date and was hospitalized for further evaluation of their emergent condition. - New Patient This patient is new to me today: Yes Date on this admission: 03/22/18 - Critical Care Critical Care patient: No
[2018-03-22] MEDS ORDERED: PIPERACILLIN/TAZOBACTAM 2.25 GM VIAL IVPB ONE (16:41)
[2018-03-22] MEDS ORDERED: CALCIUM GLUCONATE 10% - 1,000 MG/10 ML VIAL ONE (16:42)
[2018-03-22] MEDS ORDERED: DEXTROSE 50%-WATER 25 GM/50 ML DISP.SYRIN ONE (16:42)
[2018-03-22] MEDS ORDERED: INSULIN REGULAR HUMAN 100 UNITS/ML *VIAL ONE ×2 (16:43)
[2018-03-22] MEDS ORDERED: LIDOCAINE HCL 2% JELLY (30 ML/TUBE) TP ONE (16:54)
[2018-03-22] MEDS ORDERED: LIDOCAINE HCL 2% JELLY (5 ML/TUBE) ONE (17:09)
--- NOTE | 2018-03-22 17:19 | PN ---
Teaching Attending Note ATTENDING PHYSICIAN STATEMENT I saw and evaluated the patient. I reviewed the resident's note and discussed the case with the resident. I agree with the resident's findings and plan as documented. SUBJECTIVE: Pt seen and examined in the ER. Briefly, 77yo female with h/o DM, COPD, paroxysmal atrial fibrillation, multiple embolic strokes, depression who presented with left facial droop and right arm weakness. CTA head showing evidence of a cerebellar infarct as well as marked narrowing of the distal right M1 segment. During her work up, she was noted to be in acute renal failure with marked hyperkalemia. Treated medically, repeat labs pending. Pt also with a diffuse nonblanching rash starting about a week ago per family at bedside. She was also reported to be altered with decreased PO intake and interaction. Pt currently obtunded, unable to provide further history at this time. OBJECTIVE: Last Vital Signs Temp Pulse Resp BP Pulse Ox 98.4 F 100 H 20 139/100 97 03/22/18 12:51 03/22/18 12:51 03/22/18 12:51 03/22/18 12:51 03/22/18 12:51 Intake & Output 03/19/18 03/20/18 03/21/18 03/22/18 23:59 23:59 23:59 23:59 Weight 74.843 kg Gen: eyes open but unresponsive Heart: tachycardic, regular Lung: decreased breath sounds at the bases Abd: soft, nontender Ext: no edema Skin: scattered patches of erythematous, nonblanching maculopapular rash CBC, BMP 03/22/18 13:20 03/22/18 13:20 Active Medications Sodium Chloride (Normal Saline -) 1,000 mls @ 42 mls/hr IV [facility] Last Admin: 03/22/18 13:00 Dose: 42 mls/hr ASSESSMENT AND PLAN: r/o Sepsis Acute Kidney Injury Hyperkalemia Metabolic Acidosis Altered Mental Status Acute CVA Rash Paroxysmal Atrial Fibrillation DM COPD - IVF resuscitation - monitor urine output, creatinine - empiric antibiotics - f/u cultures - place walker, send urinalysis, urine culture, urine lytes - check ABG - s/p medical treatment of hyperkalemia, f/u repeat labs - aspiration precautions - allow permissive hypertension - continue anticoagulation - rate control - monitor in ICU
[2018-03-22] MEDS: SODIUM CHLORIDE 1,000 ML IV SCH (17:37)
[2018-03-22 17:51] LABS: URINE APPEARANCE TURBID; URINE BILIRUBIN NEGATIVE (<2.0 mg/dL); URINE COLOR YELLOW; URINE GLUCOSE (UA) 1+ (NEGATIVE); URINE KETONE NEGATIVE (NEGATIVE); URINE LEUK ESTERASE TRACE (NEGATIVE); URINE NITRITE NEGATIVE (NEGATIVE); URINE UROBILINOGEN NEGATIVE mg/dL (0.2-1.0)
[2018-03-22 18:04] LABS: URINE PROTEIN 2+ (NEGATIVE)
[2018-03-22 19:10] LABS: ALBUMIN 2.6 g/dl (3.4-5.0); ALK PHOS 105 U/L (45-117); ANION GAP 14 (8-16); BILIRUBIN,TOTAL 0.5 mg/dL (0.2-1.0); BLOOD UREA NITROGEN 89 mg/dL (7-18); CALCIUM 9.1 mg/dL (8.5-10.1); CHLORIDE 97 mmol/L (98-107); CO2 17 mmol/L (21-32); CREATININE 5.2 mg/dL (0.55-1.02); MAGNESIUM 0.9 mg/dL (1.8-2.4); PHOSPHOROUS 3.4 mg/dL (2.5-4.9); SGOT/AST 27 U/L (15-37); SGPT/ALT 19 U/L (12-78); SODIUM 128 mmol/L (136-145); TOT PROT 6.5 g/dl (6.4-8.2)
[2018-03-22 19:17] LABS: GLUCOSE,RANDOM 333 mg/dL (74-106)
[2018-03-22 19:18] LABS: POTASSIUM 6.4 mmol/L (3.5-5.1)
--- NOTE | 2018-03-22 19:42 | PN ---
Teaching Attending Note Name of Resident: Tae Medel (Nephrology) ATTENDING PHYSICIAN STATEMENT I saw and evaluated the patient. I reviewed the resident's note and discussed the case with the resident. I agree with the resident's findings and plan as documented. Nephrology Pt seen earlier today at about 4 pm with er medical technician. Pt is a 77 year old female with pmhx of a-fib, DM CVA and COPD who was sent in from the [place] as she was found to have altered mental status. Pt was found slouched to her side. In the ER she was found to have a CVA. I was called to evaluate her as she was also found to be in acute renal failure. Her daughter in law is at bedside. Pt has has poor PO intake for days. She has had this rash on her skin for about one month. PT is awake and answering simple questions but is confused. pmhx a-fib dm copd allergies sulfur dioxide ros confusion family hx non contrib social hx lives in [place] Current Medications Generic Name Dose Route Start Last Admin Trade Name Freq PRN Reason Stop Dose Admin Sodium Chloride 1,000 mls @ 150 mls/hr 03/22/18 17:30 03/22/18 17:37 Normal Saline - IV 150 mls/hr ASDIR BRITTANY Administration Piperacillin Sod/Tazobactam 50 mls @ 100 mls/hr 03/22/18 23:00 Sod 2.25 gm/ Dextrose IVPB Q8H-IV BRITTANY Protocol Last Vital Signs Temp Pulse Resp BP Pulse Ox 98.3 F 95 H 16 103/47 98 03/22/18 18:04 03/22/18 18:04 03/22/18 18:04 03/22/18 18:04 03/22/18 18:04 Laboratory Tests 03/22/18 03/22/18 13:20 13:20 WBC 29.1 H D Sodium 127 L Potassium 7.1 H* Chloride 97 L Carbon Dioxide 17 L Random Glucose 363 H* cardio s1s2 pulm cleart GI soft, benny drain incontinent ext neg edema neuro confusion skin diffuse rash circ pos pulses Impression 1. ELÍAS 2. hyperkalemia 3. sepsis 4. hyponatremia 5. DM uncontrolled 6. COPD 7. CVA Plan - admit pt to ICU - aggressive fluids as she appears hypovolemic - potassium treated medically, follow repeat labs - place walker catheter - check ua, lytes and wire mesh filter fabricator - check renal ultrasound - neuro evaluation - monitor renal response to fluids - pt did receive IV contrast for CTA, cont to monitor renal function - volume expand pt - discussed with ER team - send cultures
--- NOTE | 2018-03-22 22:19 | CONSULT ---
Consultation: REQUESTING PROVIDER: José Vizcarra MD CONSULT REQUEST: We have been asked to medically evaluate this patient for stroke . 77yo female with h/o DM, COPD, paroxysmal atrial fibrillation, multiple embolic strokes, depression who presented with left facial droop and right arm weakness. pt has a history of strole 3 weeks ago , she was discharged to [facility] for speach therapy , she has been deteriorting since then per family , she has poor oral intake and diffuse rash , pt is unable to provide any history all information was taken from the family and medical record IN ED CTA head showing evidence of a cerebellar infarct as well as marked narrowing of the distal right M1 segment.pt was also found to have ELÍAS , hyperkalemia and mild hyponatremia that is treated medically . pt will be amditted to ICU for further monitoring HISTORY OF PRESENT ILLNESS: REVIEW OF SYSTEMS: CONSTITUTIONAL: Absent: fever, chills, diaphoresis, generalized weakness, malaise, loss of appetite, weight change HEENT: Absent: rhinorrhea, nasal congestion, throat pain, throat swelling, difficulty swallowing, mouth swelling, ear pain, eye pain, visual changes CARDIOVASCULAR: Absent: chest pain, syncope, palpitations, irregular heart rate, lightheadedness , peripheral edema RESPIRATORY: Absent: cough, shortness of breath, dyspnea with exertion, orthopnea, wheezing, stridor, hemoptysis GASTROINTESTINAL: Absent: abdominal pain, abdominal distension, nausea, vomiting, diarrhea, constipation, melena, hematochezia GENITOURINARY: Absent: dysuria, frequency, urgency, hesitancy, hematuria, flank pain, genital pain MUSCULOSKELETAL: Absent: myalgia, arthralgia, joint swelling, back pain, neck pain SKIN: Absent: rash, itching, pallor HEMATOLOGIC/IMMUNOLOGIC: Absent: easy bleeding, easy bruising, lymphadenopathy, frequent infections UTI ENDOCRINE: Absent: unexplained weight gain, unexplained weight loss, heat intolerance, cold intolerance NEUROLOGIC: Absent: headache, focal weakness or paresthesias, dizziness, unsteady gait, seizure, mental status changes, bladder or bowel incontinence PSYCHIATRIC: Absent: anxiety, depression, suicidal or homicidal ideation, hallucinations. PHYSICAL EXAMINATION Vital Signs - 24 hr 03/22/18 03/22/18 12:51 18:04 Temperature 98.4 F 98.3 F Pulse Rate 100 H Pulse Rate [ 95 H Right Radial] Respiratory 20 16 Rate Blood Pressure 139/100 Blood Pressure 103/47 [Left Arm] O2 Sat by Pulse 97 98 Oximetry (%) GENERAL: AAOx 0 , follow simple commands HEAD: Normal with no signs of trauma. EYES: Pupils equal, round and reactive to light, extraocular movements intact, EARS, NOSE, THROAT: Ears normal, nares patent, oropharynx clear without exudates. very dry MM NECK: Normal range of motion, supple LUNGS: labored breathing , diffuse coarse breath sound , no crackles HEART: Afib 145 , normal S1 and S2 without murmur, rub or gallop. ABDOMEN: Soft, nontender, not distended, hypoactive bowel sounds, no guarding, no rebound, drainage on the right from the gall blader in place MUSCULOSKELETAL: LROM in upper and lower ext UPPER EXTREMITIES: 2+ pulses, warm, well-perfused. No cyanosis. No clubbing.delayed cap refill. No peripheral edema. diffuse erythematous rash LOWER EXTREMITIES: 2+ pulses, warm, well-perfused. No calf tenderness. No peripheral edema. diffuse erythematous rash NEUROLOGICAL: not able to assess due to AMS . SKIN: Warm, dry, diffuse erythematous rashes Laboratory Results - last 24 hr 03/22/18 03/22/18 03/22/18 12:54 13:05 13:20 WBC 29.1 H D RBC 4.03 Hgb 11.2 Hct 34.5 MCV 85.5 MCH 27.8 MCHC 32.5 RDW 14.2 Plt Count 426 D MPV 8.8 Neutrophils % 91.0 H Lymphocytes % 3.6 L D Monocytes % 4.5 Eosinophils % 0.0 D Basophils % 0.9 PT with INR INR Sodium Potassium Chloride Carbon Dioxide Anion Gap BUN Creatinine Creat Clearance w eGFR Random Glucose Calcium Phosphorus Magnesium Total Bilirubin AST ALT Alkaline Phosphatase Creatine Kinase Creatine Kinase Index CK-MB (CK-2) Troponin I Total Protein Albumin Triglycerides Cholesterol Total LDL Cholesterol HDL Cholesterol Urine Color Yellow Urine Appearance Turbid Urine pH 5.0 Ur Specific [place] 1.030 Urine Protein 2+ H Urine Glucose (UA) 1+ H Urine Ketones Negative Urine Blood 1+ H Urine Nitrite Negative Urine Bilirubin Negative Urine Urobilinogen Negative Ur Leukocyte Esterase Trace Urine WBC (Auto) 290 Urine RBC (Auto) 28 Blood Type O POSITIVE Antibody Screen Negative 03/22/18 03/22/18 03/22/18 13:20 13:20 18:32 WBC RBC Hgb Hct MCV MCH MCHC RDW Plt Count MPV Neutrophils % Lymphocytes % Monocytes % Eosinophils % Basophils % PT with INR 27.10 H INR 2.40 H D Sodium 127 L 128 L Potassium 7.1 H* 6.4 H* Chloride 97 L 97 L Carbon Dioxide 17 L 17 L Anion Gap 13 14 BUN 98 H 89 H Creatinine 5.7 H 5.2 H Creat Clearance w eGFR 7.23 8.04 Random Glucose 363 H* 333 H* Calcium 9.4 9.1 Phosphorus 3.4 Magnesium 0.9 L Total Bilirubin 0.4 D 0.5 D AST 32 27 ALT 21 19 Alkaline Phosphatase 107 105 Creatine Kinase 540 H Creatine Kinase Index 0.9 CK-MB (CK-2) 4.947 H Troponin I < 0.02 Total Protein 6.8 6.5 Albumin 2.8 L 2.6 L Triglycerides 185 H Cholesterol 71 Total LDL Cholesterol 22 HDL Cholesterol 35 L Urine Color Urine Appearance Urine pH Ur Specific [place] Urine Protein Urine Glucose (UA) Urine Ketones Urine Blood Urine Nitrite Urine Bilirubin Urine Urobilinogen Ur Leukocyte Esterase Urine WBC (Auto) Urine RBC (Auto) Blood Type Antibody Screen Active Medications Generic Name Dose Route Start Last Admin Trade Name Freq PRN Reason Stop Dose Admin Sodium Chloride 1,000 mls @ 150 mls/hr 03/22/18 17:30 03/22/18 17:37 Normal Saline - IV 150 mls/hr ASDIR BRITTANY Administration Piperacillin Sod/Tazobactam 50 mls @ 100 mls/hr 03/22/18 23:00 Sod 2.25 gm/ Dextrose IVPB Q8H-IV BRITTANY Protocol CBC, BMP 03/22/18 13:20 03/22/18 18:32 Images renal US : No hydronephrosis , normal morphology kidney CXR: No Acute pathology Head/Neck CTA: moderate to laurie narrowing in the distal right M1 segment ,no major artery cut off no anuerysm within ashely intracranial arteries Head Neck CTA :There is a short segment of moderate to marked narrowing in the distal right M1 segment. Otherwise , no major artery cutoff, vascular malformation or aneurysm are identified within the central intracranial arterial lesion. Narrowed/hypoplastic right P1 segment likely due to the presence of a right posterior communicating artery Tiny ossified plaque in the right bulb without evidence of hemodynamically significant stenosis. Small calcified plaques at the left common carotid bifurcation as well as the proximal left common carotid artery without evidence of hemodynamically significant stenosis ASSESSMENT/PLAN: 77 yo F admitted to the hospital for altered mental status and diffuse rash presented from [facility] . # Embolic stroke * pt is altered with delirium * h/o stroke 3 weeks ago, was at [facility] for speeach therapy , loss of appetite and low oral intake for the last week per family * Head /neck CTA as above * continue AC * Aspiration precaution * neuro consult * speach and swallow evaluation * PT when stable # Sepsis * wbx 29.1, HR 145 , RR 20 , temp 98.4 * horton cx , blood and urine * IV fluids , IV ABX zosyn 2.25 gm * CBC, CMP * IV tylenol for pain or fever * ID consult DR Lee * rapid strep negative #Hyperkalemia Hyponatremia * K 6.5 corrected medically with calcium gluconontae 10% and D50 and insuline regular 10 units * corrected NA 131 , continue IV fluids NS #ELÍAS likley due to volume depletion vs sepsis ? * BUN /CR 89/5.2, monitor * continue IV fluids * UA and Ucx , urine lytes * renal US with no hydronephrosis * place walker,monitor urine out put * Nephrology consulted Dr pereyra * all med renal doses * Anti GBM , C-ANCA , P-ANCA #paroxysmal afib * rate 145 in ER , BP 143/113 * one dose 10 mg IV deltiazim * monitor HR , continue cardiac monitoring * caridac profile #IDDM * BGM * ISS * NPO for now Diabetic diet when able to tolerate food , #Rash * diffuse erythematous rash on her body X1 weeks * possible med side effects vs fungus vs another unkown etiology * derm consult FEN * F : NS boluses and maintenance @ 150 CC/hr * E: hyperkalemia , corrected medically , monitor , hyponatremia * N: NPO Proph * DVTS': SCDS * GI: no needed at this time Despo: * Admit to ICU Dispo: We will continue to follow the patient. Thank you for this consultative opportunity. Visit type - Emergency Visit Emergency Visit: Yes ED Registration Date: 03/22/18 Care time: The patient presented to the Emergency Department on the above date and was hospitalized for further evaluation of their emergent condition. - New Patient This patient is new to me today: Yes Date on this admission: 03/22/18 - Critical Care Critical Care patient: Yes Total Critical Care Time (in minutes): 45 Critical Care Statement: The care of this patient involved high complexity decision making to prevent further life threatening deterioration of the patient 's condition and/or to evaluate & treat vital organ system(s) failure or risk of failure.
[2018-03-22 22:42] LABS: HEMOGLOBIN 10.5 GM/dL (10.7-15.3); MCH 27.9 pg (25.7-33.7); MCHC 32.7 g/dl (32.0-36.0); MEAN CELL VOLUME 85.3 fl (80-96); PLATELET COUNT 330 K/MM3 (134-434); RBC 3.75 M/mm3 (3.60-5.2); RDW 14.3 % (11.6-15.6)
[2018-03-22] MEDS ORDERED: PIPERACILLIN/TAZOB 2.25 GM 2.25 GM in DEXTROSE 5%-WATER - 50 ML IVPB SCH (23:00)
[2018-03-22] MEDS ORDERED: dilTIAZem HCL 50 MG/10 ML - 10 ML VIAL IVPUSH ONE (23:00)
[2018-03-22] MEDS ORDERED: dilTIAZem HCL 125 MG/25 ML - 25 ML VIAL ONE (23:06)
--- NOTE | 2018-03-22 23:26 | HP ---
Admitting History and Physical - Admission History of Present Illness: Briefly, 77 yo F h/o multiple embolic TIA/CVA, pafib on eliquis, COPD, IDDM, depression s/p electric shock therapy now in remission admitted to the hospital due to L facial droop and R arm weakness. While being worked up for stroke, patient's found to have Cr of 5.7 with normal baseline. Family at bedside denies any chronic kidney disease. Patient had cholecystitis with cholangitis and underwent percutaenous cholecystostomy. Per family, patient also has non- blanching, non-itchy diffuse rash for a week, after starting a cardiac drug. Denies fever, chills, chest pain, shortness of breath, n/v. 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 recently, long history of stuttering) Cardiovascular: Yes: HTN Pulmonary: Yes: COPD Gastrointestinal: Yes: Constipation, GI Bleed Renal/: Yes: Renal Inusuff Endocrine: Yes: Diabetes Mellitus (since she was 51 y/o) - Past Surgical History Past Surgical History: Yes: Joint Replacement (both knees X2 / both hips / surgey on right shoulder) - Smoking History Smoking history: Never smoked Have you smoked in the past 12 months: No - Alcohol/Substance Use Hx Alcohol Use: No - Social History ADL: Support Services History of Recent Travel: No Home Medications - Allergies Allergies/Adverse Reactions: Allergies Allergy/AdvReac Type Severity Reaction Status Date / Time sulfur dioxide Allergy Verified 03/22/18 12:59 - Home Medications Home Medications: Ambulatory Orders Atorvastatin Ca [Lipitor] 40 mg PO HS 30 Days #30 tablet 01/12/18 Lisinopril [Prinivil] 5 mg PO DAILY 30 Days #30 tablet 01/12/18 Melatonin 5 mg PO HS 02/22/18 Pantoprazole Sodium 40 mg PO DAILY 02/22/18 Risperidone 0.5 mg PO HS 02/22/18 Sitagliptin Phos/Metformin HCl [Janumet 50-1,000 mg Tablet] 1 each PO BID Venlafaxine HCl ER [Effexor Xr -] 37.5 mg PO DAILY 02/22/18 Acetaminophen [Tylenol .Regular Strength -] 650 mg PO Q4H PRN tablet 03/12/18 Acetaminophen [Tylenol .Regular Strength -] 650 mg PO Q4H PRN tablet 03/12/18 Apixaban [Eliquis -] 5 mg PO BID 30 Days #60 tablet 03/12/18 Apixaban [Eliquis -] 5 mg PO BID 30 Days #60 tablet 03/12/18 Calcium Carbonate - 650 mg PO BID tablet 03/12/18 Calcium Carbonate - 650 mg PO BID tablet 03/12/18 Cholecalciferol (Vitamin D3) [Vitamin D3 -] 1,000 unit PO DAILY tab 03/12/18 Cholecalciferol (Vitamin D3) [Vitamin D3 -] 2,000 unit PO DAILY tab 03/12/18 Diltiazem Cd [Cardizem Cd -] 120 mg PO BID cap.cd.24h 03/12/18 Diltiazem Cd [Cardizem Cd -] 120 mg PO BID cap.cd.24h 03/12/18 Insulin Sliding Scale [Novolog Vial Sliding Scale -] 1 vial SQ ACHS units 03/12 Insulin Sliding Scale [Novolog Vial Sliding Scale -] 1 vial SQ ACHS units 03/12 Loperamide HCl [Imodium -] 2 mg PO Q8H PRN capsule 03/12/18 Loperamide HCl [Imodium -] 2 mg PO Q8H PRN capsule 03/12/18 Pantoprazole Sodium [Protonix -] 40 mg PO DAILY 30 Days #30 tablet.ec 03/12/18 Pantoprazole Sodium [Protonix -] 40 mg PO DAILY 30 Days #30 tablet.ec 03/12/18 Valsartan [Diovan] 80 mg PO DAILY tablet 03/12/18 Valsartan [Diovan] 80 mg PO DAILY tablet 03/12/18 Vancomycin Oral Solution 125 mg PO Q6HPO 10 Days #150 ml 03/12/18 Vancomycin Oral Solution 125 mg PO Q6HPO 10 Days #150 ml 03/12/18 Zolpidem Tartrate [Ambien] 5 mg PO HS 7 Days #7 tablet MDD 5mg 03/12/18 Zolpidem Tartrate [Ambien] 5 mg PO HS PRN 7 Days #7 tablet MDD 5 mg 03/12/18 Family Disease History - Family Disease History Family Disease History: Other: Father (stroke), Mother (stroke), Sister (strokes , first in her 40's) Physical Examination Vital Signs: Vital Signs Temperature 98.3 F 03/22/18 18:04 Pulse Rate 95 H 03/22/18 18:04 Respiratory Rate 16 03/22/18 18:04 Blood Pressure 103/47 03/22/18 18:04 O2 Sat by Pulse Oximetry (%) 98 03/22/18 18:04 Labs: CBC, BMP 03/22/18 22:15 03/22/18 18:32
[2018-03-22 23:32] LABS: PLATELET ESTIMATE ADEQUATE
[2018-03-23 02:24] VITALS: BMI 27.1
[2018-03-23] MEDS: ACETAMINOPHEN 1000 MG/100 ML VIAL (NON FORMULARY) IVPB PRN ×3 (02:44→19:45)
[2018-03-23] MEDS ORDERED: LACTATED RINGERS SOLUTION 1,000 ML/1,000 ML INFUS.BAG IV ONE (05:09)
[2018-03-23 06:34] LABS: HEMATOCRIT 26.6 % (32.4-45.2); HEMOGLOBIN 9.1 GM/dL (10.7-15.3); MCH 28.9 pg (25.7-33.7); MEAN CELL VOLUME 84.9 fl (80-96); MEAN PLT VOLUME 9.5 fl (7.5-11.1); PLATELET COUNT 274 K/MM3 (134-434); RBC 3.13 M/mm3 (3.60-5.2); RDW 14.4 % (11.6-15.6); WHITE BLOOD COUNT 26.2 K/mm3 (4.0-10.0)
[2018-03-23 06:43] LABS: INR 1.92 (0.82-1.09); PROTHROMBIN TIME (PATIENT) 21.7 SEC (9.7-13.0)
[2018-03-23 06:45] LABS: ACTIVATED PTT 27.3 SECONDS (26.9-34.4)
[2018-03-23 06:46] LABS: ARTERIAL BLD GAS O2 SATURATION 98.5 % (90-98.9); ARTERIAL BLOOD GAS BASE EXCESS -9.1 meq/l (-2-2); ARTERIAL BLOOD GAS PCO2 28.3 mmHg (35-45); ARTERIAL BLOOD GAS pH 7.35 (7.35-7.45)
[2018-03-23 06:47] LABS: ALLENS TEST POSITIVE
[2018-03-23] MEDS: INSULIN SLIDING SCALE (NOVOLOG) 1 VIAL SQ SCH ×4 (07:10→23:00)
[2018-03-23 07:12] LABS: CHLORIDE 101 mmol/L (98-107); SODIUM 129 mmol/L (136-145)
[2018-03-23 07:20] LABS: ALBUMIN 2.1 g/dl (3.4-5.0); ALK PHOS 83 U/L (45-117); ANION GAP 9 (8-16); BILIRUBIN,TOTAL 0.7 mg/dL (0.2-1.0); BLOOD UREA NITROGEN 83 mg/dL (7-18); CALCIUM 8.2 mg/dL (8.5-10.1); CO2 19 mmol/L (21-32); CREATININE 4.6 mg/dL (0.55-1.02); GLUCOSE,RANDOM 251 mg/dL (74-106); PHOSPHOROUS 2.9 mg/dL (2.5-4.9); SGOT/AST 36 U/L (15-37); SGPT/ALT 18 U/L (12-78); TOT PROT 5.3 g/dl (6.4-8.2)
--- NOTE | 2018-03-23 07:25 | PN ---
Progress Note, Physician Chief Complaint: ID Patient is well known to me from her recent admission for cholecysitis and cholangitis Admitted with new CVA Known to have had recent infarcts last admission imaging Febrile on admission Alert NAD - Current Medication List Current Medications: Active Medications Acetaminophen (Ofirmev Injection -) 1,000 mg IVPB Q6H PRN PRN Reason: FEVER Last Admin: 03/23/18 02:44 Dose: 1,000 mg Sodium Chloride (Normal Saline -) 1,000 mls @ 150 mls/hr IV ASDIR BRITTANY Last Admin: 03/22/18 17:37 Dose: 150 mls/hr Piperacillin Sod/Tazobactam (Sod 2.25 gm/ Dextrose) 50 mls @ 100 mls/hr IVPB Q8H-IV BRITTANY PRN Reason: Protocol Last Admin: 03/23/18 01:06 Dose: 100 mls/hr Insulin Aspart (Novolog Vial Sliding Scale -) 1 vial SQ TIDAC BRITTANY PRN Reason: Protocol Last Admin: 03/23/18 07:10 Dose: 4 units Nystatin (Nystop Powder -) 1 applic TP DAILY BRITTANY - Objective Vital Signs: Vital Signs Temperature 98.4 F 03/23/18 06:01 Pulse Rate 104 H 03/23/18 06:01 Respiratory Rate 20 03/23/18 06:01 Blood Pressure 100/71 03/23/18 06:01 O2 Sat by Pulse Oximetry (%) 95 03/23/18 02:28 Constitutional: Yes: Well Nourished, No Distress HENT: Yes: WNL, Atraumatic, Thrush Neck: Yes: WNL, Supple Cardiovascular: Yes: Tachycardia, S1, S2 Respiratory: Yes: WNL, Regular, CTA Bilaterally. No: Rales, Rhonchi Gastrointestinal: Yes: WNL, Normal Bowel Sounds, Soft, Other (Drain RUQ tender no rebound) Genitourinary: Yes: Other (Pus in walker) Breast(s): Yes: Other (Rash) Edema: No Integumentary: Yes: Rash Labs: CBC, BMP 03/23/18 05:26 INR, PTT INR 1.92 (0.82-1.09) H 03/23/18 05:26 Problem List - Problems (1) UTI (urinary tract infection) Code(s): N39.0 - URINARY TRACT INFECTION, SITE NOT SPECIFIED (2) CVA (cerebral vascular accident) Code(s): I63.9 - CEREBRAL INFARCTION, UNSPECIFIED Qualifiers: CVA mechanism: unspecified Qualified Code(s): I63.9 - Cerebral infarction, unspecified (3) Cholecystitis with cholangitis Code(s): K81.9 - CHOLECYSTITIS, UNSPECIFIED; K83.0 - CHOLANGITIS (4) Diabetes mellitus Code(s): E11.9 - TYPE 2 DIABETES MELLITUS WITHOUT COMPLICATIONS Qualifiers: Diabetes mellitus type: type 2 Diabetes mellitus terminal worker insulin use: with terminal worker use Diabetes mellitus complication status: with neurologic complications (5) Acute renal failure Code(s): N17.9 - ACUTE KIDNEY FAILURE, UNSPECIFIED (6) Sacral decubitus ulcer Code(s): L89.159 - PRESSURE ULCER OF SACRAL REGION, UNSPECIFIED STAGE (7) Drug rash Code(s): L27.0 - GEN SKIN ERUPTION DUE TO DRUGS AND MEDS TAKEN INTERNALLY Assessment/Plan Microbiology 03/22/18 15:30 Throat Group A Strep Rapid Antigen - Final 03/08/18 15:12 Stool Clostridium difficile Antigen (LORETA) - Final 03/08/18 15:12 Stool Clostridium difficile Toxin Assay - Final 02/26/18 14:30 Bile Gram Stain - Final 02/26/18 14:30 Bile Anaerobic Culture - Final Escherichia Coli Enterococcus Faecium Proteus Mirabilis NO ANAEROBES WERE ISOLATED 01/10/18 19:00 Urine - Urine Clean Catch Urine Culture - Final Contaminated: Please Repeat Laboratory Tests 03/22/18 03/22/18 03/22/18 13:05 18:32 22:15 WBC Hgb Hct Plt Count Neutrophils % (Manual) 88.0 H Band Neutrophils % 6.0 Lymphocytes % (Manual) 4.0 L Monocytes % (Manual) 2 L INR Sodium 128 L Potassium 6.4 H* BUN 89 H Creatinine 5.2 H Creat Clearance w eGFR 8.04 Random Glucose 333 H* Total Bilirubin 0.5 D Ur Leukocyte Esterase Trace Urine WBC (Auto) 290 Urine RBC (Auto) 28 03/23/18 03/23/18 05:26 05:26 WBC 26.2 H Hgb 9.1 L D Hct 26.6 L D Plt Count 274 Neutrophils % (Manual) Band Neutrophils % Lymphocytes % (Manual) Monocytes % (Manual) INR 1.92 H Sodium Potassium BUN Creatinine Creat Clearance w eGFR Random Glucose Total Bilirubin Ur Leukocyte Esterase Urine WBC (Auto) Urine RBC (Auto) Assessment Acute CVA with history of recent stroke Cholecysitits S/P drainage catheter insertion Acute on chronic kidney failure Urinary tract infection Rash drug reaction ? Got Zosyn inpatient ?"cardiac drug" per Dr Kumar Leukocytosis ? UTI though her WBC was high in the hospital previously and a C diff toxin was negative Sacral ulcer is new Fungal rash with thrush glossal Plan Blood urine cultures Dose of Vancomycn along with Cefepime Send bile culture Diflucan Topical antifungal to breast If WBC remains elevated CT of the abd for collection Debridement of sacral decub ICU time spent 40 minutes Main AVILA
[2018-03-23] MEDS ORDERED: MAGNESIUM SULF 50% (8.12 MEQ/2 ML-1 GM VIAL) IVPB ONE ×2 (07:42→09:53)
[2018-03-23 07:45] LABS: MAGNESIUM 0.7 mg/dL (1.8-2.4); POTASSIUM 7.1 mmol/L (3.5-5.1)
[2018-03-23] MEDS ORDERED: INSULIN REGULAR HUMAN 100 UNITS/ML *VIAL IVPUSH ONE ×2 (07:47→14:37)
[2018-03-23] MEDS ORDERED: DEXTROSE 50%-WATER - 25 GM/50 ML VIAL IVPUSH ONE ×3 (07:50→14:41)
[2018-03-23] MEDS ORDERED: ALBUTEROL SO4 0.083% IH SOL 2.5 MG/3 ML VIAL.NEB. NEB ONE ×2 (07:51→14:40)
[2018-03-23] MEDS ORDERED: SODIUM POLYSTYRENE SULFONATE 15 GM/60 ML BOTTLE PO ONE ×4 (07:52→14:38)
[2018-03-23] MEDS ORDERED: CALCIUM GLUCONATE 10% - 1,000 MG/10 ML VIAL IVPUSH ONE (08:30)
--- NOTE | 2018-03-23 08:31 | CON.NEURO ---
Consult - History of Present Illness History of Present Illness: 77 year old female with a significant PMH of recent CVA & TIA, COPD, diabetes, recent multiple embolic CVA -dx with AFIB and started on Eliquis use who presents to the emergency department with speech difficulty and weakness on 03/22. As per EMS, the patient was at baseline before 12PM but afterwards began to slightly slur her words and develop right sided weakness and left side facial droop. CTA was done in ER IMPRESSION: See discussion above There is a short segment of moderate to marked narrowing in the distal right M1 segment. Otherwise , no major artery cutoff, vascular malformation or aneurysm are identified within the central intracranial arterial lesion. Narrowed/hypoplastic right P1 segment likely due to the presence of a right posterior communicating artery Tiny ossified plaque in the right bulb without evidence of hemodynamically significant stenosis. 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 recently, long history of stuttering) Cardio/Vascular: Yes: HTN Pulmonary: Yes: COPD Gastrointestinal: Yes: Constipation, GI Bleed Renal/: Yes: Renal Inusuff ...: No Endocrine: Yes: Diabetes Mellitus (since she was 51 y/o) - Past Surgical History Past Surgical History: Yes: Joint Replacement (both knees X2 / both hips / surgey on right shoulder) - Alcohol/Substance Use Hx Alcohol Use: No - Smoking History Smoking history: Never smoked Have you smoked in the past 12 months: No - Social History ADL: Support Services History of Recent Travel: No Home Medications - Allergies Allergies/Adverse Reactions: Allergies Allergy/AdvReac Type Severity Reaction Status Date / Time sulfur dioxide Allergy Verified 03/22/18 12:59 lactose AdvReac Verified 03/23/18 12:17 - Home Medications Home Medications: Ambulatory Orders Atorvastatin Ca [Lipitor] 40 mg PO HS 30 Days #30 tablet 01/12/18 Lisinopril [Prinivil] 5 mg PO DAILY 30 Days #30 tablet 01/12/18 Melatonin 5 mg PO HS 02/22/18 Pantoprazole Sodium 40 mg PO DAILY 02/22/18 Risperidone 0.5 mg PO HS 02/22/18 Sitagliptin Phos/Metformin HCl [Janumet 50-1,000 mg Tablet] 1 each PO BID Venlafaxine HCl ER [Effexor Xr -] 37.5 mg PO DAILY 02/22/18 Acetaminophen [Tylenol .Regular Strength -] 650 mg PO Q4H PRN tablet 03/12/18 Acetaminophen [Tylenol .Regular Strength -] 650 mg PO Q4H PRN tablet 03/12/18 Apixaban [Eliquis -] 5 mg PO BID 30 Days #60 tablet 03/12/18 Apixaban [Eliquis -] 5 mg PO BID 30 Days #60 tablet 03/12/18 Calcium Carbonate - 650 mg PO BID tablet 03/12/18 Calcium Carbonate - 650 mg PO BID tablet 03/12/18 Cholecalciferol (Vitamin D3) [Vitamin D3 -] 1,000 unit PO DAILY tab 03/12/18 Cholecalciferol (Vitamin D3) [Vitamin D3 -] 2,000 unit PO DAILY tab 03/12/18 Diltiazem Cd [Cardizem Cd -] 120 mg PO BID cap.cd.24h 03/12/18 Diltiazem Cd [Cardizem Cd -] 120 mg PO BID cap.cd.24h 03/12/18 Insulin Sliding Scale [Novolog Vial Sliding Scale -] 1 vial SQ ACHS units 03/12 Insulin Sliding Scale [Novolog Vial Sliding Scale -] 1 vial SQ ACHS units 03/12 Loperamide HCl [Imodium -] 2 mg PO Q8H PRN capsule 03/12/18 Loperamide HCl [Imodium -] 2 mg PO Q8H PRN capsule 03/12/18 Pantoprazole Sodium [Protonix -] 40 mg PO DAILY 30 Days #30 tablet.ec 03/12/18 Pantoprazole Sodium [Protonix -] 40 mg PO DAILY 30 Days #30 tablet.ec 03/12/18 Valsartan [Diovan] 80 mg PO DAILY tablet 03/12/18 Valsartan [Diovan] 80 mg PO DAILY tablet 03/12/18 Vancomycin Oral Solution 125 mg PO Q6HPO 10 Days #150 ml 03/12/18 Vancomycin Oral Solution 125 mg PO Q6HPO 10 Days #150 ml 03/12/18 Zolpidem Tartrate [Ambien] 5 mg PO HS 7 Days #7 tablet MDD 5mg 03/12/18 Zolpidem Tartrate [Ambien] 5 mg PO HS PRN 7 Days #7 tablet MDD 5 mg 03/12/18 Family Disease History - Family Disease History Family Disease History: Other: Father (stroke), Mother (stroke), Sister (strokes , first in her 40's) Physical Exam-Neuro Vital Signs: Vital Signs Temperature 98.4 F 03/23/18 06:01 Pulse Rate 100 H 03/23/18 08:00 Respiratory Rate 22 03/23/18 08:00 Blood Pressure 121/55 03/23/18 08:00 O2 Sat by Pulse Oximetry (%) 95 03/23/18 02:28 Labs: CBC, BMP 03/23/18 05:26 03/23/18 05:26 INR, PTT INR 1.92 (0.82-1.09) H 03/23/18 05:26 - Neuro Exam Level Of Consciousness: Yes: Sedated (somnolent, dysarthric, and ? aphasia, L > R weakness, poor follwoing requests , reflex trace, gait not tested) Problem List - Problems (1) Drug rash Code(s): L27.0 - GEN SKIN ERUPTION DUE TO DRUGS AND MEDS TAKEN INTERNALLY (2) Renal insufficiency Code(s): N28.9 - DISORDER OF KIDNEY AND URETER, UNSPECIFIED (3) Sacral decubitus ulcer Code(s): L89.159 - PRESSURE ULCER OF SACRAL REGION, UNSPECIFIED STAGE (4) UTI (urinary tract infection) Code(s): N39.0 - URINARY TRACT INFECTION, SITE NOT SPECIFIED (5) CVA (cerebral vascular accident) Code(s): I63.9 - CEREBRAL INFARCTION, UNSPECIFIED Qualifiers: CVA mechanism: unspecified Qualified Code(s): I63.9 - Cerebral infarction, unspecified Assessment/Plan 77 year old female with a significant PMH of recent CVA & TIA, COPD, diabetes, recent multiple embolic CVA -dx with AFIB and started on Eliquis , complicated by cholangitis last hospital stay presents to the emergency department with speech difficulty and weakness on 03/22/18. As per EMS, the patient was at baseline before 12PM but afterwards began to slightly slur her words and develop right sided weakness and left side facial droop. found to have elevated WBC / rash and Acute on chronic kidney failure -- not given TPA given she was on AC and sx thought to be related to underlying metabolic /infectious etiology started on ABX/ID following check MRI BRAIN to ensure no new embolic events can continue AC Dr Veliz
[2018-03-23] MEDS ORDERED: DEXTROSE 50%-WATER 25 GM/50 ML DISP.SYRIN ONE ×2 (08:58→15:30)
[2018-03-23] MEDS: SODIUM CHLORIDE 1,000 ML IV SCH (09:00)
[2018-03-23] MEDS ORDERED: MAGNESIUM SULFATE IN WATER 2 GM/50 ML IVPB IVPB ONE (09:00)
[2018-03-23] MEDS ORDERED: CEFEPIME 2 GM in DEXTROSE 5%-WATER 100 ML IVPB ONE (09:00)
[2018-03-23] MEDS ORDERED: VANCOMYCIN 1,250 MG in DEXTROSE 5%-WATER - 250 ML IVPB ONE (09:00)
[2018-03-23] MEDS ORDERED: SODIUM POLYSTYRENE SULFONATE 15 GM/60 ML BOTTLE RC ONE (09:14)
[2018-03-23 09:19] LABS: ACANTHOCYTES 0; ANISOCYTOSIS 0; HELMET CELLS 0; HOWELL-JOLLY BODIES 0; MACROCYTOSIS 0; OVALOCYTE 0; PLATELET ESTIMATE NORMAL; ROULEAU 0; SICKELED CELLS 0; TARGET CELLS 0; TEAR DROP CELLS 0; TOXIC GRANULATION 0
--- NOTE | 2018-03-23 09:30 | CONS ---
INFECTIOUS DISEASE CONSULTATION DATE OF CONSULTATION: DATE OF DICTATION: 03/23/2018 HISTORY OF PRESENT ILLNESS: This is a 77-year-old white female with a history of recent stroke, COPD, diabetes, and cholecystitis, who was readmitted to the emergency room with a chief complaint of difficult speech which began yesterday. She was noted to slur her words yesterday and had developed right-sided weakness and a left-sided facial droop. She had previously been seen for this on January 12 and again in February. I had seen her in consultation on March 01, following her admission for stroke. During that admission, she developed a new complaint of right upper quadrant pain and was seen by Dr. Naranjo. A sonogram February 25 showed cholelithiasis and dilatation of the common bile duct. Given her medical issues at that time, she underwent tube decompression of the gallbladder percutaneously in Interventional Radiology with symptomatic improvement of her pain. A bile culture dated February 26 was polymicrobial with E coli, enterococcus, and proteus. She was treated at that time initially with ceftriaxone and metronidazole and later switched to piperacillin-tazobactam. Here, the patient was noted to be febrile. Blood and urine cultures were obtained. Her drainage catheter from her last admission remains in place. She was also noted to be in acute renal failure; this was new. Additionally, she was found to have a large, stage III to IV sacral decubitus ulcer. Again, she is a known diabetic. PAST MEDICAL HISTORY: Includes COPD, paroxysmal atrial fibrillation, chronic kidney disease, insulin-dependent diabetes, recent stroke, recent cholecystitis. MEDICATIONS: Eliquis, Glucophage, Cardizem, Actol, Lipitor, insulin, Reglan, Protonix. ALLERGIES: Possible SULFA. SOCIAL HISTORY: Has been in a longterm now, but previously lived alone. Never smoked or used alcohol. FAMILY HISTORY: Positive for stroke. REVIEW OF SYSTEMS: Respiratory: No cough or shortness of breath. Cardiac: History of paroxysmal atrial fibrillation. No syncope, palpitations. Gastrointestinal: Denies abdominal pain, nausea, vomiting, diarrhea. Genitourinary: Nava catheter inserted for I and O with purulent urine noted. Neuromuscular: Current stroke with aphasia, weakness, and facial droop on admission. PHYSICAL EXAMINATION: General: She was a pleasant, elderly woman in no acute distress. Vital signs: The temperature maximum was 100.7, current 98.4, blood pressure 100/71, pulse 141. HEENT: Sclerae are anicteric. The oropharynx with some mild glossal candidiasis. Neck: Supple without adenopathy or carotid bruit. Lungs: Clear to percussion and auscultation. Heart: S1, S2. Regular rhythm. Tachycardiac without audible murmur. Abdomen: Soft. Positive bowel sounds with a drainage catheter in the right upper quadrant. The right upper quadrant had mild tenderness, but no guarding or rebound. No palpable mass. Extremities: Revealed no clubbing, cyanosis or edema. Skin: Revealed a fungal rash under the breast. Additionally, a stage III to IV sacral decubitus ulcer was noted. LABORATORY DATA: The white count was 26.2, hemoglobin 9.1, platelets of 274 with a left shift noted. INR of 1.92. BUN of 98 on admission with a creatinine of 5.7, sodium 127, potassium 7.1, glucose 363. Liver enzymes within normal limits. Lactic acid 1.9. Blood and urine cultures pending. IMAGING: Chest x-ray was reviewed; shows no sign of infiltrate. CT of the head shows an acute, nonhemorrhagic right cerebellar infarct noted posteriorly with late subacute and chronic bilateral cerebral infarcts dating back to March 02. ASSESSMENT: 1. Acute cerebrovascular accident with history of recent cerebrovascular accidents in February 2018. 2. Urinary tract infection with purulent urine noted in the Nava catheter. 3. Recent diagnosis of cholecystitis, cholangitis. Status post drainage catheter Interventional Radiology insertion. Tube remains in place. 4. Diabetes mellitus. Poorly controlled blood sugar noted on admission. 5. Acute renal failure superimposed on chronic renal failure. 6. New-onset sacral decubitus ulcer. 7. Drug rash. According to Dr. Kumar's notes, may be related to a cardiac rash. She had previously received Zosyn while in the hospital during her last admission. PLAN: Blood and urine cultures. Will give a dose of vancomycin 1.25 g now, along with cefepime empirically. Will send in addition a bile culture. Oral Diflucan for oral thrush, as well as cutaneous candidiasis. Topical antifungal Lotrimin to breast area. Debridement of sacral decubitus ulcer. Should white count remain elevated, will need a CT imaging of the abdomen to rule out abscess. Current sonogram performed yesterday shows no evidence of hydronephrosis. INTENSIVE CARE UNIT TIME: Spent 40 minutes today reviewing the chart, examining the patient, and formulating plan. BYRANT NARAYANAN M.D. SRI/[id number]
--- NOTE | 2018-03-23 09:31 | PN ---
Progress Note (short form) - Note Progress Note: Wound Care Concult - Dr. Grimm Called to evaluate 77yo female with acral ulcer: PMHX: Acute CVA with history of recent stroke Cholecysitits S/P drainage catheter insertion Acute on chronic kidney failure UTI Sacrum: Purple discoloration to skin inferior portion of sacrum to include pilonidal cleft/gluteal fold indicating a DTI. Soft tissue maceration near pilonidal cleft. No bogginess/induration/fluctuance. No foul odor emanating from wound. No discharge Problem List - Problems (1) Deep tissue injury Assessment/Plan: Offload all pressure sensitive areas. Frequent repositioning every hour as ordered Optifoam dressing Above discussed with Dr. Grmim and agrees Code(s): T14.8XXA - OTHER INJURY OF UNSPECIFIED BODY REGION, INITIAL ENCOUNTER
--- NOTE | 2018-03-23 10:23 | PN ---
Progress Note (short form) - Note Progress Note: 77 y/o female admitted to ICU for weakness/facial drooping. Pt found lying in bed. Speech garbled at times but color improved and recognizes SNAG GRINDER. Vital Signs Period Temp Pulse Resp BP Sys/[place] Pulse Ox Last 24 Hr 98.3 F-100.7 F 95-141 11-22 83-149/47-134 93-100 CBC, BMP 03/23/18 05:26 03/23/18 05:26 HEENT- NL, O2 in place Neck-Supple Lungs- CTAB Heart- S1/S2 Abd- soft, NT, Cholecystostomy bag in place with approx 30 cc dark gold liquid. - Nava in place. Urine yellow and clear Ext-No LE edema Active Medications Acetaminophen (Ofirmev Injection -) 1,000 mg IVPB Q6H PRN PRN Reason: FEVER Last Admin: 03/23/18 02:44 Dose: 1,000 mg Clotrimazole (Lotrimin 1% Cream -) 1 applic TP BID BRITTANY Sodium Chloride (Normal Saline -) 1,000 mls @ 150 mls/hr IV ASDIR BRITTANY Last Admin: 03/23/18 09:00 Dose: 150 mls/hr Vancomycin HCl 1,250 mg/ (Dextrose) 250 mls @ 250 mls/2 hr IVPB ONCE ONE PRN Reason: Protocol Stop: 03/23/18 10:59 Cefepime HCl 0.5 gm/ Dextrose 100 mls @ 200 mls/hr IVPB BID BRITTANY PRN Reason: Protocol Fluconazole (Diflucan 100 Mg/D5w Premixed Ivpb -) 50 mls @ 50 mls/hr IVPB DAILY BRITTANY Insulin Aspart (Novolog Vial Sliding Scale -) 1 vial SQ TIDAC BRITTANY PRN Reason: Protocol Last Admin: 03/23/18 07:10 Dose: 4 units Nystatin (Nystop Powder -) 1 applic TP DAILY BRITTANY Sodium Polystyrene Sulfonate (Kayexalate -) 30 gm PO ONCE ONE Stop: 03/23/18 10:23 #IDDM Novolog sliding scale #Acute Renal Failure CK still elevated but improving NS 150 cc per hour #UTI IV vanco/ Cefepime # Rash Lotrimin BID/ Fluconazole IV #Hyperkalemia Kayexalate admin Trend Potassium #Hypomagnesium 2 gm Magnesium sulfate IV once Trend Magnesium level
--- NOTE | 2018-03-23 10:24 | EKG ---
Test Reason : Blood Pressure : / mmHG Vent. Rate : 117 BPM Atrial Rate : 117 BPM P-R Int : 146 ms QRS Dur : 076 ms QT Int : 286 ms P-R-T Axes : 022 -11 095 degrees QTc Int : 398 ms SINUS TACHYCARDIA CANNOT RULE OUT ANTERIOR INFARCT (CITED ON OR BEFORE 22-MAR-2018) ABNORMAL ECG WHEN COMPARED WITH ECG OF 22-MAR-2018 18:46, NO SIGNIFICANT CHANGE WAS FOUND Confirmed by MADISON VANEGAS MD ([id number]) on 03/23/2018 10:24:19 AM Referred By: Confirmed By:MADISON VANEGAS MD
[2018-03-23] MEDS: CLOTRIMAZOLE 1% CREAM 15 GM TUBE TP SCH ×2 (10:38→22:11)
[2018-03-23] MEDS: FLUCONAZOLE 100 MG/D5W 50 ML IVPB SCH (10:38)
--- NOTE | 2018-03-23 11:02 | CONSULT ---
Admitting History and Physical - Primary Care Physician PCP: Carmita Kumar I - Admission History of Present Illness: History of Present Illness: 77 year old female with a significant PMH of recent CVA & TIA, COPD, diabetes, recent multiple embolic CVA -dx with AFIB and started on Eliquis use who presents to the emergency department with speech difficulty and weakness on 03/22. As per EMS, the patient was at baseline before 12PM but afterwards began to slightly slur her words and develop right sided weakness and left side facial droop. ID IMP:Assessment Acute CVA with history of recent stroke Cholecysitits S/P drainage catheter insertion Acute on chronic kidney failure Urinary tract infection Rash drug reaction ? Got Zosyn inpatient ?"cardiac drug" per Dr Kumar Leukocytosis ? UTI though her WBC was high in the hospital previously and a C diff toxin was negative Sacral ulcer is new Fungal rash with thrush glossal This is my first consult with Karin, CT Head Acute non hem Right cerebellar infarct. Per chart, long history of stuttering. "Shivering" c/o feeling cold. Nursing made aware. Pt says she is in her mother's house. 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 (encephalopathy recently, long history of stuttering) Cardiovascular: Yes: HTN Pulmonary: Yes: COPD Gastrointestinal: Yes: Constipation, GI Bleed Renal/: Yes: Renal Inusuff ...: No Endocrine: Yes: Diabetes Mellitus (since she was 51 y/o) - Past Surgical History Past Surgical History: Yes: Joint Replacement (both knees X2 / both hips / surgey on right shoulder) - Advance Directives Advance Directives: Yes: Health Care Proxy - Smoking History Smoking history: Never smoked Have you smoked in the past 12 months: No - Alcohol/Substance Use Hx Alcohol Use: No - Social History ADL: Support Services History of Recent Travel: No History - Admission Reason For Visit: HYPONATREMIA,RENAL INSUFF,HYPERKALEMIA - Diagnostics CT Scan: Report Reviewed ( CT Head Acute non hem Right cerebellar infarct.) Other: Report Reviewed ( short segment of moderate to marked narrowing in the distal right M1 segment. Otherwise , no major artery cutoff, vascular malformation or aneurysm are identified within the central intracranial arterial lesion. Narrowed/hypoplastic right P1 segment likely due to the presence of a right posterior communicating artery Tiny ossified plaque in the right bulb without evidence of hemodynamically significant stenosis. Small calcified plaques at the left common carotid bifurcation as well as the proximal left common carotid artery without evidence of hemodynamically significant stenosis) - General Mental Status: Awake and Alert, Confused Attention: Moderate Impairment (Does not gaze/track to the left. Intermittent to the right. Impaired attention with high distractibility.) Ability to Follow Directions: Poor (delayed, requires repetition) - Hearing Hearing: Functional Hearing Aide: No With Patient: No Speech Evaluation - Communication Primary Language: CHINESE Communication: Yes: Simple Responses Oral Expression Ability: Yes: Moderate Impairment - Speech Production Intelligibility: Yes: Moderately Impaired - Speech Characteristics Voice Loudness: Mildly Soft/Quiet Voice Pitch: Yes: Normal Voice Phonatory-based Quality: Yes: Normal Speech Pattern: Impaired Speech Clarity: < 50% Nasal Resonance: Normal Articulation: Yes: Precise Rate of Speech: Too Fast (dysfluent. At times more intelligible.) - Language/Auditory Comprehension Observation: Benefits from Slow Speech: Yes, Benefits from Repetiton: Yes, Benefits from Increased Volume of Speech: Yes - Language/Verbal Expression Able to Communicate Wants and Needs: Yes: Mildly Impaired, Moderately Impaired - Swallow Evaluation/Bedside Assessment Current Nutritional Intake: NPO Oral Secretions: Yes: WFL Dentition: Yes: Edentulous Facial Symmetry at Rest: Facial Droop Left Lingual Movement: Symmetric (coated? did not protrude tongue sufficiently), Reduced Protrusion Laryngeal Movement: Able to Palpate, Labored,delay initiation Rate of Intake: WFL Bolus Size: WFL Labial Seal: WFL Oral Prep Time: WFL A-P Transit: WFL Pocketing: None Timing of Swallow: Delayed Coughing/Throat Clear: Yes (thin liquid) Recommendations - Speech Evaluation, Impression/Plan Impression: Dysfluent. Confused.Cough response on thin liquids. - Dysphagia Impressions/Plan Swallowing Skills: Impaired Dysphagia Impressions: Ongoing Evaluation *Silent aspiration: cannot be R/O at bedside Dysphagia Treatment Plan: Chin Tuck/Down, 1/2 tsp. at a time, Elevate HOB during feed Recommendations: Modified Barium Swallow (If cough, congestion, fever.) - Recommendations Diet Consistency: Dysphagia Pureed (Diabetic diet) Medication Administration: Crushed with applesauce Liquids: [place] Thick Supplement: Magic Cup
--- NOTE | 2018-03-23 11:09 | EKG ---
Test Reason : Blood Pressure : / mmHG Vent. Rate : 104 BPM Atrial Rate : 104 BPM P-R Int : 162 ms QRS Dur : 080 ms QT Int : 312 ms P-R-T Axes : 056 002 075 degrees QTc Int : 410 ms POOR DATA QUALITY, INTERPRETATION MAY BE ADVERSELY AFFECTED SINUS TACHYCARDIA CANNOT RULE OUT ANTERIOR INFARCT , AGE UNDETERMINED ABNORMAL ECG WHEN COMPARED WITH ECG OF 28-FEB-2018 14:53, SINUS RHYTHM HAS REPLACED ATRIAL FIBRILLATION Confirmed by MADISON VANEGAS MD ([id number]) on 03/23/2018 11:08:56 AM Referred By: Confirmed By:MADISON VANEGAS MD
--- NOTE | 2018-03-23 11:33 | PN ---
Teaching Attending Note Name of Resident: Annette Camacho ATTENDING PHYSICIAN STATEMENT I saw and evaluated the patient. I reviewed the resident's note and discussed the case with the resident. I agree with the resident's findings and plan as documented. SUBJECTIVE: Pt seen and examined in the ICU. Awake and alert. Mildly confused. Apparently increased RUE weakness as compared to yesterday. She denies CP or SOB, but does report that she feels "unwell". Severe Hyperkalemia noted (7.1). Intake & Output 03/20/18 03/21/18 03/22/18 03/23/18 23:59 23:59 23:59 23:59 Intake Total 2430 1350 Output Total 2030 350 Balance 400 1000 Weight 165 lb 163 lb 8 oz Last Vital Signs Temp Pulse Resp BP Pulse Ox 98.2 F 122 H 23 107/77 100 03/23/18 10:00 03/23/18 10:00 03/23/18 10:00 03/23/18 10:00 03/23/18 08:00 Active Medications Acetaminophen (Ofirmev Injection -) 1,000 mg IVPB Q6H PRN PRN Reason: FEVER Last Admin: 03/23/18 02:44 Dose: 1,000 mg Clotrimazole (Lotrimin 1% Cream -) 1 applic TP BID BRITTANY Last Admin: 03/23/18 10:38 Dose: 1 applic Sodium Chloride (Normal Saline -) 1,000 mls @ 150 mls/hr IV ASDIR BRITTANY Last Admin: 03/23/18 09:00 Dose: 150 mls/hr Cefepime HCl 0.5 gm/ Dextrose 100 mls @ 200 mls/hr IVPB BID BRITTANY PRN Reason: Protocol Fluconazole (Diflucan 100 Mg/D5w Premixed Ivpb -) 50 mls @ 50 mls/hr IVPB DAILY [facility] Last Admin: 03/23/18 10:38 Dose: 50 mls/hr Insulin Aspart (Novolog Vial Sliding Scale -) 1 vial SQ TIDAC BRITTANY PRN Reason: Protocol Last Admin: 03/23/18 07:10 Dose: 4 units Nystatin (Nystop Powder -) 1 applic TP DAILY [facility] Gen: Awake and alert, mildly confused Heart: tachycardic, regular Lung: decreased breath sounds at the bases Abd: soft, nontender Ext: no edema Skin: scattered patches of erythematous, nonblanching maculopapular rash Laboratory Results - last 24 hr 03/22/18 03/22/18 03/22/18 12:54 13:05 13:20 WBC 29.1 H D RBC 4.03 Hgb 11.2 Hct 34.5 MCV 85.5 MCH 27.8 MCHC 32.5 RDW 14.2 Plt Count 426 D MPV 8.8 Neutrophils % 91.0 H Neutrophils % (Manual) Band Neutrophils % Lymphocytes % 3.6 L D Lymphocytes % (Manual) Monocytes % 4.5 Monocytes % (Manual) Eosinophils % 0.0 D Eosinophils % (Manual) Basophils % 0.9 Basophils % (Manual) Myelocytes % (Man) Promyelocytes % (Man) Blast Cells % (Manual) Nucleated RBC % Metamyelocytes Hypochromia Toxic Granulation [place]ohle Bodies Platelet Estimate Platelet Comment Polychromasia Poikilocytosis Basophilic Stippling Anisocytosis Microcytosis Macrocytosis Spherocytes Sickle Cells Target Cells Tear Drop Cells Ovalocytes Stomatocytes Helmet Cells [place] Bodies [place] Rings [place] Cells Acanthocytes (Spur) Rouleaux Fragmented RBCs Schistocytes PT with INR INR PTT (Actin FS) Puncture Site ABG pH ABG pCO2 at Pt Temp ABG pO2 at Pt Temp ABG HCO3 ABG O2 Sat (Measured) ABG O2 Content ABG Base Excess Lux Test O2 Delivery Device Oxygen Flow Rate Sodium Potassium Chloride Carbon Dioxide Anion Gap BUN Creatinine Creat Clearance w eGFR POC Glucometer Random Glucose Lactic Acid Calcium Phosphorus Magnesium Total Bilirubin AST ALT Alkaline Phosphatase Creatine Kinase Creatine Kinase Index CK-MB (CK-2) Troponin I C-Reactive Protein Total Protein Albumin Triglycerides Cholesterol Total LDL Cholesterol HDL Cholesterol Urine Color Yellow Urine Appearance Turbid Urine pH 5.0 Ur Specific [place] 1.030 Urine Protein 2+ H Urine Glucose (UA) 1+ H Urine Ketones Negative Urine Blood 1+ H Urine Nitrite Negative Urine Bilirubin Negative Urine Urobilinogen Negative Ur Leukocyte Esterase Trace Urine WBC (Auto) 290 Urine RBC (Auto) 28 Ur Random Sodium Urine Creatinine Blood Type O POSITIVE Antibody Screen Negative 03/22/18 03/22/18 03/22/18 13:20 13:20 18:32 WBC RBC Hgb Hct MCV MCH MCHC RDW Plt Count MPV Neutrophils % Neutrophils % (Manual) Band Neutrophils % Lymphocytes % Lymphocytes % (Manual) Monocytes % Monocytes % (Manual) Eosinophils % Eosinophils % (Manual) Basophils % Basophils % (Manual) Myelocytes % (Man) Promyelocytes % (Man) Blast Cells % (Manual) Nucleated RBC % Metamyelocytes Hypochromia Toxic Granulation [place] Bodies Platelet Estimate Platelet Comment Polychromasia Poikilocytosis Basophilic Stippling Anisocytosis Microcytosis Macrocytosis Spherocytes Sickle Cells Target Cells Tear Drop Cells Ovalocytes Stomatocytes Helmet Cells [place] Bodies [place] Rings [place] Cells Acanthocytes (Spur) Rouleaux Fragmented RBCs Schistocytes PT with INR 27.10 H INR 2.40 H D PTT (Actin FS) Puncture Site ABG pH ABG pCO2 at Pt Temp ABG pO2 at Pt Temp ABG HCO3 ABG O2 Sat (Measured) ABG O2 Content ABG Base Excess Lux Test O2 Delivery Device Oxygen Flow Rate Sodium 127 L 128 L Potassium 7.1 H* 6.4 H* Chloride 97 L 97 L Carbon Dioxide 17 L 17 L Anion Gap 13 14 BUN 98 H 89 H Creatinine 5.7 H 5.2 H Creat Clearance w eGFR 7.23 8.04 POC Glucometer Random Glucose 363 H* 333 H* Lactic Acid Calcium 9.4 9.1 Phosphorus 3.4 Magnesium 0.9 L Total Bilirubin 0.4 D 0.5 D AST 32 27 ALT 21 19 Alkaline Phosphatase 107 105 Creatine Kinase 540 H Creatine Kinase Index 0.9 CK-MB (CK-2) 4.947 H Troponin I < 0.02 C-Reactive Protein Total Protein 6.8 6.5 Albumin 2.8 L 2.6 L Triglycerides 185 H Cholesterol 71 Total LDL Cholesterol 22 HDL Cholesterol 35 L Urine Color Urine Appearance Urine pH Ur Specific [place] Urine Protein Urine Glucose (UA) Urine Ketones Urine Blood Urine Nitrite Urine Bilirubin Urine Urobilinogen Ur Leukocyte Esterase Urine WBC (Auto) Urine RBC (Auto) Ur Random Sodium Urine Creatinine Blood Type Antibody Screen 03/22/18 03/22/18 03/22/18 22:15 22:15 23:27 WBC 26.0 H RBC 3.75 Hgb 10.5 L Hct 32.0 L MCV 85.3 MCH 27.9 MCHC 32.7 RDW 14.3 Plt Count 330 D MPV 9.0 Neutrophils % No Result Required. Neutrophils % (Manual) 88.0 H Band Neutrophils % 6.0 Lymphocytes % No Result Required. Lymphocytes % (Manual) 4.0 L Monocytes % Monocytes % (Manual) 2 L Eosinophils % Eosinophils % (Manual) 0.0 Basophils % Basophils % (Manual) 0.0 Myelocytes % (Man) Promyelocytes % (Man) Blast Cells % (Manual) Nucleated RBC % Metamyelocytes Hypochromia Toxic Granulation [place] Bodies Platelet Estimate Adequate Platelet Comment Polychromasia Poikilocytosis Basophilic Stippling Anisocytosis Microcytosis Macrocytosis Spherocytes Sickle Cells Target Cells Tear Drop Cells Ovalocytes Stomatocytes Helmet Cells [place] Bodies [place] Rings [place] Cells Acanthocytes (Spur) Rouleaux Fragmented RBCs Schistocytes PT with INR INR PTT (Actin FS) Puncture Site ABG pH ABG pCO2 at Pt Temp ABG pO2 at Pt Temp ABG HCO3 ABG O2 Sat (Measured) ABG O2 Content ABG Base Excess Lux Test O2 Delivery Device Oxygen Flow Rate Sodium Potassium Chloride Carbon Dioxide Anion Gap BUN Creatinine Creat Clearance w eGFR POC Glucometer Random Glucose Lactic Acid 1.9 Calcium Phosphorus Magnesium Total Bilirubin AST ALT Alkaline Phosphatase Creatine Kinase Creatine Kinase Index CK-MB (CK-2) Troponin I C-Reactive Protein Total Protein Albumin Triglycerides Cholesterol Total LDL Cholesterol HDL Cholesterol Urine Color Urine Appearance Urine pH Ur Specific [place] Urine Protein Urine Glucose (UA) Urine Ketones Urine Blood Urine Nitrite Urine Bilirubin Urine Urobilinogen Ur Leukocyte Esterase Urine WBC (Auto) Urine RBC (Auto) Ur Random Sodium 23 Urine Creatinine 117.0 Blood Type Antibody Screen 03/23/18 03/23/18 03/23/18 05:26 05:26 05:26 WBC 26.2 H RBC 3.13 L Hgb 9.1 L D Hct 26.6 L D MCV 84.9 MCH 28.9 MCHC 34.0 RDW 14.4 Plt Count 274 MPV 9.5 Neutrophils % No Result Required. Neutrophils % (Manual) 88.7 H Band Neutrophils % 2.1 Lymphocytes % No Result Required. Lymphocytes % (Manual) 5.1 L D Monocytes % Monocytes % (Manual) 2 L Eosinophils % Eosinophils % (Manual) 0.0 Basophils % Basophils % (Manual) 1.0 D Myelocytes % (Man) 0 Promyelocytes % (Man) 0 Blast Cells % (Manual) 0 Nucleated RBC % 0 Metamyelocytes 0 Hypochromia 0 Toxic Granulation 0 Dohle Bodies 0 Platelet Estimate Normal Platelet Comment Present Polychromasia 0 Poikilocytosis 0 Basophilic Stippling 0 Anisocytosis 0 Microcytosis 0 Macrocytosis 0 Spherocytes 0 Sickle Cells 0 Target Cells 0 Tear Drop Cells 0 Ovalocytes 0 Stomatocytes 0 Helmet Cells 0 [place] Bodies 0 [place] Rings 0 [place] Cells 0 Acanthocytes (Spur) 0 Rouleaux 0 Fragmented RBCs 0 Schistocytes 0 PT with INR 21.70 H INR 1.92 H PTT (Actin FS) 27.3 Puncture Site ABG pH ABG pCO2 at Pt Temp ABG pO2 at Pt Temp ABG HCO3 ABG O2 Sat (Measured) ABG O2 Content ABG Base Excess Lux Test O2 Delivery Device Oxygen Flow Rate Sodium 129 L Potassium 7.1 H* Chloride 101 Carbon Dioxide 19 L Anion Gap 9 BUN 83 H Creatinine 4.6 H Creat Clearance w eGFR 9.26 POC Glucometer Random Glucose 251 H Lactic Acid Calcium 8.2 L Phosphorus 2.9 Magnesium 0.7 L* Total Bilirubin 0.7 D AST 36 ALT 18 Alkaline Phosphatase 83 Creatine Kinase Creatine Kinase Index CK-MB (CK-2) Troponin I C-Reactive Protein Total Protein 5.3 L Albumin 2.1 L Triglycerides Cholesterol Total LDL Cholesterol HDL Cholesterol Urine Color Urine Appearance Urine pH Ur Specific [place] Urine Protein Urine Glucose (UA) Urine Ketones Urine Blood Urine Nitrite Urine Bilirubin Urine Urobilinogen Ur Leukocyte Esterase Urine WBC (Auto) Urine RBC (Auto) Ur Random Sodium Urine Creatinine Blood Type Antibody Screen 03/23/18 03/23/18 03/23/18 05:26 05:26 05:58 WBC RBC Hgb Hct MCV MCH MCHC RDW Plt Count MPV Neutrophils % Neutrophils % (Manual) Band Neutrophils % Lymphocytes % Lymphocytes % (Manual) Monocytes % Monocytes % (Manual) Eosinophils % Eosinophils % (Manual) Basophils % Basophils % (Manual) Myelocytes % (Man) Promyelocytes % (Man) Blast Cells % (Manual) Nucleated RBC % Metamyelocytes Hypochromia Toxic Granulation [place] Bodies Platelet Estimate Platelet Comment Polychromasia Poikilocytosis Basophilic Stippling Anisocytosis Microcytosis Macrocytosis Spherocytes Sickle Cells Target Cells Tear Drop Cells Ovalocytes Stomatocytes Helmet Cells [place] Bodies [place] Rings [place] Cells Acanthocytes (Spur) Rouleaux Fragmented RBCs Schistocytes PT with INR INR PTT (Actin FS) Puncture Site ABG pH ABG pCO2 at Pt Temp ABG pO2 at Pt Temp ABG HCO3 ABG O2 Sat (Measured) ABG O2 Content ABG Base Excess Lux Test O2 Delivery Device Oxygen Flow Rate Sodium Potassium Chloride Carbon Dioxide Anion Gap BUN Creatinine Creat Clearance w eGFR POC Glucometer 281.99608 Random Glucose Lactic Acid Calcium Phosphorus Magnesium Total Bilirubin AST ALT Alkaline Phosphatase Creatine Kinase 725 H Creatine Kinase Index 0.6 CK-MB (CK-2) 4.458 H Troponin I < 0.02 C-Reactive Protein 23.7 H Total Protein Albumin Triglycerides Cholesterol Total LDL Cholesterol HDL Cholesterol Urine Color Urine Appearance Urine pH Ur Specific [place] Urine Protein Urine Glucose (UA) Urine Ketones Urine Blood Urine Nitrite Urine Bilirubin Urine Urobilinogen Ur Leukocyte Esterase Urine WBC (Auto) Urine RBC (Auto) Ur Random Sodium Urine Creatinine Blood Type Antibody Screen 03/23/18 03/23/18 06:30 10:20 WBC RBC Hgb Hct MCV MCH MCHC RDW Plt Count MPV Neutrophils % Neutrophils % (Manual) Band Neutrophils % Lymphocytes % Lymphocytes % (Manual) Monocytes % Monocytes % (Manual) Eosinophils % Eosinophils % (Manual) Basophils % Basophils % (Manual) Myelocytes % (Man) Promyelocytes % (Man) Blast Cells % (Manual) Nucleated RBC % Metamyelocytes Hypochromia Toxic Granulation [place] Bodies Platelet Estimate Platelet Comment Polychromasia Poikilocytosis Basophilic Stippling Anisocytosis Microcytosis Macrocytosis Spherocytes Sickle Cells Target Cells Tear Drop Cells Ovalocytes Stomatocytes Helmet Cells [place] Bodies [place] Rings [place] Cells Acanthocytes (Spur) Rouleaux Fragmented RBCs Schistocytes PT with INR INR PTT (Actin FS) Puncture Site Left radial ABG pH 7.35 ABG pCO2 at Pt Temp 28.3 L ABG pO2 at Pt Temp 118.0 H ABG HCO3 15.1 L ABG O2 Sat (Measured) 98.5 ABG O2 Content 12.6 L ABG Base Excess -9.1 L Lux Test Positive O2 Delivery Device Nasal Oxygen Flow Rate 1.5 Sodium Potassium Chloride Carbon Dioxide Anion Gap BUN Creatinine Creat Clearance w eGFR POC Glucometer Random Glucose Lactic Acid Calcium Phosphorus Magnesium 0.8 L* Total Bilirubin AST ALT Alkaline Phosphatase Creatine Kinase Creatine Kinase Index CK-MB (CK-2) Troponin I C-Reactive Protein Total Protein Albumin Triglycerides Cholesterol Total LDL Cholesterol HDL Cholesterol Urine Color Urine Appearance Urine pH Ur Specific [place] Urine Protein Urine Glucose (UA) Urine Ketones Urine Blood Urine Nitrite Urine Bilirubin Urine Urobilinogen Ur Leukocyte Esterase Urine WBC (Auto) Urine RBC (Auto) Ur Random Sodium Urine Creatinine Blood Type Antibody Screen ASSESSMENT AND PLAN: Acute Kidney Injury Hyperkalemia Metabolic Acidosis Altered Mental Status Acute CVA Rash Paroxysmal Atrial Fibrillation DM COPD R/O Sepsis - Acute treatment and followup of K+ level paramount - IVF - monitor urine output, creatinine - empiric antibiotics noted - f/u cultures - s/p medical treatment of hyperkalemia, f/u repeat labs - aspiration precautions - allow permissive hypertension - Glycemic control - VTE prophylaxis - For MRI - monitor in ICU Dr Gonsalves Critical care time spent in reviewing chart, evaluating patient and formulating plan - 36 minutes.
--- NOTE | 2018-03-23 11:34 | PN ---
Physical Exam: SUBJECTIVE: Patient awake, verbal (aphasic). OBJECTIVE: Vital Signs Period Temp Pulse Resp BP Sys/[place] Pulse Ox Last 24 Hr 98.2 F-100.7 F 95-141 11-23 83-149/47-134 93-100 General: alert, VS stable Neuro: responds to commands, aphasic, intact DTR's; RLE hemiparesis CV: S1/S2, RRR Respiratory: Lungs CLTA, no wheezes/crackles Abdomen: soft, (+) bowel sounds, no TTP Integumentary: macular rash B/L L/E, sacral decub ulcer Laboratory Results - last 24 hr 03/22/18 03/22/18 03/22/18 12:54 13:05 13:20 WBC 29.1 H D RBC 4.03 Hgb 11.2 Hct 34.5 MCV 85.5 MCH 27.8 MCHC 32.5 RDW 14.2 Plt Count 426 D MPV 8.8 Neutrophils % 91.0 H Neutrophils % (Manual) Band Neutrophils % Lymphocytes % 3.6 L D Lymphocytes % (Manual) Monocytes % 4.5 Monocytes % (Manual) Eosinophils % 0.0 D Eosinophils % (Manual) Basophils % 0.9 Basophils % (Manual) Myelocytes % (Man) Promyelocytes % (Man) Blast Cells % (Manual) Nucleated RBC % Metamyelocytes Hypochromia Toxic Granulation [place]oh[place] Bodies Platelet Estimate Platelet Comment Polychromasia Poikilocytosis Basophilic Stippling Anisocytosis Microcytosis Macrocytosis Spherocytes Sickle Cells Target Cells Tear Drop Cells Ovalocytes Stomatocytes Helmet Cells [place] Bodies [place] Rings [place] Cells Acanthocytes (Spur) Rouleaux Fragmented RBCs Schistocytes PT with INR INR PTT (Actin FS) Puncture Site ABG pH ABG pCO2 at Pt Temp ABG pO2 at Pt Temp ABG HCO3 ABG O2 Sat (Measured) ABG O2 Content ABG Base Excess Lux Test O2 Delivery Device Oxygen Flow Rate Sodium Potassium Chloride Carbon Dioxide Anion Gap BUN Creatinine Creat Clearance w eGFR POC Glucometer Random Glucose Lactic Acid Calcium Phosphorus Magnesium Total Bilirubin AST ALT Alkaline Phosphatase Creatine Kinase Creatine Kinase Index CK-MB (CK-2) Troponin I C-Reactive Protein Total Protein Albumin Triglycerides Cholesterol Total LDL Cholesterol HDL Cholesterol Urine Color Yellow Urine Appearance Turbid Urine pH 5.0 Ur Specific [place] 1.030 Urine Protein 2+ H Urine Glucose (UA) 1+ H Urine Ketones Negative Urine Blood 1+ H Urine Nitrite Negative Urine Bilirubin Negative Urine Urobilinogen Negative Ur Leukocyte Esterase Trace Urine WBC (Auto) 290 Urine RBC (Auto) 28 Ur Random Sodium Urine Creatinine Blood Type O POSITIVE Antibody Screen Negative 03/22/18 03/22/18 03/22/18 13:20 13:20 18:32 WBC RBC Hgb Hct MCV MCH MCHC RDW Plt Count MPV Neutrophils % Neutrophils % (Manual) Band Neutrophils % Lymphocytes % Lymphocytes % (Manual) Monocytes % Monocytes % (Manual) Eosinophils % Eosinophils % (Manual) Basophils % Basophils % (Manual) Myelocytes % (Man) Promyelocytes % (Man) Blast Cells % (Manual) Nucleated RBC % Metamyelocytes Hypochromia Toxic Granulation [place]oh[place] Bodies Platelet Estimate Platelet Comment Polychromasia Poikilocytosis Basophilic Stippling Anisocytosis Microcytosis Macrocytosis Spherocytes Sickle Cells Target Cells Tear Drop Cells Ovalocytes Stomatocytes Helmet Cells [place] Bodies [place] Rings [place] Cells Acanthocytes (Spur) Rouleaux Fragmented RBCs Schistocytes PT with INR 27.10 H INR 2.40 H D PTT (Actin FS) Puncture Site ABG pH ABG pCO2 at Pt Temp ABG pO2 at Pt Temp ABG HCO3 ABG O2 Sat (Measured) ABG O2 Content ABG Base Excess Lux Test O2 Delivery Device Oxygen Flow Rate Sodium 127 L 128 L Potassium 7.1 H* 6.4 H* Chloride 97 L 97 L Carbon Dioxide 17 L 17 L Anion Gap 13 14 BUN 98 H 89 H Creatinine 5.7 H 5.2 H Creat Clearance w eGFR 7.23 8.04 POC Glucometer Random Glucose 363 H* 333 H* Lactic Acid Calcium 9.4 9.1 Phosphorus 3.4 Magnesium 0.9 L Total Bilirubin 0.4 D 0.5 D AST 32 27 ALT 21 19 Alkaline Phosphatase 107 105 Creatine Kinase 540 H Creatine Kinase Index 0.9 CK-MB (CK-2) 4.947 H Troponin I < 0.02 C-Reactive Protein Total Protein 6.8 6.5 Albumin 2.8 L 2.6 L Triglycerides 185 H Cholesterol 71 Total LDL Cholesterol 22 HDL Cholesterol 35 L Urine Color Urine Appearance Urine pH Ur Specific [place] Urine Protein Urine Glucose (UA) Urine Ketones Urine Blood Urine Nitrite Urine Bilirubin Urine Urobilinogen Ur Leukocyte Esterase Urine WBC (Auto) Urine RBC (Auto) Ur Random Sodium Urine Creatinine Blood Type Antibody Screen 03/22/18 03/22/18 03/22/18 22:15 22:15 23:27 WBC 26.0 H RBC 3.75 Hgb 10.5 L Hct 32.0 L MCV 85.3 MCH 27.9 MCHC 32.7 RDW 14.3 Plt Count 330 D MPV 9.0 Neutrophils % No Result Required. Neutrophils % (Manual) 88.0 H Band Neutrophils % 6.0 Lymphocytes % No Result Required. Lymphocytes % (Manual) 4.0 L Monocytes % Monocytes % (Manual) 2 L Eosinophils % Eosinophils % (Manual) 0.0 Basophils % Basophils % (Manual) 0.0 Myelocytes % (Man) Promyelocytes % (Man) Blast Cells % (Manual) Nucleated RBC % Metamyelocytes Hypochromia Toxic Granulation Dohle Bodies Platelet Estimate Adequate Platelet Comment Polychromasia Poikilocytosis Basophilic Stippling Anisocytosis Microcytosis Macrocytosis Spherocytes Sickle Cells Target Cells Tear Drop Cells Ovalocytes Stomatocytes Helmet Cells [place] Bodies [place] Rings [place] Cells Acanthocytes (Spur) Rouleaux Fragmented RBCs Schistocytes PT with INR INR PTT (Actin FS) Puncture Site ABG pH ABG pCO2 at Pt Temp ABG pO2 at Pt Temp ABG HCO3 ABG O2 Sat (Measured) ABG O2 Content ABG Base Excess Lux Test O2 Delivery Device Oxygen Flow Rate Sodium Potassium Chloride Carbon Dioxide Anion Gap BUN Creatinine Creat Clearance w eGFR POC Glucometer Random Glucose Lactic Acid 1.9 Calcium Phosphorus Magnesium Total Bilirubin AST ALT Alkaline Phosphatase Creatine Kinase Creatine Kinase Index CK-MB (CK-2) Troponin I C-Reactive Protein Total Protein Albumin Triglycerides Cholesterol Total LDL Cholesterol HDL Cholesterol Urine Color Urine Appearance Urine pH Ur Specific [place] Urine Protein Urine Glucose (UA) Urine Ketones Urine Blood Urine Nitrite Urine Bilirubin Urine Urobilinogen Ur Leukocyte Esterase Urine WBC (Auto) Urine RBC (Auto) Ur Random Sodium 23 Urine Creatinine 117.0 Blood Type Antibody Screen 03/23/18 03/23/18 03/23/18 05:26 05:26 05:26 WBC 26.2 H RBC 3.13 L Hgb 9.1 L D Hct 26.6 L D MCV 84.9 MCH 28.9 MCHC 34.0 RDW 14.4 Plt Count 274 MPV 9.5 Neutrophils % No Result Required. Neutrophils % (Manual) 88.7 H Band Neutrophils % 2.1 Lymphocytes % No Result Required. Lymphocytes % (Manual) 5.1 L D Monocytes % Monocytes % (Manual) 2 L Eosinophils % Eosinophils % (Manual) 0.0 Basophils % Basophils % (Manual) 1.0 D Myelocytes % (Man) 0 Promyelocytes % (Man) 0 Blast Cells % (Manual) 0 Nucleated RBC % 0 Metamyelocytes 0 Hypochromia 0 Toxic Granulation 0 Dohle Bodies 0 Platelet Estimate Normal Platelet Comment Present Polychromasia 0 Poikilocytosis 0 Basophilic Stippling 0 Anisocytosis 0 Microcytosis 0 Macrocytosis 0 Spherocytes 0 Sickle Cells 0 Target Cells 0 Tear Drop Cells 0 Ovalocytes 0 Stomatocytes 0 Helmet Cells 0 [place] Bodies 0 [place] Rings 0 [place] Cells 0 Acanthocytes (Spur) 0 Rouleaux 0 Fragmented RBCs 0 Schistocytes 0 PT with INR 21.70 H INR 1.92 H PTT (Actin FS) 27.3 Puncture Site ABG pH ABG pCO2 at Pt Temp ABG pO2 at Pt Temp ABG HCO3 ABG O2 Sat (Measured) ABG O2 Content ABG Base Excess Lux Test O2 Delivery Device Oxygen Flow Rate Sodium 129 L Potassium 7.1 H* Chloride 101 Carbon Dioxide 19 L Anion Gap 9 BUN 83 H Creatinine 4.6 H Creat Clearance w eGFR 9.26 POC Glucometer Random Glucose 251 H Lactic Acid Calcium 8.2 L Phosphorus 2.9 Magnesium 0.7 L* Total Bilirubin 0.7 D AST 36 ALT 18 Alkaline Phosphatase 83 Creatine Kinase Creatine Kinase Index CK-MB (CK-2) Troponin I C-Reactive Protein Total Protein 5.3 L Albumin 2.1 L Triglycerides Cholesterol Total LDL Cholesterol HDL Cholesterol Urine Color Urine Appearance Urine pH Ur Specific [place] Urine Protein Urine Glucose (UA) Urine Ketones Urine Blood Urine Nitrite Urine Bilirubin Urine Urobilinogen Ur Leukocyte Esterase Urine WBC (Auto) Urine RBC (Auto) Ur Random Sodium Urine Creatinine Blood Type Antibody Screen 03/23/18 03/23/18 03/23/18 05:26 05:26 05:58 WBC RBC Hgb Hct MCV MCH MCHC RDW Plt Count MPV Neutrophils % Neutrophils % (Manual) Band Neutrophils % Lymphocytes % Lymphocytes % (Manual) Monocytes % Monocytes % (Manual) Eosinophils % Eosinophils % (Manual) Basophils % Basophils % (Manual) Myelocytes % (Man) Promyelocytes % (Man) Blast Cells % (Manual) Nucleated RBC % Metamyelocytes Hypochromia Toxic Granulation Dohle Bodies Platelet Estimate Platelet Comment Polychromasia Poikilocytosis Basophilic Stippling Anisocytosis Microcytosis Macrocytosis Spherocytes Sickle Cells Target Cells Tear Drop Cells Ovalocytes Stomatocytes Helmet Cells [place] Bodies [place] Rings [place] Cells Acanthocytes (Spur) Rouleaux Fragmented RBCs Schistocytes PT with INR INR PTT (Actin FS) Puncture Site ABG pH ABG pCO2 at Pt Temp ABG pO2 at Pt Temp ABG HCO3 ABG O2 Sat (Measured) ABG O2 Content ABG Base Excess Lux Test O2 Delivery Device Oxygen Flow Rate Sodium Potassium Chloride Carbon Dioxide Anion Gap BUN Creatinine Creat Clearance w eGFR POC Glucometer [id number] Random Glucose Lactic Acid Calcium Phosphorus Magnesium Total Bilirubin AST ALT Alkaline Phosphatase Creatine Kinase 725 H Creatine Kinase Index 0.6 CK-MB (CK-2) 4.458 H Troponin I < 0.02 C-Reactive Protein 23.7 H Total Protein Albumin Triglycerides Cholesterol Total LDL Cholesterol HDL Cholesterol Urine Color Urine Appearance Urine pH Ur Specific [place] Urine Protein Urine Glucose (UA) Urine Ketones Urine Blood Urine Nitrite Urine Bilirubin Urine Urobilinogen Ur Leukocyte Esterase Urine WBC (Auto) Urine RBC (Auto) Ur Random Sodium Urine Creatinine Blood Type Antibody Screen 03/23/18 03/23/18 06:30 10:20 WBC RBC Hgb Hct MCV MCH MCHC RDW Plt Count MPV Neutrophils % Neutrophils % (Manual) Band Neutrophils % Lymphocytes % Lymphocytes % (Manual) Monocytes % Monocytes % (Manual) Eosinophils % Eosinophils % (Manual) Basophils % Basophils % (Manual) Myelocytes % (Man) Promyelocytes % (Man) Blast Cells % (Manual) Nucleated RBC % Metamyelocytes Hypochromia Toxic Granulation Dohle Bodies Platelet Estimate Platelet Comment Polychromasia Poikilocytosis Basophilic Stippling Anisocytosis Microcytosis Macrocytosis Spherocytes Sickle Cells Target Cells Tear Drop Cells Ovalocytes Stomatocytes Helmet Cells [place] Bodies [place] Rings [place] Cells Acanthocytes (Spur) Rouleaux Fragmented RBCs Schistocytes PT with INR INR PTT (Actin FS) Puncture Site Left radial ABG pH 7.35 ABG pCO2 at Pt Temp 28.3 L ABG pO2 at Pt Temp 118.0 H ABG HCO3 15.1 L ABG O2 Sat (Measured) 98.5 ABG O2 Content 12.6 L ABG Base Excess -9.1 L Lux Test Positive O2 Delivery Device Nasal Oxygen Flow Rate 1.5 Sodium Potassium Chloride Carbon Dioxide Anion Gap BUN Creatinine Creat Clearance w eGFR POC Glucometer Random Glucose Lactic Acid Calcium Phosphorus Magnesium 0.8 L* Total Bilirubin AST ALT Alkaline Phosphatase Creatine Kinase Creatine Kinase Index CK-MB (CK-2) Troponin I C-Reactive Protein Total Protein Albumin Triglycerides Cholesterol Total LDL Cholesterol HDL Cholesterol Urine Color Urine Appearance Urine pH Ur Specific [place] Urine Protein Urine Glucose (UA) Urine Ketones Urine Blood Urine Nitrite Urine Bilirubin Urine Urobilinogen Ur Leukocyte Esterase Urine WBC (Auto) Urine RBC (Auto) Ur Random Sodium Urine Creatinine Blood Type Antibody Screen Active Medications Generic Name Dose Route Start Last Admin Trade Name Freq PRN Reason Stop Dose Admin Acetaminophen 1,000 mg 03/23/18 02:19 03/23/18 02:44 Ofirmev Injection - IVPB 1,000 mg Q6H PRN Administration FEVER Clotrimazole 1 applic 03/23/18 10:00 03/23/18 10:38 Lotrimin 1% Cream - TP 1 applic BID BRITTANY Administration Sodium Chloride 1,000 mls @ 150 mls/hr 03/22/18 17:30 03/23/18 09:00 Normal Saline - IV 150 mls/hr ASDIR BRITTANY Administration Cefepime HCl 0.5 gm/ Dextrose 100 mls @ 200 mls/hr 03/23/18 22:00 IVPB BID BRITTANY Protocol Fluconazole 50 mls @ 50 mls/hr 03/23/18 10:00 03/23/18 10:38 Diflucan 100 Mg/D5w Premixed Ivpb - IVPB 50 mls/hr DAILY BRITTANY Administration Insulin Aspart 1 vial 03/23/18 07:00 03/23/18 07:10 Novolog Vial Sliding Scale - SQ 4 units TIDAC BRITTANY Administration Protocol Nystatin 1 applic 03/23/18 10:00 Nystop Powder - TP DAILY BRITTANY ASSESSMENT/PLAN: 80 year old female presented to ED with slurred speech, confusion and R sided weakness > 1 day - found to be in acute renal failure (Cr 5.7). Family @ bedside notes 4 day h/o decreased PO intake and patient's sister notes confusion , aphasia noted by family 1 day prior to presentation to our ED. 1. HYPERKALEMIA - likely 2/2 to ELÍAS 2/2 to decreased perfusion 2/2 to decreased PO intake - K+ 7.1 - No hyperacute T waves, wide QRS appreciated on ECG - Hyperkalemia cocktail - Repeat BMP pending - Close monitoring 2. ACUTE KIDNEY INJURY - likely 2/2 to ELÍAS 2/2 to decreased perfusion 2/2 to decreased PO intake - Cr 4.6 today (03/23) <-- 5.7 @ presentation - I's/O's: - Monitor Cr/BUN, electrolyte - Strict I's/O's - Aggressive IV hydration 3. ACUTE RIGHT CEREBELLAR INFARCT with +/- new neurologic deficits superimposed over previous CVA - Neurologic deficits present > 1 day; patient not tPA candidate - CT Head showed acute R cerebellar infarct - R sided weakness appreciated on PE - suggestive of metabolic etiology - MRI today - Permissive HTN -patient currently SBP's 100's; should patient become HTN do no lower by greater than 15% over 24 hours - Holding Eliquis pending MRI - Neurology following, appreciate recs 4. RASH - possibly drug induced - Macular papular rash on B/L LE - Possibly drug induced - family notes h/o new cardiac drug; PMD (Dr. Kumar) contacted to determine dur - Dermatology consult pending; Dr. Kowalski no longer accepting patient, Dr. Munoz consult placed 5. PAROXYSMAL ATRIAL FIBRILLATION - currently holding A/C - ECG shows Sinus Tach - On Eliquis TID - Holding Eliquis pending MRI - Neurology following, appreciate recs 6. INSULIN DEPENDENT DIABETES MELLITUS - Admission BS 200's-300's - Target BS < 180 - SSI - Continue to monitor FEN - Monitor electrolytes as indicated above - Patient NPO pending MRI, can start pureed diet PROPHYLAXIS - Not indicated at this time, pending evaluation for head bleed Patient's sister, Rai Rodriguez, Visit type - Emergency Visit Emergency Visit: No - New Patient This patient is new to me today: Yes Date on this admission: 03/23/18 - Critical Care Critical Care patient: No
[2018-03-23] MEDS: NYSTATIN POWDER 100,000 UNITS/GM - 15 GM TOPICAL POWDER TP SCH (12:36)
[2018-03-23] MEDS ORDERED: SODIUM BICARBONATE 4.2% 5 MEQ/10 ML DISP.SYRIN IVPUSH ONE (13:12)
--- NOTE | 2018-03-23 13:39 | PN ---
Progress Note, Physician History of Present Illness: Pt seen and examined at bedside. She is now in the ICU. She is more awake and interactive today than she was yesterday. Her son Kg is at bedside and care was discussed with him. - Current Medication List Current Medications: Active Medications Acetaminophen (Ofirmev Injection -) 1,000 mg IVPB Q6H PRN PRN Reason: FEVER Last Admin: 03/23/18 02:44 Dose: 1,000 mg Clotrimazole (Lotrimin 1% Cream -) 1 applic TP BID [facility] Last Admin: 03/23/18 10:38 Dose: 1 applic Sodium Chloride (Normal Saline -) 1,000 mls @ 150 mls/hr IV ASDIR BRITTANY Last Admin: 03/23/18 09:00 Dose: 150 mls/hr Cefepime HCl 0.5 gm/ Dextrose 100 mls @ 200 mls/hr IVPB BID BRITTANY PRN Reason: Protocol Fluconazole (Diflucan 100 Mg/D5w Premixed Ivpb -) 50 mls @ 50 mls/hr IVPB DAILY [facility] Last Admin: 03/23/18 10:38 Dose: 50 mls/hr Insulin Aspart (Novolog Vial Sliding Scale -) 1 vial SQ TIDAC BRITTANY PRN Reason: Protocol Last Admin: 03/23/18 12:35 Dose: 4 units Nystatin (Nystop Powder -) 1 applic TP DAILY [facility] Last Admin: 03/23/18 12:36 Dose: 1 applic Sodium Bicarbonate (Sodium Bicarbonate 4.2% -) 4.2 meq IVPUSH ONCE ONE Stop: 03/23/18 13:13 - Objective Vital Signs: Vital Signs Temperature 98.2 F 03/23/18 10:00 Pulse Rate 128 H 03/23/18 12:00 Respiratory Rate 22 03/23/18 12:00 Blood Pressure 112/71 03/23/18 12:00 O2 Sat by Pulse Oximetry (%) 96 03/23/18 12:07 Constitutional: Yes: Calm Eyes: Yes: Conjunctiva Clear HENT: Yes: Atraumatic Cardiovascular: Yes: S1, S2 Respiratory: Yes: CTA Bilaterally, On Nasal O2 Gastrointestinal: Yes: Soft, Other (drain from gallbladder) Genitourinary: Yes: Nava Present Musculoskeletal: Yes: Muscle Weakness Edema: No Integumentary: Yes: Rash Neurological: Yes: Weakness, Other (speach is slurred) Labs: CBC, BMP 03/23/18 05:26 03/23/18 05:26 INR, PTT INR 1.92 (0.82-1.09) H 03/23/18 05:26 - ....Imaging Chest X-ray: Report Reviewed Problem List - Problems (1) Acute renal failure Code(s): N17.9 - ACUTE KIDNEY FAILURE, UNSPECIFIED (2) Hyperkalemia Code(s): E87.5 - HYPERKALEMIA (3) Hyponatremia Code(s): E87.1 - HYPO-OSMOLALITY AND HYPONATREMIA (4) CVA (cerebral vascular accident) Code(s): I63.9 - CEREBRAL INFARCTION, UNSPECIFIED Qualifiers: CVA mechanism: unspecified Qualified Code(s): I63.9 - Cerebral infarction, unspecified Assessment/Plan Current Medications Generic Name Dose Route Start Last Admin Trade Name Freq PRN Reason Stop Dose Admin Acetaminophen 1,000 mg 03/23/18 02:19 03/23/18 02:44 Ofirmev Injection - IVPB 1,000 mg Q6H PRN Administration FEVER Clotrimazole 1 applic 03/23/18 10:00 03/23/18 10:38 Lotrimin 1% Cream - TP 1 applic BID BRITTANY Administration Sodium Chloride 1,000 mls @ 150 mls/hr 03/22/18 17:30 03/23/18 09:00 Normal Saline - IV 150 mls/hr ASDIR BRITTANY Administration Cefepime HCl 0.5 gm/ Dextrose 100 mls @ 200 mls/hr 03/23/18 22:00 IVPB BID BRITTANY Protocol Fluconazole 50 mls @ 50 mls/hr 03/23/18 10:00 03/23/18 10:38 Diflucan 100 Mg/D5w Premixed Ivpb - IVPB 50 mls/hr DAILY BRITTANY Administration Insulin Aspart 1 vial 03/23/18 07:00 03/23/18 12:35 Novolog Vial Sliding Scale - SQ 4 units TIDAC BRITTANY Administration Protocol Nystatin 1 applic 03/23/18 10:00 03/23/18 12:36 Nystop Powder - TP 1 applic DAILY BRITTANY Administration Sodium Bicarbonate 4.2 meq 03/23/18 13:12 Sodium Bicarbonate 4.2% - IVPUSH 05/18/18 13:13 ONCE ONE Impression 1. ELÍAS 2. hyperkalemia 3. sepsis 4. hyponatremia 5. DM uncontrolled 6. COPD 7. CVA 8. hypomagnesemia Plan - renal function is improving - sodium is improving - potassium remains elevated, pt given kayexylate insulin d50 and calcium - cont fluids - replace mag - discussed possibility of HD with her son Kg and he wants to think about it - follow repeat potassium and if improved cont to trend - renal ultrasound reviewed - pts volume status is improving - discussed with ICU team - will follow Dr Burdick
[2018-03-23] MEDS ORDERED: SODIUM BICARBONATE 8.4% - 50 ML ONE (14:08)
[2018-03-23] MEDS ORDERED: SODIUM BICARBONATE 8.4% 50 MEQ/50 ML DISP.SYRIN IVPUSH ONE ×2 (14:15→14:39)
[2018-03-23 14:29] LABS: CHLORIDE 104 mmol/L (98-107); SODIUM 130 mmol/L (136-145)
[2018-03-23 14:36] LABS: ALBUMIN 2.1 g/dl (3.4-5.0); ALK PHOS 101 U/L (45-117); ANION GAP 10 (8-16); BILIRUBIN,TOTAL 0.6 mg/dL (0.2-1.0); BLOOD UREA NITROGEN 75 mg/dL (7-18); CALCIUM 8.9 mg/dL (8.5-10.1); CO2 16 mmol/L (21-32); CREATININE 4.1 mg/dL (0.55-1.02); SGOT/AST 56 U/L (15-37); SGPT/ALT 21 U/L (12-78); TOT PROT 5.6 g/dl (6.4-8.2)
[2018-03-23 14:37] LABS: GLUCOSE,RANDOM 307 mg/dL (74-106); POTASSIUM 6.3 mmol/L (3.5-5.1)
[2018-03-23] MEDS ORDERED: SODIUM CHLORIDE 0.45% 1,000 ML with SODIUM BICARBONATE 8.4% - 75 MEQ IV SCH ×2 (16:00→23:00)
[2018-03-23] MEDS ORDERED: METOPROLOL TARTRATE 5 MG/5 ML VIAL IVPUSH ONE (20:15)
[2018-03-23 20:35] LABS: ANION GAP 9 (8-16); BILIRUBIN,TOTAL 0.4 mg/dL (0.2-1.0); BLOOD UREA NITROGEN 73 mg/dL (7-18); CALCIUM 8.4 mg/dL (8.5-10.1); CHLORIDE 106 mmol/L (98-107); CO2 20 mmol/L (21-32); CREATININE 4.1 mg/dL (0.55-1.02); POTASSIUM 5.3 mmol/L (3.5-5.1); SGOT/AST 50 U/L (15-37); SGPT/ALT 21 U/L (12-78); SODIUM 135 mmol/L (136-145); TOT PROT 5.3 g/dl (6.4-8.2)
[2018-03-23 20:36] LABS: ALK PHOS 90 U/L (45-117)
[2018-03-23 20:45] LABS: GLUCOSE,RANDOM 338 mg/dL (74-106)
[2018-03-23] MEDS ORDERED: CEFEPIME 0.5 GM in DEXTROSE 5%-WATER - 100 ML IVPB SCH (22:00)
[2018-03-23] MEDS ORDERED: PT OWN MED DRAWER 7, Y5N ONE (22:08)
[2018-03-23] MEDS ORDERED: INSULIN SLIDING SCALE (NOVOLOG) 1 VIAL SQ SCH (23:00)
[2018-03-23] MEDS ORDERED: HEMOQUE TEST 1 EACH EACH ONE (23:42)
[2018-03-24] MEDS ORDERED: METOPROLOL TARTRATE 5 MG/5 ML VIAL IVPUSH ONE ×2 (02:12→11:06)
[2018-03-24] MEDS ORDERED: SODIUM CHLORIDE 0.9% 500 ML INFUS.BAG IV ONE (02:47)
[2018-03-24] MEDS: INSULIN SLIDING SCALE (NOVOLOG) 1 VIAL SQ SCH ×6 (03:15→22:10)
[2018-03-24] MEDS: ACETAMINOPHEN 1000 MG/100 ML VIAL (NON FORMULARY) IVPB PRN ×3 (03:17→17:37)
--- NOTE | 2018-03-24 07:09 | PN ---
Progress Note, Physician Chief Complaint: ID Patient is a 77 year old female who is readmitted with facial droop and right sided weakness. Found to have acute CVA. Known to have had recent CVA during her last admission. Upon admission found to be in acute renal failure which is new. Also was febrile with elevated WBC count. During her recent admission she was found to have gallstones and cholangitis ( polymicrobial) whcih we treated with Pip Tazobactam. She left the hospital with a biliary drainage catheter Yesterday I gave Vancomycin and Cefepime. Currently she appears comfortable Apparently waxing and waning mental status Seem confused currently. Purulent urine noted on admission Has positive blood cultures GNB this am - Current Medication List Current Medications: Active Medications Clotrimazole (Lotrimin 1% Cream -) 1 applic TP BID [facility] Last Admin: 03/23/18 22:11 Dose: 1 applic Cefepime HCl 0.5 gm/ Dextrose 100 mls @ 200 mls/hr IVPB BID [facility] PRN Reason: Protocol Last Admin: 03/23/18 22:11 Dose: 200 mls/hr Fluconazole (Diflucan 100 Mg/D5w Premixed Ivpb -) 50 mls @ 50 mls/hr IVPB DAILY [facility] Last Admin: 03/23/18 10:38 Dose: 50 mls/hr Insulin Aspart (Novolog Vial Sliding Scale -) 1 vial SQ Q4H [facility] PRN Reason: Protocol Last Admin: 03/24/18 06:17 Dose: 2 units Nystatin (Nystop Powder -) 1 applic TP DAILY [facility] Last Admin: 03/23/18 12:36 Dose: 1 applic - Objective Vital Signs: Vital Signs Temperature 99.2 F 03/24/18 06:00 Pulse Rate 130 H 03/24/18 06:00 Respiratory Rate 18 03/24/18 06:00 Blood Pressure 107/59 03/24/18 06:00 O2 Sat by Pulse Oximetry (%) 96 03/23/18 21:00 Constitutional: Yes: Well Nourished, No Distress Eyes: Yes: WNL, Conjunctiva Clear HENT: Yes: WNL, Atraumatic Neck: Yes: WNL, Supple Cardiovascular: Yes: Regular Rate and Rhythm, S1, S2. No: Murmur Respiratory: Yes: WNL, Regular, CTA Bilaterally Gastrointestinal: Yes: WNL, Normal Bowel Sounds, Soft, Other (Catheter). No: Tenderness, Tenderness, Rebound Extremities: No: Cold, Cool, Cyanosis Edema: No Integumentary: Yes: Other (Fungal rash groin breast) Labs: INR, PTT INR 1.92 (0.82-1.09) H 03/23/18 05:26 Problem List - Problems (1) UTI (urinary tract infection) Code(s): N39.0 - URINARY TRACT INFECTION, SITE NOT SPECIFIED (2) CVA (cerebral vascular accident) Code(s): I63.9 - CEREBRAL INFARCTION, UNSPECIFIED Qualifiers: CVA mechanism: unspecified Qualified Code(s): I63.9 - Cerebral infarction, unspecified (3) Cholecystitis with cholangitis Code(s): K81.9 - CHOLECYSTITIS, UNSPECIFIED; K83.0 - CHOLANGITIS (4) Diabetes mellitus Code(s): E11.9 - TYPE 2 DIABETES MELLITUS WITHOUT COMPLICATIONS Qualifiers: Diabetes mellitus type: type 2 Diabetes mellitus moth exterminator insulin use: with moth exterminator use Diabetes mellitus complication status: with neurologic complications (5) Acute renal failure Code(s): N17.9 - ACUTE KIDNEY FAILURE, UNSPECIFIED (6) Sacral decubitus ulcer Code(s): L89.159 - PRESSURE ULCER OF SACRAL REGION, UNSPECIFIED STAGE (7) Drug rash Code(s): L27.0 - GEN SKIN ERUPTION DUE TO DRUGS AND MEDS TAKEN INTERNALLY Assessment/Plan Microbiology 03/23/18 09:00 Bile Gram Stain - Final 03/22/18 15:30 Throat Group A Strep Rapid Antigen - Final 03/22/18 16:15 Blood - Peripheral Venous Blood Culture - Preliminary Lactose Fermenting Neg Bacilli 03/22/18 16:15 Blood - Peripheral Venous Blood Culture - Preliminary Lactose Fermenting Neg Bacilli 03/22/18 15:30 Throat Throat Culture - Preliminary 03/22/18 15:30 Throat Gram Negative [facility] Laboratory Tests 03/22/18 03/23/18 03/24/18 13:05 19:30 06:55 WBC Pending Hgb Pending Hct Pending Plt Count Pending BUN 73 H Creatinine 4.1 H Creat Clearance w eGFR 10.58 Total Bilirubin 0.4 D AST 50 H Urine WBC (Auto) 290 Urine RBC (Auto) 28 Assessment Sepsis syndrome urinary tract source assumed to be the source Cholecystitis with drainage catheter in place from last admission Diabetes Acute renal failure Pressure ulcer large exoriated Rash (cardiac med) Gram negative bacteremia urinary source Acute stroke Cutaneous fungal infection on diflucan Plan Going to change to Meropenem anticipating possible resistant GNB given assisted and recent admission [facility]
[2018-03-24 07:14] LABS: HEMATOCRIT 25.7 % (32.4-45.2); HEMOGLOBIN 8.7 GM/dL (10.7-15.3); MCH 28.6 pg (25.7-33.7); MEAN CELL VOLUME 84.1 fl (80-96); PLATELET COUNT 245 K/MM3 (134-434); RBC 3.05 M/mm3 (3.60-5.2); RDW 14.5 % (11.6-15.6); WHITE BLOOD COUNT 29.2 K/mm3 (4.0-10.0)
[2018-03-24 07:48] LABS: CHLORIDE 109 mmol/L (98-107); POTASSIUM 4.5 mmol/L (3.5-5.1); SODIUM 137 mmol/L (136-145)
[2018-03-24 07:59] LABS: ALBUMIN 1.9 g/dl (3.4-5.0); ALK PHOS 90 U/L (45-117); ANION GAP 7 (8-16); BILIRUBIN,TOTAL 0.4 mg/dL (0.2-1.0); BLOOD UREA NITROGEN 71 mg/dL (7-18); CALCIUM 7.9 mg/dL (8.5-10.1); CO2 21 mmol/L (21-32); CREATININE 3.2 mg/dL (0.55-1.02); GLUCOSE,RANDOM 206 mg/dL (74-106); SGOT/AST 48 U/L (15-37); SGPT/ALT 21 U/L (12-78); TOT PROT 4.9 g/dl (6.4-8.2)
[2018-03-24] MEDS: MEROPENEM 500 MG in DEXTROSE 5%-WATER 100 ML IVPB SCH ×2 (08:28→22:00)
[2018-03-24] MEDS: CLOTRIMAZOLE 1% CREAM 15 GM TUBE TP SCH ×2 (09:24→22:00)
[2018-03-24] MEDS: NYSTATIN POWDER 100,000 UNITS/GM - 15 GM TOPICAL POWDER TP SCH (09:24)
[2018-03-24] MEDS: FLUCONAZOLE 100 MG/D5W 50 ML IVPB SCH (09:25)
[2018-03-24] MEDS ORDERED: SODIUM CHLORIDE 1,000 ML IV STA (09:30)
--- NOTE | 2018-03-24 09:52 | PN ---
Progress Note (short form) - Note Progress Note: RENAL Pt is awake and alert, but not conversant Last Vital Signs Temp Pulse Resp BP Pulse Ox 99.2 F 130 H 18 107/59 96 03/24/18 06:00 03/24/18 06:00 03/24/18 06:00 03/24/18 06:00 03/23/18 21:00 lungs bilat air entry cvs tachycardic, hypotensive abd soft, biliary drainage intact ext no edema neuro makes eye contact but does not answer questions skin has a diffuse macular rash CBC, BMP 03/24/18 06:55 03/24/18 06:55 Current Medications Generic Name Dose Route Start Last Admin Trade Name Freq PRN Reason Stop Dose Admin Clotrimazole 1 applic 03/23/18 10:00 03/24/18 09:24 Lotrimin 1% Cream - TP 1 applic BID BRITTANY Administration Fluconazole 50 mls @ 50 mls/hr 03/23/18 10:00 03/24/18 09:25 Diflucan 100 Mg/D5w Premixed Ivpb - IVPB 50 mls/hr DAILY BRITTANY Administration Meropenem 500 mg/ Dextrose 100 mls @ 400 mls/hr 03/24/18 07:30 03/24/18 08:28 IVPB 400 mls/hr BID BRITTANY Administration Sodium Chloride 1,000 mls @ 1,000 mls/hr 03/24/18 09:30 Normal Saline - IV 03/24/18 10:29 ASDIR STA Insulin Aspart 1 vial 03/23/18 23:00 03/24/18 06:17 Novolog Vial Sliding Scale - SQ 2 units Q4H BRITTANY Administration Protocol Nystatin 1 applic 03/23/18 10:00 03/24/18 09:24 Nystop Powder - TP 1 applic DAILY BRITTANY Administration Impression 1. ELÍAS better 2. hyperkalemia resolved 3. sepsis 4. hyponatremia resolved 5. DM uncontrolled 6. COPD 7. CVA 8. hypomagnesemia Plan -cxr reviewed with ccm -agree with fluids, hopefully her tachycardia will improve -would stop meropenem given diffuse rash- ask ID -monitor renal function MV
--- NOTE | 2018-03-24 10:21 | PN ---
Progress Note (short form) - Note Progress Note: PULMONARY/CCM Pt seen and examined in the ICU. More alert today but tachycardic and hypotensive. Good urine output. Low grade fever overnight. Last Vital Signs Temp Pulse Resp BP Pulse Ox 99.2 F 130 H 18 107/59 96 03/24/18 06:00 03/24/18 06:00 03/24/18 06:00 03/24/18 06:00 03/23/18 21:00 Intake & Output 03/21/18 03/22/18 03/23/18 03/24/18 23:59 23:59 23:59 23:59 Intake Total 2430 4265 350 Output Total 2030 1080 200 Balance 400 3185 150 Weight 74.843 kg 73.936 kg 74.191 kg Gen: more alert, mildly tachypneic Heart: tachycardic, irregular Lung: scattered rhonchi Abd: soft, nontender Ext: no edema Skin: scattered rash improving CBC, BMP 03/24/18 06:55 03/24/18 06:55 Active Medications Clotrimazole (Lotrimin 1% Cream -) 1 applic TP BID [facility] Last Admin: 03/24/18 09:24 Dose: 1 applic Fluconazole (Diflucan 100 Mg/D5w Premixed Ivpb -) 50 mls @ 50 mls/hr IVPB DAILY [facility] Last Admin: 03/24/18 09:25 Dose: 50 mls/hr Meropenem 500 mg/ Dextrose 100 mls @ 400 mls/hr IVPB BID [facility] Last Admin: 03/24/18 08:28 Dose: 400 mls/hr Sodium Chloride (Normal Saline -) 1,000 mls @ 1,000 mls/hr IV ASDIR STA Stop: 03/24/18 10:29 Insulin Aspart (Novolog Vial Sliding Scale -) 1 vial SQ Q4H [facility] PRN Reason: Protocol Last Admin: 03/24/18 06:17 Dose: 2 units Nystatin (Nystop Powder -) 1 applic TP DAILY [facility] Last Admin: 03/24/18 09:24 Dose: 1 applic A/P UTI Gram Negative Bacteremia Severe Sepsis Acute Kidney Injury Hyperkalemia improved Metabolic Acidosis Altered Mental Status Acute CVA Atrial Fibrillation with RVR DM COPD - IVF resuscitation - monitor urine output, creatinine - may need pressors - continue antibiotics - f/u cultures - monitor lytes - aspiration precautions - continue anticoagulation - rate control - continue ICU monitoring critical care time spent in reviewing chart, evaluating patient and formulating plan 35 min
--- NOTE | 2018-03-24 10:41 | PN ---
Progress Note (short form) - Note Progress Note: seen and examined ICU more alert this am Vital Signs Period Temp Pulse Resp BP Sys/Bangura Pulse Ox Last 24 Hr 98.4 F-100.8 F 110-138 16-22 86-116/45-86 96-96 comfortable / seems more laert neck suppl e heart ireg lungs grossly clear abd + ruq drain in place ext erythematous rash / flat no edema CBC, BMP 03/24/18 06:55 03/24/18 06:55 Microbiology 03/22/18 16:15 Blood - Peripheral Venous Blood Culture - Preliminary Lactose Fermenting Neg Bacilli 03/22/18 16:15 Blood - Peripheral Venous Blood Culture - Preliminary Lactose Fermenting Neg Bacilli 03/23/18 09:00 Bile Gram Stain - Final 03/22/18 15:30 Throat Throat Culture - Preliminary Gram Negative Yobani 03/22/18 15:30 Throat Group A Strep Rapid Antigen - Final Active Medications Clotrimazole (Lotrimin 1% Cream -) 1 applic TP BID [facility] Last Admin: 03/24/18 09:24 Dose: 1 applic Fluconazole (Diflucan 100 Mg/D5w Premixed Ivpb -) 50 mls @ 50 mls/hr IVPB DAILY [facility] Last Admin: 03/24/18 09:25 Dose: 50 mls/hr Meropenem 500 mg/ Dextrose 100 mls @ 400 mls/hr IVPB BID [facility] Last Admin: 03/24/18 08:28 Dose: 400 mls/hr Insulin Aspart (Novolog Vial Sliding Scale -) 1 vial SQ Q4H [facility] PRN Reason: Protocol Last Admin: 03/24/18 06:17 Dose: 2 units Nystatin (Nystop Powder -) 1 applic TP DAILY [facility] Last Admin: 03/24/18 09:24 Dose: 1 applic # sepsis cultured / Id appreciated Abx per ID Rash ?? 2/2 to meds? cholecystostomy tube in place -- source ? # ELÍAS improving continue IV fluids / follow lytes admitted with hyperkalemia 7.1 # electolyes Hyperkalemia / hypomag / hyponatremia follow and correct as needed # DM uncontrolled sliding scale # COPD nebulizer / O2 / follow sats #CVA hx of multiple events in the past as per previous MRI ( last hospitalization ) # rash allergic reaction ??
--- NOTE | 2018-03-24 12:24 | CONSULT ---
Consult Consult Specialty:: Cardiology Referred by:: Medicine Reason for Consultation:: Afib - History of Present Illness History of Present Illness: 77 yo female Known pAF on Apixaban COPD, IDDM, depression Now admitted on 03/22/2018 with Left facial droop and right arm weakness with elevated sCr 5.7 Limited history Called today to assist in management of AF with RVR HR 160s with RVR - Past Medical History [employer]: Yes: Other (encephalopathy recently, long history of stuttering) Cardio/Vascular: Yes: HTN Pulmonary: Yes: COPD Gastrointestinal: Yes: Constipation, GI Bleed Renal/: Yes: Renal Inusuff ...: No Endocrine: Yes: Diabetes Mellitus (since she was 51 y/o) - Past Surgical History Past Surgical History: Yes: Joint Replacement (both knees X2 / both hips / surgey on right shoulder) - Alcohol/Substance Use Hx Alcohol Use: No - Smoking History Smoking history: Never smoked Have you smoked in the past 12 months: No - Social History ADL: Support Services History of Recent Travel: No Home Medications - Allergies Allergies/Adverse Reactions: Allergies Allergy/AdvReac Type Severity Reaction Status Date / Time sulfur dioxide Allergy Verified 03/22/18 12:59 lactose AdvReac Verified 03/23/18 12:17 - Home Medications Home Medications: Ambulatory Orders Atorvastatin Ca [Lipitor] 40 mg PO HS 30 Days #30 tablet 01/12/18 Lisinopril [Prinivil] 5 mg PO DAILY 30 Days #30 tablet 01/12/18 Melatonin 5 mg PO HS 02/22/18 Pantoprazole Sodium 40 mg PO DAILY 02/22/18 Risperidone 0.5 mg PO HS 02/22/18 Sitagliptin Phos/Metformin HCl [Janumet 50-1,000 mg Tablet] 1 each PO BID Venlafaxine HCl ER [Effexor Xr -] 37.5 mg PO DAILY 02/22/18 Acetaminophen [Tylenol .Regular Strength -] 650 mg PO Q4H PRN tablet 03/12/18 Acetaminophen [Tylenol .Regular Strength -] 650 mg PO Q4H PRN tablet 03/12/18 Apixaban [Eliquis -] 5 mg PO BID 30 Days #60 tablet 03/12/18 Apixaban [Eliquis -] 5 mg PO BID 30 Days #60 tablet 03/12/18 Calcium Carbonate - 650 mg PO BID tablet 03/12/18 Calcium Carbonate - 650 mg PO BID tablet 03/12/18 Cholecalciferol (Vitamin D3) [Vitamin D3 -] 1,000 unit PO DAILY tab 03/12/18 Cholecalciferol (Vitamin D3) [Vitamin D3 -] 2,000 unit PO DAILY tab 03/12/18 Diltiazem Cd [Cardizem Cd -] 120 mg PO BID cap.cd.24h 03/12/18 Diltiazem Cd [Cardizem Cd -] 120 mg PO BID cap.cd.24h 03/12/18 Insulin Sliding Scale [Novolog Vial Sliding Scale -] 1 vial SQ ACHS units 03/12 Insulin Sliding Scale [Novolog Vial Sliding Scale -] 1 vial SQ ACHS units 03/12 Loperamide HCl [Imodium -] 2 mg PO Q8H PRN capsule 03/12/18 Loperamide HCl [Imodium -] 2 mg PO Q8H PRN capsule 03/12/18 Pantoprazole Sodium [Protonix -] 40 mg PO DAILY 30 Days #30 tablet.ec 03/12/18 Pantoprazole Sodium [Protonix -] 40 mg PO DAILY 30 Days #30 tablet.ec 03/12/18 Valsartan [Diovan] 80 mg PO DAILY tablet 03/12/18 Valsartan [Diovan] 80 mg PO DAILY tablet 03/12/18 Vancomycin Oral Solution 125 mg PO Q6HPO 10 Days #150 ml 03/12/18 Vancomycin Oral Solution 125 mg PO Q6HPO 10 Days #150 ml 03/12/18 Zolpidem Tartrate [Ambien] 5 mg PO HS 7 Days #7 tablet MDD 5mg 03/12/18 Zolpidem Tartrate [Ambien] 5 mg PO HS PRN 7 Days #7 tablet MDD 5 mg 03/12/18 Family Disease History - Family Disease History Family Disease History: Other: Father (stroke), Mother (stroke), Sister (strokes , first in her 40's) Physical Exam Vital Signs: Vital Signs Temperature 100.6 F H 03/24/18 10:00 Pulse Rate 163 H 03/24/18 11:21 Respiratory Rate 20 03/24/18 10:00 Blood Pressure 110/55 03/24/18 11:21 O2 Sat by Pulse Oximetry (%) 100 03/24/18 10:00 Constitutional: Yes: Mild Distress Eyes: Yes: WNL HENT: Yes: WNL Neck: Yes: WNL Cardiovascular: Yes: Tachycardia, Pulse Irregular Respiratory: Yes: CTA Bilaterally Gastrointestinal: Yes: Normal Bowel Sounds Extremities: Yes: WNL Edema: LLE: 1+, RLE: 1+ Labs: CBC, BMP 03/24/18 06:55 03/24/18 06:55 Imaging - Results EKG: Image Reviewed Other: Report Reviewed (Echo 02/2018: LVEF 55-60%, normal LA size, mild .), Image Reviewed Assessment/Plan 77 yo female with PAF on eliquis now with left facial droop in the setting of ELÍAS and metabolic acidosis 1) AFib with RVR -Low grade fever today ?sepsis -RVR likely related to response to fever and underlying metabolic derangement -BP on lower side -Have been given Lopressor 5mg IV for attempted rate control -Would try Diltiazem (10mg bolus followed by 5mg/hr gtt). Hold for SBP < 90mmHg. If become hypotensive with Dilt, may need to use Amio. -Would resume anticoagulation as per neurology recs -Continue fever work up
[2018-03-24] MEDS ORDERED: dilTIAZem HCL 50 MG/10 ML - 10 ML VIAL IVPUSH ONE (13:00)
[2018-03-24] MEDS: DILTIAZEM INJECTION 125 MG in SODIUM CHLORIDE 100 ML IVPB SCH (13:05)
[2018-03-24] MEDS ORDERED: morphine CARPU-JECT 2 MG/1 ML DISP.SYRIN ONE (14:22)
[2018-03-24] MEDS: morphine CARPU-JECT 2 MG/1 ML DISP.SYRIN IVPUSH PRN ×2 (15:04→22:02)
[2018-03-24] MEDS: METOPROLOL TARTRATE 5 MG/5 ML VIAL IVPUSH PRN (15:05)
--- NOTE | 2018-03-24 15:08 | PN ---
Progress Note, Physician Chief Complaint: right sided weakness History of Present Illness: Current: This Am patient less alert, moving right side less and only looking to the left. Non communicative and not following commands From Initial Consult: 77 year old female with a significant PMH of recent CVA & TIA, COPD, diabetes, recent multiple embolic CVA -dx with AFIB and started on Eliquis use who presents to the emergency department with speech difficulty and weakness on 03/22/18. As per EMS, the patient was at baseline before 12PM but afterwards began to slightly slur her words and develop right sided weakness and left side facial droop. CTA was done in ER IMPRESSION: See discussion above There is a short segment of moderate to marked narrowing in the distal right M1 segment. Otherwise , no major artery cutoff, vascular malformation or aneurysm are identified within the central intracranial arterial lesion. Narrowed/hypoplastic right P1 segment likely due to the presence of a right posterior communicating artery Tiny ossified plaque in the right bulb without evidence of hemodynamically significant stenosis. Small calcified plaques at the left common carotid bifurcation as well as the proximal left common carotid artery without evidence of hemodynamically significant stenosis found to have elevated WBC / rash and Acute on chronic kidney failure -- not given TPA given she was on AC and sx thought to be related to underlying metabolic /infectious etiology - Current Medication List Current Medications: Active Medications Acetaminophen (Ofirmev Injection -) 1,000 mg IVPB Q6H PRN PRN Reason: FEVER Last Admin: 03/24/18 12:22 Dose: 1,000 mg Clotrimazole (Lotrimin 1% Cream -) 1 applic TP BID BRITTANY Last Admin: 03/24/18 09:24 Dose: 1 applic Fluconazole (Diflucan 100 Mg/D5w Premixed Ivpb -) 50 mls @ 50 mls/hr IVPB DAILY BRITTANY Last Admin: 03/24/18 09:25 Dose: 50 mls/hr Meropenem 500 mg/ Dextrose 100 mls @ 400 mls/hr IVPB BID BRITTANY Last Admin: 03/24/18 08:28 Dose: 400 mls/hr Diltiazem HCl 125 mg/ Sodium (Chloride) 125 mls @ 5 mls/hr IVPB TITR BRITTANY; 5 MG/ HR PRN Reason: Protocol Last Admin: 03/24/18 13:05 Dose: 5 mg/hr, 5 mls/hr Sodium Chloride (Normal Saline -) 1,000 mls @ 75 mls/hr IV ASDIR BRITTANY Insulin Aspart (Novolog Vial Sliding Scale -) 1 vial SQ Q4H BRITTANY PRN Reason: Protocol Last Admin: 03/24/18 12:05 Dose: 4 units Metoprolol Tartrate (Lopressor Injection -) 5 mg IVPUSH Q4H PRN PRN Reason: HYPERTENSION Morphine Sulfate (Morphine Injection -) 2 mg IVPUSH Q4H PRN PRN Reason: RESTLESSNESS / AGITATION Nystatin (Nystop Powder -) 1 applic TP DAILY [facility] Last Admin: 03/24/18 09:24 Dose: 1 applic - Objective Vital Signs: Vital Signs Temperature 101 F H 03/24/18 12:00 Pulse Rate 112 H 03/24/18 14:00 Respiratory Rate 22 03/24/18 14:00 Blood Pressure 134/41 03/24/18 14:00 O2 Sat by Pulse Oximetry (%) 100 03/24/18 10:00 Neurological: Yes: Other (Patient lying in bed, eyes closed, easily aroused but looks to far left, doesn't make eye contact. She moves left side ok but doesn' t move right side at all. no vocalization and doesn't follow commands.) Labs: CBC, BMP 03/24/18 06:55 03/24/18 06:55 INR, PTT INR 1.92 (0.82-1.09) H 03/23/18 05:26 Problem List - Problems (1) CVA (cerebral vascular accident) Code(s): I63.9 - CEREBRAL INFARCTION, UNSPECIFIED Qualifiers: CVA mechanism: unspecified Qualified Code(s): I63.9 - Cerebral infarction, unspecified Assessment/Plan Suspect another stroke overnight, this one appears to be somewhat larger based on the gaze deviation, typically a cortical sign. CT head ordered. This may impact safety of anticoagulation.
[2018-03-24] MEDS: SODIUM CHLORIDE 1,000 ML IV SCH (15:15)
--- NOTE | 2018-03-24 16:23 | PN ---
Progress Note (short form) - Note Progress Note: Notified of results of new CT scan which revealed a large left MCA infarction. This is on top of the acute infarction in the cerebellum that brought her into the hospital and the multiple other infarctions that she has had lately. At least one of these strokes occurred through the apixiban that she had been on. She has multiple blood cultures positive. First off, she is at high risk of hemorrhagic conversion and it is probably not safe to anticoagulate her at this time. Second, she is failing Apixiban, and I wonder if she has infectious endocarditis. I'd ask cardiology to address that possibility. Unfortunately, this last stroke was a large dominant hemisphere infarction and likely to leave her aphasic and with additional cognitive as well as motor deficits on top of the deficits that she has already had, and the family may wish to keep this in mind in terms of medical decision making. Problem List - Problems (1) CVA (cerebral vascular accident) Code(s): I63.9 - CEREBRAL INFARCTION, UNSPECIFIED Qualifiers: CVA mechanism: unspecified Qualified Code(s): I63.9 - Cerebral infarction, unspecified
[2018-03-24] MEDS ORDERED: PT OWN MED DRAWER 7, Y5N ONE (21:55)
[2018-03-25] MEDS ORDERED: dilTIAZem HCL 25 MG/5 ML - 5 ML VIAL ONE ×3 (01:18→23:20)
[2018-03-25] MEDS: INSULIN SLIDING SCALE (NOVOLOG) 1 VIAL SQ SCH ×6 (02:30→23:22)
[2018-03-25 06:07] LABS: HEMATOCRIT 24.5 % (32.4-45.2); HEMOGLOBIN 8.2 GM/dL (10.7-15.3); MCH 28.3 pg (25.7-33.7); MCHC 33.5 g/dl (32.0-36.0); MEAN CELL VOLUME 84.5 fl (80-96); MEAN PLT VOLUME 8.9 fl (7.5-11.1); PLATELET COUNT 261 K/MM3 (134-434); RDW 14.8 % (11.6-15.6)
[2018-03-25 06:22] LABS: INR 1.35 (0.82-1.09); PROTHROMBIN TIME (PATIENT) 15.2 SEC (9.7-13.0)
[2018-03-25 06:24] LABS: WHITE BLOOD COUNT 30.9 K/mm3 (4.0-10.0)
[2018-03-25] MEDS: ACETAMINOPHEN 1000 MG/100 ML VIAL (NON FORMULARY) IVPB PRN ×2 (06:29→17:43)
[2018-03-25 06:36] LABS: HBSAG SCREEN Negative (Negative); HEP A AB, IGM Negative (Negative); HEP B CORE AB, TOT Negative (Negative)
[2018-03-25 06:42] LABS: CHLORIDE 117 mmol/L (98-107); POTASSIUM 4.4 mmol/L (3.5-5.1); SODIUM 145 mmol/L (136-145)
[2018-03-25 06:50] LABS: ALBUMIN 1.7 g/dl (3.4-5.0); ALK PHOS 95 U/L (45-117); ANION GAP 8 (8-16); BILIRUBIN,TOTAL 0.2 mg/dL (0.2-1.0); BLOOD UREA NITROGEN 58 mg/dL (7-18); CALCIUM 7.7 mg/dL (8.5-10.1); CO2 20 mmol/L (21-32); GLUCOSE,RANDOM 128 mg/dL (74-106); MAGNESIUM 1.5 mg/dL (1.8-2.4); SGOT/AST 24 U/L (15-37); SGPT/ALT 19 U/L (12-78); TOT PROT 4.7 g/dl (6.4-8.2)
--- NOTE | 2018-03-25 06:52 | PN ---
Progress Note, Physician Chief Complaint: ID Deteriorating clinical status with the development of another acute CVA Neurology notes and repeat Head CT are noted Currently she is poorly responsive Also febrile with a WBC of 30K She still has a drain in the RUQ - Current Medication List Current Medications: Active Medications Acetaminophen (Ofirmev Injection -) 1,000 mg IVPB Q6H PRN PRN Reason: FEVER Last Admin: 03/25/18 06:29 Dose: 1,000 mg Clotrimazole (Lotrimin 1% Cream -) 1 applic TP BID [facility] Last Admin: 03/24/18 22:00 Dose: 1 applic Fluconazole (Diflucan 100 Mg/D5w Premixed Ivpb -) 50 mls @ 50 mls/hr IVPB DAILY [facility] Last Admin: 03/24/18 09:25 Dose: 50 mls/hr Meropenem 500 mg/ Dextrose 100 mls @ 400 mls/hr IVPB BID [facility] Last Admin: 03/24/18 22:00 Dose: 400 mls/hr Diltiazem HCl 125 mg/ Sodium (Chloride) 125 mls @ 5 mls/hr IVPB TITR BRITTANY; 5 MG/ HR PRN Reason: Protocol Last Titration: 03/24/18 19:00 Dose: 10 mg/hr, 10 mls/hr Sodium Chloride (Normal Saline -) 1,000 mls @ 75 mls/hr IV ASDIR [facility] Last Admin: 03/24/18 15:15 Dose: 75 mls/hr Insulin Aspart (Novolog Vial Sliding Scale -) 1 vial SQ Q4H BRITTANY PRN Reason: Protocol Last Admin: 03/25/18 06:29 Dose: Not Given Metoprolol Tartrate (Lopressor Injection -) 5 mg IVPUSH Q4H PRN PRN Reason: HYPERTENSION Last Admin: 03/24/18 15:05 Dose: 5 mg Morphine Sulfate (Morphine Injection -) 2 mg IVPUSH Q4H PRN PRN Reason: RESTLESSNESS / AGITATION Last Admin: 03/24/18 22:02 Dose: 2 mg Nystatin (Nystop Powder -) 1 applic TP DAILY [facility] Last Admin: 03/24/18 09:24 Dose: 1 applic - Objective Vital Signs: Vital Signs Temperature 100.3 F H 03/25/18 06:00 Pulse Rate 106 H 03/25/18 06:00 Respiratory Rate 20 03/25/18 06:00 Blood Pressure 108/57 03/25/18 06:00 O2 Sat by Pulse Oximetry (%) 100 03/24/18 21:00 Constitutional: Yes: Other (UNresponsive) Neck: Yes: WNL, Supple Cardiovascular: Yes: Tachycardia, S1, S2. No: Murmur Respiratory: Yes: WNL, Regular, CTA Bilaterally Gastrointestinal: Yes: WNL, Normal Bowel Sounds, Soft, Other (RUQ drain). No: Tenderness, Tenderness, Rebound Edema: No Integumentary: Yes: Other (Extesnive rash worse perhaps) Labs: CBC, BMP 03/25/18 05:55 INR, PTT INR 1.35 (0.82-1.09) H 03/25/18 05:55 Problem List - Problems (1) UTI (urinary tract infection) Code(s): N39.0 - URINARY TRACT INFECTION, SITE NOT SPECIFIED (2) CVA (cerebral vascular accident) Code(s): I63.9 - CEREBRAL INFARCTION, UNSPECIFIED Qualifiers: CVA mechanism: unspecified Qualified Code(s): I63.9 - Cerebral infarction, unspecified (3) Cholecystitis with cholangitis Code(s): K81.9 - CHOLECYSTITIS, UNSPECIFIED; K83.0 - CHOLANGITIS (4) Diabetes mellitus Code(s): E11.9 - TYPE 2 DIABETES MELLITUS WITHOUT COMPLICATIONS Qualifiers: Diabetes mellitus type: type 2 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: with fdc use Diabetes mellitus complication status: with neurologic complications (5) Acute renal failure Code(s): N17.9 - ACUTE KIDNEY FAILURE, UNSPECIFIED (6) Sacral decubitus ulcer Code(s): L89.159 - PRESSURE ULCER OF SACRAL REGION, UNSPECIFIED STAGE (7) Drug rash Code(s): L27.0 - GEN SKIN ERUPTION DUE TO DRUGS AND MEDS TAKEN INTERNALLY Assessment/Plan Microbiology 03/24/18 10:00 Stool Clostridium difficile Antigen (LORETA) - Final 03/24/18 10:00 Stool Clostridium difficile Toxin Assay - Final 03/23/18 09:00 Bile Gram Stain - Final 03/22/18 15:30 Throat Throat Culture - Final 03/22/18 15:30 Throat Group A Strep Rapid Antigen - Final Klebsiella Pneumoniae 03/23/18 09:00 Bile Body Fluid Culture - Preliminary Lactose Fermenting Neg Bacilli Group D Strep Or Entero Coccus 03/22/18 16:15 Blood - Peripheral Venous Blood Culture - Preliminary Lactose Fermenting Neg Bacilli 03/22/18 16:15 Blood - Peripheral Venous Blood Culture - Preliminary Lactose Fermenting Neg Bacilli 03/22/18 13:05 Urine - Urine Clean Catch Urine Culture - Preliminary Lactose Fermenting Neg Bacilli Laboratory Tests 03/24/18 03/25/18 03/25/18 06:55 05:55 05:55 WBC 30.9 H* Hgb 8.2 L Hct 24.5 L Plt Count 261 INR 1.35 H BUN 71 H Creatinine Creat Clearance w eGFR 14.08 Total Bilirubin 0.4 AST 48 H ALT 21 Alkaline Phosphatase 90 03/25/18 05:55 WBC Hgb Hct Plt Count INR BUN Pending Creatinine Pending Creat Clearance w eGFR Total Bilirubin AST ALT Alkaline Phosphatase Assessment Sepsis with multiorgan failure Urinary tract infection with gram negative bacteremia ?Klebs Extensive generalized rash drug eruption but she had this on admission ? prior cardiac rash vs antibiotic previous Diseases gallbladder never operated ? necrotic in light of 30K WBC noted Acute renal failure Recurrent strokes now poorly responsive Cutaneous fungal infection on Diflucan Plan As per neurology concern re endocarditis I do not think she had this. On her prior admission her blood cultures were no growth and the source of sepsis now seems to be her urinary tract and her gallbladder. Gram negative endocarditis would be unusual and in any case beyond antibiotics she is not an operative candidate with regard to valve replacement Her WBC so high suggests abscess ?gallbladder but again she does not seem to be a candidiate for any surgical intervention A CT of the abd could be considered mostly for academic reasons. Prognosis remains poor Family wants no intubation or chest compressions Critical time 37mins Main AVILA
[2018-03-25] MEDS: morphine CARPU-JECT 2 MG/1 ML DISP.SYRIN IVPUSH PRN ×2 (08:10→17:43)
[2018-03-25] MEDS: NYSTATIN POWDER 100,000 UNITS/GM - 15 GM TOPICAL POWDER TP SCH (09:42)
[2018-03-25] MEDS: MEROPENEM 500 MG in DEXTROSE 5%-WATER 100 ML IVPB SCH ×2 (09:42→23:02)
--- NOTE | 2018-03-25 09:44 | PN ---
Progress Note (short form) - Note Progress Note: PULMONARY/CCM Pt seen and examined in the ICU. Persistent fevers. CT head yesterday showing new large L MCA stroke. Started on cardizem gtt yesterday for better rate control. Last Vital Signs Temp Pulse Resp BP Pulse Ox 100.3 F H 106 H 20 108/57 100 03/25/18 06:00 03/25/18 06:00 03/25/18 06:00 03/25/18 06:00 03/24/18 21:00 Intake & Output 03/22/18 03/23/18 03/24/18 03/25/18 23:59 23:59 23:59 23:59 Intake Total 2430 4265 790 595 Output Total 2030 1080 1000 300 Balance 400 3185 -210 295 Weight 74.843 kg 73.936 kg 74.191 kg 74.871 kg Gen: confused, mildly tachypneic Heart: tachycardic, irregular Lung: scattered rhonchi Abd: soft, nontender Ext: no edema Skin: scattered rash improving CBC, BMP 03/25/18 05:55 03/25/18 05:55 Active Medications Acetaminophen (Ofirmev Injection -) 1,000 mg IVPB Q6H PRN PRN Reason: FEVER Last Admin: 03/25/18 06:29 Dose: 1,000 mg Clotrimazole (Lotrimin 1% Cream -) 1 applic TP BID [facility] Last Admin: 03/24/18 22:00 Dose: 1 applic Fluconazole (Diflucan 100 Mg/D5w Premixed Ivpb -) 50 mls @ 50 mls/hr IVPB DAILY [facility] Last Admin: 03/24/18 09:25 Dose: 50 mls/hr Meropenem 500 mg/ Dextrose 100 mls @ 400 mls/hr IVPB BID [facility] Last Admin: 03/24/18 22:00 Dose: 400 mls/hr Diltiazem HCl 125 mg/ Sodium (Chloride) 125 mls @ 5 mls/hr IVPB TITR BRITTANY; 5 MG/ HR PRN Reason: Protocol Last Titration: 03/24/18 19:00 Dose: 10 mg/hr, 10 mls/hr Sodium Chloride (Normal Saline -) 1,000 mls @ 75 mls/hr IV ASDIR [facility] Last Admin: 03/24/18 15:15 Dose: 75 mls/hr Insulin Aspart (Novolog Vial Sliding Scale -) 1 vial SQ Q4H [facility] PRN Reason: Protocol Last Admin: 03/25/18 06:29 Dose: Not Given Metoprolol Tartrate (Lopressor Injection -) 5 mg IVPUSH Q4H PRN PRN Reason: HYPERTENSION Last Admin: 03/24/18 15:05 Dose: 5 mg Morphine Sulfate (Morphine Injection -) 2 mg IVPUSH Q4H PRN PRN Reason: RESTLESSNESS / AGITATION Last Admin: 03/25/18 08:10 Dose: 2 mg Nystatin (Nystop Powder -) 1 applic TP DAILY [facility] Last Admin: 03/24/18 09:24 Dose: 1 applic A/P UTI Gram Negative Bacteremia Severe Sepsis Acute Kidney Injury Hyperkalemia improved Metabolic Acidosis Altered Mental Status Acute CVA Atrial Fibrillation with RVR DM COPD - continue IVF - monitor urine output, creatinine - continue antibiotics - f/u cultures - monitor lytes - aspiration precautions - continue anticoagulation - rate control with cardizem gtt - continue ICU monitoring - poor overall prognosis, continue discussions regarding goals of care critical care time spent in reviewing chart, evaluating patient and formulating plan 35 min
--- NOTE | 2018-03-25 09:53 | PN ---
Progress Note (short form) - Note Progress Note: RENAL Pt is awake and alert, but not conversant family by bedside Last Vital Signs Temp Pulse Resp BP Pulse Ox 99.1 F 102 H 22 108/42 100 03/25/18 08:00 03/25/18 08:00 03/25/18 08:00 03/25/18 08:00 03/24/18 21:00 lungs bilat air entry cvs tachycardic, hypotensive abd soft, biliary drainage intact ext no edema neuro makes eye contact but does not answer questions skin has a diffuse macular rash seems CBC, BMP 03/25/18 05:55 03/25/18 05:55 Current Medications Generic Name Dose Route Start Last Admin Trade Name Freq PRN Reason Stop Dose Admin Acetaminophen 1,000 mg 03/24/18 12:04 03/25/18 06:29 Ofirmev Injection - IVPB 1,000 mg Q6H PRN Administration FEVER Clotrimazole 1 applic 03/23/18 10:00 03/24/18 22:00 Lotrimin 1% Cream - TP 1 applic BID BRITTANY Administration Fluconazole 50 mls @ 50 mls/hr 03/23/18 10:00 03/24/18 09:25 Diflucan 100 Mg/D5w Premixed Ivpb - IVPB 50 mls/hr DAILY BRITTANY Administration Meropenem 500 mg/ Dextrose 100 mls @ 400 mls/hr 03/24/18 07:30 03/25/18 09:42 IVPB 400 mls/hr BID BRITTANY Administration Diltiazem HCl 125 mg/ Sodium 125 mls @ 5 mls/hr 03/24/18 13:15 03/24/18 19:00 Chloride IVPB 10 mg/hr TITR BRITTANY 10 mls/hr Protocol Titration 5 MG/HR Sodium Chloride 1,000 mls @ 75 mls/hr 03/24/18 15:00 03/24/18 15:15 Normal Saline - IV 75 mls/hr ASDIR BRITTANY Administration Insulin Aspart 1 vial 03/23/18 23:00 03/25/18 06:29 Novolog Vial Sliding Scale - SQ Not Given Q4H BRITTANY Protocol Metoprolol Tartrate 5 mg 03/24/18 12:19 03/24/18 15:05 Lopressor Injection - IVPUSH 5 mg Q4H PRN Administration HYPERTENSION Morphine Sulfate 2 mg 03/24/18 14:50 03/25/18 08:10 Morphine Injection - IVPUSH 2 mg Q4H PRN Administration RESTLESSNESS / AGITATION Nystatin 1 applic 03/23/18 10:00 03/25/18 09:42 Nystop Powder - TP 1 applic DAILY BRITTANY Administration Impression 1. ELÍAS better 2. hyperkalemia resolved 3. sepsis 4. hyponatremia resolved 5. DM uncontrolled 6. COPD 7. CVA 8. hypomagnesemia Plan -continue current management -monitor renal function -would continue fluids -need to try to identify source of rash MV
[2018-03-25 10:00] LABS: ACANTHOCYTES 1+; ANISOCYTOSIS 1+; MACROCYTOSIS 1+; PLATELET ESTIMATE NORMAL
[2018-03-25] MEDS: FLUCONAZOLE 100 MG/D5W 50 ML IVPB SCH (10:55)
--- NOTE | 2018-03-25 11:01 | PN ---
Progress Note, Physician History of Present Illness: Improved HR with Dilt gtt No other events Son at bedside - Current Medication List Current Medications: Active Medications Acetaminophen (Ofirmev Injection -) 1,000 mg IVPB Q6H PRN PRN Reason: FEVER Last Admin: 03/25/18 06:29 Dose: 1,000 mg Clotrimazole (Lotrimin 1% Cream -) 1 applic TP BID [facility] Last Admin: 03/24/18 22:00 Dose: 1 applic Fluconazole (Diflucan 100 Mg/D5w Premixed Ivpb -) 50 mls @ 50 mls/hr IVPB DAILY [facility] Last Admin: 03/25/18 10:55 Dose: 50 mls/hr Meropenem 500 mg/ Dextrose 100 mls @ 400 mls/hr IVPB BID [facility] Last Admin: 03/25/18 09:42 Dose: 400 mls/hr Diltiazem HCl 125 mg/ Sodium (Chloride) 125 mls @ 5 mls/hr IVPB TITR BRITTANY; 5 MG/ HR PRN Reason: Protocol Last Titration: 03/24/18 19:00 Dose: 10 mg/hr, 10 mls/hr Sodium Chloride (Normal Saline -) 1,000 mls @ 75 mls/hr IV ASDIR [facility] Last Admin: 03/24/18 15:15 Dose: 75 mls/hr Insulin Aspart (Novolog Vial Sliding Scale -) 1 vial SQ Q4H BRITTANY PRN Reason: Protocol Last Admin: 03/25/18 06:29 Dose: Not Given Metoprolol Tartrate (Lopressor Injection -) 5 mg IVPUSH Q4H PRN PRN Reason: HYPERTENSION Last Admin: 03/24/18 15:05 Dose: 5 mg Morphine Sulfate (Morphine Injection -) 2 mg IVPUSH Q4H PRN PRN Reason: RESTLESSNESS / AGITATION Last Admin: 03/25/18 08:10 Dose: 2 mg Nystatin (Nystop Powder -) 1 applic TP DAILY [facility] Last Admin: 03/25/18 09:42 Dose: 1 applic - Objective Vital Signs: Vital Signs Temperature 99.1 F 03/25/18 08:00 Pulse Rate 102 H 03/25/18 08:00 Respiratory Rate 22 03/25/18 08:00 Blood Pressure 108/42 03/25/18 08:00 O2 Sat by Pulse Oximetry (%) 100 03/24/18 21:00 Constitutional: Yes: No Distress, Other (Opens eyes to name, but non communicactive) Eyes: Yes: WNL HENT: Yes: WNL Neck: Yes: WNL Cardiovascular: Yes: Tachycardia, Pulse Irregular Respiratory: Yes: CTA Bilaterally Musculoskeletal: Yes: WNL Extremities: Yes: WNL Labs: CBC, BMP 03/25/18 05:55 03/25/18 05:55 INR, PTT INR 1.35 (0.82-1.09) H 03/25/18 05:55 Assessment/Plan 77 yo female with PAF on eliquis now with left facial droop in the setting of ELÍAS and metabolic acidosis 1) AFib with RVR -Low grade fever today ?sepsis with (+) blood cultures K. Pneumonia -RVR likely related to response to fever and underlying metabolic derangement -BP stable on Dilt gtt -Heart rates are better and would continue Diltiazem at 5mg/hr gtt. Hold for SBP <90mmHg. If become hypotensive with Dilt, may need to use Amio. 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 Would discuss with neurology timing of resuming anticoagulation. -Continue fever/sepsis management as per ICU/ID staff Discussed with son at bedside.
--- NOTE | 2018-03-25 13:23 | PN ---
Progress Note, Physician Chief Complaint: right sided weakness History of Present Illness: Current: This Am patient more alert than yesterday, but still with impaired attention, particularly to the right and with strong left gaze deviation. She is moving right side less and only looking to the left. Non communicative and not following commands. Some movement of left foot noted by son. CT scan showed large left MCA infarction. Dr. Quach's note appreciated, doesn't believe that endocarditis is likely, both in setting of history and documented agent. From Initial Consult: 77 year old female with a significant PMH of recent CVA & TIA, COPD, diabetes, recent multiple embolic CVA -dx with AFIB and started on Eliquis use who presents to the emergency department with speech difficulty and weakness on 03/22/18. As per EMS, the patient was at baseline before 12PM but afterwards began to slightly slur her words and develop right sided weakness and left side facial droop. CTA was done in ER IMPRESSION: See discussion above There is a short segment of moderate to marked narrowing in the distal right M1 segment. Otherwise , no major artery cutoff, vascular malformation or aneurysm are identified within the central intracranial arterial lesion. Narrowed/hypoplastic right P1 segment likely due to the presence of a right posterior communicating artery Tiny ossified plaque in the right bulb without evidence of hemodynamically significant stenosis. Small calcified plaques at the left common carotid bifurcation as well as the proximal left common carotid artery without evidence of hemodynamically significant stenosis found to have elevated WBC / rash and Acute on chronic kidney failure -- not given TPA given she was on AC and sx thought to be related to underlying metabolic /infectious etiology - Current Medication List Current Medications: Active Medications Acetaminophen (Ofirmev Injection -) 1,000 mg IVPB Q6H PRN PRN Reason: FEVER Last Admin: 03/25/18 06:29 Dose: 1,000 mg Clotrimazole (Lotrimin 1% Cream -) 1 applic TP BID [facility] Last Admin: 03/24/18 22:00 Dose: 1 applic Fluconazole (Diflucan 100 Mg/D5w Premixed Ivpb -) 50 mls @ 50 mls/hr IVPB DAILY [facility] Last Admin: 03/25/18 10:55 Dose: 50 mls/hr Meropenem 500 mg/ Dextrose 100 mls @ 400 mls/hr IVPB BID [facility] Last Admin: 03/25/18 09:42 Dose: 400 mls/hr Diltiazem HCl 125 mg/ Sodium (Chloride) 125 mls @ 5 mls/hr IVPB TITR BRITTANY; 5 MG/ HR PRN Reason: Protocol Last Titration: 03/24/18 19:00 Dose: 10 mg/hr, 10 mls/hr Sodium Chloride (Normal Saline -) 1,000 mls @ 75 mls/hr IV ASDIR BRITTANY Last Admin: 03/24/18 15:15 Dose: 75 mls/hr Insulin Aspart (Novolog Vial Sliding Scale -) 1 vial SQ Q4H BRITTANY PRN Reason: Protocol Last Admin: 03/25/18 11:20 Dose: 4 units Metoprolol Tartrate (Lopressor Injection -) 5 mg IVPUSH Q4H PRN PRN Reason: HYPERTENSION Last Admin: 03/24/18 15:05 Dose: 5 mg Morphine Sulfate (Morphine Injection -) 2 mg IVPUSH Q4H PRN PRN Reason: RESTLESSNESS / AGITATION Last Admin: 03/25/18 08:10 Dose: 2 mg Nystatin (Nystop Powder -) 1 applic TP DAILY BRITTANY Last Admin: 03/25/18 09:42 Dose: 1 applic - Objective Vital Signs: Vital Signs Temperature 99.1 F 03/25/18 08:00 Pulse Rate 110 H 03/25/18 10:00 Respiratory Rate 18 03/25/18 10:00 Blood Pressure 107/54 03/25/18 10:00 O2 Sat by Pulse Oximetry (%) 97 03/25/18 10:00 Neurological: Yes: Other (Eyes open, left eye deviation, right side minimal movement of foot only.) Labs: CBC, BMP 03/25/18 05:55 03/25/18 05:55 INR, PTT INR 1.35 (0.82-1.09) H 03/25/18 05:55 Problem List - Problems (1) CVA (cerebral vascular accident) Code(s): I63.9 - CEREBRAL INFARCTION, UNSPECIFIED Qualifiers: CVA mechanism: embolism Qualified Code(s): I63.9 - Cerebral infarction, unspecified Assessment/Plan Stroke has been documented. Unfortunately with this and her large cerebellar infarction she is at high risk of hemorrhagic conversion and although she is at high risk of further strokes, I don't believe that it is safe to put her back on anticoagulation at this time. I explained this to the family and they understand.
[2018-03-25] MEDS: CLOTRIMAZOLE 1% CREAM 15 GM TUBE TP SCH ×2 (14:53→23:02)
[2018-03-25] MEDS: DILTIAZEM INJECTION 125 MG in SODIUM CHLORIDE 100 ML IVPB SCH (14:54)
[2018-03-25] MEDS: SODIUM CHLORIDE 1,000 ML IV SCH (17:02)
[2018-03-25] MEDS ORDERED: PT OWN MED DRAWER 7, Y5N ONE (22:34)
[2018-03-26] MEDS: INSULIN SLIDING SCALE (NOVOLOG) 1 VIAL SQ SCH ×3 (04:21→10:54)
[2018-03-26 06:20] LABS: HEMATOCRIT 27.4 % (32.4-45.2); HEMOGLOBIN 9.1 GM/dL (10.7-15.3); MCH 28.6 pg (25.7-33.7); MCHC 33.2 g/dl (32.0-36.0); MEAN CELL VOLUME 86.1 fl (80-96); MEAN PLT VOLUME 8.9 fl (7.5-11.1); PLATELET COUNT 332 K/MM3 (134-434); RBC 3.18 M/mm3 (3.60-5.2); RDW 15.4 % (11.6-15.6)
[2018-03-26 06:32] LABS: INR 1.29 (0.82-1.09); PROTHROMBIN TIME (PATIENT) 14.6 SEC (9.7-13.0)
[2018-03-26 06:35] LABS: ACTIVATED PTT 27.5 SECONDS (26.9-34.4)
[2018-03-26 06:36] LABS: WHITE BLOOD COUNT 35.1 K/mm3 (4.0-10.0)
[2018-03-26 06:44] LABS: CALCIUM 7.9 mg/dL (8.5-10.1); CHLORIDE 119 mmol/L (98-107); POTASSIUM 4.7 mmol/L (3.5-5.1); SODIUM 146 mmol/L (136-145)
[2018-03-26 06:50] LABS: ALBUMIN 1.8 g/dl (3.4-5.0); ALK PHOS 115 U/L (45-117); ANION GAP 11 (8-16); BILIRUBIN,TOTAL 0.4 mg/dL (0.2-1.0); BLOOD UREA NITROGEN 48 mg/dL (7-18); CO2 16 mmol/L (21-32); CREATININE 1.3 mg/dL (0.55-1.02); GLUCOSE,RANDOM 222 mg/dL (74-106); MAGNESIUM 1.6 mg/dL (1.8-2.4); PHOSPHOROUS 3.1 mg/dL (2.5-4.9); SGOT/AST 14 U/L (15-37); SGPT/ALT 18 U/L (12-78); TOT PROT 5.1 g/dl (6.4-8.2)
[2018-03-26] MEDS ORDERED: MAGNESIUM SULF 50% (8.12 MEQ/2 ML-1 GM VIAL) IVPB ONE (07:15)
[2018-03-26] MEDS ORDERED: MAGNESIUM SULF 50% (8.12 MEQ/2 ML-1 GM VIAL) ONE (08:30)
[2018-03-26] MEDS ORDERED: dilTIAZem HCL 25 MG/5 ML - 5 ML VIAL ONE ×2 (08:47→13:35)
[2018-03-26] MEDS: DILTIAZEM INJECTION 125 MG in SODIUM CHLORIDE 100 ML IVPB SCH ×3 (08:52→17:04)
[2018-03-26] MEDS ORDERED: MAGNESIUM SULFATE IN WATER 2 GM/50 ML IVPB IVPB ONE (09:10)
--- NOTE | 2018-03-26 09:29 | PN ---
Progress Note, Physician Chief Complaint: ID Situation remains critical Poorly responsive and at same time her WBC count continues to increase and her rash appears progressive Meropenem and Fluconazole She is febrile - Current Medication List Current Medications: Active Medications Clotrimazole (Lotrimin 1% Cream -) 1 applic TP BID [facility] Last Admin: 03/25/18 23:02 Dose: 1 applic Fluconazole (Diflucan 100 Mg/D5w Premixed Ivpb -) 50 mls @ 50 mls/hr IVPB DAILY [facility] Last Admin: 03/25/18 10:55 Dose: 50 mls/hr Meropenem 500 mg/ Dextrose 100 mls @ 400 mls/hr IVPB BID [facility]ITTANY Last Admin: 03/25/18 23:02 Dose: 400 mls/hr Diltiazem HCl 125 mg/ Sodium (Chloride) 125 mls @ 5 mls/hr IVPB TITR BRITTANY; 5 MG/ HR PRN Reason: Protocol Last Admin: 03/26/18 08:52 Dose: 15 mg/hr, 15 mls/hr Sodium Chloride (Normal Saline -) 1,000 mls @ 75 mls/hr IV ASDIR [facility] Last Admin: 03/25/18 17:02 Dose: 75 mls/hr Magnesium Sulfate (Magnesium Sulf 2 G/50 Ml Bag) 2 gm in 50 mls @ 50 mls/hr IVPB ONCE ONE Stop: 03/26/18 10:09 Last Admin: 03/26/18 08:56 Dose: 50 mls/hr Insulin Aspart (Novolog Vial Sliding Scale -) 1 vial SQ Q4H BRITTANY PRN Reason: Protocol Last Admin: 03/26/18 06:56 Dose: 2 units Metoprolol Tartrate (Lopressor Injection -) 5 mg IVPUSH Q4H PRN PRN Reason: HYPERTENSION Last Admin: 03/24/18 15:05 Dose: 5 mg Morphine Sulfate (Morphine Injection -) 2 mg IVPUSH Q4H PRN PRN Reason: RESTLESSNESS / AGITATION Last Admin: 03/25/18 17:43 Dose: 2 mg Nystatin (Nystop Powder -) 1 applic TP DAILY [facility] Last Admin: 03/25/18 09:42 Dose: 1 applic - Objective Vital Signs: Vital Signs Temperature 100.1 F H 03/26/18 08:00 Pulse Rate 103 H 03/26/18 08:52 Respiratory Rate 27 H 03/26/18 08:00 Blood Pressure 129/60 03/26/18 08:52 O2 Sat by Pulse Oximetry (%) 98 03/26/18 08:00 Constitutional: Yes: No Distress Cardiovascular: Yes: Regular Rate and Rhythm, S1, S2 Respiratory: Yes: WNL, Regular, CTA Bilaterally Gastrointestinal: Yes: WNL, Soft, Other (drain). No: Tenderness, Tenderness, Rebound Edema: Yes Integumentary: Yes: Rash, Other (Target lesions) Labs: CBC, BMP 03/26/18 05:10 03/26/18 05:10 INR, PTT INR 1.29 (0.82-1.09) H 03/26/18 05:10 Problem List - Problems (1) UTI (urinary tract infection) Code(s): N39.0 - URINARY TRACT INFECTION, SITE NOT SPECIFIED (2) CVA (cerebral vascular accident) Code(s): I63.9 - CEREBRAL INFARCTION, UNSPECIFIED Qualifiers: CVA mechanism: embolism Qualified Code(s): I63.9 - Cerebral infarction, unspecified (3) Cholecystitis with cholangitis Code(s): K81.9 - CHOLECYSTITIS, UNSPECIFIED; K83.0 - CHOLANGITIS (4) Diabetes mellitus Code(s): E11.9 - TYPE 2 DIABETES MELLITUS WITHOUT COMPLICATIONS Qualifiers: Diabetes mellitus type: type 2 Diabetes mellitus prison insulin use: with terminal clerk use Diabetes mellitus complication status: with neurologic complications (5) Acute renal failure Code(s): N17.9 - ACUTE KIDNEY FAILURE, UNSPECIFIED (6) Sacral decubitus ulcer Code(s): L89.159 - PRESSURE ULCER OF SACRAL REGION, UNSPECIFIED STAGE (7) Drug rash Code(s): L27.0 - GEN SKIN ERUPTION DUE TO DRUGS AND MEDS TAKEN INTERNALLY Assessment/Plan Microbiology 03/23/18 09:00 Bile Gram Stain - Final 03/23/18 09:00 Bile Anaerobic Culture - Final NO ANAEROBES WERE ISOLATED 03/22/18 16:15 Blood - Peripheral Venous Blood Culture - Final Klebsiella Pneumoniae 03/22/18 15:30 Throat Throat Culture - Final 03/22/18 15:30 Throat Group A Strep Rapid Antigen - Final Klebsiella Pneumoniae 03/22/18 13:05 Urine - Urine Clean Catch Urine Culture - Final Klebsiella Pneumoniae 03/23/18 09:00 Bile Body Fluid Culture - Preliminary Klebsiella Pneumoniae Group D Strep Or Entero Coccus 03/22/18 16:15 Blood - Peripheral Venous Blood Culture - Preliminary Lactose Fermenting Neg Bacilli Laboratory Tests 03/26/18 03/26/18 03/26/18 05:10 05:10 05:10 WBC 35.1 H* Hgb 9.1 L D Hct 27.4 L Plt Count 332 D INR 1.29 H BUN 48 H Creat Clearance w eGFR 39.82 Total Bilirubin 0.4 D AST 14 L ALT 18 Alkaline Phosphatase 115 Assessment Sepsis syndrome Urosepsis with UTI and GNB bacteremia Cholecysitis Rash ? Erythema Multiforme to ??"cardiac med" vs current beta lactam Elevated WBC ??? gallbladder necrotic Plan Lets add steroids for severe drug eruption STOP the MEROPENEM Vancomycin Levoflox and Metronidazole ICU care today 35 minutes spent reveiwing and discussing with staff and Critical care Main [facility]
[2018-03-26] MEDS: FLUCONAZOLE 100 MG/D5W 50 ML IVPB SCH (09:37)
[2018-03-26] MEDS: CLOTRIMAZOLE 1% CREAM 15 GM TUBE TP SCH ×2 (09:37→22:00)
[2018-03-26] MEDS: NYSTATIN POWDER 100,000 UNITS/GM - 15 GM TOPICAL POWDER TP SCH (09:38)
[2018-03-26] MEDS: methylPREDNISolone NA SUCC 40 MG/1 ML VIAL IVPUSH SCH ×2 (10:25→17:04)
[2018-03-26 10:55] LABS: PLATELET ESTIMATE NORMAL; TOXIC GRANULATION 1+
--- NOTE | 2018-03-26 11:09 | PN ---
Progress Note (short form) - Note Progress Note: seen and examined ICU case discussed with Dr Quach lethargic but somewhat more alert does not follow commands increased intensity of rash Vital Signs Period Temp Pulse Resp BP Sys/Bangura Pulse Ox Last 24 Hr 99 F-101 F 95-126 13-27 111-141/53-86 97-98 Intake & Output 03/23/18 03/24/18 03/25/18 03/26/18 23:59 23:59 23:59 23:59 Intake Total 4265 790 2365 630 Output Total 1080 1000 1150 700 Balance 3185 -210 1215 -70 Weight 163 lb 163 lb 9 oz 165 lb 1 oz 171 lb 12.8 oz comfortable / lethargic neck suppl e heart ireg lungs grossly clear abd + ruq drain in place ext erythematous rash / flat no edema CBC, BMP 03/26/18 05:10 03/26/18 05:10 Microbiology 03/25/18 07:30 Blood - Peripheral Venous Blood Culture - Preliminary NO GROWTH OBTAINED AFTER 24 HOURS, INCUBATION TO CONTINUE FOR 4 DAYS. 03/25/18 07:40 Blood - Peripheral Venous Blood Culture - Preliminary NO GROWTH OBTAINED AFTER 24 HOURS, INCUBATION TO CONTINUE FOR 4 DAYS. 03/23/18 09:00 Bile Gram Stain - Final 03/23/18 09:00 Bile Body Fluid Culture - Preliminary Klebsiella Pneumoniae Group D Strep Or Entero Coccus 03/23/18 09:00 Bile Anaerobic Culture - Final NO ANAEROBES WERE ISOLATED 03/22/18 13:05 Urine - Urine Clean Catch Urine Culture - Final Klebsiella Pneumoniae 03/22/18 16:15 Blood - Peripheral Venous Blood Culture - Final Klebsiella Pneumoniae 03/24/18 10:00 Stool Clostridium difficile Antigen (LORETA) - Final 03/24/18 10:00 Stool Clostridium difficile Toxin Assay - Final 03/22/18 15:30 Throat Throat Culture - Final Klebsiella Pneumoniae 03/22/18 15:30 Throat Group A Strep Rapid Antigen - Final 03/22/18 16:15 Blood - Peripheral Venous Blood Culture - Preliminary Lactose Fermenting Neg Bacilli Active Medications Clotrimazole (Lotrimin 1% Cream -) 1 applic TP BID [facility] Last Admin: 03/26/18 09:37 Dose: 1 applic Fluconazole (Diflucan 100 Mg/D5w Premixed Ivpb -) 50 mls @ 50 mls/hr IVPB DAILY [facility] Last Admin: 03/26/18 09:37 Dose: 50 mls/hr Diltiazem HCl 125 mg/ Sodium (Chloride) 125 mls @ 5 mls/hr IVPB TITR BRITTANY; 5 MG/ HR PRN Reason: Protocol Last Admin: 03/26/18 08:52 Dose: 15 mg/hr, 15 mls/hr Sodium Chloride (Normal Saline -) 1,000 mls @ 75 mls/hr IV ASDIR [facility]ITTANY Last Admin: 03/25/18 17:02 Dose: 75 mls/hr Metronidazole (Flagyl 500mg Premixed Ivpb -) 500 mg in 100 mls @ 100 mls/hr IVPB Q8H-IV [facility]ITTANY Last Admin: 03/26/18 10:24 Dose: 100 mls/hr Vancomycin HCl 1,250 mg/ (Dextrose) 250 mls @ 250 mls/2 hr IVPB DAILY BRITTANY PRN Reason: Protocol Levofloxacin (Levaquin 250 Mg Premixed Ivpb -) 250 mg in 50 mls @ 50 mls/hr IVPB DAILY BRITTANY PRN Reason: Protocol Last Admin: 03/26/18 10:24 Dose: 50 mls/hr Insulin Aspart (Novolog Vial Sliding Scale -) 1 vial SQ Q4H BRITTANY PRN Reason: Protocol Last Admin: 03/26/18 10:54 Dose: 4 units Methylprednisolone Sodium Succinate (Solu-Medrol -) 40 mg IVPUSH Q8H-IV BRITTNAY Last Admin: 03/26/18 10:25 Dose: 40 mg Metoprolol Tartrate (Lopressor Injection -) 5 mg IVPUSH Q4H PRN PRN Reason: HYPERTENSION Last Admin: 03/24/18 15:05 Dose: 5 mg Morphine Sulfate (Morphine Injection -) 2 mg IVPUSH Q4H PRN PRN Reason: RESTLESSNESS / AGITATION Last Admin: 03/25/18 17:43 Dose: 2 mg Nystatin (Nystop Powder -) 1 applic TP DAILY [facility] Last Admin: 03/26/18 09:38 Dose: 1 applic Assmt/plan # Atrial fib RVR -- has been on NOAC rate control Cardiology imput appreciated # sepsis cultured / Id appreciated / WBC remains elevated Abx per ID Rash ?? 2/2 to meds? - discussed with ID all abx changed -- ??? allergic rx gram negative bacteremia UTI cholecystostomy tube in place -- source ? metabolic acidosis # ELÍAS improving / back to baseline continue IV fluids / follow lytes / I & O admitted with hyperkalemia 7.1 # electolyes Hyperkalemia / hypomag / hyponatremia follow and correct as needed # DM uncontrolled sliding scale # COPD nebulizer / O2 / follow sats #CVA new CT scan revealed large left MCA infarction. This is in addition to acute infarction ( cerebellum) which prompted ER visit. hx of multiple events in the past as per previous MRI ( last hospitalization ) At least one of these strokes occurred through the apixiban she was taking . # rash bulls-eye shaped lesions -- Erythema Multiforme Cause medications / illness / infection allergic reaction ?? started on IV steroids / Abx meds changed
--- NOTE | 2018-03-26 11:20 | PN ---
Progress Note, [employer] - Note Progress Note: Since my last visit, 03/24, nursing noted pt was lethargic, right side flaccid, gaze deviated to left. only uttering incomprehensible sounds. New CT, 03/24,scan revealed a large left MCA infarction. NPO.
--- NOTE | 2018-03-26 11:28 | PN ---
Progress Note (short form) - Note Progress Note: seen and examined ICU events of 03/24/18 noted / imaging reviewed family requesting DNR / and no intubation minimally responsive Vital Signs Period Temp Pulse Resp BP Sys/Bangura Pulse Ox Last 24 Hr 98.4 F-100.8 F 110-138 16-22 86-116/45-86 96-96 tachypneic responds to noxious stimuli neck supple heart ireg / tachycardic lungs mild scattered rhonchi / no wheezing abd + ruq drain in place / no tenderness elicited ext erythematous rash / flat // mproving ? no edema Active Medications Acetaminophen (Ofirmev Injection -) 1,000 mg IVPB Q6H PRN PRN Reason: FEVER Last Admin: 03/25/18 06:29 Dose: 1,000 mg Clotrimazole (Lotrimin 1% Cream -) 1 applic TP BID [facility] Last Admin: 03/24/18 22:00 Dose: 1 applic Fluconazole (Diflucan 100 Mg/D5w Premixed Ivpb -) 50 mls @ 50 mls/hr IVPB DAILY [facility] Last Admin: 03/24/18 09:25 Dose: 50 mls/hr Meropenem 500 mg/ Dextrose 100 mls @ 400 mls/hr IVPB BID [facility] Last Admin: 03/24/18 22:00 Dose: 400 mls/hr Diltiazem HCl 125 mg/ Sodium (Chloride) 125 mls @ 5 mls/hr IVPB TITR BRITTANY; 5 MG/ HR PRN Reason: Protocol Last Titration: 03/24/18 19:00 Dose: 10 mg/hr, 10 mls/hr Sodium Chloride (Normal Saline -) 1,000 mls @ 75 mls/hr IV ASDIR [facility] Last Admin: 03/24/18 15:15 Dose: 75 mls/hr Insulin Aspart (Novolog Vial Sliding Scale -) 1 vial SQ Q4H BRITTANY PRN Reason: Protocol Last Admin: 03/25/18 06:29 Dose: Not Given Metoprolol Tartrate (Lopressor Injection -) 5 mg IVPUSH Q4H PRN PRN Reason: HYPERTENSION Last Admin: 03/24/18 15:05 Dose: 5 mg Morphine Sulfate (Morphine Injection -) 2 mg IVPUSH Q4H PRN PRN Reason: RESTLESSNESS / AGITATION Last Admin: 03/25/18 08:10 Dose: 2 mg Nystatin (Nystop Powder -) 1 applic TP DAILY [facility] Last Admin: 03/24/18 09:24 Dose: 1 applic Microbiology 03/22/18 16:15 Blood - Peripheral Venous Blood Culture - Preliminary Lactose Fermenting Neg Bacilli 03/22/18 16:15 Blood - Peripheral Venous Blood Culture - Preliminary Lactose Fermenting Neg Bacilli 03/23/18 09:00 Bile Gram Stain - Final 03/22/18 15:30 Throat Throat Culture - Preliminary Gram Negative Yobani 03/22/18 15:30 Throat Group A Strep Rapid Antigen - Final # Atrial fib RVR -- has been on NOAC rate control Cardiology imput known to Dr Caldera' group # sepsis cultured / Id appreciated Abx per ID Rash ?? 2/2 to meds? UTI cholecystostomy tube in place -- source ? # ELÍAS improving continue IV fluids / follow lytes admitted with hyperkalemia 7.1 # electolyes Hyperkalemia / hypomag / hyponatremia follow and correct as needed # DM uncontrolled sliding scale # COPD nebulizer / O2 / follow sats #CVA hx of multiple events in the past as per previous MRI ( last hospitalization ) # rash allergic reaction ??
--- NOTE | 2018-03-26 11:53 | PN ---
Teaching Attending Note Name of Resident: Annette Camacho ATTENDING PHYSICIAN STATEMENT I saw and evaluated the patient. I reviewed the resident's note and discussed the case with the resident. I agree with the resident's findings and plan as documented. SUBJECTIVE: Patient seen and examined in the ICU. Lethargic and fevers. Large Left MCA stroke. Remains on Cardizem drip for rate control. Intake & Output 03/23/18 03/24/18 03/25/18 03/26/18 23:59 23:59 23:59 23:59 Intake Total 4265 790 2365 630 Output Total 1080 1000 1150 700 Balance 3185 -210 1215 -70 Weight 163 lb 163 lb 9 oz 165 lb 1 oz 171 lb 12.8 oz Last Vital Signs Temp Pulse Resp BP Pulse Ox 99.9 F H 111 H 15 123/62 98 03/26/18 10:00 03/26/18 10:00 03/26/18 10:00 03/26/18 10:00 03/26/18 08:00 Active Medications Clotrimazole (Lotrimin 1% Cream -) 1 applic TP BID BRITTANY Last Admin: 03/26/18 09:37 Dose: 1 applic Fluconazole (Diflucan 100 Mg/D5w Premixed Ivpb -) 50 mls @ 50 mls/hr IVPB DAILY BRITTANY Last Admin: 03/26/18 09:37 Dose: 50 mls/hr Diltiazem HCl 125 mg/ Sodium (Chloride) 125 mls @ 5 mls/hr IVPB TITR BRITTANY; 5 MG/ HR PRN Reason: Protocol Last Admin: 03/26/18 08:52 Dose: 15 mg/hr, 15 mls/hr Sodium Chloride (Normal Saline -) 1,000 mls @ 75 mls/hr IV ASDIR BRITTANY Last Admin: 03/25/18 17:02 Dose: 75 mls/hr Metronidazole (Flagyl 500mg Premixed Ivpb -) 500 mg in 100 mls @ 100 mls/hr IVPB Q8H-IV BRITTANY Last Admin: 03/26/18 10:24 Dose: 100 mls/hr Vancomycin HCl 1,250 mg/ (Dextrose) 250 mls @ 250 mls/2 hr IVPB DAILY BRITTANY PRN Reason: Protocol Levofloxacin (Levaquin 250 Mg Premixed Ivpb -) 250 mg in 50 mls @ 50 mls/hr IVPB DAILY BRITTANY PRN Reason: Protocol Last Admin: 03/26/18 10:24 Dose: 50 mls/hr Insulin Aspart (Novolog Vial Sliding Scale -) 1 vial SQ Q4H BRITTANY PRN Reason: Protocol Last Admin: 03/26/18 10:54 Dose: 4 units Methylprednisolone Sodium Succinate (Solu-Medrol -) 40 mg IVPUSH Q8H-IV BRITTANY Last Admin: 03/26/18 10:25 Dose: 40 mg Metoprolol Tartrate (Lopressor Injection -) 5 mg IVPUSH Q4H PRN PRN Reason: HYPERTENSION Last Admin: 03/24/18 15:05 Dose: 5 mg Morphine Sulfate (Morphine Injection -) 2 mg IVPUSH Q4H PRN PRN Reason: RESTLESSNESS / AGITATION Last Admin: 03/25/18 17:43 Dose: 2 mg Nystatin (Nystop Powder -) 1 applic TP DAILY BRITTANY Last Admin: 03/26/18 09:38 Dose: 1 applic Gen: confused, mildly tachypneic Heart: tachycardic, irregular Lung: scattered rhonchi Abd: soft, nontender Ext: no edema Skin: scattered rash improving Laboratory Results - last 24 hr 03/22/18 03/25/18 03/25/18 13:05 17:01 23:17 WBC RBC Hgb Hct MCV MCH MCHC RDW Plt Count MPV Neutrophils % Neutrophils % (Manual) Band Neutrophils % Lymphocytes % Lymphocytes % (Manual) Monocytes % (Manual) Eosinophils % (Manual) Basophils % (Manual) Myelocytes % (Man) Promyelocytes % (Man) Blast Cells % (Manual) Nucleated RBC % Metamyelocytes Toxic Granulation Platelet Estimate Polychromasia PT with INR INR PTT (Actin FS) Sodium Potassium Chloride Carbon Dioxide Anion Gap BUN Creatinine Creat Clearance w eGFR POC Glucometer [phone] Random Glucose Calcium Phosphorus Magnesium Total Bilirubin AST ALT Alkaline Phosphatase Total Protein Albumin Urine Eosinophils None seen 03/26/18 03/26/18 03/26/18 05:10 05:10 05:10 WBC 35.1 H* RBC 3.18 L Hgb 9.1 L D Hct 27.4 L MCV 86.1 MCH 28.6 MCHC 33.2 RDW 15.4 Plt Count 332 D MPV 8.9 Neutrophils % No Result Required. Neutrophils % (Manual) 90.0 H Band Neutrophils % 1.0 Lymphocytes % No Result Required. Lymphocytes % (Manual) 2.0 L Monocytes % (Manual) 4 Eosinophils % (Manual) 3.0 Basophils % (Manual) 0.0 Myelocytes % (Man) 0 Promyelocytes % (Man) 0 Blast Cells % (Manual) 0 Nucleated RBC % 0 Metamyelocytes 0 Toxic Granulation 1+ Platelet Estimate Normal Polychromasia 1+ PT with INR 14.60 H INR 1.29 H PTT (Actin FS) 27.5 Sodium 146 H Potassium 4.7 Chloride 119 H Carbon Dioxide 16 L Anion Gap 11 BUN 48 H Creatinine 1.3 H Creat Clearance w eGFR 39.82 POC Glucometer Random Glucose 222 H Calcium 7.9 L Phosphorus 3.1 Magnesium 1.6 L Total Bilirubin 0.4 D AST 14 L ALT 18 Alkaline Phosphatase 115 Total Protein 5.1 L Albumin 1.8 L Urine Eosinophils A/P UTI Gram Negative Bacteremia Severe Sepsis Acute Kidney Injury Hyperkalemia improved Metabolic Acidosis Altered Mental Status Acute CVA Atrial Fibrillation with RVR DM COPD (?) Erythema Multiforme - Rate control - monitor urine output, creatinine - ABX per ID - f/u cultures - Aspiration precautions - May need to reverse INR - Need family meeting for GOC discussions - Prognosis appears poor Dr Gonsalves Critical care time spent in reviewing chart, evaluating patient and formulating plan 35 min
--- NOTE | 2018-03-26 11:54 | PN ---
Physical Exam: SUBJECTIVE: Patient awake, non-verbal. OBJECTIVE: Vital Signs Period Temp Pulse Resp BP Sys/[place] Pulse Ox Last 24 Hr 99 F-101 F 95-126 13-27 111-141/53-86 97-98 General: awake, non-verbal HEENT: PEERLA CV: S1/S2, RRR Abdomen: soft, (+) bowel sounds Neuro: intermittently responds to commands, raises RUE, minimally responsive to verbal stimulation, withdraws from pain Integumentary: macular rash B/L L/E (improved since exam on 03/24) and RUE; sacral decub ulcer Laboratory Results - last 24 hr 03/22/18 03/25/18 03/25/18 13:05 17:01 23:17 WBC RBC Hgb Hct MCV MCH MCHC RDW Plt Count MPV Neutrophils % Neutrophils % (Manual) Band Neutrophils % Lymphocytes % Lymphocytes % (Manual) Monocytes % (Manual) Eosinophils % (Manual) Basophils % (Manual) Myelocytes % (Man) Promyelocytes % (Man) Blast Cells % (Manual) Nucleated RBC % Metamyelocytes Toxic Granulation Platelet Estimate Polychromasia PT with INR INR PTT (Actin FS) Sodium Potassium Chloride Carbon Dioxide Anion Gap BUN Creatinine Creat Clearance w eGFR POC Glucometer [phone] Random Glucose Calcium Phosphorus Magnesium Total Bilirubin AST ALT Alkaline Phosphatase Total Protein Albumin Urine Eosinophils None seen 03/26/18 03/26/18 03/26/18 05:10 05:10 05:10 WBC 35.1 H* RBC 3.18 L Hgb 9.1 L D Hct 27.4 L MCV 86.1 MCH 28.6 MCHC 33.2 RDW 15.4 Plt Count 332 D MPV 8.9 Neutrophils % No Result Required. Neutrophils % (Manual) 90.0 H Band Neutrophils % 1.0 Lymphocytes % No Result Required. Lymphocytes % (Manual) 2.0 L Monocytes % (Manual) 4 Eosinophils % (Manual) 3.0 Basophils % (Manual) 0.0 Myelocytes % (Man) 0 Promyelocytes % (Man) 0 Blast Cells % (Manual) 0 Nucleated RBC % 0 Metamyelocytes 0 Toxic Granulation 1+ Platelet Estimate Normal Polychromasia 1+ PT with INR 14.60 H INR 1.29 H PTT (Actin FS) 27.5 Sodium 146 H Potassium 4.7 Chloride 119 H Carbon Dioxide 16 L Anion Gap 11 BUN 48 H Creatinine 1.3 H Creat Clearance w eGFR 39.82 POC Glucometer Random Glucose 222 H Calcium 7.9 L Phosphorus 3.1 Magnesium 1.6 L Total Bilirubin 0.4 D AST 14 L ALT 18 Alkaline Phosphatase 115 Total Protein 5.1 L Albumin 1.8 L Urine Eosinophils Active Medications Generic Name Dose Route Start Last Admin Trade Name Danielq PRN Reason Stop Dose Admin Clotrimazole 1 applic 03/23/18 10:00 03/26/18 09:37 Lotrimin 1% Cream - TP 1 applic BID BRITTANY Administration Fluconazole 50 mls @ 50 mls/hr 03/23/18 10:00 03/26/18 09:37 Diflucan 100 Mg/D5w Premixed Ivpb - IVPB 50 mls/hr DAILY BRITTANY Administration Diltiazem HCl 125 mg/ Sodium 125 mls @ 5 mls/hr 03/24/18 13:15 03/26/18 08:52 Chloride IVPB 15 mg/hr TITR BRITTANY 15 mls/hr Protocol Administration 5 MG/HR Sodium Chloride 1,000 mls @ 75 mls/hr 03/24/18 15:00 03/25/18 17:02 Normal Saline - IV 75 mls/hr ASDIR BRITTANY Administration Metronidazole 500 mg in 100 mls @ 100 mls/hr 03/26/18 10:00 03/26/18 10:24 Flagyl 500mg Premixed Ivpb - IVPB 100 mls/hr Q8H-IV BRITTANY Administration Vancomycin HCl 1,250 mg/ 250 mls @ 250 mls/2 hr 03/26/18 10:00 Dextrose IVPB DAILY BRITTANY Protocol Levofloxacin 250 mg in 50 mls @ 50 mls/hr 03/26/18 10:00 03/26/18 10:24 Levaquin 250 Mg Premixed Ivpb - IVPB 50 mls/hr DAILY BRITTANY Administration Protocol Insulin Aspart 1 vial 03/23/18 23:00 03/26/18 10:54 Novolog Vial Sliding Scale - SQ 4 units Q4H BRITTANY Administration Protocol Methylprednisolone Sodium Succinate 40 mg 03/26/18 10:00 03/26/18 10:25 Solu-Medrol - IVPUSH 40 mg Q8H-IV BRITTANY Administration Metoprolol Tartrate 5 mg 03/24/18 12:19 03/24/18 15:05 Lopressor Injection - IVPUSH 5 mg Q4H PRN Administration HYPERTENSION Morphine Sulfate 2 mg 03/24/18 14:50 03/25/18 17:43 Morphine Injection - IVPUSH 2 mg Q4H PRN Administration RESTLESSNESS / AGITATION Nystatin 1 applic 03/23/18 10:00 03/26/18 09:38 Nystop Powder - TP 1 applic DAILY BRITTANY Administration ASSESSMENT/PLAN: 80 year old female presented to ED with slurred speech, confusion and R sided weakness > 1 day - found to be in acute renal failure (Cr 5.7). Family @ bedside notes 4 day h/o decreased PO intake and patient's sister notes confusion , aphasia noted by family 1 day prior to presentation to our ED. Patient noted to have new L MCA infarct on 03/24. 1. ACUTE L MCA INFARCT SUPERIMPOSED ON ACUTE RIGHT CEREBELLAR INFARCT with +/- new neurologic deficits SUPERIMPOSED OVER R PARIETAL CVA - Deteriorating neurological picture over the last 48-72 hours, patient non- verbal today (03/26) - Permissive HTN -patient currently SBP's 120's; should patient become HTN do no lower by greater than 15% over 24 hours - Will continue to hold Apixiban as per neuro, high risk of hemorrhagic conversion, however given patient's history, not a candidate for A/C - Neurology following, appreciate recs 2. ACUTE KIDNEY INJURY - likely 2/2 to ELÍAS 2/2 to decreased perfusion 2/2 to decreased PO intake - Cr 1.3 today (03/26) <-- 4.6 (03/23) <-- 5.7 @ presentation - I's/O's: 1130/700 - Monitor Cr/BUN, electrolyte - Strict I's/O's - Aggressive IV hydration 4. RASH - likely MULTIFORME ERYTHEMA - Macular papular rash on B/L LE (improved) + RUE - Possibly drug induced - Dermatology consult pending; Dr. Kowalski currently not accepting patients, Dr. Munoz consult placed 5. PAROXYSMAL ATRIAL FIBRILLATION - currently holding A/C - Diltiazem drip following short run of AFib on 03/24 - Repeat ECG show Sinus Tach - Continue to hold Eliquis in light of patient's clinical picture - Neurology following, appreciate recs 6. INSULIN DEPENDENT DIABETES MELLITUS - Admission BS 100's-300's - Target BS in ICU 140's - 180's - SSI - Continue to monitor FEN - Monitor electrolytes - Patient NPO PROPHYLAXIS - Not indicated at this time DISPOSITION: Given patient's prognosis, will plan for family discussion tomorrow (03/27) regarding GOC including possible initiation of comfort care. Patient's sister, Rai Rodriguez, Visit type - Emergency Visit Emergency Visit: No - New Patient This patient is new to me today: No - Critical Care Critical Care patient: No
[2018-03-26] MEDS: VANCOMYCIN 1,250 MG in DEXTROSE 5%-WATER - 250 ML IVPB SCH (12:23)
[2018-03-26] MEDS: SODIUM CHLORIDE 1,000 ML IV SCH (15:00)
--- NOTE | 2018-03-26 15:11 | PN ---
Progress Note (short form) - Note Progress Note: CC: CVA S: remains unresponsive, npo. remains on dilt drip. rash is worsening. Current Medications Clotrimazole (Lotrimin 1% Cream -) 1 applic TP BID BRITTANY Last Admin: 03/26/18 09:37 Dose: 1 applic Fluconazole (Diflucan 100 Mg/D5w Premixed Ivpb -) 50 mls @ 50 mls/hr IVPB DAILY BRITTANY Last Admin: 03/26/18 09:37 Dose: 50 mls/hr Diltiazem HCl 125 mg/ Sodium (Chloride) 125 mls @ 5 mls/hr IVPB TITR BRITTANY; 5 MG/ HR PRN Reason: Protocol Last Admin: 03/26/18 13:15 Dose: Not Given Sodium Chloride (Normal Saline -) 1,000 mls @ 75 mls/hr IV ASDIR BRITTANY Last Admin: 03/26/18 15:00 Dose: 75 mls/hr Metronidazole (Flagyl 500mg Premixed Ivpb -) 500 mg in 100 mls @ 100 mls/hr IVPB Q8H-IV BRITTANY Last Admin: 03/26/18 10:24 Dose: 100 mls/hr Vancomycin HCl 1,250 mg/ (Dextrose) 250 mls @ 250 mls/2 hr IVPB DAILY BRITTANY PRN Reason: Protocol Last Admin: 03/26/18 12:23 Dose: 250 mls/2 hr Levofloxacin (Levaquin 250 Mg Premixed Ivpb -) 250 mg in 50 mls @ 50 mls/hr IVPB DAILY BRITTANY PRN Reason: Protocol Last Admin: 03/26/18 10:24 Dose: 50 mls/hr Methylprednisolone Sodium Succinate (Solu-Medrol -) 40 mg IVPUSH Q8H-IV BRITTANY Last Admin: 03/26/18 10:25 Dose: 40 mg Metoprolol Tartrate (Lopressor Injection -) 5 mg IVPUSH Q4H PRN PRN Reason: HYPERTENSION Last Admin: 03/24/18 15:05 Dose: 5 mg Morphine Sulfate (Morphine Injection -) 2 mg IVPUSH Q4H PRN PRN Reason: RESTLESSNESS / AGITATION Last Admin: 03/25/18 17:43 Dose: 2 mg Nystatin (Nystop Powder -) 1 applic TP DAILY BRITTANY Last Admin: 03/26/18 09:38 Dose: 1 applic - Objective Vital Signs: Vital Signs - 24 hr 03/25/18 03/25/18 03/25/18 16:00 18:00 18:32 Temperature 101 F H Pulse Rate 118 H 110 H 126 H Respiratory 18 18 Rate Blood Pressure 141/86 141/76 141/76 O2 Sat by Pulse Oximetry (%) 03/25/18 03/25/18 03/25/18 20:00 20:23 20:29 Temperature Pulse Rate 114 H Respiratory 18 18 Rate Blood Pressure 123/69 O2 Sat by Pulse 97 97 Oximetry (%) 03/25/18 03/26/18 03/26/18 22:00 00:00 02:00 Temperature 100.1 F H 99.5 F Pulse Rate 120 H 112 H 95 H Respiratory 14 14 13 Rate Blood Pressure 111/54 118/70 123/75 O2 Sat by Pulse Oximetry (%) 03/26/18 03/26/18 03/26/18 04:00 06:00 08:00 Temperature 100 F H 100.1 F H Pulse Rate 111 H 124 H 106 H Respiratory 15 15 27 H Rate Blood Pressure 136/69 124/69 129/60 O2 Sat by Pulse 98 Oximetry (%) 03/26/18 03/26/18 03/26/18 08:52 10:00 12:00 Temperature 99.9 F H 99.5 F Pulse Rate 103 H 111 H 106 H Respiratory 15 17 Rate Blood Pressure 129/60 123/62 122/52 O2 Sat by Pulse Oximetry (%) 03/26/18 14:00 Temperature 100.0 F H Pulse Rate 107 H Respiratory 24 Rate Blood Pressure 133/60 O2 Sat by Pulse Oximetry (%) Intake & Output 03/24/18 03/25/18 03/26/18 03/27/18 07:59 07:59 07:59 07:59 Intake Total 3265 1035 2400 600 Output Total 930 1100 1550 Balance 2335 -65 850 600 Weight 163 lb 9 oz 165 lb 1 oz 171 lb 12.8 oz Constitutional: Yes: Minimally responsive. jvd flat. Cardiovascular: Pulse Irregular nl s1, s2 1/6 sys murmur at sternal border. Respiratory: Yes: CTA Bilaterally, poor effort + bs soft nt nd no le e/c/c diffuse erythematous rash. no jaundice, diaphoresis. Labs: CBC, BMP 03/26/18 05:10 03/26/18 05:10 Laboratory Tests 03/26/18 05:10 Magnesium 1.6 L Total Bilirubin 0.4 D AST 14 L ALT 18 Alkaline Phosphatase 115 Albumin 1.8 L tele: afib rates 100s-110s, occ breakthrough to 130s Echo 02/21: nl LV/EF. nl RV. 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 AFib with RVR -+ fever ?sepsis with (+) blood cultures K. Pneumonia, RVR likely related to response to fever and underlying metabolic derangement. -Continue fever/sepsis management as per ICU/ID staff -BP stable on Dilt gtt. Unable to take PO. Borderline rate control on dilt drip, con't. Breakthrough RVR in setting of low grade fevers, con't tylenol prn. -Imaging reveals large new left MCA territory CVA with prior Right cerebellar CVA. Per neurology not yet safe to resume anticoagulation. -ELÍAS improving, derm consulted for rash. - poor prognosis.
--- NOTE | 2018-03-26 15:22 | PN ---
Progress Note, Physician History of Present Illness: Pt seen and examined at bedside. She is awake and appears comfortable. - Current Medication List Current Medications: Active Medications Clotrimazole (Lotrimin 1% Cream -) 1 applic TP BID BRITTANY Last Admin: 03/26/18 09:37 Dose: 1 applic Fluconazole (Diflucan 100 Mg/D5w Premixed Ivpb -) 50 mls @ 50 mls/hr IVPB DAILY BRITTANY Last Admin: 03/26/18 09:37 Dose: 50 mls/hr Diltiazem HCl 125 mg/ Sodium (Chloride) 125 mls @ 5 mls/hr IVPB TITR BRITTANY; 5 MG/ HR PRN Reason: Protocol Last Admin: 03/26/18 13:15 Dose: Not Given Sodium Chloride (Normal Saline -) 1,000 mls @ 75 mls/hr IV ASDIR BRITTANY Last Admin: 03/26/18 15:00 Dose: 75 mls/hr Metronidazole (Flagyl 500mg Premixed Ivpb -) 500 mg in 100 mls @ 100 mls/hr IVPB Q8H-IV BRITTANY Last Admin: 03/26/18 10:24 Dose: 100 mls/hr Vancomycin HCl 1,250 mg/ (Dextrose) 250 mls @ 250 mls/2 hr IVPB DAILY BRITTANY PRN Reason: Protocol Last Admin: 03/26/18 12:23 Dose: 250 mls/2 hr Levofloxacin (Levaquin 250 Mg Premixed Ivpb -) 250 mg in 50 mls @ 50 mls/hr IVPB DAILY BRITTANY PRN Reason: Protocol Last Admin: 03/26/18 10:24 Dose: 50 mls/hr Methylprednisolone Sodium Succinate (Solu-Medrol -) 40 mg IVPUSH Q8H-IV BRITTANY Last Admin: 03/26/18 10:25 Dose: 40 mg Metoprolol Tartrate (Lopressor Injection -) 5 mg IVPUSH Q4H PRN PRN Reason: HYPERTENSION Last Admin: 03/24/18 15:05 Dose: 5 mg Morphine Sulfate (Morphine Injection -) 2 mg IVPUSH Q4H PRN PRN Reason: RESTLESSNESS / AGITATION Last Admin: 03/25/18 17:43 Dose: 2 mg Nystatin (Nystop Powder -) 1 applic TP DAILY BRITTANY Last Admin: 03/26/18 09:38 Dose: 1 applic - Objective Vital Signs: Vital Signs Temperature 100.0 F H 03/26/18 14:00 Pulse Rate 107 H 03/26/18 14:00 Respiratory Rate 24 03/26/18 14:00 Blood Pressure 133/60 03/26/18 14:00 O2 Sat by Pulse Oximetry (%) 98 03/26/18 08:00 Constitutional: Yes: Calm Eyes: Yes: Conjunctiva Clear HENT: Yes: Atraumatic Cardiovascular: Yes: S1, S2 Respiratory: Yes: CTA Bilaterally Gastrointestinal: Yes: Soft Genitourinary: Yes: Nava Present Musculoskeletal: Yes: WNL Edema: No Integumentary: Yes: Rash Neurological: Yes: Oriented Labs: CBC, BMP 03/26/18 05:10 03/26/18 05:10 INR, PTT INR 1.29 (0.82-1.09) H 03/26/18 05:10 Problem List - Problems (1) Acute renal failure Code(s): N17.9 - ACUTE KIDNEY FAILURE, UNSPECIFIED (2) Hyperkalemia Code(s): E87.5 - HYPERKALEMIA (3) Hyponatremia Code(s): E87.1 - HYPO-OSMOLALITY AND HYPONATREMIA (4) CVA (cerebral vascular accident) Code(s): I63.9 - CEREBRAL INFARCTION, UNSPECIFIED Qualifiers: CVA mechanism: embolism Qualified Code(s): I63.9 - Cerebral infarction, unspecified Assessment/Plan Current Medications Generic Name Dose Route Start Last Admin Trade Name Freq PRN Reason Stop Dose Admin Clotrimazole 1 applic 03/23/18 10:00 03/26/18 09:37 Lotrimin 1% Cream - TP 1 applic BID BRITTANY Administration Fluconazole 50 mls @ 50 mls/hr 03/23/18 10:00 03/26/18 09:37 Diflucan 100 Mg/D5w Premixed Ivpb - IVPB 50 mls/hr DAILY BRITTANY Administration Diltiazem HCl 125 mg/ Sodium 125 mls @ 5 mls/hr 03/24/18 13:15 03/26/18 13:15 Chloride IVPB Not Given TITR BRITTANY Protocol 5 MG/HR Sodium Chloride 1,000 mls @ 75 mls/hr 03/24/18 15:00 03/26/18 15:00 Normal Saline - IV 75 mls/hr ASDIR BRITTANY Administration Metronidazole 500 mg in 100 mls @ 100 mls/hr 03/26/18 10:00 03/26/18 10:24 Flagyl 500mg Premixed Ivpb - IVPB 100 mls/hr Q8H-IV BRITTANY Administration Vancomycin HCl 1,250 mg/ 250 mls @ 250 mls/2 hr 03/26/18 10:00 03/26/18 12:23 Dextrose IVPB 250 mls/2 hr DAILY BRITTANY Administration Protocol Levofloxacin 250 mg in 50 mls @ 50 mls/hr 03/26/18 10:00 03/26/18 10:24 Levaquin 250 Mg Premixed Ivpb - IVPB 50 mls/hr DAILY BRITTANY Administration Protocol Methylprednisolone Sodium Succinate 40 mg 03/26/18 10:00 03/26/18 10:25 Solu-Medrol - IVPUSH 40 mg Q8H-IV BRITTANY Administration Metoprolol Tartrate 5 mg 03/24/18 12:19 03/24/18 15:05 Lopressor Injection - IVPUSH 5 mg Q4H PRN Administration HYPERTENSION Morphine Sulfate 2 mg 03/24/18 14:50 03/25/18 17:43 Morphine Injection - IVPUSH 2 mg Q4H PRN Administration RESTLESSNESS / AGITATION Nystatin 1 applic 03/23/18 10:00 03/26/18 09:38 Nystop Powder - TP 1 applic DAILY BRITTANY Administration Impression 1. ELÍAS 2. hyperkalemia 3. sepsis 4. hyponatremia 5. DM uncontrolled 6. COPD 7. CVA 8. hypomagnesemia Plan - change fluids to 1/2 ns - renal function is improving - monitor sodium as it is rising - monitor potassium, has been stable - discussed with ICU team - will follow Dr Burdick
[2018-03-26] MEDS: SODIUM CHLORIDE 0.45% 1,000 ML IV SCH (15:49)
--- NOTE | 2018-03-26 16:48 | PN ---
Progress Note, Physician Chief Complaint: right sided weakness History of Present Illness: Current: This Am patient more alert than yesterday, with less gaze deviation to the left. Non communicative and not following commands. Some movement of left foot noted by son. CT scan showed large left MCA infarction. Dr. Quach's note appreciated, doesn't believe that endocarditis is likely, both in setting of history and documented agent. From Initial Consult: 77 year old female with a significant PMH of recent CVA & TIA, COPD, diabetes, recent multiple embolic CVA -dx with AFIB and started on Eliquis use who presents to the emergency department with speech difficulty and weakness on 03/22/18. As per EMS, the patient was at baseline before 12PM but afterwards began to slightly slur her words and develop right sided weakness and left side facial droop. CTA was done in ER IMPRESSION: See discussion above There is a short segment of moderate to marked narrowing in the distal right M1 segment. Otherwise , no major artery cutoff, vascular malformation or aneurysm are identified within the central intracranial arterial lesion. Narrowed/hypoplastic right P1 segment likely due to the presence of a right posterior communicating artery Tiny ossified plaque in the right bulb without evidence of hemodynamically significant stenosis. Small calcified plaques at the left common carotid bifurcation as well as the proximal left common carotid artery without evidence of hemodynamically significant stenosis found to have elevated WBC / rash and Acute on chronic kidney failure -- not given TPA given she was on AC and sx thought to be related to underlying metabolic /infectious etiology - Current Medication List Current Medications: Active Medications Clotrimazole (Lotrimin 1% Cream -) 1 applic TP BID BRITTANY Last Admin: 03/26/18 09:37 Dose: 1 applic Fluconazole (Diflucan 100 Mg/D5w Premixed Ivpb -) 50 mls @ 50 mls/hr IVPB DAILY BRITTANY Last Admin: 03/26/18 09:37 Dose: 50 mls/hr Diltiazem HCl 125 mg/ Sodium (Chloride) 125 mls @ 5 mls/hr IVPB TITR BRITTANY; 5 MG/ HR PRN Reason: Protocol Last Admin: 03/26/18 13:15 Dose: Not Given Metronidazole (Flagyl 500mg Premixed Ivpb -) 500 mg in 100 mls @ 100 mls/hr IVPB Q8H-IV BRITTANY Last Admin: 03/26/18 10:24 Dose: 100 mls/hr Vancomycin HCl 1,250 mg/ (Dextrose) 250 mls @ 250 mls/2 hr IVPB DAILY BRITTANY PRN Reason: Protocol Last Admin: 03/26/18 12:23 Dose: 250 mls/2 hr Levofloxacin (Levaquin 250 Mg Premixed Ivpb -) 250 mg in 50 mls @ 50 mls/hr IVPB DAILY BRITTANY PRN Reason: Protocol Last Admin: 03/26/18 10:24 Dose: 50 mls/hr Sodium Chloride (1/2 Normal Saline) 1,000 mls @ 75 mls/hr IV ASDIR BRITTANY Last Admin: 03/26/18 15:49 Dose: 75 mls/hr Methylprednisolone Sodium Succinate (Solu-Medrol -) 40 mg IVPUSH Q8H-IV BRITTANY Last Admin: 03/26/18 10:25 Dose: 40 mg Metoprolol Tartrate (Lopressor Injection -) 5 mg IVPUSH Q4H PRN PRN Reason: HYPERTENSION Last Admin: 03/24/18 15:05 Dose: 5 mg Morphine Sulfate (Morphine Injection -) 2 mg IVPUSH Q4H PRN PRN Reason: RESTLESSNESS / AGITATION Last Admin: 03/25/18 17:43 Dose: 2 mg Nystatin (Nystop Powder -) 1 applic TP DAILY [facility] Last Admin: 03/26/18 09:38 Dose: 1 applic - Objective Vital Signs: Vital Signs Temperature 100.1 F H 03/26/18 16:00 Pulse Rate 115 H 03/26/18 16:00 Respiratory Rate 24 03/26/18 16:00 Blood Pressure 126/69 03/26/18 16:00 O2 Sat by Pulse Oximetry (%) 98 03/26/18 08:00 Labs: CBC, BMP 03/26/18 05:10 03/26/18 05:10 INR, PTT INR 1.29 (0.82-1.09) H 03/26/18 05:10 Problem List - Problems (1) CVA (cerebral vascular accident) Code(s): I63.9 - CEREBRAL INFARCTION, UNSPECIFIED Qualifiers: CVA mechanism: embolism Qualified Code(s): I63.9 - Cerebral infarction, unspecified Assessment/Plan Stroke has been documented. Unfortunately with this and her large cerebellar infarction she is at high risk of hemorrhagic conversion and although she is at high risk of further strokes, I don't believe that it is safe to put her back on anticoagulation at this time. Would wait about 10 days after the large MCA infarction before starting AC.
[2018-03-26] MEDS ORDERED: ACETAMINOPHEN 1000 MG/100 ML VIAL (NON FORMULARY) IVPB ONE (17:29)
--- NOTE | 2018-03-26 19:15 | CONSULT ---
Consult Consult Specialty:: Dermatology - History Source History Provided By: Family Member - Past Medical History FORENSIC ANTHROPOLOGIST: Yes: Other (encephalopathy recently, long history of stuttering) Cardio/Vascular: Yes: HTN Pulmonary: Yes: COPD Gastrointestinal: Yes: Constipation, GI Bleed Renal/: Yes: Renal Inusuff ...: No Endocrine: Yes: Diabetes Mellitus (since she was 51 y/o) - Past Surgical History Past Surgical History: Yes: Joint Replacement (both knees X2 / both hips / surgey on right shoulder) - Alcohol/Substance Use Hx Alcohol Use: No - Smoking History Smoking history: Never smoked Have you smoked in the past 12 months: No - Social History ADL: Support Services History of Recent Travel: No Home Medications - Allergies Allergies/Adverse Reactions: Allergies Allergy/AdvReac Type Severity Reaction Status Date / Time sulfur dioxide Allergy Verified 03/22/18 12:59 lactose AdvReac Verified 03/23/18 12:17 - Home Medications Home Medications: Ambulatory Orders Atorvastatin Ca [Lipitor] 40 mg PO HS 30 Days #30 tablet 01/12/18 Lisinopril [Prinivil] 5 mg PO DAILY 30 Days #30 tablet 01/12/18 Melatonin 5 mg PO HS 02/22/18 Pantoprazole Sodium 40 mg PO DAILY 02/22/18 Risperidone 0.5 mg PO HS 02/22/18 Sitagliptin Phos/Metformin HCl [Janumet 50-1,000 mg Tablet] 1 each PO BID Venlafaxine HCl ER [Effexor Xr -] 37.5 mg PO DAILY 02/22/18 Acetaminophen [Tylenol .Regular Strength -] 650 mg PO Q4H PRN tablet 03/12/18 Acetaminophen [Tylenol .Regular Strength -] 650 mg PO Q4H PRN tablet 03/12/18 Apixaban [Eliquis -] 5 mg PO BID 30 Days #60 tablet 03/12/18 Apixaban [Eliquis -] 5 mg PO BID 30 Days #60 tablet 03/12/18 Calcium Carbonate - 650 mg PO BID tablet 03/12/18 Calcium Carbonate - 650 mg PO BID tablet 03/12/18 Cholecalciferol (Vitamin D3) [Vitamin D3 -] 1,000 unit PO DAILY tab 03/12/18 Cholecalciferol (Vitamin D3) [Vitamin D3 -] 2,000 unit PO DAILY tab 03/12/18 Diltiazem Cd [Cardizem Cd -] 120 mg PO BID cap.cd.24h 03/12/18 Diltiazem Cd [Cardizem Cd -] 120 mg PO BID cap.cd.24h 03/12/18 Insulin Sliding Scale [Novolog Vial Sliding Scale -] 1 vial SQ ACHS units 03/12 Insulin Sliding Scale [Novolog Vial Sliding Scale -] 1 vial SQ ACHS units 03/12 Loperamide HCl [Imodium -] 2 mg PO Q8H PRN capsule 03/12/18 Loperamide HCl [Imodium -] 2 mg PO Q8H PRN capsule 03/12/18 Pantoprazole Sodium [Protonix -] 40 mg PO DAILY 30 Days #30 tablet.ec 03/12/18 Pantoprazole Sodium [Protonix -] 40 mg PO DAILY 30 Days #30 tablet.ec 03/12/18 Valsartan [Diovan] 80 mg PO DAILY tablet 03/12/18 Valsartan [Diovan] 80 mg PO DAILY tablet 03/12/18 Vancomycin Oral Solution 125 mg PO Q6HPO 10 Days #150 ml 03/12/18 Vancomycin Oral Solution 125 mg PO Q6HPO 10 Days #150 ml 03/12/18 Zolpidem Tartrate [Ambien] 5 mg PO HS 7 Days #7 tablet MDD 5mg 03/12/18 Zolpidem Tartrate [Ambien] 5 mg PO HS PRN 7 Days #7 tablet MDD 5 mg 03/12/18 Family Disease History - Family Disease History Family Disease History: Other: Father (stroke), Mother (stroke), Sister (strokes , first in her 40's) Physical Exam Vital Signs: Vital Signs Temperature 100.9 F H 03/26/18 18:00 Pulse Rate 115 H 03/26/18 18:00 Respiratory Rate 15 03/26/18 18:00 Blood Pressure 136/90 03/26/18 18:00 O2 Sat by Pulse Oximetry (%) 98 03/26/18 08:00 Labs: CBC, BMP 03/26/18 05:10 03/26/18 05:10 Assessment/Plan Discussed history with the patients son . He states that his mother developed a rash after leaving hospital and in [place]. Will discuss the medications recieved while in [place] Dr Segura. On Exam the patient has a reticular purpuric eruption on Rt hand due to edema and broken blood vessels. She has an urticarial eruption on trunk which has gotten worst today. on her legs and extremities there is and erythematous macular eruption . no vesicles or denuded skin present. Perioculur and perioral area spared This eruption appears to be an allergic reaction /drug eruption . Etiology unknown. will Rx with topical treatment and consider skin Biopsy for confirmation. Discussed with patients son. apply triamcinolone cream BID. Contrinue IV steroids Benadryl QD
[2018-03-26] MEDS: TRIAMCINOLONE ACET 0.1% CREAM 15 GM TUBE TP SCH (21:11)
[2018-03-27 00:07] LABS: ATYPICAL pANCA <1:20 titer (Neg:<1:20); C-ANCA <1:20 titer (Neg:<1:20); P-ANCA <1:20 titer (Neg:<1:20); PROTEINASE-3 ANTIBODY <3.5 U/mL (0.0-3.5)
[2018-03-27] MEDS: methylPREDNISolone NA SUCC 40 MG/1 ML VIAL IVPUSH SCH ×3 (02:21→17:24)
[2018-03-27] MEDS ORDERED: INSULIN REGULAR HUMAN 100 UNITS/ML *VIAL SQ ONE ×2 (02:25→06:57)
[2018-03-27] MEDS ORDERED: INSULIN (NOVOLOG) ASPART 100 UNITS/ML 10ML VIAL SQ ONE ×2 (03:00)
[2018-03-27] MEDS ORDERED: INSULIN (NOVOLOG) ASPART 100 UNITS/ML 10ML VIAL ONE (03:03)
[2018-03-27 07:24] LABS: HEMATOCRIT 29.8 % (32.4-45.2); HEMOGLOBIN 9.6 GM/dL (10.7-15.3); MCH 28.4 pg (25.7-33.7); MCHC 32.3 g/dl (32.0-36.0); MEAN CELL VOLUME 88.1 fl (80-96); MEAN PLT VOLUME 8.5 fl (7.5-11.1); PLATELET COUNT 438 K/MM3 (134-434); RBC 3.38 M/mm3 (3.60-5.2); RDW 15.3 % (11.6-15.6)
[2018-03-27 07:48] LABS: WHITE BLOOD COUNT 36.1 K/mm3 (4.0-10.0)
[2018-03-27 07:55] LABS: CHLORIDE 121 mmol/L (98-107); POTASSIUM 4.9 mmol/L (3.5-5.1); SODIUM 149 mmol/L (136-145)
[2018-03-27 08:15] LABS: ALBUMIN 1.8 g/dl (3.4-5.0); ALK PHOS 113 U/L (45-117); ANION GAP 17 (8-16); BILIRUBIN,TOTAL 0.9 mg/dL (0.2-1.0); BLOOD UREA NITROGEN 52 mg/dL (7-18); CALCIUM 8.1 mg/dL (8.5-10.1); CO2 11 mmol/L (21-32); CREATININE 1.6 mg/dL (0.55-1.02); MAGNESIUM 2.3 mg/dL (1.8-2.4); PHOSPHOROUS 2.7 mg/dL (2.5-4.9); SGOT/AST 9 U/L (15-37); SGPT/ALT 13 U/L (12-78); TOT PROT 5.1 g/dl (6.4-8.2)
[2018-03-27 08:18] LABS: GLUCOSE,RANDOM 391 mg/dL (74-106)
[2018-03-27] MEDS: INSULIN SLIDING SCALE (NOVOLOG) 1 VIAL SQ SCH ×6 (08:33→21:09)
[2018-03-27] MEDS ORDERED: PT OWN MED DRAWER 7, Y5N ONE (08:45)
[2018-03-27] MEDS: INSULIN (LEVEMIR) 100 UNITS/ML UNITS SQ ONE ×2 (09:26→10:29)
[2018-03-27] MEDS: TRIAMCINOLONE ACET 0.1% CREAM 15 GM TUBE TP SCH ×2 (09:28→21:01)
[2018-03-27] MEDS: CLOTRIMAZOLE 1% CREAM 15 GM TUBE TP SCH ×2 (09:28→21:02)
[2018-03-27] MEDS: NYSTATIN POWDER 100,000 UNITS/GM - 15 GM TOPICAL POWDER TP SCH (09:28)
[2018-03-27] MEDS: FLUCONAZOLE 100 MG/D5W 50 ML IVPB SCH (10:29)
[2018-03-27] MEDS: VANCOMYCIN 1,250 MG in DEXTROSE 5%-WATER - 250 ML IVPB SCH (10:30)
--- NOTE | 2018-03-27 11:46 | PN ---
Teaching Attending Note Name of Resident: Annette Camacho ATTENDING PHYSICIAN STATEMENT I saw and evaluated the patient. I reviewed the resident's note and discussed the case with the resident. I agree with the resident's findings and plan as documented. SUBJECTIVE: Patient seen and examined in the ICU. Remains lethargic. Rash appears worse today. Remains on Cardizem drip for rate control. Intake & Output 03/24/18 03/25/18 03/26/18 03/27/18 23:59 23:59 23:59 23:59 Intake Total 790 2365 2410 876 Output Total 1000 1150 1300 600 Balance -210 1215 1110 276 Weight 163 lb 9 oz 165 lb 1 oz 171 lb 12.8 oz 172 lb 2.896 oz Last Vital Signs Temp Pulse Resp BP Pulse Ox 98.5 F 96 H 27 H 130/53 97 03/27/18 10:00 03/27/18 10:00 03/27/18 10:00 03/27/18 10:00 03/27/18 07:42 Active Medications Clotrimazole (Lotrimin 1% Cream -) 1 applic TP BID BRITTANY Last Admin: 03/27/18 09:28 Dose: 1 applic Fluconazole (Diflucan 100 Mg/D5w Premixed Ivpb -) 50 mls @ 50 mls/hr IVPB DAILY [facility] Last Admin: 03/27/18 10:29 Dose: 50 mls/hr Diltiazem HCl 125 mg/ Sodium (Chloride) 125 mls @ 5 mls/hr IVPB TITR BRITTANY; 5 MG/ HR PRN Reason: Protocol Last Titration: 03/27/18 06:00 Dose: 10 mg/hr, 10 mls/hr Metronidazole (Flagyl 500mg Premixed Ivpb -) 500 mg in 100 mls @ 100 mls/hr IVPB Q8H-IV [facility]ANY Last Admin: 03/27/18 09:12 Dose: 100 mls/hr Vancomycin HCl 1,250 mg/ (Dextrose) 250 mls @ 250 mls/2 hr IVPB DAILY [facility] PRN Reason: Protocol Last Admin: 03/27/18 10:30 Dose: 250 mls/2 hr Levofloxacin (Levaquin 250 Mg Premixed Ivpb -) 250 mg in 50 mls @ 50 mls/hr IVPB DAILY [facility] PRN Reason: Protocol Last Admin: 03/27/18 09:12 Dose: 50 mls/hr Sodium Chloride (1/2 Normal Saline) 1,000 mls @ 75 mls/hr IV ASDIR [facility] Last Admin: 03/26/18 15:49 Dose: 75 mls/hr Insulin Aspart (Novolog Vial Sliding Scale -) 1 vial SQ Q4HPO BR[facility]ANY PRN Reason: Protocol Last Admin: 03/27/18 09:24 Dose: 12 units Methylprednisolone Sodium Succinate (Solu-Medrol -) 40 mg IVPUSH Q8H-IV [facility]ANY Last Admin: 03/27/18 09:12 Dose: 40 mg Metoprolol Tartrate (Lopressor Injection -) 5 mg IVPUSH Q4H PRN PRN Reason: HYPERTENSION Last Admin: 03/24/18 15:05 Dose: 5 mg Morphine Sulfate (Morphine Injection -) 2 mg IVPUSH Q4H PRN PRN Reason: RESTLESSNESS / AGITATION Last Admin: 03/25/18 17:43 Dose: 2 mg Nystatin (Nystop Powder -) 1 applic TP DAILY [facility] Last Admin: 03/27/18 09:28 Dose: 1 applic Triamcinolone Acetonide (Aristocort 0.1% Cream -) 1 applic TP BID [facility]ANY Last Admin: 03/27/18 09:28 Dose: 1 applic Gen: confused, mildly tachypneic Heart: tachycardic, irregular Lung: scattered rhonchi Abd: soft, nontender Ext: no edema Skin: scattered rash improving Laboratory Results - last 24 hr 03/23/18 03/27/18 03/27/18 05:26 02:00 05:40 WBC 36.1 H* RBC 3.38 L Hgb 9.6 L Hct 29.8 L MCV 88.1 MCH 28.4 MCHC 32.3 RDW 15.3 Plt Count 438 H D MPV 8.5 Sodium Potassium Chloride Carbon Dioxide Anion Gap BUN Creatinine Creat Clearance w eGFR Random Glucose 440 H* Calcium Phosphorus Magnesium Total Bilirubin AST ALT Alkaline Phosphatase Total Protein Albumin c-ANCA <1:20 Proteinase 3 (PR3) <3.5 p-ANCA <1:20 Atypical p-ANCA <1:20 Myeloperoxidase Ab <9.0 03/27/18 05:40 WBC RBC Hgb Hct MCV MCH MCHC RDW Plt Count MPV Sodium 149 H Potassium 4.9 Chloride 121 H Carbon Dioxide 11 L Anion Gap 17 H BUN 52 H Creatinine 1.6 H Creat Clearance w eGFR 31.34 Random Glucose 391 H* Calcium 8.1 L Phosphorus 2.7 Magnesium 2.3 Total Bilirubin 0.9 D AST 9 L ALT 13 Alkaline Phosphatase 113 Total Protein 5.1 L Albumin 1.8 L c-ANCA Proteinase 3 (PR3) p-ANCA Atypical p-ANCA Myeloperoxidase Ab A/P Drug eruption UTI Gram Negative Bacteremia Severe Sepsis Acute Kidney Injury Hyperkalemia improved Metabolic Acidosis Altered Mental Status Acute CVA Atrial Fibrillation with RVR DM COPD - Rate control - monitor urine output, creatinine - ABX per ID - Aspiration precautions - Need family meeting for GOC discussions - Overall prognosis for meaningful recovery appears poor Dr Gonsalves Critical care time spent in reviewing chart, evaluating patient and formulating plan 35 min
[2018-03-27] MEDS ORDERED: dilTIAZem HCL 25 MG/5 ML - 5 ML VIAL ONE (12:17)
[2018-03-27] MEDS: DILTIAZEM INJECTION 125 MG in SODIUM CHLORIDE 100 ML IVPB SCH (12:22)
--- NOTE | 2018-03-27 13:45 | PN ---
Progress Note, Physician History of Present Illness: Pt seen and examined at bedside. She is lethargic and less interactive today. - Current Medication List Current Medications: Active Medications Clotrimazole (Lotrimin 1% Cream -) 1 applic TP BID [facility] Last Admin: 03/27/18 09:28 Dose: 1 applic Fluconazole (Diflucan 100 Mg/D5w Premixed Ivpb -) 50 mls @ 50 mls/hr IVPB DAILY [facility] Last Admin: 03/27/18 10:29 Dose: 50 mls/hr Diltiazem HCl 125 mg/ Sodium (Chloride) 125 mls @ 5 mls/hr IVPB TITR BRITTANY; 5 MG/ HR PRN Reason: Protocol Last Admin: 03/27/18 12:22 Dose: 10 mg/hr, 10 mls/hr Metronidazole (Flagyl 500mg Premixed Ivpb -) 500 mg in 100 mls @ 100 mls/hr IVPB Q8H-IV [facility] Last Admin: 03/27/18 09:12 Dose: 100 mls/hr Vancomycin HCl 1,250 mg/ (Dextrose) 250 mls @ 250 mls/2 hr IVPB DAILY BRITTANY PRN Reason: Protocol Last Admin: 03/27/18 10:30 Dose: 250 mls/2 hr Levofloxacin (Levaquin 250 Mg Premixed Ivpb -) 250 mg in 50 mls @ 50 mls/hr IVPB DAILY [facility] PRN Reason: Protocol Last Admin: 03/27/18 09:12 Dose: 50 mls/hr Sodium Chloride (1/2 Normal Saline) 1,000 mls @ 75 mls/hr IV ASDIR [facility] Last Admin: 03/26/18 15:49 Dose: 75 mls/hr Insulin Aspart (Novolog Vial Sliding Scale -) 1 vial SQ Q4HPO BRITTANY PRN Reason: Protocol Last Admin: 03/27/18 09:24 Dose: 12 units Methylprednisolone Sodium Succinate (Solu-Medrol -) 40 mg IVPUSH Q8H-IV [facility] Last Admin: 03/27/18 09:12 Dose: 40 mg Metoprolol Tartrate (Lopressor Injection -) 5 mg IVPUSH Q4H PRN PRN Reason: HYPERTENSION Last Admin: 03/24/18 15:05 Dose: 5 mg Morphine Sulfate (Morphine Injection -) 2 mg IVPUSH Q4H PRN PRN Reason: RESTLESSNESS / AGITATION Last Admin: 03/25/18 17:43 Dose: 2 mg Nystatin (Nystop Powder -) 1 applic TP DAILY [facility] Last Admin: 03/27/18 09:28 Dose: 1 applic Triamcinolone Acetonide (Aristocort 0.1% Cream -) 1 applic TP BID BR[facility]ANY Last Admin: 03/27/18 09:28 Dose: 1 applic - Objective Vital Signs: Vital Signs Temperature 98.5 F 03/27/18 10:00 Pulse Rate 104 H 03/27/18 12:22 Respiratory Rate 17 03/27/18 12:00 Blood Pressure 141/51 03/27/18 12:22 O2 Sat by Pulse Oximetry (%) 97 03/27/18 09:00 Constitutional: Yes: Calm Eyes: Yes: Conjunctiva Clear HENT: Yes: Atraumatic Cardiovascular: Yes: S1, S2 Respiratory: Yes: On Nasal O2 Gastrointestinal: Yes: Soft Genitourinary: Yes: Nava Present Musculoskeletal: Yes: Muscle Weakness Edema: No Integumentary: Yes: Rash Neurological: Yes: Lethargy Labs: CBC, BMP 03/27/18 05:40 03/27/18 05:40 INR, PTT INR 1.29 (0.82-1.09) H 03/26/18 05:10 Problem List - Problems (1) Acute renal failure Code(s): N17.9 - ACUTE KIDNEY FAILURE, UNSPECIFIED (2) Hyperkalemia Code(s): E87.5 - HYPERKALEMIA (3) Hyponatremia Code(s): E87.1 - HYPO-OSMOLALITY AND HYPONATREMIA (4) CVA (cerebral vascular accident) Code(s): I63.9 - CEREBRAL INFARCTION, UNSPECIFIED Qualifiers: CVA mechanism: embolism Qualified Code(s): I63.9 - Cerebral infarction, unspecified Assessment/Plan Current Medications Generic Name Dose Route Start Last Admin Trade Name Freq PRN Reason Stop Dose Admin Clotrimazole 1 applic 03/23/18 10:00 03/27/18 09:28 Lotrimin 1% Cream - TP 1 applic BID BRITTANY Administration Fluconazole 50 mls @ 50 mls/hr 03/23/18 10:00 03/27/18 10:29 Diflucan 100 Mg/D5w Premixed Ivpb - IVPB 50 mls/hr DAILY BRITTANY Administration Diltiazem HCl 125 mg/ Sodium 125 mls @ 5 mls/hr 03/24/18 13:15 03/27/18 12:22 Chloride IVPB 10 mg/hr TITR BRITTANY 10 mls/hr Protocol Administration 5 MG/HR Metronidazole 500 mg in 100 mls @ 100 mls/hr 03/26/18 10:00 03/27/18 09:12 Flagyl 500mg Premixed Ivpb - IVPB 100 mls/hr Q8H-IV BRITTANY Administration Vancomycin HCl 1,250 mg/ 250 mls @ 250 mls/2 hr 03/26/18 10:00 03/27/18 10:30 Dextrose IVPB 250 mls/2 hr DAILY BRITTANY Administration Protocol Levofloxacin 250 mg in 50 mls @ 50 mls/hr 03/26/18 10:00 03/27/18 09:12 Levaquin 250 Mg Premixed Ivpb - IVPB 50 mls/hr DAILY BRITTANY Administration Protocol Sodium Chloride 1,000 mls @ 75 mls/hr 03/26/18 15:30 03/26/18 15:49 1/2 Normal Saline IV 75 mls/hr ASDIR BRITTANY Administration Insulin Aspart 1 vial 03/27/18 10:00 03/27/18 09:24 Novolog Vial Sliding Scale - SQ 12 units Q4HPO BRITTANY Administration Protocol Methylprednisolone Sodium Succinate 40 mg 03/26/18 10:00 03/27/18 09:12 Solu-Medrol - IVPUSH 40 mg Q8H-IV BRITTANY Administration Metoprolol Tartrate 5 mg 03/24/18 12:19 03/24/18 15:05 Lopressor Injection - IVPUSH 5 mg Q4H PRN Administration HYPERTENSION Morphine Sulfate 2 mg 03/24/18 14:50 03/25/18 17:43 Morphine Injection - IVPUSH 2 mg Q4H PRN Administration RESTLESSNESS / AGITATION Nystatin 1 applic 03/23/18 10:00 03/27/18 09:28 Nystop Powder - TP 1 applic DAILY BRITTANY Administration Triamcinolone Acetonide 1 applic 03/26/18 22:00 03/27/18 09:28 Aristocort 0.1% Cream - TP 1 applic BID BRITTANY Administration Impression 1. ELÍAS 2. hyperkalemia 3. sepsis 4. hyponatremia 5. DM uncontrolled 6. COPD 7. CVA 8. hypomagnesemia Plan - cont hypotonic fluid as sodium is rising - cont to monitor urine output and renal function - cont ICU care - derm input appreciated - family to discuss GOF - will follow Dr Burdick
--- NOTE | 2018-03-27 14:03 | PN ---
Progress Note, Physician History of Present Illness: Poorly responsive Afebrile on steroids WBC remains markedly elevated BC (03/25) no growth - Current Medication List Current Medications: Active Medications Clotrimazole (Lotrimin 1% Cream -) 1 applic TP BID [facility] Last Admin: 03/27/18 09:28 Dose: 1 applic Fluconazole (Diflucan 100 Mg/D5w Premixed Ivpb -) 50 mls @ 50 mls/hr IVPB DAILY [facility] Last Admin: 03/27/18 10:29 Dose: 50 mls/hr Diltiazem HCl 125 mg/ Sodium (Chloride) 125 mls @ 5 mls/hr IVPB TITR BRITTANY; 5 MG/ HR PRN Reason: Protocol Last Titration: 03/27/18 13:42 Dose: 15 mg/hr, 15 mls/hr Metronidazole (Flagyl 500mg Premixed Ivpb -) 500 mg in 100 mls @ 100 mls/hr IVPB Q8H-IV [facility] Last Admin: 03/27/18 09:12 Dose: 100 mls/hr Vancomycin HCl 1,250 mg/ (Dextrose) 250 mls @ 250 mls/2 hr IVPB DAILY [facility] PRN Reason: Protocol Last Admin: 03/27/18 10:30 Dose: 250 mls/2 hr Levofloxacin (Levaquin 250 Mg Premixed Ivpb -) 250 mg in 50 mls @ 50 mls/hr IVPB DAILY [facility] PRN Reason: Protocol Last Admin: 03/27/18 09:12 Dose: 50 mls/hr Sodium Chloride (1/2 Normal Saline) 1,000 mls @ 75 mls/hr IV ASDIR [facility] Last Admin: 03/26/18 15:49 Dose: 75 mls/hr Insulin Aspart (Novolog Vial Sliding Scale -) 1 vial SQ Q4HPO BRITTANY PRN Reason: Protocol Last Admin: 03/27/18 13:44 Dose: 12 units Methylprednisolone Sodium Succinate (Solu-Medrol -) 40 mg IVPUSH Q8H-IV [facility] Last Admin: 03/27/18 09:12 Dose: 40 mg Metoprolol Tartrate (Lopressor Injection -) 5 mg IVPUSH Q4H PRN PRN Reason: HYPERTENSION Last Admin: 03/24/18 15:05 Dose: 5 mg Morphine Sulfate (Morphine Injection -) 2 mg IVPUSH Q4H PRN PRN Reason: RESTLESSNESS / AGITATION Last Admin: 03/25/18 17:43 Dose: 2 mg Nystatin (Nystop Powder -) 1 applic TP DAILY [facility] Last Admin: 03/27/18 09:28 Dose: 1 applic Triamcinolone Acetonide (Aristocort 0.1% Cream -) 1 applic TP BID [facility] Last Admin: 03/27/18 09:28 Dose: 1 applic - Objective Vital Signs: Vital Signs Temperature 98.4 F 03/27/18 13:45 Pulse Rate 120 H 03/27/18 13:45 Respiratory Rate 18 03/27/18 13:45 Blood Pressure 136/61 03/27/18 13:45 O2 Sat by Pulse Oximetry (%) 97 03/27/18 09:00 Constitutional: Yes: No Distress Cardiovascular: Yes: Regular Rate and Rhythm, S1, S2 Respiratory: Yes: Diminished Gastrointestinal: Yes: Normal Bowel Sounds, Soft, Abdomen, Obese Edema: Yes Integumentary: Yes: Other (extensive rash ext, trunk) Labs: CBC, BMP 03/27/18 05:40 03/27/18 05:40 INR, PTT INR 1.29 (0.82-1.09) H 03/26/18 05:10 Assessment/Plan Sepsis Klebsiella bacteremia/ sepsis secondary to source Generalized rash Leukocytosis Continue vancomycin/ levaquin/ flagyl. Steroids Prognosis guarded
[2018-03-27 14:14] LABS: ANTIGLOMERULAR BASEMENT MEN.AB 4 units (0-20)
--- NOTE | 2018-03-27 15:13 | PN ---
Progress Note (short form) - Note Progress Note: CC: CVA S: remains unresponsive, npo. remains on dilt drip. rash is worsening. Current Medications Clotrimazole (Lotrimin 1% Cream -) 1 applic TP BID [facility] OF [facility] Last Admin: 03/27/18 09:28 Dose: 1 applic Fluconazole (Diflucan 100 Mg/D5w Premixed Ivpb -) 50 mls @ 50 mls/hr IVPB DAILY [facility] OF [facility] Last Admin: 03/27/18 10:29 Dose: 50 mls/hr Diltiazem HCl 125 mg/ Sodium (Chloride) 125 mls @ 5 mls/hr IVPB TITR BRITTANY; 5 MG/ HR PRN Reason: Protocol Last Titration: 03/27/18 13:42 Dose: 15 mg/hr, 15 mls/hr Metronidazole (Flagyl 500mg Premixed Ivpb -) 500 mg in 100 mls @ 100 mls/hr IVPB Q8H-IV [facility] Last Admin: 03/27/18 09:12 Dose: 100 mls/hr Vancomycin HCl 1,250 mg/ (Dextrose) 250 mls @ 250 mls/2 hr IVPB DAILY [facility] PRN Reason: Protocol Last Admin: 03/27/18 10:30 Dose: 250 mls/2 hr Levofloxacin (Levaquin 250 Mg Premixed Ivpb -) 250 mg in 50 mls @ 50 mls/hr IVPB DAILY [facility]ANY PRN Reason: Protocol Last Admin: 03/27/18 09:12 Dose: 50 mls/hr Sodium Chloride (1/2 Normal Saline) 1,000 mls @ 75 mls/hr IV ASDIR ON [facility] Last Admin: 03/26/18 15:49 Dose: 75 mls/hr Insulin Aspart (Novolog Vial Sliding Scale -) 1 vial SQ Q4HPO BRITTANY PRN Reason: Protocol Last Admin: 03/27/18 13:44 Dose: 12 units Methylprednisolone Sodium Succinate (Solu-Medrol -) 40 mg IVPUSH Q8H-IV [facility] Last Admin: 03/27/18 09:12 Dose: 40 mg Metoprolol Tartrate (Lopressor Injection -) 5 mg IVPUSH Q4H PRN PRN Reason: HYPERTENSION Last Admin: 03/24/18 15:05 Dose: 5 mg Nystatin (Nystop Powder -) 1 applic TP DAILY [facility] Last Admin: 03/27/18 09:28 Dose: 1 applic Triamcinolone Acetonide (Aristocort 0.1% Cream -) 1 applic TP BID [facility] Last Admin: 03/27/18 09:28 Dose: 1 applic Vital Signs - 24 hr 03/26/18 03/26/18 03/26/18 16:00 17:04 18:00 Temperature 100.1 F H 100.9 F H Pulse Rate 115 H 119 H 115 H Respiratory 24 15 Rate Blood Pressure 126/69 136/90 136/90 O2 Sat by Pulse Oximetry (%) 03/26/18 03/26/18 03/26/18 19:30 20:00 20:09 Temperature Pulse Rate 112 H 113 H Respiratory 24 Rate Blood Pressure 135/82 130/51 O2 Sat by Pulse 98 Oximetry (%) 03/26/18 03/26/18 03/27/18 2018 22:00 00:00 Temperature 100.6 F H Pulse Rate 112 H 107 H Respiratory 26 H 23 Rate Blood Pressure 124/49 124/53 O2 Sat by Pulse 98 Oximetry (%) 03/27/18 03/27/18 03/27/18 02:00 04:00 06:00 Temperature 99.3 F 98.7 F Pulse Rate 127 H 106 H 96 H Respiratory 30 H 27 H 95 H Rate Blood Pressure 112/64 110/56 111/51 O2 Sat by Pulse Oximetry (%) 03/27/18 03/27/18 03/27/18 07:41 07:42 08:00 Temperature Pulse Rate 102 H 118 H Respiratory 30 H 29 H Rate Blood Pressure 116/53 139/63 O2 Sat by Pulse 97 Oximetry (%) 03/27/18 03/27/18 03/27/18 09:00 09:30 10:00 Temperature 97.6 F 98.5 F Pulse Rate 101 H 96 H Respiratory 24 27 H Rate Blood Pressure 129/57 130/53 O2 Sat by Pulse 97 Oximetry (%) 03/27/18 03/27/18 03/27/18 12:00 12:22 13:42 Temperature Pulse Rate 120 H 104 H 120 H Respiratory 17 Rate Blood Pressure 141/51 141/51 136/61 O2 Sat by Pulse Oximetry (%) 03/27/18 03/27/18 13:45 15:00 Temperature 98.4 F Pulse Rate 120 H 111 H Respiratory 18 23 Rate Blood Pressure 136/61 141/46 O2 Sat by Pulse Oximetry (%) Intake & Output 03/25/18 03/26/18 03/27/18 03/28/18 07:59 07:59 07:59 07:59 Intake Total 1035 2400 2656 Output Total 1100 1550 1200 500 Balance -65 850 1456 -500 Weight 165 lb 1 oz 171 lb 12.8 oz 172 lb 2.896 oz Constitutional: Yes: Minimally responsive. jvd flat. Cardiovascular: Pulse Irregular nl s1, s2 1/6 sys murmur at sternal border. Respiratory: Yes: CTA Bilaterally, poor effort + bs soft nt nd no le e/c/c diffuse erythematous rash. no jaundice, diaphoresis. CBC, BMP 03/27/18 05:40 03/27/18 05:40 Laboratory Tests 03/27/18 05:40 Magnesium 2.3 Albumin 1.8 L tele: afib rates 100s Echo 02/21: nl LV/EF. nl RV. 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 AFib with RVR -+ fever ?sepsis with (+) blood cultures K. Pneumonia, RVR likely related to response to fever and underlying metabolic derangement. -Continue fever/sepsis management as per ICU/ID staff -BP stable on Dilt gtt. Unable to take PO. Rate control improving today on dilt drip, con't. Ideally will be able to start weaning drip tomorrow. however , if remains unable to take po and HR's remain elevated, consider IV dig to help wean off drip as it is not a termination clerk solution for rate control. GOC discussions pending. -Imaging reveals large new left MCA territory CVA with prior Right cerebellar CVA. Per neurology not yet safe to resume anticoagulation. -ELÍAS improving, derm consulted for rash. - poor prognosis. cct: 35 min
--- NOTE | 2018-03-27 16:00 | PN ---
Progress Note, Physician Chief Complaint: right sided weakness History of Present Illness: Current:Less alert today, with less gaze deviation to the left. Emergence of diffuse purpuric rash. Because of development of hypernatremia is getting some hypotonic fluids. Non communicative and not following commands. Some movement of left foot noted by son. CT scan showed large left MCA infarction. Dr. Quach's note appreciated, doesn't believe that endocarditis is likely, both in setting of history and documented agent. From Initial Consult: 77 year old female with a significant PMH of recent CVA & TIA, COPD, diabetes, recent multiple embolic CVA -dx with AFIB and started on Eliquis use who presents to the emergency department with speech difficulty and weakness on 03/22/18. As per EMS, the patient was at baseline before 12PM but afterwards began to slightly slur her words and develop right sided weakness and left side facial droop. CTA was done in ER IMPRESSION: See discussion above There is a short segment of moderate to marked narrowing in the distal right M1 segment. Otherwise , no major artery cutoff, vascular malformation or aneurysm are identified within the central intracranial arterial lesion. Narrowed/hypoplastic right P1 segment likely due to the presence of a right posterior communicating artery Tiny ossified plaque in the right bulb without evidence of hemodynamically significant stenosis. Small calcified plaques at the left common carotid bifurcation as well as the proximal left common carotid artery without evidence of hemodynamically significant stenosis found to have elevated WBC / rash and Acute on chronic kidney failure -- not given TPA given she was on AC and sx thought to be related to underlying metabolic /infectious etiology - Current Medication List Current Medications: Active Medications Clotrimazole (Lotrimin 1% Cream -) 1 applic TP BID BRITTANY Last Admin: 03/27/18 09:28 Dose: 1 applic Fluconazole (Diflucan 100 Mg/D5w Premixed Ivpb -) 50 mls @ 50 mls/hr IVPB DAILY [facility]ANY Last Admin: 03/27/18 10:29 Dose: 50 mls/hr Diltiazem HCl 125 mg/ Sodium (Chloride) 125 mls @ 5 mls/hr IVPB TITR BRITTANY; 5 MG/ HR PRN Reason: Protocol Last Titration: 03/27/18 13:42 Dose: 15 mg/hr, 15 mls/hr Metronidazole (Flagyl 500mg Premixed Ivpb -) 500 mg in 100 mls @ 100 mls/hr IVPB Q8H-IV BRITTANY Last Admin: 03/27/18 09:12 Dose: 100 mls/hr Vancomycin HCl 1,250 mg/ (Dextrose) 250 mls @ 250 mls/2 hr IVPB DAILY BRITTANY PRN Reason: Protocol Last Admin: 03/27/18 10:30 Dose: 250 mls/2 hr Levofloxacin (Levaquin 250 Mg Premixed Ivpb -) 250 mg in 50 mls @ 50 mls/hr IVPB DAILY BR[facility]ANY PRN Reason: Protocol Last Admin: 03/27/18 09:12 Dose: 50 mls/hr Sodium Chloride (1/2 Normal Saline) 1,000 mls @ 75 mls/hr IV ASDIR BRITTANY Last Admin: 03/26/18 15:49 Dose: 75 mls/hr Insulin Aspart (Novolog Vial Sliding Scale -) 1 vial SQ Q4HPO BRITTANY PRN Reason: Protocol Last Admin: 03/27/18 13:44 Dose: 12 units Methylprednisolone Sodium Succinate (Solu-Medrol -) 40 mg IVPUSH Q8H-IV BRITTANY Last Admin: 03/27/18 09:12 Dose: 40 mg Metoprolol Tartrate (Lopressor Injection -) 5 mg IVPUSH Q4H PRN PRN Reason: HYPERTENSION Last Admin: 03/24/18 15:05 Dose: 5 mg Nystatin (Nystop Powder -) 1 applic TP DAILY [facility] Last Admin: 03/27/18 09:28 Dose: 1 applic Triamcinolone Acetonide (Aristocort 0.1% Cream -) 1 applic TP BID [facility] Last Admin: 03/27/18 09:28 Dose: 1 applic - Objective Vital Signs: Vital Signs Temperature 98.4 F 03/27/18 13:45 Pulse Rate 111 H 03/27/18 15:00 Respiratory Rate 23 03/27/18 15:00 Blood Pressure 141/46 03/27/18 15:00 O2 Sat by Pulse Oximetry (%) 97 03/27/18 09:00 Neurological: Yes: Other (Eyes closed, grimaces to noxious stimuli.) Labs: CBC, BMP 03/27/18 05:40 03/27/18 05:40 INR, PTT INR 1.29 (0.82-1.09) H 03/26/18 05:10 Problem List - Problems (1) CVA (cerebral vascular accident) Code(s): I63.9 - CEREBRAL INFARCTION, UNSPECIFIED Qualifiers: CVA mechanism: embolism Qualified Code(s): I63.9 - Cerebral infarction, unspecified Assessment/Plan Stroke has been documented. Unfortunately with this and her large cerebellar infarction she is at high risk of hemorrhagic conversion and although she is at high risk of further strokes, I don't believe that it is safe to put her back on anticoagulation at this time. Would wait about 10 days after the large MCA infarction before starting AC. Be careful with hypotonic fluids as they can increase brain swelling.
--- NOTE | 2018-03-27 16:49 | PN ---
Physical Exam: SUBJECTIVE: Patient lethargic, responsive to sternal rub; nursing staff notes hyperglycemia (BS 600's with 10 units, repeat BS 400's) overnight. OBJECTIVE: General: Lethargic HEAD: PEERLA CV: S1/S2, RRR RESPIRATORY: CLTA B/L, no wheeze/crackles ABDOMEN: soft, (+) bowel sounds NEURO: Not following commands, withdraws from pain INTEGUMENTARY: Macular papular rash on B/L UE, abdomen, B/L LE, RUE edema - all worsening since PE on 03/26 Vital Signs Period Temp Pulse Resp BP Sys/Bangura Pulse Ox Last 24 Hr 97.6 F-100.9 F 95-127 15-95 110-141/46-90 95-98 Laboratory Results - last 24 hr 03/23/18 03/23/18 03/26/18 05:26 05:26 10:52 WBC RBC Hgb Hct MCV MCH MCHC RDW Plt Count MPV Sodium Potassium Chloride Carbon Dioxide Anion Gap BUN Creatinine Creat Clearance w eGFR POC Glucometer [phone] Random Glucose Calcium Phosphorus Magnesium Total Bilirubin AST ALT Alkaline Phosphatase Total Protein Albumin c-ANCA <1:20 Proteinase 3 (PR3) <3.5 p-ANCA <1:20 Atypical p-ANCA <1:20 Myeloperoxidase Ab <9.0 Glomerular Base Memb Ab 4 HCV Quantitation Hcv not detected Hepatitis C RNA TNP 03/27/18 03/27/18 03/27/18 01:34 02:00 05:40 WBC 36.1 H* RBC 3.38 L Hgb 9.6 L Hct 29.8 L MCV 88.1 MCH 28.4 MCHC 32.3 RDW 15.3 Plt Count 438 H D MPV 8.5 Sodium Potassium Chloride Carbon Dioxide Anion Gap BUN Creatinine Creat Clearance w eGFR POC Glucometer > 400 Random Glucose 440 H* Calcium Phosphorus Magnesium Total Bilirubin AST ALT Alkaline Phosphatase Total Protein Albumin c-ANCA Proteinase 3 (PR3) p-ANCA Atypical p-ANCA Myeloperoxidase Ab Glomerular Base Memb Ab HCV Quantitation Hepatitis C RNA 03/27/18 03/27/18 03/27/18 05:40 09:20 13:37 WBC RBC Hgb Hct MCV MCH MCHC RDW Plt Count MPV Sodium 149 H Potassium 4.9 Chloride 121 H Carbon Dioxide 11 L Anion Gap 17 H BUN 52 H Creatinine 1.6 H Creat Clearance w eGFR 31.34 POC Glucometer [phone] Random Glucose 391 H* Calcium 8.1 L Phosphorus 2.7 Magnesium 2.3 Total Bilirubin 0.9 D AST 9 L ALT 13 Alkaline Phosphatase 113 Total Protein 5.1 L Albumin 1.8 L c-ANCA Proteinase 3 (PR3) p-ANCA Atypical p-ANCA Myeloperoxidase Ab Glomerular Base Memb Ab HCV Quantitation Hepatitis C RNA Active Medications Generic Name Dose Route Start Last Admin Trade Name Hai PRN Reason Stop Dose Admin Clotrimazole 1 applic 03/23/18 10:00 03/27/18 09:28 Lotrimin 1% Cream - TP 1 applic BID BRITTANY Administration Fluconazole 50 mls @ 50 mls/hr 03/23/18 10:00 03/27/18 10:29 Diflucan 100 Mg/D5w Premixed Ivpb - IVPB 50 mls/hr DAILY BRITTANY Administration Diltiazem HCl 125 mg/ Sodium 125 mls @ 5 mls/hr 03/24/18 13:15 03/27/18 13:42 Chloride IVPB 15 mg/hr TITR BRITTANY 15 mls/hr Protocol Titration 5 MG/HR Metronidazole 500 mg in 100 mls @ 100 mls/hr 03/26/18 10:00 03/27/18 09:12 Flagyl 500mg Premixed Ivpb - IVPB 100 mls/hr Q8H-IV BRITTANY Administration Vancomycin HCl 1,250 mg/ 250 mls @ 250 mls/2 hr 03/26/18 10:00 03/27/18 10:30 Dextrose IVPB 250 mls/2 hr DAILY BRITTANY Administration Protocol Levofloxacin 250 mg in 50 mls @ 50 mls/hr 03/26/18 10:00 03/27/18 09:12 Levaquin 250 Mg Premixed Ivpb - IVPB 50 mls/hr DAILY BRITTANY Administration Protocol Sodium Chloride 1,000 mls @ 75 mls/hr 03/26/18 15:30 03/26/18 15:49 1/2 Normal Saline IV 75 mls/hr ASDIR BRITTANY Administration Insulin Aspart 1 vial 03/27/18 10:00 03/27/18 13:44 Novolog Vial Sliding Scale - SQ 12 units Q4HPO BRITTANY Administration Protocol Methylprednisolone Sodium Succinate 40 mg 03/26/18 10:00 03/27/18 09:12 Solu-Medrol - IVPUSH 40 mg Q8H-IV BRITTANY Administration Metoprolol Tartrate 5 mg 03/24/18 12:19 03/24/18 15:05 Lopressor Injection - IVPUSH 5 mg Q4H PRN Administration HYPERTENSION Nystatin 1 applic 03/23/18 10:00 03/27/18 09:28 Nystop Powder - TP 1 applic DAILY BRITTANY Administration Triamcinolone Acetonide 1 applic 03/26/18 22:00 03/27/18 09:28 Aristocort 0.1% Cream - TP 1 applic BID BRITTANY Administration ASSESSMENT/PLAN: 80 year old female presented to ED with slurred speech, confusion and R sided weakness > 1 day - found to be in acute renal failure (Cr 5.7). Family @ bedside notes 4 day h/o decreased PO intake and patient's sister notes confusion , aphasia noted by family 1 day prior to presentation to our ED. Patient noted to have new L MCA infarct on 03/24. 1. SEVERE SEPSIS - LIKELY 2/2 to GB infection, WORSENING - Leukocytosis (29), Tachycardic 140's @ presentation - WBC 35 today (03/27) - Neurologic clincal deteoriation - 2/2 to active infection + CVA x2 - Continue Meropenem, Fluconazole - Palliative consult pending 03/23/18 09:00 Bile Body Fluid Culture - Final Klebsiella Pneumoniae Enterococcus Faecalis 03/23/18 09:00 Bile Anaerobic Culture - Final NO ANAEROBES WERE ISOLATED 2. ACUTE L MCA INFARCT SUPERIMPOSED ON ACUTE RIGHT CEREBELLAR INFARCT with +/- new neurologic deficits SUPERIMPOSED OVER R PARIETAL CVA - Deteriorating neurological picture over the last 48-72 hours, patient non- verbal today (03/26) - Will continue to hold Apixiban as per neuro, high risk of hemorrhagic conversion, however given patient's history, not a candidate for A/C - Neurology following, appreciate recs - BP monitoring, aspiration precautions, statin 3. ACUTE KIDNEY INJURY - likely 2/2 to ELÍAS 2/2 to decreased perfusion 2/2 to decreased PO intake - IMPROVING - Cr 1.6 < -- 1.3 <-- 4.6 (03/23) <-- 5.7 @ presentation - Monitor Cr/BUN, electrolyte - Strict I's/O's - Aggressive IV hydration 4. RASH - likely MULTIFORME ERYTHEMA - Macular papular rash on B/L LE, abdomen worsening + RUE edema (new since PE on 03/26) - Continue Triamcinolone, IV Methylpredinsone - Dermatology consult 03/25 - appreciated recs, ID following appreciate recs 5. PAROXYSMAL ATRIAL FIBRILLATION - currently holding A/C - RESOLVED - Diltiazem drip following short run of AFib on 03/24 - Repeat ECG show Sinus Tach - Continue to hold Eliquis in light of patient's clinical picture - Neurology following, appreciate recs 6. INSULIN DEPENDENT DIABETES MELLITUS - UNCONTROLLED, LIKELY 2/2 to STEROID - Hyperglycemic 600's overnight - Admission BS 100's-300's - Target BS in ICU 140's - 180's - Start Levimir (10 units) + SSI - Q6H BS checks FEN - Monitor electrolytes - Patient NPO PROPHYLAXIS - Not indicated at this time DISPOSITION: Given patient's prognosis, palliative consult ordered. Voicemail left for patient's son and sister regarding GOC including possible initiation of comfort care/palliative consult Patient's sister, Rai Rodriguez, Visit type - Emergency Visit Emergency Visit: No - New Patient This patient is new to me today: No - Critical Care Critical Care patient: No
[2018-03-27] MEDS: SODIUM CHLORIDE 0.45% 1,000 ML IV SCH (18:43)
[2018-03-27] MEDS ORDERED: morphine CARPU-JECT 2 MG/1 ML DISP.SYRIN ONE (21:00)
[2018-03-27] MEDS: morphine SULFATE 4 MG/ML VIAL IVPUSH PRN (21:02)
[2018-03-28] MEDS: INSULIN SLIDING SCALE (NOVOLOG) 1 VIAL SQ SCH ×6 (02:00→18:06)
[2018-03-28] MEDS ORDERED: dilTIAZem HCL 25 MG/5 ML - 5 ML VIAL ONE ×2 (02:47→16:08)
[2018-03-28] MEDS: methylPREDNISolone NA SUCC 40 MG/1 ML VIAL IVPUSH SCH ×3 (02:49→17:32)
[2018-03-28 06:39] LABS: HEMATOCRIT 32.8 % (32.4-45.2); HEMOGLOBIN 10.7 GM/dL (10.7-15.3); MCHC 32.5 g/dl (32.0-36.0); MEAN CELL VOLUME 86.3 fl (80-96); MEAN PLT VOLUME 8.1 fl (7.5-11.1); PLATELET COUNT 478 K/MM3 (134-434); RDW 15.5 % (11.6-15.6)
[2018-03-28 06:52] LABS: WHITE BLOOD COUNT 37.9 K/mm3 (4.0-10.0)
--- NOTE | 2018-03-28 06:54 | PN ---
Progress Note, Physician Chief Complaint: ID Vancomycin Levofloxacin Metronidazole Steroids added 2 days ago for severe allergic reaction rash Poorly responsive - Current Medication List Current Medications: Active Medications Clotrimazole (Lotrimin 1% Cream -) 1 applic TP BID [facility] Last Admin: 03/27/18 21:02 Dose: 1 applic Fluconazole (Diflucan 100 Mg/D5w Premixed Ivpb -) 50 mls @ 50 mls/hr IVPB DAILY BRITTANY Last Admin: 03/27/18 10:29 Dose: 50 mls/hr Diltiazem HCl 125 mg/ Sodium (Chloride) 125 mls @ 5 mls/hr IVPB TITR BRITTANY; Protocol Last Titration: 03/27/18 13:42 Dose: 15 mg/hr, 15 mls/hr Metronidazole (Flagyl 500mg Premixed Ivpb -) 500 mg in 100 mls @ 100 mls/hr IVPB Q8H-IV BRITTANY Last Admin: 03/28/18 02:49 Dose: 100 mls/hr Vancomycin HCl 1,250 mg/ (Dextrose) 250 mls @ 250 mls/2 hr IVPB DAILY BRITTANY; Protocol Last Admin: 03/27/18 10:30 Dose: 250 mls/2 hr Levofloxacin (Levaquin 250 Mg Premixed Ivpb -) 250 mg in 50 mls @ 50 mls/hr IVPB DAILY BRITTANY; Protocol Last Admin: 03/27/18 09:12 Dose: 50 mls/hr Sodium Chloride (1/2 Normal Saline) 1,000 mls @ 75 mls/hr IV ASDIR BRITTANY Last Admin: 03/27/18 18:43 Dose: 75 mls/hr Insulin Aspart (Novolog Vial Sliding Scale -) 1 vial SQ Q4HPO [facility]; Protocol Last Admin: 03/28/18 02:49 Dose: 6 units Methylprednisolone Sodium Succinate (Solu-Medrol -) 40 mg IVPUSH Q8H-IV BRITTANY Last Admin: 03/28/18 02:49 Dose: 40 mg Metoprolol Tartrate (Lopressor Injection -) 5 mg IVPUSH Q4H PRN PRN Reason: HYPERTENSION Last Admin: 03/24/18 15:05 Dose: 5 mg Morphine Sulfate (Morphine Sulfate) 2 mg IVPUSH Q4H PRN PRN Reason: PAIN LEVEL 1 - 3 Last Admin: 03/27/18 21:02 Dose: 2 mg Nystatin (Nystop Powder -) 1 applic TP DAILY [facility] Last Admin: 03/27/18 09:28 Dose: 1 applic Triamcinolone Acetonide (Aristocort 0.1% Cream -) 1 applic TP BID [facility] Last Admin: 03/27/18 21:01 Dose: 1 applic - Objective Vital Signs: Vital Signs Temperature 98.2 F 03/28/18 02:00 Pulse Rate 107 H 03/28/18 03:56 Respiratory Rate 18 03/28/18 03:56 Blood Pressure 129/64 03/28/18 03:56 O2 Sat by Pulse Oximetry (%) 95 03/27/18 20:02 Constitutional: Yes: Other (Poorly responsive) Cardiovascular: Yes: Regular Rate and Rhythm, S1, S2 Respiratory: Yes: WNL, Regular, CTA Bilaterally Gastrointestinal: Yes: WNL, Normal Bowel Sounds, Soft. No: Tenderness Edema: Yes Labs: CBC, BMP 03/27/18 05:40 03/27/18 05:40 INR, PTT INR 1.29 (0.82-1.09) H 03/26/18 05:10 Problem List - Problems (1) UTI (urinary tract infection) Code(s): N39.0 - URINARY TRACT INFECTION, SITE NOT SPECIFIED (2) CVA (cerebral vascular accident) Code(s): I63.9 - CEREBRAL INFARCTION, UNSPECIFIED Qualifiers: CVA mechanism: embolism Qualified Code(s): I63.9 - Cerebral infarction, unspecified (3) Cholecystitis with cholangitis Code(s): K81.9 - CHOLECYSTITIS, UNSPECIFIED; K83.0 - CHOLANGITIS (4) Diabetes mellitus Code(s): E11.9 - TYPE 2 DIABETES MELLITUS WITHOUT COMPLICATIONS Qualifiers: Diabetes mellitus type: type 2 Diabetes mellitus chcf insulin use: with chcf use Diabetes mellitus complication status: with neurologic complications (5) Acute renal failure Code(s): N17.9 - ACUTE KIDNEY FAILURE, UNSPECIFIED (6) Sacral decubitus ulcer Code(s): L89.159 - PRESSURE ULCER OF SACRAL REGION, UNSPECIFIED STAGE (7) Drug rash Code(s): L27.0 - GEN SKIN ERUPTION DUE TO DRUGS AND MEDS TAKEN INTERNALLY Assessment/Plan Laboratory Tests 03/23/18 03/27/18 03/27/18 05:26 05:40 05:40 WBC 36.1 H* Hgb 9.6 L Hct 29.8 L Plt Count 438 H D Creatinine 1.6 H C-Reactive Protein 23.7 H Assessment Klebsiella bacteremia Sepsis syndrome urinary tract source Cholecysititis suspect necrotic gall bladder Unresponsive secondary CVAs Drainage catheter in the RUQ Leukomoid reacton Acute kidney injury Polymicrobial drain culture Drug reaction severe rash Plan Despite all supportive measure her prognosis remains poor Comfort care seems most appropriate given her large CVA and mental status as a result. For now will continue all current antibiotics as ordered She is not an operative candidate for cholecystectomy Critial care time spent 38 minutes
[2018-03-28 07:20] LABS: ALBUMIN 1.9 g/dl (3.4-5.0); ALK PHOS 129 U/L (45-117); ANION GAP 12 (8-16); BILIRUBIN,TOTAL 0.4 mg/dL (0.2-1.0); BLOOD UREA NITROGEN 44 mg/dL (7-18); CALCIUM 7.8 mg/dL (8.5-10.1); CHLORIDE 123 mmol/L (98-107); CO2 18 mmol/L (21-32); CREATININE 1.3 mg/dL (0.55-1.02); GLUCOSE,RANDOM 267 mg/dL (74-106); POTASSIUM 3.8 mmol/L (3.5-5.1); SGOT/AST 16 U/L (15-37); SGPT/ALT 13 U/L (12-78); SODIUM 153 mmol/L (136-145); TOT PROT 5.1 g/dl (6.4-8.2)
[2018-03-28] MEDS: DILTIAZEM INJECTION 125 MG in SODIUM CHLORIDE 100 ML IVPB SCH ×2 (07:41→16:12)
--- NOTE | 2018-03-28 09:35 | PN ---
Progress Note, Physician Chief Complaint: right sided weakness History of Present Illness: Current:Less alert today, gaze midline. Emergence of diffuse purpuric rash. Because of development of hypernatremia is getting some hypotonic fluids. Non communicative and not following commands. CT scan showed large left MCA infarction. Dr. Quach's note appreciated, doesn't believe that endocarditis is likely, both in setting of history and documented agent. From Initial Consult: 77 year old female with a significant PMH of recent CVA & TIA, COPD, diabetes, recent multiple embolic CVA -dx with AFIB and started on Eliquis use who presents to the emergency department with speech difficulty and weakness on 03/22/18. As per EMS, the patient was at baseline before 12PM but afterwards began to slightly slur her words and develop right sided weakness and left side facial droop. CTA was done in ER IMPRESSION: See discussion above There is a short segment of moderate to marked narrowing in the distal right M1 segment. Otherwise , no major artery cutoff, vascular malformation or aneurysm are identified within the central intracranial arterial lesion. Narrowed/hypoplastic right P1 segment likely due to the presence of a right posterior communicating artery Tiny ossified plaque in the right bulb without evidence of hemodynamically significant stenosis. Small calcified plaques at the left common carotid bifurcation as well as the proximal left common carotid artery without evidence of hemodynamically significant stenosis found to have elevated WBC / rash and Acute on chronic kidney failure -- not given TPA given she was on AC and sx thought to be related to underlying metabolic /infectious etiology - Current Medication List Current Medications: Active Medications Clotrimazole (Lotrimin 1% Cream -) 1 applic TP BID BRITTANY Last Admin: 03/27/18 21:02 Dose: 1 applic Fluconazole (Diflucan 100 Mg/D5w Premixed Ivpb -) 50 mls @ 50 mls/hr IVPB DAILY BRITTANY Last Admin: 03/27/18 10:29 Dose: 50 mls/hr Diltiazem HCl 125 mg/ Sodium (Chloride) 125 mls @ 5 mls/hr IVPB TITR BRITTANY; Protocol Last Admin: 03/28/18 07:41 Dose: 15 mg/hr, 15 mls/hr Metronidazole (Flagyl 500mg Premixed Ivpb -) 500 mg in 100 mls @ 100 mls/hr IVPB Q8H-IV BRITTANY Last Admin: 03/28/18 02:49 Dose: 100 mls/hr Vancomycin HCl 1,250 mg/ (Dextrose) 250 mls @ 250 mls/2 hr IVPB DAILY [facility] [place]; Protocol Last Admin: 03/27/18 10:30 Dose: 250 mls/2 hr Levofloxacin (Levaquin 250 Mg Premixed Ivpb -) 250 mg in 50 mls @ 50 mls/hr IVPB DAILY BRITTANY; Protocol Last Admin: 03/27/18 09:12 Dose: 50 mls/hr Insulin Aspart (Novolog Vial Sliding Scale -) 1 vial SQ Q4HPO BRITTANY; Protocol Last Admin: 03/28/18 06:57 Dose: 8 units Methylprednisolone Sodium Succinate (Solu-Medrol -) 40 mg IVPUSH Q8H-IV BRITTANY Last Admin: 03/28/18 02:49 Dose: 40 mg Metoprolol Tartrate (Lopressor Injection -) 5 mg IVPUSH Q4H PRN PRN Reason: HYPERTENSION Last Admin: 03/24/18 15:05 Dose: 5 mg Morphine Sulfate (Morphine Sulfate) 2 mg IVPUSH Q4H PRN PRN Reason: PAIN LEVEL 1 - 3 Last Admin: 03/27/18 21:02 Dose: 2 mg Nystatin (Nystop Powder -) 1 applic TP DAILY [facility] Last Admin: 03/27/18 09:28 Dose: 1 applic Triamcinolone Acetonide (Aristocort 0.1% Cream -) 1 applic TP BID [facility] Last Admin: 03/27/18 21:01 Dose: 1 applic - Objective Vital Signs: Vital Signs Temperature 99.6 F 03/28/18 06:00 Pulse Rate 102 H 03/28/18 08:00 Respiratory Rate 34 H 03/28/18 08:00 Blood Pressure 127/53 03/28/18 08:00 O2 Sat by Pulse Oximetry (%) 98 03/28/18 08:44 Constitutional: Yes: Other (unresponsive, in bed) Eyes: Yes: Other (midposition, positive light reflex, positive oculocephalics) Neurological: Yes: Other (no response to noxious stimuli, no spontaneous movements noted at this time.) Labs: CBC, BMP 03/28/18 05:00 03/28/18 05:00 INR, PTT INR 1.29 (0.82-1.09) H 03/26/18 05:10 Problem List - Problems (1) CVA (cerebral vascular accident) Code(s): I63.9 - CEREBRAL INFARCTION, UNSPECIFIED Qualifiers: CVA mechanism: embolism Qualified Code(s): I63.9 - Cerebral infarction, unspecified Assessment/Plan Stroke has been documented. Unfortunately with this and her large cerebellar infarction she is at high risk of hemorrhagic conversion and although she is at high risk of further strokes, I don't believe that it is safe to put her back on anticoagulation at this time. Would wait about 10 days after the large MCA infarction before starting AC. Be careful with hypotonic fluids as they can increase brain swelling. Given unresponsiveness, I cannot tell if this is from metabolic or brain structural reasons, so if stable enough, suggest repeat CT scan head.
[2018-03-28] MEDS: VANCOMYCIN 1,250 MG in DEXTROSE 5%-WATER - 250 ML IVPB SCH (09:39)
[2018-03-28] MEDS: NYSTATIN POWDER 100,000 UNITS/GM - 15 GM TOPICAL POWDER TP SCH (10:03)
[2018-03-28] MEDS: CLOTRIMAZOLE 1% CREAM 15 GM TUBE TP SCH ×2 (10:05→22:00)
[2018-03-28] MEDS: TRIAMCINOLONE ACET 0.1% CREAM 15 GM TUBE TP SCH ×2 (10:05→22:00)
--- NOTE | 2018-03-28 10:21 | PN ---
Progress Note (short form) - Note Progress Note: seen and examined ICU lethargic responding only to painful stimuli increased intensity of rash ?? Vital Signs Period Temp Pulse Resp BP Sys/Bangura Pulse Ox Last 24 Hr 99 F-101 F 95-126 13-27 111-141/53-86 97-98 Intake & Output 03/23/18 03/24/18 03/25/18 03/26/18 23:59 23:59 23:59 23:59 Intake Total 4265 790 2365 630 Output Total 1080 1000 1150 700 Balance 3185 -210 1215 -70 Weight 163 lb 163 lb 9 oz 165 lb 1 oz 171 lb 12.8 oz comfortable / minimally responsive neck supple heart ireg lungs grossly clear abd + ruq drain in place ext erythematous rash / flat / no edema CBC, BMP 03/26/18 05:10 03/26/18 05:10 Microbiology 03/25/18 07:30 Blood - Peripheral Venous Blood Culture - Preliminary NO GROWTH OBTAINED AFTER 24 HOURS, INCUBATION TO CONTINUE FOR 4 DAYS. 03/25/18 07:40 Blood - Peripheral Venous Blood Culture - Preliminary NO GROWTH OBTAINED AFTER 24 HOURS, INCUBATION TO CONTINUE FOR 4 DAYS. 03/23/18 09:00 Bile Gram Stain - Final 03/23/18 09:00 Bile Body Fluid Culture - Preliminary Klebsiella Pneumoniae Group D Strep Or Entero Coccus 03/23/18 09:00 Bile Anaerobic Culture - Final NO ANAEROBES WERE ISOLATED 03/22/18 13:05 Urine - Urine Clean Catch Urine Culture - Final Klebsiella Pneumoniae 03/22/18 16:15 Blood - Peripheral Venous Blood Culture - Final Klebsiella Pneumoniae 03/24/18 10:00 Stool Clostridium difficile Antigen (LORETA) - Final 03/24/18 10:00 Stool Clostridium difficile Toxin Assay - Final 03/22/18 15:30 Throat Throat Culture - Final Klebsiella Pneumoniae 03/22/18 15:30 Throat Group A Strep Rapid Antigen - Final 03/22/18 16:15 Blood - Peripheral Venous Blood Culture - Preliminary Lactose Fermenting Neg Bacilli Active Medications Clotrimazole (Lotrimin 1% Cream -) 1 applic TP BID [facility] Last Admin: 03/26/18 09:37 Dose: 1 applic Fluconazole (Diflucan 100 Mg/D5w Premixed Ivpb -) 50 mls @ 50 mls/hr IVPB DAILY [facility] Last Admin: 03/26/18 09:37 Dose: 50 mls/hr Diltiazem HCl 125 mg/ Sodium (Chloride) 125 mls @ 5 mls/hr IVPB TITR [facility]; 5 MG/ HR PRN Reason: Protocol Last Admin: 03/26/18 08:52 Dose: 15 mg/hr, 15 mls/hr Sodium Chloride (Normal Saline -) 1,000 mls @ 75 mls/hr IV ASDIR [facility] Last Admin: 03/25/18 17:02 Dose: 75 mls/hr Metronidazole (Flagyl 500mg Premixed Ivpb -) 500 mg in 100 mls @ 100 mls/hr IVPB Q8H-IV [facility] Last Admin: 03/26/18 10:24 Dose: 100 mls/hr Vancomycin HCl 1,250 mg/ (Dextrose) 250 mls @ 250 mls/2 hr IVPB DAILY [facility] PRN Reason: Protocol Levofloxacin (Levaquin 250 Mg Premixed Ivpb -) 250 mg in 50 mls @ 50 mls/hr IVPB DAILY [facility] PRN Reason: Protocol Last Admin: 03/26/18 10:24 Dose: 50 mls/hr Insulin Aspart (Novolog Vial Sliding Scale -) 1 vial SQ Q4H [facility] PRN Reason: Protocol Last Admin: 03/26/18 10:54 Dose: 4 units Methylprednisolone Sodium Succinate (Solu-Medrol -) 40 mg IVPUSH Q8H-IV [facility] Last Admin: 03/26/18 10:25 Dose: 40 mg Metoprolol Tartrate (Lopressor Injection -) 5 mg IVPUSH Q4H PRN PRN Reason: HYPERTENSION Last Admin: 03/24/18 15:05 Dose: 5 mg Morphine Sulfate (Morphine Injection -) 2 mg IVPUSH Q4H PRN PRN Reason: RESTLESSNESS / AGITATION Last Admin: 03/25/18 17:43 Dose: 2 mg Nystatin (Nystop Powder -) 1 applic TP DAILY [facility] Last Admin: 03/26/18 09:38 Dose: 1 applic Assmt/plan #CVA less responsive new CT scan revealed large left MCA infarction. This is in addition to acute infarction ( cerebellum) which prompted ER visit. hx of multiple events in the past as per previous MRI ( last hospitalization ) At least one of these strokes occurred through the apixiban she was taking currently less responsive // new event ?? . # Atrial fib RVR -- has been on NOAC rate control Cardiology imput appreciated # sepsis cultured / Id appreciated / WBC remains elevated Abx per ID Rash ?? 2/2 to meds? - discussed with ID all abx changed -- ??? allergic rx gram negative bacteremia UTI cholecystostomy tube in place -- source ? metabolic acidosis # DM uncontrolled sliding scale # COPD nebulizer / O2 / follow sats #CVA new CT scan revealed large left MCA infarction. This is in addition to acute infarction ( cerebellum) which prompted ER visit. hx of multiple events in the past as per previous MRI ( last hospitalization ) At least one of these strokes occurred through the apixiban she was taking currently less responsive // new event ?? . # rash bulls-eye shaped lesions -- Erythema Multiforme Cause medications / illness / infection allergic reaction ?? started on IV steroids / Abx meds changed by ID discussed with Dr Kowalski earlier today possible probable drug reaction vs 2/2 sepsis # ELÍAS back to baseline continue IV fluids / follow lytes / I & O admitted with hyperkalemia 7.1 # electolyes Hyperkalemia / hypomag / hyponatremia follow and correct as needed
--- NOTE | 2018-03-28 10:33 | PN ---
Progress Note (short form) - Note Progress Note: seen and examined ICU unresponsive / discussed with neurology Dr Manriquez increased intensity of rash ?? -- already on steroids Vital Signs Period Temp Pulse Resp BP Sys/Bangura Pulse Ox Last 24 Hr 98.2 F-99.6 F 95-120 13-34 117-146/46-76 95-99 Intake & Output 03/25/18 03/26/18 03/27/18 03/28/18 23:59 23:59 23:59 23:59 Intake Total 2365 2410 2526 730 Output Total 1150 1300 1520 600 Balance 1215 1110 1006 130 Weight 165 lb 1 oz 171 lb 12.8 oz 172 lb 2.896 oz 160 lb 7 oz comfortable / minimally responsive neck supple heart ireg lungs grossly clear abd + ruq drain in place ext erythematous rash / flat / no edema CBC, BMP 03/28/18 05:00 03/28/18 05:00 Microbiology 03/25/18 07:30 Blood - Peripheral Venous Blood Culture - Preliminary NO GROWTH OBTAINED AFTER 72 HOURS, INCUBATION TO CONTINUE FOR 2 DAYS. 03/25/18 07:40 Blood - Peripheral Venous Blood Culture - Preliminary NO GROWTH OBTAINED AFTER 72 HOURS, INCUBATION TO CONTINUE FOR 2 DAYS. 03/23/18 09:00 Bile Gram Stain - Final 03/23/18 09:00 Bile Body Fluid Culture - Final Klebsiella Pneumoniae Enterococcus Faecalis 03/23/18 09:00 Bile Anaerobic Culture - Final NO ANAEROBES WERE ISOLATED 03/22/18 13:05 Urine - Urine Clean Catch Urine Culture - Final Klebsiella Pneumoniae 03/22/18 16:15 Blood - Peripheral Venous Blood Culture - Final Klebsiella Pneumoniae 03/24/18 10:00 Stool Clostridium difficile Antigen (LORETA) - Final 03/24/18 10:00 Stool Clostridium difficile Toxin Assay - Final 03/22/18 15:30 Throat Throat Culture - Final Klebsiella Pneumoniae 03/22/18 15:30 Throat Group A Strep Rapid Antigen - Final 03/22/18 16:15 Blood - Peripheral Venous Blood Culture - Preliminary Lactose Fermenting Neg Bacilli Active Medications Clotrimazole (Lotrimin 1% Cream -) 1 applic TP BID [facility] Last Admin: 03/27/18 21:02 Dose: 1 applic Fluconazole (Diflucan 100 Mg/D5w Premixed Ivpb -) 50 mls @ 50 mls/hr IVPB DAILY [facility] Last Admin: 03/27/18 10:29 Dose: 50 mls/hr Diltiazem HCl 125 mg/ Sodium (Chloride) 125 mls @ 5 mls/hr IVPB TITR [facility]; Protocol Last Admin: 03/28/18 07:41 Dose: 15 mg/hr, 15 mls/hr Metronidazole (Flagyl 500mg Premixed Ivpb -) 500 mg in 100 mls @ 100 mls/hr IVPB Q8H-IV [facility] Last Admin: 03/28/18 09:35 Dose: 100 mls/hr Vancomycin HCl 1,250 mg/ (Dextrose) 250 mls @ 250 mls/2 hr IVPB DAILY [facility]; Protocol Last Admin: 03/28/18 09:39 Dose: 250 mls/2 hr Levofloxacin (Levaquin 250 Mg Premixed Ivpb -) 250 mg in 50 mls @ 50 mls/hr IVPB DAILY [facility]; Protocol Last Admin: 03/28/18 09:42 Dose: 50 mls/hr Insulin Aspart (Novolog Vial Sliding Scale -) 1 vial SQ Q4HPO [facility]; Protocol Last Admin: 03/28/18 06:57 Dose: 8 units Methylprednisolone Sodium Succinate (Solu-Medrol -) 40 mg IVPUSH Q8H-IV [facility] Last Admin: 03/28/18 09:42 Dose: 40 mg Metoprolol Tartrate (Lopressor Injection -) 5 mg IVPUSH Q4H PRN PRN Reason: HYPERTENSION Last Admin: 03/24/18 15:05 Dose: 5 mg Morphine Sulfate (Morphine Sulfate) 2 mg IVPUSH Q4H PRN PRN Reason: PAIN LEVEL 1 - 3 Last Admin: 03/27/18 21:02 Dose: 2 mg Nystatin (Nystop Powder -) 1 applic TP DAILY [facility] Last Admin: 03/27/18 09:28 Dose: 1 applic Triamcinolone Acetonide (Aristocort 0.1% Cream -) 1 applic TP BID [facility] Last Admin: 03/27/18 21:01 Dose: 1 applic assmt / plan discussed care with neurology / appreciate ID follow up agree with possibility of new event therefore repeat CT of head -- however this will not influence current management She has been minimally/ un - responsive for last 2 days -- prognosis poor -- #CVA less responsive recent CT scan revealed large left MCA infarction. This is in addition to acute infarction ( cerebellum) which prompted ER visit. hx of multiple events in the past as per previous MRI ( last hospitalization ) At least one of these strokes occurred through the apixiban she was taking currently less responsive // new event ?? . # rash bulls-eye shaped lesions -- Erythema Multiforme Cause medications / illness / infection allergic reaction ?? started on IV steroids / Abx meds changed by ID discussed with Dr Kowalski yesterday # Atrial fib RVR -- has been on NOAC rate control Cardiology imput appreciated # sepsis cultured / Id appreciated / WBC remains elevated Abx per ID Rash ?? 2/2 to meds? - discussed with ID all abx changed -- ??? allergic rx gram negative bacteremia UTI cholecystostomy tube in place -- source ? metabolic acidosis # DM uncontrolled sliding scale # COPD nebulizer / O2 / follow sats # ELÍAS back to baseline # electolyes Hyperkalemia / hypomag / hyponatremia follow and correct as needed
--- NOTE | 2018-03-28 11:24 | PN ---
Teaching Attending Note Name of Resident: Jyoti Mercedes ATTENDING PHYSICIAN STATEMENT I saw and evaluated the patient. I reviewed the resident's note and discussed the case with the resident. I agree with the resident's findings and plan as documented. SUBJECTIVE: Pt seen and examined in the ICU. No fevers recorded. Remains on cardizem gtt. Poorly responsive. OBJECTIVE: Last Vital Signs Temp Pulse Resp BP Pulse Ox 98.5 F 112 H 16 138/63 98 03/28/18 10:00 03/28/18 10:00 03/28/18 10:00 03/28/18 10:00 03/28/18 08:44 Intake & Output 03/25/18 03/26/18 03/27/18 03/28/18 23:59 23:59 23:59 23:59 Intake Total 2365 2410 2526 730 Output Total 1150 1300 1520 600 Balance 1215 1110 1006 130 Weight 74.871 kg 77.927 kg 78.1 kg 72.773 kg Gen: poorly responsive, mildly tachypneic Heart: tachycardic, irregular Lung: scattered rhonchi Abd: soft, nontender Ext: no edema Skin: diffuse rash CBC, BMP 03/28/18 05:00 03/28/18 05:00 Active Medications Clotrimazole (Lotrimin 1% Cream -) 1 applic TP BID [facility] Last Admin: 03/28/18 10:05 Dose: 1 applic Fluconazole (Diflucan 100 Mg/D5w Premixed Ivpb -) 50 mls @ 50 mls/hr IVPB DAILY [facility] Last Admin: 03/27/18 10:29 Dose: 50 mls/hr Diltiazem HCl 125 mg/ Sodium (Chloride) 125 mls @ 5 mls/hr IVPB TITR [facility]; Protocol Last Admin: 03/28/18 07:41 Dose: 15 mg/hr, 15 mls/hr Metronidazole (Flagyl 500mg Premixed Ivpb -) 500 mg in 100 mls @ 100 mls/hr IVPB Q8H-IV [facility] Last Admin: 03/28/18 09:35 Dose: 100 mls/hr Vancomycin HCl 1,250 mg/ (Dextrose) 250 mls @ 250 mls/2 hr IVPB DAILY [facility]; Protocol Last Admin: 03/28/18 09:39 Dose: 250 mls/2 hr Levofloxacin (Levaquin 250 Mg Premixed Ivpb -) 250 mg in 50 mls @ 50 mls/hr IVPB DAILY [facility]; Protocol Last Admin: 03/28/18 09:42 Dose: 50 mls/hr Insulin Aspart (Novolog Vial Sliding Scale -) 1 vial SQ Q4HPO [facility]; Protocol Last Admin: 03/28/18 10:38 Dose: 4 units Methylprednisolone Sodium Succinate (Solu-Medrol -) 40 mg IVPUSH Q8H-IV [facility] Last Admin: 03/28/18 09:42 Dose: 40 mg Metoprolol Tartrate (Lopressor Injection -) 5 mg IVPUSH Q4H PRN PRN Reason: HYPERTENSION Last Admin: 03/24/18 15:05 Dose: 5 mg Morphine Sulfate (Morphine Sulfate) 2 mg IVPUSH Q4H PRN PRN Reason: PAIN LEVEL 1 - 3 Last Admin: 03/27/18 21:02 Dose: 2 mg Nystatin (Nystop Powder -) 1 applic TP DAILY [facility] Last Admin: 03/28/18 10:03 Dose: 1 applic Triamcinolone Acetonide (Aristocort 0.1% Cream -) 1 applic TP BID [facility] Last Admin: 03/28/18 10:05 Dose: 1 applic ASSESSMENT AND PLAN: UTI Gram Negative Bacteremia Severe Sepsis Acute Kidney Injury Hyperkalemia improved Metabolic Acidosis Altered Mental Status Acute CVA Atrial Fibrillation with RVR DM COPD Rash - holding IVF as pt becoming rhonchorous - monitor urine output, creatinine - continue antibiotics - monitor lytes - aspiration precautions - continue anticoagulation - rate control with cardizem gtt - systemic and topical steroids for rash - continue ICU monitoring - poor overall prognosis, continue discussions regarding goals of care critical care time spent in reviewing chart, evaluating patient and formulating plan 35 min
[2018-03-28 11:25] LABS: OVALOCYTE 1+; PLATELET ESTIMATE INCREASED
[2018-03-28] MEDS: METOPROLOL TARTRATE 5 MG/5 ML VIAL IVPUSH PRN (11:57)
--- NOTE | 2018-03-28 12:20 | PN ---
Progress Note (short form) - Note Progress Note: CC: CVA S: remains unresponsive, npo. remains on dilt drip. rash persists no cigs Current Medications Generic Name Dose Route Start Last Admin Trade Name Freq PRN Reason Stop Dose Admin Clotrimazole 1 applic 03/23/18 10:00 03/28/18 10:05 Lotrimin 1% Cream - TP 1 applic BID [facility] Administration Fluconazole 50 mls @ 50 mls/hr 03/23/18 10:00 03/27/18 10:29 Diflucan 100 Mg/D5w Premixed Ivpb - IVPB 50 mls/hr DAILY [facility] Administration Diltiazem HCl 125 mg/ Sodium 125 mls @ 5 mls/hr 03/24/18 13:15 03/28/18 07:41 Chloride IVPB 15 mg/hr TITR BRITTANY 15 mls/hr Administration Protocol 5 MG/HR Metronidazole 500 mg in 100 mls @ 100 mls/hr 03/26/18 10:00 03/28/18 09:35 Flagyl 500mg Premixed Ivpb - IVPB 100 mls/hr Q8H-IV [facility] Administration Vancomycin HCl 1,250 mg/ 250 mls @ 250 mls/2 hr 03/26/18 10:00 03/28/18 09:39 Dextrose IVPB 250 mls/2 hr DAILY [facility] Administration Protocol Levofloxacin 250 mg in 50 mls @ 50 mls/hr 03/26/18 10:00 03/28/18 09:42 Levaquin 250 Mg Premixed Ivpb - IVPB 50 mls/hr DAILY [facility] Administration Protocol Insulin Aspart 1 vial 03/27/18 10:00 03/28/18 10:38 Novolog Vial Sliding Scale - SQ 4 units Q4HPO BR[facility]ANY Administration Protocol Methylprednisolone Sodium Succinate 40 mg 03/26/18 10:00 03/28/18 09:42 Solu-Medrol - IVPUSH 40 mg Q8H-IV [facility] Administration Metoprolol Tartrate 5 mg 03/24/18 12:19 03/28/18 11:57 Lopressor Injection - IVPUSH 5 mg Q4H PRN Administration HYPERTENSION Morphine Sulfate 2 mg 03/27/18 20:56 03/27/18 21:02 Morphine Sulfate IVPUSH 2 mg Q4H PRN Administration PAIN LEVEL 1 - 3 Nystatin 1 applic 03/23/18 10:00 03/28/18 10:03 Nystop Powder - TP 1 applic DAILY [facility] Administration Triamcinolone Acetonide 1 applic 03/26/18 22:00 03/28/18 10:05 Aristocort 0.1% Cream - TP 1 applic BID [facility] Administration Vital Signs Temp 98.5 F 03/28/18 10:00 Pulse 160 H 03/28/18 11:57 Resp 36 H 03/28/18 11:54 BP 131/74 03/28/18 11:57 Pulse Ox 98 03/28/18 08:44 Intake & Output 03/27/18 03/28/18 03/28/18 23:59 11:59 23:59 Intake Total 1650 730 Output Total 920 600 Balance 730 130 Weight 160 lb 7 oz Intake: IV 1100 630 1/2 Normal Saline 1,000 885 525 ml @ 75 mls/hr IV ASDIR BRITTANY Rx#:[id number] Cardizem Injection - 125 215 105 mg In Normal Saline - 100 ml @ 5 MG/HR 5 mls/hr IVPB TITR BRITTANY Rx#: [id number] IVPB 550 100 Output: Drainage 120 Right Abdomen 120 Urine 800 600 Nava 800 600 Other: Voiding Method Indwelling Catheter Indwelling Catheter Bowel Movement Yes: rectal tube- small amt [facility] stool Weight Measurement Method Built in [facility] Constitutional: lethargic, nad jvd flat. Cardiovascular: Pulse Irregular nl s1, s2 1/6 sys murmur at sternal border. Respiratory: Yes: CTA Bilaterally anteriorly, poor effort + bs soft nt nd no le e/c/c diffuse erythematous rash. no jaundice, diaphoresis. Laboratory Last Values WBC 37.9 K/mm3 (4.0-10.0) H* 03/28/18 05:00 RBC 3.80 M/mm3 (3.60-5.2) 03/28/18 05:00 Hgb 10.7 GM/dL (10.7-15.3) D 03/28/18 05:00 Hct 32.8 % (32.4-45.2) 03/28/18 05:00 MCV 86.3 fl (80-96) 03/28/18 05:00 MCH 28.0 pg (25.7-33.7) 03/28/18 05:00 MCHC 32.5 g/dl (32.0-36.0) 03/28/18 05:00 RDW 15.5 % (11.6-15.6) 03/28/18 05:00 Plt Count 478 K/MM3 (134-434) H 03/28/18 05:00 MPV 8.1 fl (7.5-11.1) 03/28/18 05:00 Neutrophils % No Result Required. 03/26/18 05:10 Neutrophils % (Manual) 98.0 % (42.8-82.8) H 03/28/18 05:00 Band Neutrophils % 0.0 % 03/28/18 05:00 Lymphocytes % No Result Required. 03/26/18 05:10 Lymphocytes % (Manual) 0.0 % (8-40) L 03/28/18 05:00 Monocytes % 4.5 % (3.8-10.2) 03/22/18 13:20 Monocytes % (Manual) 2 % (3.8-10.2) L 03/28/18 05:00 Eosinophils % 0.0 % (0-4.5) D 03/22/18 13:20 Eosinophils % (Manual) 0.0 % (0-4.5) D 03/28/18 05:00 Basophils % 0.9 % (0-2.0) 03/22/18 13:20 Basophils % (Manual) 0.0 % (0-2.0) 03/28/18 05:00 Myelocytes % (Man) 0 % (0-2) 03/28/18 05:00 Promyelocytes % (Man) 0 % (0-2) 03/28/18 05:00 Blast Cells % (Manual) 0 % (0-0) 03/28/18 05:00 Nucleated RBC % 0 % (0-0) 03/28/18 05:00 Metamyelocytes 0 % (0-2) 03/28/18 05:00 Hypochromia 0 03/23/18 05:26 Toxic Granulation 1+ 03/26/18 05:10 Dohle Bodies 0 03/23/18 05:26 Platelet Estimate Increased 03/28/18 05:00 Platelet Comment Present 03/23/18 05:26 Polychromasia 1+ 03/26/18 05:10 Poikilocytosis 1+ 03/28/18 05:00 Basophilic Stippling 0 03/23/18 05:26 Anisocytosis 1+ 03/25/18 05:55 Microcytosis 0 03/23/18 05:26 Macrocytosis 1+ 03/25/18 05:55 Spherocytes 0 03/23/18 05:26 Sickle Cells 0 03/23/18 05:26 Target Cells 0 03/23/18 05:26 Tear Drop Cells 0 03/23/18 05:26 Ovalocytes 1+ 03/28/18 05:00 Stomatocytes 0 03/23/18 05:26 Helmet Cells 0 03/23/18 05:26 [place] Bodies 0 03/23/18 05:26 [place] Rings 0 03/23/18 05:26 Aida Cells 0 03/23/18 05:26 Acanthocytes (Spur) 1+ 03/25/18 05:55 Rouleaux 0 03/23/18 05:26 Fragmented RBCs 0 03/23/18 05:26 Schistocytes 0 03/23/18 05:26 PT with INR 14.60 SEC (9.7-13.0) H 03/26/18 05:10 INR 1.29 (0.82-1.09) H 03/26/18 05:10 PTT (Actin FS) 27.5 SECONDS (26.9-34.4) 03/26/18 05:10 Puncture Site Left radial 03/23/18 06:30 ABG pH 7.35 (7.35-7.45) 03/23/18 06:30 ABG pCO2 at Pt Temp 28.3 mmHg (35-45) L 03/23/18 06:30 ABG pO2 at Pt Temp 118.0 mmHg (70-100) H 03/23/18 06:30 ABG HCO3 15.1 meq/L (22-26) L 03/23/18 06:30 ABG O2 Sat (Measured) 98.5 % (90-98.9) 03/23/18 06:30 ABG O2 Content 12.6 % vol (15-22) L 03/23/18 06:30 ABG Base Excess -9.1 meq/l (-2-2) L 03/23/18 06:30 Lux Test Positive 03/23/18 06:30 O2 Delivery Device Nasal 03/23/18 06:30 Oxygen Flow Rate 1.5 03/23/18 06:30 Sodium 153 mmol/L (136-145) H 03/28/18 05:00 Potassium 3.8 mmol/L (3.5-5.1) 03/28/18 05:00 Plasma Potassium 6.2 mmol/L (3.5-5.1) H* 03/23/18 13:26 Chloride 123 mmol/L (98-107) H 03/28/18 05:00 Carbon Dioxide 18 mmol/L (21-32) L 03/28/18 05:00 Anion Gap 12 (8-16) 03/28/18 05:00 BUN 44 mg/dL (7-18) H 03/28/18 05:00 Creatinine 1.3 mg/dL (0.55-1.02) H 03/28/18 05:00 Creat Clearance w eGFR 39.82 (>60) 03/28/18 05:00 POC Glucometer 232.78471 UNITS (80-120) 03/28/18 10:14 Random Glucose 267 mg/dL (74-106) H 03/28/18 05:00 Lactic Acid 1.9 mmol/L (0.0-2.0) 03/22/18 22:15 Calcium 7.8 mg/dL (8.5-10.1) L 03/28/18 05:00 Phosphorus 2.7 mg/dL (2.5-4.9) 03/27/18 05:40 Magnesium 2.3 mg/dL (1.8-2.4) 03/27/18 05:40 Total Bilirubin 0.4 mg/dL (0.2-1.0) D 03/28/18 05:00 AST 16 U/L (15-37) 03/28/18 05:00 ALT 13 U/L (12-78) 03/28/18 05:00 Alkaline Phosphatase 129 U/L (45-117) H 03/28/18 05:00 Creatine Kinase 725 IU/L (26-192) H 03/23/18 05:26 Creatine Kinase Index 0.6 % (0.0-5.0) 03/23/18 05:26 CK-MB (CK-2) 4.458 ng/mL (0.5-3.6) H 03/23/18 05:26 Troponin I < 0.02 ng/ml (0.00-0.05) 03/23/18 05:26 C-Reactive Protein 23.7 MG/DL (0.00-0.3) H 03/23/18 05:26 Total Protein 5.1 g/dl (6.4-8.2) L 03/28/18 05:00 Albumin 1.9 g/dl (3.4-5.0) L 03/28/18 05:00 Triglycerides 185 mg/dL (35-160) H 03/22/18 13:20 Cholesterol 71 mg/dL (50-200) 03/22/18 13:20 Total LDL Cholesterol 22 mg/dL (5-100) 03/22/18 13:20 HDL Cholesterol 35 mg/dL (40-60) L 03/22/18 13:20 Urine Color Yellow 03/22/18 13:05 Urine Appearance Turbid 03/22/18 13:05 Urine pH 5.0 (5.0-8.0) 03/22/18 13:05 Ur Specific [place] 1.030 (1.001-1.035) 03/22/18 13:05 Urine Protein 2+ (NEGATIVE) H 03/22/18 13:05 Urine Glucose (UA) 1+ (NEGATIVE) H 03/22/18 13:05 Urine Ketones Negative (NEGATIVE) 03/22/18 13:05 Urine Blood 1+ (NEGATIVE) H 03/22/18 13:05 Urine Nitrite Negative (NEGATIVE) 03/22/18 13:05 Urine Bilirubin Negative (<2.0 mg/dL) 03/22/18 13:05 Urine Urobilinogen Negative mg/dL (0.2-1.0) 03/22/18 13:05 Ur Leukocyte Esterase Trace (NEGATIVE) 03/22/18 13:05 Urine WBC (Auto) 290 /hpf (3-5) 03/22/18 13:05 Urine RBC (Auto) 28 /hpf (0-3) 03/22/18 13:05 Urine Eosinophils None seen % (.) 03/22/18 13:05 Ur Random Sodium 23 MMOL/L 03/22/18 23:27 Urine Creatinine 117.0 mg/dL (20-320) 03/22/18 23:27 LISA Screen Positive (.) H 03/23/18 05:26 LISA Homogeneous Pattern TNP 03/23/18 05:26 LISA Nucleolar Pattern TNP 03/23/18 05:26 LISA Spindle Lexus Pattern TNP 03/23/18 05:26 LISA Midbody Pattern TNP 03/23/18 05:26 LISA Centriole Pattern TNP 03/23/18 05:26 LISA Nuclear Dot Pattern TNP 03/23/18 05:26 LISA PCNA Pattern TNP 03/23/18 05:26 LISA Nuclear Membr Pat TNP 03/23/18 05:26 LISA Speckled Pattern 1:160 (.) H 03/23/18 05:26 LISA Centromere Pattern TNP 03/23/18 05:26 c-ANCA <1:20 titer (Neg:<1:20) 03/23/18 05: Proteinase 3 (PR3) <3.5 U/mL (0.0-3.5) 03/23/18 05:26 p-ANCA <1:20 titer (Neg:<1:20) 03/23/18 05: Atypical p-ANCA <1:20 titer (Neg:<1:20) 03/23/18 05:26 Myeloperoxidase Ab <9.0 U/mL (0.0-9.0) 03/23/18 05: Double Strand DNA Ab 9 IU/mL (0-9) 03/23/18 05:26 Glomerular Base Memb Ab 4 units (0-20) 03/23/18 05:26 Hep A IgM Ab Confirm Negative (Negative) 03/23/18 05:26 Hepatitis A Ab Total Positive (Negative) 03/23/18 05: Hep Bs Antigen Negative (Negative) 03/23/18 05:26 Hep Bs Antibody Non reactive (.) 03/23/18 05:26 Hep B Core Total Ab Negative (Negative) 03/23/18 05:26 HCV Quantitation Hcv not detected IU/mL (.) 03/23/18 05: Hepatitis C RNA TNP 03/23/18 05:26 Blood Type O POSITIVE 03/22/18 12:54 Antibody Screen Negative 03/22/18 12:54 tele: afib rates 100s Echo 02/21: nl LV/EF. nl RV. 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 AFib with RVR -+ fever ?sepsis with (+) blood cultures K. Pneumonia, RVR likely related to response to fever and underlying metabolic derangement. -Continue fever/sepsis management as per ICU/ID -BP stable on Dilt gtt. Unable to take PO. Rate control improved on dilt drip , con't. -Imaging reveals large new left MCA territory CVA with prior Right cerebellar CVA. Per neurology not yet safe to resume anticoagulation. -ELÍAS improving, derm consulted for rash. -poor prognosis.
[2018-03-28] MEDS: FLUCONAZOLE 100 MG/D5W 50 ML IVPB SCH (12:48)
[2018-03-28] MEDS ORDERED: FUROSEMIDE 40 MG/4 ML INJECTABLE VIAL IVPUSH ONE (13:15)
--- NOTE | 2018-03-28 13:15 | PN ---
Progress Note, Physician History of Present Illness: Pt seen and examined at bedside. She is lethargic. - Current Medication List Current Medications: Active Medications Clotrimazole (Lotrimin 1% Cream -) 1 applic TP BID BRITTANY Last Admin: 03/28/18 10:05 Dose: 1 applic Fluconazole (Diflucan 100 Mg/D5w Premixed Ivpb -) 50 mls @ 50 mls/hr IVPB DAILY BRITTANY Last Admin: 03/28/18 12:48 Dose: 50 mls/hr Diltiazem HCl 125 mg/ Sodium (Chloride) 125 mls @ 5 mls/hr IVPB TITR BRITTANY; Protocol Last Admin: 03/28/18 07:41 Dose: 15 mg/hr, 15 mls/hr Metronidazole (Flagyl 500mg Premixed Ivpb -) 500 mg in 100 mls @ 100 mls/hr IVPB Q8H-IV BRITTANY Last Admin: 03/28/18 09:35 Dose: 100 mls/hr Vancomycin HCl 1,250 mg/ (Dextrose) 250 mls @ 250 mls/2 hr IVPB DAILY BRITTANY; Protocol Last Admin: 03/28/18 09:39 Dose: 250 mls/2 hr Levofloxacin (Levaquin 250 Mg Premixed Ivpb -) 250 mg in 50 mls @ 50 mls/hr IVPB DAILY BRITTANY; Protocol Last Admin: 03/28/18 09:42 Dose: 50 mls/hr Insulin Aspart (Novolog Vial Sliding Scale -) 1 vial SQ Q4HPO BRITTANY; Protocol Last Admin: 03/28/18 10:38 Dose: 4 units Methylprednisolone Sodium Succinate (Solu-Medrol -) 40 mg IVPUSH Q8H-IV BRITTANY Last Admin: 03/28/18 09:42 Dose: 40 mg Metoprolol Tartrate (Lopressor Injection -) 5 mg IVPUSH Q4H PRN PRN Reason: HYPERTENSION Last Admin: 03/28/18 11:57 Dose: 5 mg Morphine Sulfate (Morphine Sulfate) 2 mg IVPUSH Q4H PRN PRN Reason: PAIN LEVEL 1 - 3 Last Admin: 03/27/18 21:02 Dose: 2 mg Nystatin (Nystop Powder -) 1 applic TP DAILY BRITTANY Last Admin: 03/28/18 10:03 Dose: 1 applic Triamcinolone Acetonide (Aristocort 0.1% Cream -) 1 applic TP BID BRITTANY Last Admin: 03/28/18 10:05 Dose: 1 applic - Objective Vital Signs: Vital Signs Temperature 98.5 F 03/28/18 10:00 Pulse Rate 90 03/28/18 12:54 Respiratory Rate 14 03/28/18 12:54 Blood Pressure 140/70 03/28/18 12:54 O2 Sat by Pulse Oximetry (%) 98 03/28/18 08:44 Constitutional: Yes: Calm Eyes: Yes: Conjunctiva Clear HENT: Yes: Atraumatic Neck: Yes: Supple Cardiovascular: Yes: S1, S2 Respiratory: Yes: On Nasal O2, Rhonchi Gastrointestinal: Yes: Soft Genitourinary: Yes: Nava Present Musculoskeletal: Yes: Muscle Weakness Edema: Yes Integumentary: Yes: Rash Neurological: Yes: Lethargy Labs: CBC, BMP 03/28/18 05:00 03/28/18 05:00 INR, PTT INR 1.29 (0.82-1.09) H 03/26/18 05:10 Problem List - Problems (1) Acute renal failure Code(s): N17.9 - ACUTE KIDNEY FAILURE, UNSPECIFIED (2) Hyperkalemia Code(s): E87.5 - HYPERKALEMIA (3) Hyponatremia Code(s): E87.1 - HYPO-OSMOLALITY AND HYPONATREMIA (4) CVA (cerebral vascular accident) Code(s): I63.9 - CEREBRAL INFARCTION, UNSPECIFIED Qualifiers: CVA mechanism: embolism Qualified Code(s): I63.9 - Cerebral infarction, unspecified Assessment/Plan Current Medications Generic Name Dose Route Start Last Admin Trade Name Hai PRN Reason Stop Dose Admin Clotrimazole 1 applic 03/23/18 10:00 03/28/18 10:05 Lotrimin 1% Cream - TP 1 applic BID BRITTANY Administration Fluconazole 50 mls @ 50 mls/hr 03/23/18 10:00 03/28/18 12:48 Diflucan 100 Mg/D5w Premixed Ivpb - IVPB 50 mls/hr DAILY BRITTANY Administration Diltiazem HCl 125 mg/ Sodium 125 mls @ 5 mls/hr 03/24/18 13:15 03/28/18 07:41 Chloride IVPB 15 mg/hr TITR BRITTANY 15 mls/hr Administration Protocol 5 MG/HR Metronidazole 500 mg in 100 mls @ 100 mls/hr 03/26/18 10:00 03/28/18 09:35 Flagyl 500mg Premixed Ivpb - IVPB 100 mls/hr Q8H-IV BRITTANY Administration Vancomycin HCl 1,250 mg/ 250 mls @ 250 mls/2 hr 03/26/18 10:00 03/28/18 09:39 Dextrose IVPB 250 mls/2 hr DAILY BRITTANY Administration Protocol Levofloxacin 250 mg in 50 mls @ 50 mls/hr 03/26/18 10:00 03/28/18 09:42 Levaquin 250 Mg Premixed Ivpb - IVPB 50 mls/hr DAILY BRITTANY Administration Protocol Insulin Aspart 1 vial 03/27/18 10:00 03/28/18 10:38 Novolog Vial Sliding Scale - SQ 4 units Q4HPO BRITTANY Administration Protocol Methylprednisolone Sodium Succinate 40 mg 03/26/18 10:00 03/28/18 09:42 Solu-Medrol - IVPUSH 40 mg Q8H-IV BRITTANY Administration Metoprolol Tartrate 5 mg 03/24/18 12:19 03/28/18 11:57 Lopressor Injection - IVPUSH 5 mg Q4H PRN Administration HYPERTENSION Morphine Sulfate 2 mg 03/27/18 20:56 03/27/18 21:02 Morphine Sulfate IVPUSH 2 mg Q4H PRN Administration PAIN LEVEL 1 - 3 Nystatin 1 applic 03/23/18 10:00 03/28/18 10:03 Nystop Powder - TP 1 applic DAILY BRITTANY Administration Triamcinolone Acetonide 1 applic 03/26/18 22:00 03/28/18 10:05 Aristocort 0.1% Cream - TP 1 applic BID BRITTANY Administration Impression 1. ELÍAS 2. hyperkalemia 3. sepsis 4. hyponatremia 5. DM uncontrolled 6. COPD 7. CVA 8. hypomagnesemia Plan - agree with stopping fluids - sodium is rising, consider ng feeds with free water if family agree - can also start d5w - family are coming in to discuss GOC - renal function has improved since admission - monitor pulse ox - will follow Dr Burdick
--- NOTE | 2018-03-28 16:35 | PN ---
Physical Exam: SUBJECTIVE: Patient seen and examined not responsive to stimuli -no acute events overnight -still on cardizem drip OBJECTIVE: Vital Signs Period Temp Pulse Resp BP Sys/Bangura Pulse Ox Last 24 Hr 98.2 F-99.6 F 90-160 13-36 117-146/53-79 90-99 GENERAL: The patient islethargic not responsive to stimuli; anasarca LUNGS: bilateral crackles HEART: Regular rate and irreg rhythm, S1, S2 without murmur, rub or gallop. EXTREMITIES: 2+ pulses, warm, well-perfused, SKIN: diffuse intense erythema; maculopapular rash entire boody; spares palms Laboratory Results - last 24 hr 03/27/18 03/27/18 03/28/18 17:32 21:08 02:35 WBC RBC Hgb Hct MCV MCH MCHC RDW Plt Count MPV Neutrophils % (Manual) Band Neutrophils % Lymphocytes % (Manual) Monocytes % (Manual) Eosinophils % (Manual) Basophils % (Manual) Myelocytes % (Man) Promyelocytes % (Man) Blast Cells % (Manual) Nucleated RBC % Metamyelocytes Platelet Estimate Poikilocytosis Ovalocytes Sodium Potassium Chloride Carbon Dioxide Anion Gap BUN Creatinine Creat Clearance w eGFR POC Glucometer 312.85992 269.85375 299.42533 Random Glucose Calcium Total Bilirubin AST ALT Alkaline Phosphatase Total Protein Albumin Vancomycin Pre-Dose 03/28/18 03/28/18 03/28/18 05:00 05:00 10:14 WBC 37.9 H* RBC 3.80 Hgb 10.7 D Hct 32.8 MCV 86.3 MCH 28.0 MCHC 32.5 RDW 15.5 Plt Count 478 H MPV 8.1 Neutrophils % (Manual) 98.0 H Band Neutrophils % 0.0 Lymphocytes % (Manual) 0.0 L Monocytes % (Manual) 2 L Eosinophils % (Manual) 0.0 D Basophils % (Manual) 0.0 Myelocytes % (Man) 0 Promyelocytes % (Man) 0 Blast Cells % (Manual) 0 Nucleated RBC % 0 Metamyelocytes 0 Platelet Estimate Increased Poikilocytosis 1+ Ovalocytes 1+ Sodium 153 H Potassium 3.8 Chloride 123 H Carbon Dioxide 18 L Anion Gap 12 BUN 44 H Creatinine 1.3 H Creat Clearance w eGFR 39.82 POC Glucometer [phone] Random Glucose 267 H Calcium 7.8 L Total Bilirubin 0.4 D AST 16 ALT 13 Alkaline Phosphatase 129 H Total Protein 5.1 L Albumin 1.9 L Vancomycin Pre-Dose 03/28/18 10:31 WBC RBC Hgb Hct MCV MCH MCHC RDW Plt Count MPV Neutrophils % (Manual) Band Neutrophils % Lymphocytes % (Manual) Monocytes % (Manual) Eosinophils % (Manual) Basophils % (Manual) Myelocytes % (Man) Promyelocytes % (Man) Blast Cells % (Manual) Nucleated RBC % Metamyelocytes Platelet Estimate Poikilocytosis Ovalocytes Sodium Potassium Chloride Carbon Dioxide Anion Gap BUN Creatinine Creat Clearance w eGFR POC Glucometer Random Glucose Calcium Total Bilirubin AST ALT Alkaline Phosphatase Total Protein Albumin Vancomycin Pre-Dose 18.426 H* Active Medications Generic Name Dose Route Start Last Admin Trade Name Freq PRN Reason Stop Dose Admin Clotrimazole 1 applic 03/23/18 10:00 03/28/18 10:05 Lotrimin 1% Cream - TP 1 applic BID BRITTANY Administration Fluconazole 50 mls @ 50 mls/hr 03/23/18 10:00 03/28/18 12:48 Diflucan 100 Mg/D5w Premixed Ivpb - IVPB 50 mls/hr DAILY BRITTANY Administration Diltiazem HCl 125 mg/ Sodium 125 mls @ 5 mls/hr 03/24/18 13:15 03/28/18 16:12 Chloride IVPB 15 mg/hr TITR BRITTANY 15 mls/hr Administration Protocol 5 MG/HR Metronidazole 500 mg in 100 mls @ 100 mls/hr 03/26/18 10:00 03/28/18 09:35 Flagyl 500mg Premixed Ivpb - IVPB 100 mls/hr Q8H-IV BRITTANY Administration Vancomycin HCl 1,250 mg/ 250 mls @ 250 mls/2 hr 03/26/18 10:00 03/28/18 09:39 Dextrose IVPB 250 mls/2 hr DAILY BRITTANY Administration Protocol Levofloxacin 250 mg in 50 mls @ 50 mls/hr 03/26/18 10:00 03/28/18 09:42 Levaquin 250 Mg Premixed Ivpb - IVPB 50 mls/hr DAILY BRITTANY Administration Protocol Insulin Aspart 1 vial 03/27/18 10:00 03/28/18 10:38 Novolog Vial Sliding Scale - SQ 4 units Q4HPO BRITTANY Administration Protocol Methylprednisolone Sodium Succinate 40 mg 03/26/18 10:00 03/28/18 09:42 Solu-Medrol - IVPUSH 40 mg Q8H-IV BRITTANY Administration Metoprolol Tartrate 5 mg 03/24/18 12:19 03/28/18 11:57 Lopressor Injection - IVPUSH 5 mg Q4H PRN Administration HYPERTENSION Morphine Sulfate 2 mg 03/27/18 20:56 03/27/18 21:02 Morphine Sulfate IVPUSH 2 mg Q4H PRN Administration PAIN LEVEL 1 - 3 Nystatin 1 applic 03/23/18 10:00 03/28/18 10:03 Nystop Powder - TP 1 applic DAILY BRITTANY Administration Triamcinolone Acetonide 1 applic 03/26/18 22:00 03/28/18 10:05 Aristocort 0.1% Cream - TP 1 applic BID BRITTANY Administration ASSESSMENT/PLAN: This is a 77 year old female with history of multiple CVAs; paroxysmal atrial fibrillation on eliquis, who presented with left facial droop and right arm weakness, found to have new stroke and septic secondary to gram negative bacteremia. #AMS secondary to multiple etiologies; CVA/sepsis -not responding to to verbal or tactile stimuli -mental status not improving on antibiotics -aspiration precautions -secondary stroke preventions -AC as per neurology -brooks neuro recs #severe sepsis secondary to gram negative bacteremia -hx of cholangitis -with MELANI drain; with continue bile output -cont IV antibiotics; -hold IVF due to volume overload; 1x lasix 20mg ivp -monitor CXR #atrial fibrillation -rate control -cont cardizem drip -cannot tolerate po -brooks cardio #UTI -cotn levaquin #DM -cont long acting levemir -cont SS #rash -cont IV steroids; monitor glucose -cont topical creams #COPD -controlled ; cont bronchodilators prn DVT: ppl scds Grave prognosis Goals of care discussed with family; son in on way ; plan for comfort care when arrives Visit type - Emergency Visit Emergency Visit: Yes ED Registration Date: 03/22/18 Care time: The patient presented to the Emergency Department on the above date and was hospitalized for further evaluation of their emergent condition. - New Patient This patient is new to me today: Yes Date on this admission: 03/28/18 - Critical Care Critical Care patient: Yes Total Critical Care Time (in minutes): 45 Critical Care Statement: The care of this patient involved high complexity decision making to prevent further life threatening deterioration of the patient 's condition and/or to evaluate & treat vital organ system(s) failure or risk of failure.
[2018-03-28] MEDS: morphine SULFATE 4 MG/ML VIAL IVPUSH PRN (20:56)
[2018-03-29] MEDS: INSULIN SLIDING SCALE (NOVOLOG) 1 VIAL SQ SCH ×3 (00:17→06:18)
[2018-03-29] MEDS: morphine SULFATE 4 MG/ML VIAL IVPUSH PRN (00:36)
[2018-03-29] MEDS ORDERED: dilTIAZem HCL 25 MG/5 ML - 5 ML VIAL ONE (01:01)
[2018-03-29] MEDS: methylPREDNISolone NA SUCC 40 MG/1 ML VIAL IVPUSH SCH (01:24)
[2018-03-29 06:59] LABS: HEMATOCRIT 33.3 % (32.4-45.2); HEMOGLOBIN 10.8 GM/dL (10.7-15.3); MCH 28.2 pg (25.7-33.7); MCHC 32.4 g/dl (32.0-36.0); MEAN CELL VOLUME 86.8 fl (80-96); MEAN PLT VOLUME 8.6 fl (7.5-11.1); PLATELET COUNT 446 K/MM3 (134-434); RBC 3.84 M/mm3 (3.60-5.2); RDW 15.9 % (11.6-15.6)
[2018-03-29 07:17] LABS: CHLORIDE 126 mmol/L (98-107); POTASSIUM 3.9 mmol/L (3.5-5.1); SODIUM 156 mmol/L (136-145)
[2018-03-29 07:29] LABS: ALBUMIN 1.9 g/dl (3.4-5.0); ALK PHOS 135 U/L (45-117); ANION GAP 13 (8-16); BILIRUBIN,TOTAL 0.6 mg/dL (0.2-1.0); BLOOD UREA NITROGEN 44 mg/dL (7-18); CALCIUM 7.9 mg/dL (8.5-10.1); CO2 17 mmol/L (21-32); CREATININE 1.2 mg/dL (0.55-1.02); PHOSPHOROUS 3.1 mg/dL (2.5-4.9); SGOT/AST 13 U/L (15-37); SGPT/ALT 13 U/L (12-78); TOT PROT 5.1 g/dl (6.4-8.2)
--- NOTE | 2018-03-29 07:32 | PN ---
Physical Exam: SUBJECTIVE: Patient on NRB, opens eyes to sternal rub and verbal stimulation. OBJECTIVE: Vital Signs Period Temp Pulse Resp BP Sys/Bangura Pulse Ox Last 24 Hr 97.6 F-98.5 F 90-160 14-36 114-140/53-79 90-99 General: Responsive to sternal rub CV: S1/S2, irregular Respiratory: CLTA B/L Abdomen: soft Integumentary: B/L UE, LE macularpapular rash, RUE edema Extremity: 2+ DP pulses Laboratory Results - last 24 hr 03/28/18 03/28/18 03/28/18 05:00 10:14 10:31 Neutrophils % (Manual) 98.0 H Band Neutrophils % 0.0 Lymphocytes % (Manual) 0.0 L Monocytes % (Manual) 2 L Eosinophils % (Manual) 0.0 D Basophils % (Manual) 0.0 Myelocytes % (Man) 0 Promyelocytes % (Man) 0 Blast Cells % (Manual) 0 Nucleated RBC % 0 Metamyelocytes 0 Platelet Estimate Increased Poikilocytosis 1+ Ovalocytes 1+ POC Glucometer [phone] Vancomycin Pre-Dose 18.426 H* 03/29/18 06:05 Neutrophils % (Manual) Band Neutrophils % Lymphocytes % (Manual) Monocytes % (Manual) Eosinophils % (Manual) Basophils % (Manual) Myelocytes % (Man) Promyelocytes % (Man) Blast Cells % (Manual) Nucleated RBC % Metamyelocytes Platelet Estimate Poikilocytosis Ovalocytes POC Glucometer [phone] Vancomycin Pre-Dose Active Medications Generic Name Dose Route Start Last Admin Trade Name Freq PRN Reason Stop Dose Admin Clotrimazole 1 applic 03/23/18 10:00 03/28/18 22:00 Lotrimin 1% Cream - TP 1 applic BID BRITTANY Administration Fluconazole 50 mls @ 50 mls/hr 03/23/18 10:00 03/28/18 12:48 Diflucan 100 Mg/D5w Premixed Ivpb - IVPB 50 mls/hr DAILY BRITTANY Administration Diltiazem HCl 125 mg/ Sodium 125 mls @ 5 mls/hr 03/24/18 13:15 03/28/18 16:12 Chloride IVPB 15 mg/hr TITR BRITTANY 15 mls/hr Administration Protocol 5 MG/HR Metronidazole 500 mg in 100 mls @ 100 mls/hr 03/26/18 10:00 03/29/18 01:24 Flagyl 500mg Premixed Ivpb - IVPB 100 mls/hr Q8H-IV BRITTANY Administration Vancomycin HCl 1,250 mg/ 250 mls @ 250 mls/2 hr 03/26/18 10:00 03/28/18 09:39 Dextrose IVPB 250 mls/2 hr DAILY BRITTANY Administration Protocol Levofloxacin 250 mg in 50 mls @ 50 mls/hr 03/26/18 10:00 03/28/18 09:42 Levaquin 250 Mg Premixed Ivpb - IVPB 50 mls/hr DAILY BRITTANY Administration Protocol Insulin Aspart 1 vial 03/27/18 10:00 03/29/18 06:18 Novolog Vial Sliding Scale - SQ 6 units Q4HPO BRITTANY Administration Protocol Methylprednisolone Sodium Succinate 40 mg 03/26/18 10:00 03/29/18 01:24 Solu-Medrol - IVPUSH 40 mg Q8H-IV BRITTANY Administration Metoprolol Tartrate 5 mg 03/24/18 12:19 03/28/18 11:57 Lopressor Injection - IVPUSH 5 mg Q4H PRN Administration HYPERTENSION Morphine Sulfate 2 mg 03/27/18 20:56 03/29/18 00:36 Morphine Sulfate IVPUSH 2 mg Q4H PRN Administration PAIN LEVEL 1 - 3 Nystatin 1 applic 03/23/18 10:00 03/28/18 10:03 Nystop Powder - TP 1 applic DAILY BRITTANY Administration Triamcinolone Acetonide 1 applic 03/26/18 22:00 03/28/18 22:00 Aristocort 0.1% Cream - TP 1 applic BID BRITTANY Administration ASSESSMENT/PLAN: 77 year old female presented to ED with slurred speech, confusion and R sided weakness > 1 day - found to be in acute renal failure (Cr 5.7). Family @ bedside notes 4 day h/o decreased PO intake and patient's sister notes confusion , aphasia noted by family 1 day prior to presentation to our ED. Patient noted to have new L MCA infarct on 03/24. DNR/DNI. Patient made comfort care yesterday (03/28). No further labs, imaging. Will plan for transfer to inpatient medicine floor. Patient is comfort care. Morphine GTT DNR/DNI Visit type - Emergency Visit Emergency Visit: No - New Patient This patient is new to me today: No - Critical Care Critical Care patient: No
[2018-03-29 07:40] LABS: WHITE BLOOD COUNT 45.5 K/mm3 (4.0-10.0)
[2018-03-29 07:44] LABS: GLUCOSE,RANDOM 423 mg/dL (74-106)
[2018-03-29] MEDS ORDERED: MORPHINE 100 MG in SODIUM CHLORIDE 98 ML IVPB SCH (08:15)
--- NOTE | 2018-03-29 08:18 | PN ---
Physical Exam: SUBJECTIVE: Patient seen and examined in the ICU. Pt remains poorly responsive. Pt is now Comfort Measures Only. No acute events overnight. OBJECTIVE: Vital Signs Period Temp Pulse Resp BP Sys/Bangura Pulse Ox Last 24 Hr 97.6 F-98.5 F 90-160 14-36 114-140/54-79 90-98 GENERAL: poorly responsive; anasarca LUNGS: scattered rhonchi HEART: irregularly irregular, +S1/S2 ABDOMEN: MELANI drain with bile fluid draining EXTREMITIES: Warm, well-perfused SKIN: diffuse intense erythema; maculopapular rash entire body; spares palms Laboratory Results - last 24 hr 03/28/1818 03/28/18 05:00 10:14 10:31 WBC RBC Hgb Hct MCV MCH MCHC RDW Plt Count MPV Neutrophils % Neutrophils % (Manual) 98.0 H Band Neutrophils % 0.0 Lymphocytes % Lymphocytes % (Manual) 0.0 L Monocytes % (Manual) 2 L Eosinophils % (Manual) 0.0 D Basophils % (Manual) 0.0 Myelocytes % (Man) 0 Promyelocytes % (Man) 0 Blast Cells % (Manual) 0 Nucleated RBC % 0 Metamyelocytes 0 Platelet Estimate Increased Poikilocytosis 1+ Ovalocytes 1+ Sodium Potassium Chloride Carbon Dioxide Anion Gap BUN Creatinine Creat Clearance w eGFR POC Glucometer [phone] Random Glucose Calcium Phosphorus Magnesium Total Bilirubin AST ALT Alkaline Phosphatase Total Protein Albumin Vancomycin Pre-Dose 18.426 H* 03/29/1818 18 05:23 05:23 06:05 WBC 45.5 H* RBC 3.84 Hgb 10.8 Hct 33.3 MCV 86.8 MCH 28.2 MCHC 32.4 RDW 15.9 H Plt Count 446 H MPV 8.6 Neutrophils % No Result Required. Neutrophils % (Manual) Band Neutrophils % Lymphocytes % No Result Required. Lymphocytes % (Manual) Monocytes % (Manual) Eosinophils % (Manual) Basophils % (Manual) Myelocytes % (Man) Promyelocytes % (Man) Blast Cells % (Manual) Nucleated RBC % 0 Metamyelocytes Platelet Estimate Poikilocytosis Ovalocytes Sodium 156 H Potassium 3.9 Chloride 126 H Carbon Dioxide 17 L Anion Gap 13 BUN 44 H Creatinine 1.2 H Creat Clearance w eGFR 43.68 POC Glucometer 283.76339 Random Glucose 423 H* Calcium 7.9 L Phosphorus 3.1 Magnesium 2.0 Total Bilirubin 0.6 D AST 13 L ALT 13 Alkaline Phosphatase 135 H Total Protein 5.1 L Albumin 1.9 L Vancomycin Pre-Dose Active Medications Generic Name Dose Route Start Last Admin Trade Name Freq PRN Reason Stop Dose Admin Clotrimazole 1 applic 03/23/18 10:00 03/28/18 22:00 Lotrimin 1% Cream - TP 1 applic BID BRITTANY Administration Fluconazole 50 mls @ 50 mls/hr 03/23/18 10:00 03/28/18 12:48 Diflucan 100 Mg/D5w Premixed Ivpb - IVPB 50 mls/hr DAILY BRITTANY Administration Diltiazem HCl 125 mg/ Sodium 125 mls @ 5 mls/hr 03/24/18 13:15 03/28/18 16:12 Chloride IVPB 15 mg/hr TITR BRITTANY 15 mls/hr Administration Protocol 5 MG/HR Morphine Sulfate 100 mg/ 100 mls @ 4 mls/hr 03/29/18 08:15 Sodium Chloride IVPB 03/30/18 08:14 TITR BRITTANY Protocol 4 MG/HR Insulin Aspart 1 vial 03/27/18 10:00 03/29/18 06:18 Novolog Vial Sliding Scale - SQ 6 units Q4HPO BRITTANY Administration Protocol Methylprednisolone Sodium Succinate 40 mg 03/26/18 10:00 03/29/18 01:24 Solu-Medrol - IVPUSH 40 mg Q8H-IV BRITTANY Administration Metoprolol Tartrate 5 mg 03/24/18 12:19 03/28/18 11:57 Lopressor Injection - IVPUSH 5 mg Q4H PRN Administration HYPERTENSION Morphine Sulfate 2 mg 03/27/18 20:56 03/29/18 00:36 Morphine Sulfate IVPUSH 2 mg Q4H PRN Administration PAIN LEVEL 1 - 3 Nystatin 1 applic 03/23/18 10:00 03/28/18 10:03 Nystop Powder - TP 1 applic DAILY BRITTANY Administration Triamcinolone Acetonide 1 applic 03/26/18 22:00 03/28/18 22:00 Aristocort 0.1% Cream - TP 1 applic BID BRITTANY Administration ASSESSMENT/PLAN: 77F with PMH of multiple CVAs, paroxysmal afib (on Eliquis), presented with Left facial droop and Right arm weakness, found to have a new stroke and sepsis 2/2 GNB bacteremia, admitted to the ICU. # severe sepsis 2/2 klebsiella bacteremia and klebsiella bacteriuria - suspect necrotic gallbladder - MELANI drain to gallbladder continues to drain bile - drug reaction severe rash persists throughout - leukocyotosis continues to increase - Further medical therapy with antibiotics seems to be without benefit for pt. Antibiotics will be discontinued. # dispo - Comfort Measures Only Plan discussed with Dr. Quach. Visit type - Emergency Visit Emergency Visit: Yes ED Registration Date: 03/22/18 Care time: The patient presented to the Emergency Department on the above date and was hospitalized for further evaluation of their emergent condition. - New Patient This patient is new to me today: No - Critical Care Critical Care patient: Yes Total Critical Care Time (in minutes): 39 Critical Care Statement: The care of this patient involved high complexity decision making to prevent further life threatening deterioration of the patient 's condition and/or to evaluate & treat vital organ system(s) failure or risk of failure.
[2018-03-29] MEDS ORDERED: morphine SULFATE 4 MG/ML VIAL ONE (08:41)
--- NOTE | 2018-03-29 09:44 | PN ---
Progress Note, Physician Chief Complaint: ID Discussed critical status and end of life issues with Dr Kumar I suspect she has undrained collection related to her gallbladder this the cause of the elevated WBC - Current Medication List Current Medications: Active Medications Clotrimazole (Lotrimin 1% Cream -) 1 applic TP BID BRITTANY Last Admin: 03/28/18 22:00 Dose: 1 applic Morphine Sulfate 100 mg/ (Sodium Chloride) 100 mls @ 4 mls/hr IVPB TITR BRITTANY; Protocol Stop: 03/30/18 08:14 Last Admin: 03/29/18 09:20 Dose: 4 mg/hr, 4 mls/hr Methylprednisolone Sodium Succinate (Solu-Medrol -) 40 mg IVPUSH Q8H-IV BRITTANY Last Admin: 03/29/18 01:24 Dose: 40 mg Morphine Sulfate (Morphine Sulfate) 2 mg IVPUSH Q4H PRN PRN Reason: PAIN LEVEL 1 - 3 Last Admin: 03/29/18 00:36 Dose: 2 mg Triamcinolone Acetonide (Aristocort 0.1% Cream -) 1 applic TP BID BRITTANY Last Admin: 03/28/18 22:00 Dose: 1 applic - Objective Vital Signs: Vital Signs Temperature 98.1 F 03/29/18 08:00 Pulse Rate 123 H 03/29/18 08:00 Respiratory Rate 24 03/29/18 08:00 Blood Pressure 104/53 03/29/18 08:00 O2 Sat by Pulse Oximetry (%) 91 L 03/29/18 08:00 Gastrointestinal: Yes: Soft. No: Tenderness Integumentary: Yes: Rash Labs: CBC, BMP 03/29/18 05:23 03/29/18 05:23 INR, PTT INR 1.29 (0.82-1.09) H 03/26/18 05:10 Problem List - Problems (1) UTI (urinary tract infection) Code(s): N39.0 - URINARY TRACT INFECTION, SITE NOT SPECIFIED (2) CVA (cerebral vascular accident) Code(s): I63.9 - CEREBRAL INFARCTION, UNSPECIFIED Qualifiers: CVA mechanism: embolism Qualified Code(s): I63.9 - Cerebral infarction, unspecified (3) Cholecystitis with cholangitis Code(s): K81.9 - CHOLECYSTITIS, UNSPECIFIED; K83.0 - CHOLANGITIS (4) Diabetes mellitus Code(s): E11.9 - TYPE 2 DIABETES MELLITUS WITHOUT COMPLICATIONS Qualifiers: Diabetes mellitus type: type 2 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 mellitus long line teamster insulin use: with mcc use Diabetes mellitus complication status: with neurologic complications (5) Acute renal failure Code(s): N17.9 - ACUTE KIDNEY FAILURE, UNSPECIFIED (6) Sacral decubitus ulcer Code(s): L89.159 - PRESSURE ULCER OF SACRAL REGION, UNSPECIFIED STAGE (7) Drug rash Code(s): L27.0 - GEN SKIN ERUPTION DUE TO DRUGS AND MEDS TAKEN INTERNALLY Assessment/Plan Microbiology 03/23/18 09:00 Bile Gram Stain - Final 03/23/18 09:00 Bile Anaerobic Culture - Final Klebsiella Pneumoniae Enterococcus Faecalis NO ANAEROBES WERE ISOLATED 03/22/18 15:30 Throat Throat Culture - Final 03/22/18 15:30 Throat Group A Strep Rapid Antigen - Final Klebsiella Pneumoniae 03/22/18 13:05 Urine - Urine Clean Catch Urine Culture - Final Klebsiella Pneumoniae 03/22/18 16:15 Blood - Peripheral Venous Blood Culture - Preliminary Lactose Fermenting Neg Bacilli Laboratory Tests 03/29/18 05:23 WBC 45.5 H* Plt Count 446 H Assessment Klebsiella sepsis bacteremia ? Necrotic gallbladder and or biliary collection Massive strokes Exetensive rash Plan At this time further medical therapy antibiotic alone seems without benefit She is not a candidate for any intervention Will stop all antibiotics taper steroids Mani AVILA
[2018-03-29] MEDS ORDERED: methylPREDNISolone NA SUCC 40 MG/1 ML VIAL IVPUSH SCH (10:00)
[2018-03-29] MEDS: TRIAMCINOLONE ACET 0.1% CREAM 15 GM TUBE TP SCH ×2 (10:21→22:40)
--- NOTE | 2018-03-29 10:28 | PN ---
Progress Note (short form) - Note Progress Note: 77 y/o female found in ICU. Unable to respond to verbal and tactile stimulation. Friends present at bedside. Vital Signs Period Temp Pulse Resp BP Sys/Bangura Pulse Ox Last 24 Hr 97.6 F-98.2 F 90-160 14-36 102-140/53-79 90-94 CBC, BMP 03/29/18 05:23 03/29/18 05:23 HEENT- Sunken fontanelles, O2 in place, eyes open but rolled up Neck-supple Lungs- Labored breathing Heart- S1/S2 Abd- Pos BS x 4, soft, NT, cholecystestomy tube in place Skin- Erythematous and blotchy areas covering entire body - Nava intact- Urine clear and yellow Ext- No LE edema Active Medications Clotrimazole (Lotrimin 1% Cream -) 1 applic TP BID [facility] Last Admin: 03/28/18 22:00 Dose: 1 applic Morphine Sulfate 100 mg/ (Sodium Chloride) 100 mls @ 4 mls/hr IVPB TITR BRITTANY; Protocol Stop: 03/30/18 08:14 Last Admin: 03/29/18 09:20 Dose: 4 mg/hr, 4 mls/hr Methylprednisolone Sodium Succinate (Solu-Medrol -) 40 mg IVPUSH DAILY [facility] Morphine Sulfate (Morphine Sulfate) 2 mg IVPUSH Q4H PRN PRN Reason: PAIN LEVEL 1 - 3 Last Admin: 03/29/18 00:36 Dose: 2 mg Triamcinolone Acetonide (Aristocort 0.1% Cream -) 1 applic TP BID [facility] Last Admin: 03/29/18 10:21 Dose: 1 applic Assmt / plan- Palliative care Maintain comfort measures- Morphine IV for pain given Awaiting Morphine drip #CVA not responsive recent CT scan revealed large left MCA infarction in addition to previous infarcts. # rash bulls-eye shaped lesions -- Erythema Multiforme IV steroids Antibiotics Dc'd # sepsis Rash ?? 2/2 to meds? all abx dc'd cholecystostomy tube in place # COPD O2 / follow sats
[2018-03-29] MEDS ORDERED: morphine SULFATE 4 MG/ML VIAL IVPUSH ONE (11:27)
[2018-03-29] MEDS: CLOTRIMAZOLE 1% CREAM 15 GM TUBE TP SCH ×2 (11:51→22:41)
--- NOTE | 2018-03-29 12:12 | PN ---
Teaching Attending Note Name of Resident: Annette Camacho ATTENDING PHYSICIAN STATEMENT I saw and evaluated the patient. I reviewed the resident's note and discussed the case with the resident. I agree with the resident's findings and plan as documented. SUBJECTIVE: Patient seen and examined in the ICU. Lethargic on morphine sulfate drip. DNR/DNI Intake & Output 03/26/18 03/27/18 03/28/18 03/29/18 23:59 23:59 23:59 23:59 Intake Total 2410 2526 1745 295 Output Total 1300 1520 3320 600 Balance 1110 1006 -1575 -305 Weight 171 lb 12.8 oz 172 lb 2.896 oz 160 lb 7 oz 157 lb 6.4 oz Last Vital Signs Temp Pulse Resp BP Pulse Ox 98.1 F 110 H 14 100/53 91 L 03/29/18 12:00 03/29/18 12:00 03/29/18 12:00 03/29/18 12:00 03/29/18 08:00 Active Medications Clotrimazole (Lotrimin 1% Cream -) 1 applic TP BID [facility] Last Admin: 03/29/18 11:51 Dose: 1 applic Morphine Sulfate 100 mg/ (Sodium Chloride) 100 mls @ 4 mls/hr IVPB TITR [facility]; Protocol Stop: 03/30/18 08:14 Last Admin: 03/29/18 09:20 Dose: 4 mg/hr, 4 mls/hr Methylprednisolone Sodium Succinate (Solu-Medrol -) 40 mg IVPUSH DAILY [facility] Last Admin: 03/29/18 10:00 Dose: 40 mg Morphine Sulfate (Morphine Sulfate) 2 mg IVPUSH Q4H PRN PRN Reason: PAIN LEVEL 1 - 3 Last Admin: 03/29/18 00:36 Dose: 2 mg Triamcinolone Acetonide (Aristocort 0.1% Cream -) 1 applic TP BID [facility] Last Admin: 03/29/18 10:21 Dose: 1 applic Gen: Lethargic, NAD Heart: tachycardic, irregular Lung: scattered rhonchi Abd: soft, nontender Ext: no edema Skin: scattered rash improving Laboratory Results - last 24 hr 03/28/18 03/29/18 03/29/18 10:31 05:23 05:23 WBC 45.5 H* RBC 3.84 Hgb 10.8 Hct 33.3 MCV 86.8 MCH 28.2 MCHC 32.4 RDW 15.9 H Plt Count 446 H MPV 8.6 Neutrophils % No Result Required. Lymphocytes % No Result Required. Nucleated RBC % 0 Sodium 156 H Potassium 3.9 Chloride 126 H Carbon Dioxide 17 L Anion Gap 13 BUN 44 H Creatinine 1.2 H Creat Clearance w eGFR 43.68 POC Glucometer Random Glucose 423 H* Calcium 7.9 L Phosphorus 3.1 Magnesium 2.0 Total Bilirubin 0.6 D AST 13 L ALT 13 Alkaline Phosphatase 135 H Total Protein 5.1 L Albumin 1.9 L Vancomycin Pre-Dose 18.426 H* 03/29/18 06:05 WBC RBC Hgb Hct MCV MCH MCHC RDW Plt Count MPV Neutrophils % Lymphocytes % Nucleated RBC % Sodium Potassium Chloride Carbon Dioxide Anion Gap BUN Creatinine Creat Clearance w eGFR POC Glucometer [phone] Random Glucose Calcium Phosphorus Magnesium Total Bilirubin AST ALT Alkaline Phosphatase Total Protein Albumin Vancomycin Pre-Dose A/P Drug eruption UTI Gram Negative Bacteremia Severe Sepsis Acute Kidney Injury Hyperkalemia improved Metabolic Acidosis Altered Mental Status Acute CVA Atrial Fibrillation with RVR DM COPD - Morphine sulfate titrated to comfort - Aspiration precautions - Comfort / supportive measures Dr Gonsalves
--- NOTE | 2018-03-29 14:52 | PN ---
Progress Note (short form) - Note Progress Note: Saw patient this AM with family at bedside. Notified that they have decided to procede with "comfort care". Given her poor overall prognosis, and poor neurologic prognosis this is in my opinion entirely appropriate. We'll sign off at this point, but please alert us if further questions arise. Thanks. Problem List - Problems (1) CVA (cerebral vascular accident) Code(s): I63.9 - CEREBRAL INFARCTION, UNSPECIFIED Qualifiers: CVA mechanism: embolism Qualified Code(s): I63.9 - Cerebral infarction, unspecified
[2018-03-29 15:01] LABS: ANISOCYTOSIS 1+; MACROCYTOSIS 1+; PLATELET ESTIMATE NORMAL
--- NOTE | 2018-03-29 15:49 | PN ---
Progress Note, Physician History of Present Illness: Pt seen at bedside earlier today. Family have decided to proceed with comfort care. - Current Medication List Current Medications: Active Medications Clotrimazole (Lotrimin 1% Cream -) 1 applic TP BID [facility] Last Admin: 03/29/18 11:51 Dose: 1 applic Morphine Sulfate 100 mg/ (Sodium Chloride) 100 mls @ 4 mls/hr IVPB TITR [facility]; Protocol Stop: 03/30/18 08:14 Last Admin: 03/29/18 09:20 Dose: 4 mg/hr, 4 mls/hr Methylprednisolone Sodium Succinate (Solu-Medrol -) 40 mg IVPUSH DAILY [facility] Last Admin: 03/29/18 10:00 Dose: 40 mg Morphine Sulfate (Morphine Sulfate) 2 mg IVPUSH Q4H PRN PRN Reason: PAIN LEVEL 1 - 3 Last Admin: 03/29/18 00:36 Dose: 2 mg Triamcinolone Acetonide (Aristocort 0.1% Cream -) 1 applic TP BID [facility] Last Admin: 03/29/18 10:21 Dose: 1 applic - Objective Vital Signs: Vital Signs Temperature 98.1 F 03/29/18 14:00 Pulse Rate 107 H 03/29/18 14:00 Respiratory Rate 14 03/29/18 14:00 Blood Pressure 98/53 03/29/18 14:00 O2 Sat by Pulse Oximetry (%) 91 L 03/29/18 08:00 Labs: CBC, BMP 03/29/18 05:23 03/29/18 05:23 INR, PTT INR 1.29 (0.82-1.09) H 03/26/18 05:10 Problem List - Problems (1) Acute renal failure Code(s): N17.9 - ACUTE KIDNEY FAILURE, UNSPECIFIED (2) Hyperkalemia Code(s): E87.5 - HYPERKALEMIA (3) Hyponatremia Code(s): E87.1 - HYPO-OSMOLALITY AND HYPONATREMIA (4) CVA (cerebral vascular accident) Code(s): I63.9 - CEREBRAL INFARCTION, UNSPECIFIED Qualifiers: CVA mechanism: embolism Qualified Code(s): I63.9 - Cerebral infarction, unspecified Assessment/Plan Current Medications Generic Name Dose Route Start Last Admin Trade Name Freq PRN Reason Stop Dose Admin Clotrimazole 1 applic 03/23/18 10:00 03/29/18 11:51 Lotrimin 1% Cream - TP 1 applic BID [facility] Administration Morphine Sulfate 100 mg/ 100 mls @ 4 mls/hr 03/29/18 08:15 03/29/18 09:20 Sodium Chloride IVPB 03/30/18 08:14 4 mg/hr TITR [facility] 4 mls/hr Administration Protocol 4 MG/HR Methylprednisolone Sodium Succinate 40 mg 03/29/18 10:00 03/29/18 10:00 Solu-Medrol - IVPUSH 40 mg DAILY [facility] Administration Morphine Sulfate 2 mg 03/27/18 20:56 03/29/18 00:36 Morphine Sulfate IVPUSH 2 mg Q4H PRN Administration PAIN LEVEL 1 - 3 Triamcinolone Acetonide 1 applic 03/26/18 22:00 03/29/18 10:21 Aristocort 0.1% Cream - TP 1 applic BID [facility] Administration Impression 1. ELÍAS 2. hyperkalemia 3. sepsis 4. hyponatremia 5. DM uncontrolled 6. COPD 7. CVA 8. hypomagnesemia Plan - pt now on comfort care - will follow as needed - discussed with ICU team Dr Burdick
[2018-03-30 06:51] VITALS: BP 66/27; PULSE 111; TEMP 99.4
--- NOTE | 2018-03-30 07:56 | PN ---
Physical Exam: SUBJECTIVE: Patient sleeping, minimally responsive to sternal rub. OBJECTIVE: General: asleep, minimally responsive Respiratory: labored respiration CV: S1/S2, no M/R/G Abdomen: soft, (+) BS Vital Signs Period Temp Pulse Resp BP Sys/[place] Pulse Ox Last 24 Hr 97.8 F-99.4 F 103-123 10-24 66-104/27-54 91-91 Laboratory Results - last 24 hr 03/29/18 05:23 Neutrophils % (Manual) 97.9 H Band Neutrophils % 0.0 Lymphocytes % (Manual) 1.1 L D Monocytes % (Manual) 1 L Eosinophils % (Manual) 0.0 Basophils % (Manual) 0.0 Myelocytes % (Man) 0 Promyelocytes % (Man) 0 Blast Cells % (Manual) 0 Metamyelocytes 0 Platelet Estimate Normal Polychromasia 1+ Anisocytosis 1+ Microcytosis 1+ Macrocytosis 1+ Schistocytes 1+ Active Medications Generic Name Dose Route Start Last Admin Trade Name Freq PRN Reason Stop Dose Admin Clotrimazole 1 applic 03/23/18 10:00 03/29/18 22:41 Lotrimin 1% Cream - TP 1 applic BID [facility] Administration Morphine Sulfate 100 mg/ 100 mls @ 4 mls/hr 03/29/18 08:15 03/29/18 09:20 Sodium Chloride IVPB 03/30/18 08:14 4 mg/hr TITR [facility] 4 mls/hr Administration Protocol 4 MG/HR Methylprednisolone Sodium Succinate 40 mg 03/29/18 10:00 03/29/18 10:00 Solu-Medrol - IVPUSH 40 mg DAILY [facility] Administration Morphine Sulfate 2 mg 03/27/18 20:56 03/29/18 00:36 Morphine Sulfate IVPUSH 2 mg Q4H PRN Administration PAIN LEVEL 1 - 3 Triamcinolone Acetonide 1 applic 03/26/18 22:00 03/29/18 22:40 Aristocort 0.1% Cream - TP 1 applic BID [facility] Administration ASSESSMENT/PLAN: 77 year old female presented to ED with slurred speech, confusion and R sided weakness > 1 day - found to be in acute renal failure (Cr 5.7) as well as CVA x2. Patient DNR/DNI and comfort care. Morphine GTT Patient is comfort care. DNR/DNI Visit type - Emergency Visit Emergency Visit: No - New Patient This patient is new to me today: No - Critical Care Critical Care patient: No
--- NOTE | 2018-03-30 10:32 | PN ---
Progress Note (short form) - Note Progress Note: 77 y/o female found lying in bed, unresponsive but appears comfortable. son at bedside. Vital Signs Period Temp Pulse Resp BP Sys/[place] Pulse Ox Last 24 Hr 97.8 F-99.4 F 103-112 10-14 66-100/27-54 91-91 HEENT- Sunken Fontanelles, Eyes open but lt pupil rolled up Neck- Supple Lungs- CTAB. Breathing slightly labored Heart- S1/S2 Abd- Pos BS x 4, soft, NT. Cholestostomy drain in place with dark brown exudate - Nava Intact- urine clear/yellow Ext- Edematous UE/ LE. Erythema throughout body. Active Medications Clotrimazole (Lotrimin 1% Cream -) 1 applic TP BID [facility] Last Admin: 03/29/18 22:41 Dose: 1 applic Methylprednisolone Sodium Succinate (Solu-Medrol -) 40 mg IVPUSH DAILY [facility] Last Admin: 03/29/18 10:00 Dose: 40 mg Morphine Sulfate (Morphine Sulfate) 2 mg IVPUSH Q4H PRN PRN Reason: PAIN LEVEL 1 - 3 Last Admin: 03/29/18 00:36 Dose: 2 mg Triamcinolone Acetonide (Aristocort 0.1% Cream -) 1 applic TP BID [facility] Last Admin: 03/29/18 22:40 Dose: 1 applic Assmt / plan- Comfort care Son present at bedside Maintain comfort measures- Morphine for pain #
--- NOTE | 2018-03-30 11:41 | PN ---
Teaching Attending Note Name of Resident: Annette Camacho ATTENDING PHYSICIAN STATEMENT I saw and evaluated the patient. I reviewed the resident's note and discussed the case with the resident. I agree with the resident's findings and plan as documented. SUBJECTIVE: Patient seen and examined in the ICU. Lethargic on morphine sulfate drip. DNR/DNI Intake & Output 03/27/18 03/28/18 03/29/18 03/30/18 23:59 23:59 23:59 23:59 Intake Total 2526 1745 333 155 Output Total 1520 3320 1400 65 Balance 1006 1575 -1067 90 Weight 172 lb 2.896 oz 160 lb 7 oz 157 lb 6.4 oz 157 lb 6.4 oz Last Vital Signs Temp Pulse Resp BP Pulse Ox 99.4 F 111 H 10 L 66/27 91 L 03/30/18 06:00 03/30/18 06:00 03/30/18 09:00 03/30/18 06:00 03/30/18 09:00 Active Medications Clotrimazole (Lotrimin 1% Cream -) 1 applic TP BID [facility] Last Admin: 03/29/18 22:41 Dose: 1 applic Methylprednisolone Sodium Succinate (Solu-Medrol -) 40 mg IVPUSH DAILY [facility] Last Admin: 03/29/18 10:00 Dose: 40 mg Morphine Sulfate (Morphine Sulfate) 2 mg IVPUSH Q4H PRN PRN Reason: PAIN LEVEL 1 - 3 Last Admin: 03/29/18 00:36 Dose: 2 mg Triamcinolone Acetonide (Aristocort 0.1% Cream -) 1 applic TP BID [facility] Last Admin: 03/29/18 22:40 Dose: 1 applic Gen: Lethargic, NAD Heart: tachycardic, irregular Lung: scattered rhonchi Abd: soft, nontender Ext: no edema Skin: scattered rash improving Laboratory Results - last 24 hr 03/29/18 05:23 Neutrophils % (Manual) 97.9 H Band Neutrophils % 0.0 Lymphocytes % (Manual) 1.1 L D Monocytes % (Manual) 1 L Eosinophils % (Manual) 0.0 Basophils % (Manual) 0.0 Myelocytes % (Man) 0 Promyelocytes % (Man) 0 Blast Cells % (Manual) 0 Metamyelocytes 0 Platelet Estimate Normal Polychromasia 1+ Anisocytosis 1+ Microcytosis 1+ Macrocytosis 1+ Schistocytes 1+ A/P Drug eruption UTI Gram Negative Bacteremia Severe Sepsis Acute Kidney Injury Hyperkalemia improved Metabolic Acidosis Altered Mental Status Acute CVA Atrial Fibrillation with RVR DM COPD Morphine sulfate titrated to comfort Aspiration precautions Comfort / supportive measures Dr Gonsalves
== END 2018-03-30 15:50 | disposition expired | DRG 871 ==
LOC: JER 12:44 → JERBED 15:36 → JICU 03-23 01:57
PROVIDERS: ADMIT Family Medicine; ATTEND Family Medicine
DX: A41.9 Sepsis, unspecified organism (principal); I63.9 Cerebral infarction, unspecified; E87.1 Hypo-osmolality and hyponatremia; N17.9 Acute kidney failure, unspecified; N39.0 Urinary tract infection, site not specified; E87.2 Acidosis; R65.20 Severe sepsis without septic shock; E87.5 Hyperkalemia; I48.0 Paroxysmal atrial fibrillation; R41.82 Altered mental status, unspecified; J44.9 Chronic obstructive pulmonary disease, unspecified; E11.65 Type 2 diabetes mellitus with hyperglycemia; E83.42 Hypomagnesemia; L27.0 Generalized skin eruption due to drugs and medicaments taken internally; K81.9 Cholecystitis, unspecified; D72.829 Elevated white blood cell count, unspecified; L89.150 Pressure ulcer of sacral region, unstageable; L89.610 Pressure ulcer of right heel, unstageable
CPT/HCPCS: 36415; 36600; 70450-TC; 70496-TC; 70498-TC; 71045-TC-FY; 76775-TC; 80053; 81003; 81015; 82465; 82550; 82553; 82570; 82803; 82947; 82962; 83516; 83520; 83605; 83718; 83721; 83735; 84100; 84132; 84300; 84478; 84484; 85025; 85027; 85610; 85730; 86038; 86140; 86225; 86256; 86704; 86706; 86708; 86850; 86900; 86901; 87040; 87070; 87075; 87086; 87186; 87205; 87324; 87340; 87430; 87449; 87522; 93005; 93010; 94640; 99285-25; G0480; J0131; J7030